=== PATIENT | male | born 1965 | race Caucasian/White ===

== ENCOUNTER 2016-12-12 09:55 | Inpatient (IN) | payer OTHER ==
--- NOTE | 2016-12-12 10:09 | PDOC ---
History of Present Illness - History of Present Illness Initial Comments: 12/12/16 10:56 Patient is a 51 year old male accompanied by brother, with significant medial hx of HTN, HLD and seizures (s/p garett holes) who is presenting to the ED s/p seizure from this morning. Seizure was witnessed by his brother who states that the patient stared off into space. Brother reports this is the usual pattern of the patients seizures. He notes that the patients last seizure was six months ago. Denies any shaking, tongue biting, vomiting, or convulsions. <Meera Ramirez - Last Filed: 12/12/16 13:12> - General History Source: Patient Exam Limitations: No Limitations <Stacey Chisholm - Last Filed: 12/16/16 11:34> - General Stated Complaint: Seizure Time Seen by Provider: 12/12/16 10:04 Past History <Meera Ramirez - Last Filed: 12/12/16 13:12> - Past Medical History Anemia: No Asthma: No Cancer: No Cardiac Disorders: No CVA: No COPD: No CHF: No Dementia: No Diabetes: No GI Disorders: No Disorders: No HTN: Yes Hypercholesterolemia: Yes Liver Disease: No Suicide Attempt (Hx): No Seizures: No (seizure) Thyroid Disease: No - Surgical History Abdominal Surgery: No Appendectomy: No Cardiac Surgery: No Cholecystectomy: No Lung Surgery: No Neurologic Surgery: No Orthopedic Surgery: No - Immunization History Immunization Up to Date: Yes - Psycho/Social/Smoking Cessation Hx Anxiety: No Suicidal Ideation: No Smoking Status: No Smoking History: Never smoked Have you smoked in the past 12 months: No Number of Cigarettes Smoked Daily: 0 Cigars Per Day: 0 Hx Alcohol Use: No Drug/Substance Use Hx: No Substance Use Type: None Hx Substance Use Treatment: No <Stacey Chisholm - Last Filed: 12/16/16 11:34> - Past Medical History Allergies/Adverse Reactions: Allergies Allergy/AdvReac Type Severity Reaction Status Date / Time No Known Drug Allergies Allergy Verified 12/12/16 10:54 Home Medications: Ambulatory Orders Paroxetine HCl [Paxil -] 10 mg PO DAILY 09/03/15 Simvastatin [Zocor -] 20 mg PO HS 09/03/15 Levetiracetam [Keppra -] 1,250 mg PO BID #100 tablet 06/11/16 Aspirin Coated [Ecotrin -] 81 mg PO DAILY #90 tab 12/16/16 Divalproex *ER* [Depakote *ER* -] 1,000 mg PO BID #60 tab 12/16/16 Metoprolol Tartrate [Lopressor -] 25 mg PO BID #60 tablet 12/16/16 Tamsulosin HCl [Flomax -] 0.4 mg PO DAILY@0830 #30 tab 12/16/16 Review of Systems - Review of Systems Comments:: 12/12/16 10:56 GENERAL/CONSTITUTIONAL: No: fever, chills, weakness, loss of appetite. HEAD, EYES, EARS, NOSE AND THROAT: No: change in vision, ear pain, discharge, sore throat, throat swelling. CARDIOVASCULAR: No: chest pain, lightheadedness, palpitations, syncope RESPIRATORY: No: cough, shortness of breath, wheezing, hemoptysis, stridor. GASTROINTESTINAL: No: nausea, vomiting, abdominal cramping, diarrhea, rectal bleeding, constipation. GENITOURINARY: No: dysuria, hematuria, frequency, urgency, flank pain. MUSCULOSKELET AL: No: back pain, neck pain, joint pain, muscle swelling or pain SKIN AND BREASTS: No: lesions, pallor, rash or easy bruising. NEUROLOGIC: Yes: seizure. No: headache, vertigo, paresthesias, weakness ENDOCRINE: No: unexplained weight gain or loss HEMATOLOGIC/LYMPHATIC: No: anemia, easy bleeding, swelling nodes <Ashley,Meera - Last Filed: 12/12/16 13:12> *Physical Exam - Vital Signs Last Vital Signs Temp Pulse Resp BP Pulse Ox 100.8 F H 117 H 20 139/93 100 12/12/16 10:00 12/12/16 10:00 12/12/16 10:00 12/12/16 10:00 12/12/16 10:00 - Physical Exam Comments: 12/12/16 10:57 GENERAL: Attempting to answer questions but having difficulty. Postictal. The patient is in no acute distress. HEAD: Normal with no signs of trauma. EYES: Eyes open, looking to the left. PERRLA, EOMI, sclera anicteric, conjunctiva clear. ENT: Ears normal, nares patent, oropharynx clear without exudates. Moist mucous membranes. NECK: Normal range of motion, supple without lymphadenopathy, JVD, or masses. LUNGS: Breath sounds equal, clear to auscultation bilaterally. No wheezes, and no crackles. HEART: Tachycardic, regular rhythm, normal S1 and S2 without murmur, rub or gallop. ABDOMEN: Soft, nontender, normoactive bowel sounds. No guarding, no rebound. EXTREMITIES: Normal range of motion, no edema. No clubbing or cyanosis. No erythema, or tenderness. NEUROLOGICAL: Moving all extremities. Cranial nerves II through XII grossly intact. Normal speech. No focal neurological deficits. MUSCULOSKELETAL: Back non-tender to palpation, no CVA tenderness SKIN: Warm, Dry, normal turgor, no rashes or lesions noted. <Meera Ramirez - Last Filed: 12/12/16 13:12> Heart Score/ECG Review #1 ECG reviewed & interpreted by me at: 12:45 <Stacey Chisholm - Last Filed: 12/16/16 11:34> ED Treatment Course - LABORATORY CBC & Chemistry Diagram: 12/12/16 11:47 12/12/16 11:47 - RADIOLOGY Radiograph Interpretation: 12/12/16 11:34 Chest X-Ray Impression: Improvement since prior study as described. Reported By: Javier Villegas MD 12/12/16 13:[address] Impression: No evidence of acute intracranial hemorrhage, edema, midline shift, mass effect , or skull fracture. No CT evidence of acute territorial infarction. No interval change from June 11, 2016. Reported By: Flakito Humphrey MD <Meera Ramirez - Last Filed: 12/12/16 13:12> - LABORATORY CBC & Chemistry Diagram: 12/15/16 10:11 12/15/16 10:11 <Stacey Chisholm - Last Filed: 12/16/16 11:34> Medical Decision Making - Critical Care Time Total Critical Care Time (minutes): 35 Critical Care Statement: The care of this patient involved high complexity decision making to prevent further life threatening deterioration of the patient 's condition and/or to evalute & treat vital organ system(s) failure or risk of failure. - Medical Decision Making 12/12/16 10:09 A portion of this note was documented by scribe services under my direction. I have reviewed the details of the note, within reason, and agree with the documentation with the following case summary and management plan written by me. Nursing documentation reviewed and incorporated into medical decision making 12/12/16 11:41 51 yo M presents to the ER via EMS s/p seizure this morning Pt is post ictal Pt brother is available for history He states he went to this patient's room this morning and noted that he was rigid and staring This is how this patient typically presents with a seizure He has sustained no head trauma Was in his usual state of health yesterday on examination: (+) bladder incontinence Pt is somolent Pt arouses with painful stimuli but has not spoken He withdraws from painful stimuli Eyes deviate to the left side DD: seizure, post ictal state, status epilepticus, underlying infection, ? encephalitis Will do labs Will do CT head Will place IV Will give Ativan IV Call placed to Neuro Case reviewed with Elizabeth Will closely monitor on telemetry 12/12/16 12:02 Pt still post ictal Will send to CT 12/12/16 12:41 Laboratory Tests 12/12/16 12/12/16 12/12/16 11:24 11:24 11:24 WBC Hgb Hct Plt Count Neutrophils % Lymphocytes % INR 1.15 H BUN Creatinine Random Glucose Lactic Acid 3.290 H* Creatine Kinase 1260 H D Creatine Kinase Index 0.5 CK-MB (CK-2) 5.834 H Troponin I 0.19 H D 12/12/16 12/12/16 11:47 11:47 WBC 15.5 H D Hgb 12.6 Hct 40.0 Plt Count 166 D Neutrophils % 78.2 D Lymphocytes % 11.6 D INR BUN 13 D Creatinine 1.0 D Random Glucose 113 H Lactic Acid Creatine Kinase Creatine Kinase Index CK-MB (CK-2) Troponin I 12/12/16 12:43 Elevated Lactate Elevated WBC Low grade fever CXR: nml Will give empiric abx Consult placed for Dr Arce 12/12/16 12:[address] arce, likely seizure and underlying toxic-metabolic insult Call placed to Dr. Meadows Will place on Tele Will continuously monitor Will hold on Abx at this time given no source UA pending 12/12/16 14:20 Pt remains post ictal Per chart review, pt has a prolonged post ictal phase on his last admission Will continue to monitor <Phan,Stacey - Last Filed: 12/16/16 11:34> *DC/Admit/Observation/Transfer - Attestations Scribe Attestion: 12/12/16 10:58 Documentation prepared by Meera Ramirez, acting as director medical writing for Stacey Chisholm MD. <Meera Ramirez - Last Filed: 12/12/16 13:12> - Discharge Dispostion Admit: Yes <Stacey Chisholm - Last Filed: 12/16/16 11:34> Diagnosis at time of Disposition: Seizure Qualifiers: Convulsion type: unspecified Qualified Code(s): R56.9 - Unspecified convulsions - Discharge Dispostion Condition at time of disposition: Improved - Prescriptions - Referrals
[2016-12-12] MEDS ORDERED: ACETAMINOPHEN 1000 MG/100 ML VIAL (NON FORMULARY) IVPB ONE (10:22)
[2016-12-12] MEDS ORDERED: SODIUM CHLORIDE 1,000 ML IV STA (10:22)
[2016-12-12] MEDS ORDERED: LORAZEPAM CARPU-JECT 2 MG/ML DISP.SYRIN IVPUSH ONE (10:35)
[2016-12-12 10:54] VITALS: BMI 25.1
[2016-12-12] MEDS ORDERED: ACETAMINOPHEN INJECTION 100 ML IVPB ONE (10:56)
[2016-12-12] MEDS ORDERED: LORAZEPAM CARPU-JECT 2 MG/ML DISP.SYRIN ONE (10:56)
[2016-12-12 11:34] LABS: VENOUS BLOOD GAS HCO3 26.3 meq/L (19-25); VENOUS PH 7.3 (7.32-7.42)
[2016-12-12 11:48] LABS: INR 1.15 (0.82-1.09); PROTHROMBIN TIME (PATIENT) 12.7 SEC (9.98-11.88)
[2016-12-12 11:50] LABS: ACTIVATED PTT 30.9 SECONDS (26.9-34.4)
[2016-12-12 12:05] LABS: BASOPHIL 0.6 % (0-2.0); MCHC 31.5 g/dl (32.0-35.9); MEAN CELL VOLUME 85.7 fl (80-96); MEAN PLT VOLUME 9.1 fl (7.5-11.1); NEUTROPHILS 78.2 % (42.8-82.8); PLATELET COUNT 166 K/MM3 (134-434); RDW 16.9 % (11.9-15.9); WHITE BLOOD COUNT 15.5 K/mm3 (4.0-10.0)
[2016-12-12 12:12] LABS: TROPONIN I 0.19 ng/ml (0.00-0.05)
[2016-12-12 12:31] LABS: ALBUMIN 3.2 g/dl (3.4-5.0); ALK PHOS 75 U/L (45-117); ANION GAP 10 (8-16); BILIRUBIN,TOTAL 0.3 mg/dL (0.2-1.0); CALCIUM 8.5 mg/dL (8.5-10.1); CO2 27 mmol/L (21-32); COCKROFT - GAULT 94.24; GLUCOSE,RANDOM 113 mg/dL (74-106); SGOT/AST 31 U/L (15-37); SGPT/ALT 19 U/L (12-78); TOT PROT 7.6 g/dl (6.4-8.2)
--- NOTE | 2016-12-12 16:21 | HP ---
Admitting History and Physical - Primary Care Physician PCP: Ailyn Meadows - Admission Chief Complaint: seizure History of Present Illness: Patient is a 51 year old male accompanied by brother, with significant medial hx of HTN, HLD and seizures (s/p garett holes) who is presenting to the ED s/p seizure from this morning. Seizure was witnessed by his brother who states that the patient stared off into space. Brother reports this is the usual pattern of the patients seizures. He notes that the patients last seizure was six months ago. Denies any shaking, tongue biting, vomiting, or convulsions. 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 Cardiovascular: Yes: HTN, Hyperlipdemia Psych: Yes: Depression - Smoking History Smoking history: Never smoked Have you smoked in the past 12 months: No Aproximately how many cigarettes per day: 0 - Alcohol/Substance Use Hx Alcohol Use: No - Social History ADL: Family Assistance History of Recent Travel: No Home Medications - Allergies Allergies/Adverse Reactions: Allergies Allergy/AdvReac Type Severity Reaction Status Date / Time No Known Drug Allergies Allergy Verified 12/12/16 10:54 - Home Medications Home Medications: Ambulatory Orders Cyclobenzaprine HCl [Flexeril -] 10 mg PO DAILY PRN 09/03/15 Paroxetine HCl [Paxil -] 10 mg PO DAILY 09/03/15 Simvastatin [Zocor -] 20 mg PO HS 09/03/15 Divalproex *ER* [Depakote *ER* -] 250 mg PO BID #60 tablet.sa 06/11/16 Divalproex [Depakote -] 500 mg PO BID #60 tablet.ec 06/11/16 Levetiracetam [Keppra -] 1,250 mg PO BID #100 tablet 06/11/16 Review of Systems Unable to obtain ROS, reason: clinical condition - Review of Systems Constitutional: reports: Fever Physical Examination Vital Signs: Vital Signs Temperature 99.7 F H 12/12/16 16:01 Pulse Rate 103 H 12/12/16 16:01 Respiratory Rate 18 12/12/16 16:01 Blood Pressure 114/70 12/12/16 16:01 O2 Sat by Pulse Oximetry (%) 100 12/12/16 15:36 Constitutional: Yes: Other (sedated now) Eyes: Yes: Conjunctiva Clear Neck: Yes: Supple Cardiovascular: Yes: Regular Rate and Rhythm Respiratory: Yes: CTA Bilaterally Gastrointestinal: Yes: Normal Bowel Sounds, Soft Edema: No Neurological: Yes: Other (sleepy -- no gaze) Imaging - Results Chest X-ray: Report Reviewed Cat Scan: Report Reviewed EKG: Report Reviewed Problem List - Problems (1) Seizure Code(s): R56.9 - UNSPECIFIED CONVULSIONS Qualifiers: Convulsion type: unspecified Qualified Code(s): R56.9 - Unspecified convulsions (2) Fever Code(s): R50.9 - FEVER, UNSPECIFIED (3) HTN (hypertension) Code(s): I10 - ESSENTIAL (PRIMARY) HYPERTENSION Qualifiers: Hypertension type: essential hypertension Qualified Code(s): I10 - Essential (primary) hypertension (4) Hyperlipidemia Code(s): E78.5 - HYPERLIPIDEMIA, UNSPECIFIED (5) Lactic acid blood increased Code(s): R79.89 - OTHER SPECIFIED ABNORMAL FINDINGS OF BLOOD CHEMISTRY (6) Troponin level elevated Code(s): R74.8 - ABNORMAL LEVELS OF OTHER SERUM ENZYMES Assessment/Plan Monitor on tele seizure precaution continue present meds neuro to follow fall precautions pt has fever/ elevated white count may be due to seizure but no urinalysis yet. will treat empirically for now f/u cultures monitor lactic acid level check depekote level-- recently checked in office last week - both depekote and keppra levels are elevated/ bordeline dvt prophylaxis cardiology eval +ve troponins likely due to stress related ekg - ok - sinus tachy continue fluids will follow
[2016-12-12] MEDS: D5-1/2NS+20 MEQ KCL - 1,000 ML IV SCH (16:52)
[2016-12-12] MEDS ORDERED: LORAZEPAM CARPU-JECT 2 MG/ML DISP.SYRIN IM PRN (17:14)
[2016-12-12] MEDS: ACETAMINOPHEN 1000 MG/100 ML VIAL (NON FORMULARY) IVPB PRN (18:05)
[2016-12-12] MEDS: LEVOFLOXACIN 500 MG IVPB 100 ML IVPB SCH (18:05)
--- NOTE | 2016-12-12 19:39 | CONSULT ---
Consult - text type - Consultation Consultation Note: NEUROLOGY CONSULTAION is greatly appreciated: This 51 yo man lives with his brother. S/P B/L neurosurgical procedures complicated by right hemiparesis an chronic seizure disorder characterized by staring. Now admitted after a seizure with WBC= 12 K. Now on levaquin. Last seizure was 6 mos ago. On Depakote 750 q 12 hrs and levetiracetam 1250 mg q12 hrs. Depakote level = 60 ug% YOLY: S/P B/L frontal garett holes. Sl megancephally (?congenital hydrocephalus?) In diaper. NEURO: Follows simple commands. No useful speech. Full hannah and EOM's. No facial. Gag present. Right hemiparesis with increased reflexes and right Babinski. Withdraws all 4's. IMP: Moderate, B/L cerebral Dysfunction Left cerebral accentuation with Right hemiparesis. Seizure disorder (type uncertain. With staring could be primarily generalized) Exacerbated by toxic-metabolic factors (infection). SUGGEST: Continue antibiotics and hydration. Increase Depakote ER to 1000 mg q12 hrs. Continue Levetiracetam at 1250 q 12 hrs for now. Thank you very much, Sanya Johnson MD
[2016-12-12] MEDS ORDERED: PATIENT'S OWN MEDICATION (NON-FORMULARY) (Simvastatin 20 MG) PO SCH (22:00)
[2016-12-12] MEDS ORDERED: DIVALPROEX NA *ER* EXTEND REL 250 MG TABLET.SA PO SCH ×2 (22:00)
[2016-12-12] MEDS ORDERED: DIVALPROEX SODIUM 500 MG TABLET E.C. PO SCH (22:00)
[2016-12-12] MEDS: HEPARIN NA (PORCINE) 5,000 UNITS/ML 1ML VIAL SQ SCH (22:34)
[2016-12-12] MEDS: DIVALPROEX NA *ER* EXTEND REL 250 MG TABLET.SA PO SCH (22:35)
[2016-12-12] MEDS: levETIRAcetam 500 MG TABLET (FP) PO SCH (22:35)
[2016-12-12] MEDS: ATORVASTATIN CA 10 MG TABLET (FP) PO SCH (22:35)
[2016-12-13] MEDS: ACETAMINOPHEN 1000 MG/100 ML VIAL (NON FORMULARY) IVPB PRN (00:33)
[2016-12-13 07:59] LABS: BASOPHIL 0.6 % (0-2.0); MCHC 32.6 g/dl (32.0-35.9); MEAN CELL VOLUME 85.7 fl (80-96); MEAN PLT VOLUME 8.6 fl (7.5-11.1); NEUTROPHILS 62.9 % (42.8-82.8); PLATELET COUNT 152 K/MM3 (134-434); RDW 16.9 % (11.9-15.9); WHITE BLOOD COUNT 11.3 K/mm3 (4.0-10.0)
[2016-12-13 08:48] LABS: ANION GAP 12 (8-16); BILIRUBIN,TOTAL 0.6 mg/dL (0.2-1.0); CALCIUM 8.7 mg/dL (8.5-10.1); CO2 27 mmol/L (21-32); COCKROFT - GAULT 104.71; CREATININE 0.9 mg/dL (0.7-1.3); GLUCOSE,RANDOM 86 mg/dL (74-106); SGOT/AST 48 U/L (15-37); SGPT/ALT 19 U/L (12-78); TOT PROT 7.2 g/dl (6.4-8.2)
[2016-12-13 09:02] LABS: ALK PHOS 66 U/L (45-117); TROPONIN I 0.05 ng/ml (0.00-0.05)
[2016-12-13 09:11] LABS: URINE APPEARANCE CLEAR; URINE BILIRUBIN NEGATIVE (NEGATIVE); URINE BLOOD NEGATIVE (NEGATIVE); URINE COLOR LTYELLOW; URINE GLUCOSE (UA) NEGATIVE (NEGATIVE); URINE KETONE TRACE (NEGATIVE); URINE LEUK ESTERASE NEGATIVE (NEGATIVE); URINE NITRITE NEGATIVE (NEGATIVE); URINE PROTEIN NEGATIVE (NEGATIVE); URINE UROBILINOGEN NEGATIVE E.U./dl (0.2-1.0)
[2016-12-13] MEDS ORDERED: PT OWN MED DRAWER 7, Y5N ONE (09:31)
[2016-12-13] MEDS: LEVOFLOXACIN 500 MG IVPB 100 ML IVPB SCH (09:41)
[2016-12-13] MEDS: DIVALPROEX NA *ER* EXTEND REL 250 MG TABLET.SA PO SCH ×2 (09:44→21:38)
[2016-12-13] MEDS: levETIRAcetam 500 MG TABLET (FP) PO SCH ×2 (09:45→21:39)
[2016-12-13] MEDS: PARoxetine HCL 10 MG TABLET (FP) PO SCH (09:45)
[2016-12-13] MEDS: HEPARIN NA (PORCINE) 5,000 UNITS/ML 1ML VIAL SQ SCH ×2 (09:46→21:45)
--- NOTE | 2016-12-13 09:55 | PN ---
Progress Note (short form) - Note Progress Note: Pt awake/ comfortable Neuro consult noted denies pain still somewhat confused having fever Vital Signs Temp 99.9 F H 12/13/16 08:59 Pulse 59 L 12/13/16 08:59 Resp 20 12/13/16 08:59 BP 112/60 12/13/16 08:59 Pulse Ox 98 12/12/16 20:35 Intake & Output 12/12/16 12/12/16 12/13/16 11:59 23:59 11:59 Intake Total 220 1250 Balance 220 1250 Weight 170 lb 170 lb Intake: IV 1250 D5-1/2Ns+20 Meq KCl - 1, 1250 000 ml @ 125 mls/hr IV ASDIR [facility] Rx#:[id number] Oral 220 Other: Voiding Method Diaper Indwelling Catheter # Unmeasured Voids Void 2 Height 5 ft 9 in 5 ft 9 in Body Mass Index (BMI) 25.1 25.1 Weight Measurement Method Stated by Caregiver Weight Measurement Method Est/Stated by Patient Active Medications Acetaminophen (Ofirmev Injection -) 1,000 mg IVPB Q6H PRN PRN Reason: FEVER OR PAIN Stop: 12/13/16 11:15 Last Admin: 12/13/16 00:33 Dose: 1,000 mg Atorvastatin Calcium (Lipitor -) 10 mg PO HS [facility] Last Admin: 12/12/16 22:35 Dose: 10 mg Divalproex Sodium (Depakote *Er* -) 750 mg PO BID [facility] Last Admin: 12/13/16 09:44 Dose: 750 mg Heparin Sodium (Porcine) (Heparin -) 5,000 unit SQ BID [facility] Last Admin: 12/13/16 09:46 Dose: 5,000 unit Potassium Chloride/Dextrose/Sod Cl (D5-1/2ns+20 Meq Kcl -) 1,000 mls @ 125 mls/ hr IV ASDIR [facility] Last Admin: 12/12/16 16:52 Dose: 125 mls/hr Levofloxacin (Levaquin 500 Mg Premixed Ivpb -) 100 mls @ 100 mls/hr IVPB DAILY [facility] Last Admin: 12/13/16 09:41 Dose: 100 mls/hr Levetiracetam (Keppra -) 1,250 mg PO BID [facility] Last Admin: 12/13/16 09:45 Dose: 1,250 mg Lorazepam (Ativan Injection -) 2 mg IM Q8H PRN PRN Reason: ANXIETY Paroxetine HCl (Paxil -) 10 mg PO DAILY [facility] Last Admin: 12/13/16 09:45 Dose: 10 mg CBC BMP 12/13/16 06:00 12/13/16 06:00 Physical Examination Constitutional: Yes: Other --awake Eyes: Yes: Conjunctiva Clear Neck: Yes: Supple Cardiovascular: Yes: Regular Rate and Rhythm Respiratory: Yes: CTA Bilaterally Gastrointestinal: Yes: Normal Bowel Sounds, Soft Edema: No Neurological: Yes: right side weakness Imaging - Results Chest X-ray: Report Reviewed Cat Scan: Report Reviewed EKG: Report Reviewed Problem List - Problems (1) Seizure Code(s): R56.9 - UNSPECIFIED CONVULSIONS Qualifiers: Convulsion type: unspecified Qualified Code(s): R56.9 - Unspecified convulsions (2) Fever Code(s): R50.9 - FEVER, UNSPECIFIED (3) HTN (hypertension) Code(s): I10 - ESSENTIAL (PRIMARY) HYPERTENSION Qualifiers: Hypertension type: essential hypertension Qualified Code(s): I10 - Essential (primary) hypertension (4) Hyperlipidemia Code(s): E78.5 - HYPERLIPIDEMIA, UNSPECIFIED (5) Lactic acid blood increased Code(s): R79.89 - OTHER SPECIFIED ABNORMAL FINDINGS OF BLOOD CHEMISTRY (6) Troponin level elevated Code(s): R74.8 - ABNORMAL LEVELS OF OTHER SERUM ENZYMES Assessment/Plan overall better continue fluids monitor lactic acid fever likely due to seizure if cultures -ve - will stop abx in 1-2 days. discussed with nursing staff will follow Problem List - Problems (1) Seizure Code(s): R56.9 - UNSPECIFIED CONVULSIONS Qualifiers: Convulsion type: unspecified Qualified Code(s): R56.9 - Unspecified convulsions (2) Fever Code(s): R50.9 - FEVER, UNSPECIFIED (3) HTN (hypertension) Code(s): I10 - ESSENTIAL (PRIMARY) HYPERTENSION Qualifiers: Hypertension type: essential hypertension Qualified Code(s): I10 - Essential (primary) hypertension (4) Hyperlipidemia Code(s): E78.5 - HYPERLIPIDEMIA, UNSPECIFIED (5) Lactic acid blood increased Code(s): R79.89 - OTHER SPECIFIED ABNORMAL FINDINGS OF BLOOD CHEMISTRY (6) Troponin level elevated Code(s): R74.8 - ABNORMAL LEVELS OF OTHER SERUM ENZYMES
--- NOTE | 2016-12-13 10:05 | EKG ---
Test Reason : Blood Pressure : / mmHG Vent. Rate : 116 BPM Atrial Rate : 116 BPM P-R Int : 132 ms QRS Dur : 074 ms QT Int : 306 ms P-R-T Axes : 056 019 056 degrees QTc Int : 425 ms SINUS TACHYCARDIA Confirmed by CLEMENTINE GARRIDO MD ([id number]) on 12/13/2016 10:04:51 AM Referred By: Confirmed By:CLEMENTINE GARRIDO MD
[2016-12-13] MEDS: D5-1/2NS+20 MEQ KCL - 1,000 ML IV SCH ×2 (15:11→16:38)
--- NOTE | 2016-12-13 17:52 | CON.CARD ---
Consult Consult Specialty:: Cardiology Referred by:: Ailyn Meadows MD Reason for Consultation:: Elevated troponins - History of Present Illness Chief Complaint: Seizure d/o History of Present Illness: Patient is a 51 year old male with significant medial hx of HTN, HLD, s/p B/L neurosurgical procedures complicated by right hemiparesis and chronic seizure disorder characterized by staring who presented to the ED with recurrent seizure exacerbated by toxic-metabolic factors (infection and low grade fever), last seizure 6 months ago. Poor historian, per med records, denies any shaking, tongue biting, vomiting, or convulsions, given Ativan in ED, found to have elevated trops 0.19 since peaked. 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 Cardio/Vascular: Yes: HTN, Hyperlipdemia Psych: Yes: Depression - Alcohol/Substance Use Hx Alcohol Use: No - Smoking History Smoking history: Never smoked Have you smoked in the past 12 months: No Aproximately how many cigarettes per day: 0 - Social History ADL: Family Assistance History of Recent Travel: No Home Medications - Allergies Allergies/Adverse Reactions: Allergies Allergy/AdvReac Type Severity Reaction Status Date / Time No Known Drug Allergies Allergy Verified 12/12/16 10:54 - Home Medications Home Medications: Ambulatory Orders Cyclobenzaprine HCl [Flexeril -] 10 mg PO DAILY PRN 09/03/15 Paroxetine HCl [Paxil -] 10 mg PO DAILY 09/03/15 Simvastatin [Zocor -] 20 mg PO HS 09/03/15 Divalproex *ER* [Depakote *ER* -] 250 mg PO BID #60 tablet.sa 06/11/16 Divalproex [Depakote -] 500 mg PO BID #60 tablet.ec 06/11/16 Levetiracetam [Keppra -] 1,250 mg PO BID #100 tablet 06/11/16 Review of Systems Unable to obtain ROS, reason: Poor historian - Risk Factors Known Risk Factors: Yes: Hypercholesterolemia, Hypertension Vital Signs: Vital Signs Temperature 99.9 F H 12/13/16 08:59 Pulse Rate 59 L 12/13/16 08:59 Respiratory Rate 20 12/13/16 08:59 Blood Pressure 112/60 12/13/16 08:59 O2 Sat by Pulse Oximetry (%) 96 04/22/17 09:00 Constitutional: Yes: No Distress, Calm Neck: Yes: Supple Respiratory: Yes: Regular, Diminished, On Nasal O2 Gastrointestinal: Yes: Normal Bowel Sounds, Soft, Abdomen, Obese Cardiovascular: Yes: Regular Rate and Rhythm JVD: No Carotid Bruit: No Heart Sounds: Yes: S1, S2 Edema: No - Other Data Labs, Other Data: CBC, BMP 12/13/16 06:00 12/13/16 06:00 INR, PTT INR 1.15 (0.82-1.09) H 12/12/16 11:24 Troponin, BNP 12/13/16 06:00 Troponin I 0.05 D Troponin, BNP 12/13/16 06:00 Troponin I 0.[address] @ 116 Tele: ST Imaging - Results Chest X-ray: Report Reviewed (Resolved congestion) Cat Scan: Report Reviewed (HCT: No new stroke or bleed) Problem List - Problems (1) Seizure Code(s): R56.9 - UNSPECIFIED CONVULSIONS Qualifiers: Convulsion type: unspecified Qualified Code(s): R56.9 - Unspecified convulsions (2) Troponin level elevated Code(s): R74.8 - ABNORMAL LEVELS OF OTHER SERUM ENZYMES (3) Fever Code(s): R50.9 - FEVER, UNSPECIFIED (4) HTN (hypertension) Code(s): I10 - ESSENTIAL (PRIMARY) HYPERTENSION Qualifiers: Hypertension type: essential hypertension Qualified Code(s): I10 - Essential (primary) hypertension (5) Hyperlipidemia Code(s): E78.5 - HYPERLIPIDEMIA, UNSPECIFIED Qualifiers: Hyperlipidemia type: pure hypercholesterolemia Qualified Code(s): E78.00 - Pure hypercholesterolemia, unspecified; E78.0 - Pure hypercholesterolemia (6) Myositis Code(s): M60.9 - MYOSITIS, UNSPECIFIED Qualifiers: Myositis type: unspecified type (7) Lactic acid blood increased Code(s): R79.89 - OTHER SPECIFIED ABNORMAL FINDINGS OF BLOOD CHEMISTRY (8) Demand ischemia Code(s): I24.8 - OTHER FORMS OF ACUTE ISCHEMIC HEART DISEASE Assessment/Plan 1. Elevated troponins referable to demand ischemia since peaked 2. Seizure d/o 3. Fever 4. Hypertension 5. Hyperlipidemia 6. Lactic acidosis 7. Myositis P:1. Empiric abx pending c&s, IVF, trend lactate and CPK, may have to d/c statin if CPK continues to rise 2. Echo to assess LV and valve fxn 3. Continue Lipitor 10 qd, DVT prophylaxis, antiepileptic dosing per neuro 4. Thank you for consultative opportunity
[2016-12-13] MEDS: ATORVASTATIN CA 10 MG TABLET (FP) PO SCH (21:38)
[2016-12-14] MEDS: D5-1/2NS+20 MEQ KCL - 1,000 ML IV SCH ×4 (00:17→21:30)
[2016-12-14 08:42] LABS: TROPONIN I < 0.02 ng/ml (0.00-0.05)
--- NOTE | 2016-12-14 09:53 | PN ---
Progress Note (short form) - Note Progress Note: Pt more awake/ comfortable no distress no further seizure low grade temp cultures -ve so far Vital Signs Temp 99 F 12/14/16 08:14 Pulse 79 12/14/16 08:14 Resp 20 12/14/16 08:14 BP 131/86 12/14/16 08:14 Pulse Ox 96 12/14/16 08:15 Intake & Output 12/13/16 12/13/16 12/14/16 11:59 23:59 11:59 Intake Total 1250 1620 1560 Output Total 2800 2000 Balance 1250 -1180 -440 Intake: IV 1250 1500 1500 D5-1/2Ns+20 Meq KCl - 1, 1250 1500 1500 000 ml @ 125 mls/hr IV ASDIR [facility] Rx#:[id number] Oral 120 60 Output: Urine 2800 2000 Ny 2800 2000 Other: Voiding Method Indwelling Catheter Indwelling Catheter Indwelling Catheter CBC,CMP WBC 11.3 K/mm3 (4.0-10.0) H 12/13/16 06:00 RBC 4.43 M/mm3 (4.00-5.60) 12/13/16 06:00 Hgb 12.4 GM/dL (11.7-16.9) 12/13/16 06:00 Hct 38.0 % (35.4-49) 12/13/16 06:00 MCV 85.7 fl (80-96) 12/13/16 06:00 MCHC 32.6 g/dl (32.0-35.9) 12/13/16 06:00 RDW 16.9 % (11.9-15.9) H 12/13/16 06:00 Plt Count 152 K/MM3 (134-434) 12/13/16 06:00 MPV 8.6 fl (7.5-11.1) 12/13/16 06:00 Neutrophils % 62.9 % (42.8-82.8) 12/13/16 06:00 Lymphocytes % 27.0 % (8-40) D 12/13/16 06:00 Monocytes % 9.5 % (3.8-10.2) 12/13/16 06:00 Eosinophils % 0.0 % (0-4.5) 12/13/16 06:00 Basophils % 0.6 % (0-2.0) 12/13/16 06:00 Sodium 139 mmol/L (136-145) 12/13/16 06:00 Potassium 3.8 mmol/L (3.5-5.1) 12/13/16 06:00 Chloride 100 mmol/L (98-107) 12/13/16 06:00 Carbon Dioxide 27 mmol/L (21-32) 12/13/16 06:00 Anion Gap 12 (8-16) 12/13/16 06:00 BUN 10 mg/dL (7-18) D 12/13/16 06:00 Creatinine 0.9 mg/dL (0.7-1.3) 12/13/16 06:00 Creat Clearance w eGFR > 60 (>60) 12/13/16 06:00 Random Glucose 86 mg/dL (74-106) D 12/13/16 06:00 Lactic Acid 1.461 mmol/L (0.4-2.0) 12/14/16 06:00 Calcium 8.7 mg/dL (8.5-10.1) 12/13/16 06:00 Magnesium 2.0 mg/dL (1.8-2.4) 12/13/16 06:00 Total Bilirubin 0.6 mg/dL (0.2-1.0) D 12/13/16 06:00 AST 48 U/L (15-37) H D 12/13/16 06:00 ALT 19 U/L (12-78) 12/13/16 06:00 Alkaline Phosphatase 66 U/L (45-117) 12/13/16 06:00 Creatine Kinase 978 IU/L (39-308) H D 12/14/16 06:00 Creatine Kinase Index < 0.1 % (0.0-5.0) 12/14/16 06:00 CK-MB (CK-2) < 1.000 ng/ml (0.5-3.6) 12/14/16 06:00 CK-MB (CK-2) Rel Index Cancelled 12/12/16 11:24 Troponin I < 0.02 ng/ml (0.00-0.05) D 12/14/16 06:00 Total Protein 7.2 g/dl (6.4-8.2) 12/13/16 06:00 Albumin 3.0 g/dl (3.4-5.0) L 12/13/16 06:00 Physical Examination Constitutional: Yes: Other --awake/ comfortable Eyes: Yes: Conjunctiva Clear Neck: Yes: Supple Cardiovascular: Yes: Regular Rate and Rhythm Respiratory: Yes: CTA Bilaterally Gastrointestinal: Yes: Normal Bowel Sounds, Soft Edema: No Neurological: Yes: right side weakness Imaging - Results Chest X-ray: Report Reviewed Cat Scan: Report Reviewed EKG: Report Reviewed Assessment/Plan overall better continue fluids monitor lactic acid-- normal fever likely due to seizure if cultures -ve - will stop abx in am cpk level down cardiology consult noted/ appreciated start on flomax d/c ny in am increase depekote will follow Problem List - Problems (1) Seizure Code(s): R56.9 - UNSPECIFIED CONVULSIONS Qualifiers: Convulsion type: unspecified Qualified Code(s): R56.9 - Unspecified convulsions (2) Fever Code(s): R50.9 - FEVER, UNSPECIFIED (3) HTN (hypertension) Code(s): I10 - ESSENTIAL (PRIMARY) HYPERTENSION Qualifiers: Hypertension type: essential hypertension Qualified Code(s): I10 - Essential (primary) hypertension (4) Hyperlipidemia Code(s): E78.5 - HYPERLIPIDEMIA, UNSPECIFIED Qualifiers: Hyperlipidemia type: pure hypercholesterolemia Qualified Code(s): E78.00 - Pure hypercholesterolemia, unspecified; E78.0 - Pure hypercholesterolemia (5) Lactic acid blood increased Code(s): R79.89 - OTHER SPECIFIED ABNORMAL FINDINGS OF BLOOD CHEMISTRY (6) Troponin level elevated Code(s): R74.8 - ABNORMAL LEVELS OF OTHER SERUM ENZYMES
[2016-12-14] MEDS ORDERED: DIVALPROEX NA *ER* EXTEND REL 500 MG TABLET.SA (FP) PO SCH (10:30)
[2016-12-14] MEDS ORDERED: PT OWN MED DRAWER 7, Y5N ONE (10:31)
[2016-12-14] MEDS: LEVOFLOXACIN 500 MG IVPB 100 ML IVPB SCH (11:21)
[2016-12-14] MEDS: TAMSULOSIN HCL 0.4 MG CAP.ER.24H (FP) PO SCH (11:23)
[2016-12-14] MEDS: levETIRAcetam 500 MG TABLET (FP) PO SCH ×2 (11:26→21:41)
[2016-12-14] MEDS: PARoxetine HCL 10 MG TABLET (FP) PO SCH (11:27)
[2016-12-14] MEDS: HEPARIN NA (PORCINE) 5,000 UNITS/ML 1ML VIAL SQ SCH ×2 (11:28→21:42)
[2016-12-14] MEDS: DIVALPROEX NA *ER* EXTEND REL 250 MG TABLET.SA PO SCH ×2 (11:28→21:40)
--- NOTE | 2016-12-14 14:20 | PN ---
Progress Note, Physician History of Present Illness: Defervescing, no further seizures, tele shows SR. - Current Medication List Current Medications: Active Medications Atorvastatin Calcium (Lipitor -) 10 mg PO HS [facility] Last Admin: 12/13/16 21:38 Dose: 10 mg Divalproex Sodium (Depakote *Er* -) 1,000 mg PO BID [facility] Last Admin: 12/14/16 11:28 Dose: 1,000 mg Heparin Sodium (Porcine) (Heparin -) 5,000 unit SQ BID [facility] Last Admin: 12/14/16 11:28 Dose: 5,000 unit Potassium Chloride/Dextrose/Sod Cl (D5-1/2ns+20 Meq Kcl -) 1,000 mls @ 125 mls/ hr IV ASDIR [facility] Last Admin: 12/14/16 11:22 Dose: 125 mls/hr Levofloxacin (Levaquin 500 Mg Premixed Ivpb -) 100 mls @ 100 mls/hr IVPB DAILY [facility] Last Admin: 12/14/16 11:21 Dose: 100 mls/hr Levetiracetam (Keppra -) 1,250 mg PO BID [facility] Last Admin: 12/14/16 11:26 Dose: 1,250 mg Lorazepam (Ativan Injection -) 2 mg IM Q8H PRN PRN Reason: ANXIETY Paroxetine HCl (Paxil -) 10 mg PO DAILY [facility] Last Admin: 12/14/16 11:27 Dose: 10 mg Tamsulosin HCl (Flomax -) 0.4 mg PO DAILY@0830 [facility] Last Admin: 12/14/16 11:23 Dose: 0.4 mg - Objective Vital Signs: Vital Signs Temperature 99 F 12/14/16 08:14 Pulse Rate 79 12/14/16 08:14 Respiratory Rate 20 12/14/16 08:14 Blood Pressure 131/86 12/14/16 08:14 O2 Sat by Pulse Oximetry (%) 96 12/14/16 08:15 Constitutional: Yes: No Distress, Calm Neck: Yes: Supple Cardiovascular: Yes: Regular Rate and Rhythm Respiratory: Yes: Regular, Diminished Gastrointestinal: Yes: Normal Bowel Sounds, Soft Edema: No Labs: CBC, BMP 12/13/16 06:00 12/13/16 06:00 INR, PTT INR 1.15 (0.82-1.09) H 12/12/16 11:24 Problem List - Problems (1) Seizure Code(s): R56.9 - UNSPECIFIED CONVULSIONS Qualifiers: Convulsion type: unspecified Qualified Code(s): R56.9 - Unspecified convulsions (2) Troponin level elevated Code(s): R74.8 - ABNORMAL LEVELS OF OTHER SERUM ENZYMES (3) Fever Code(s): R50.9 - FEVER, UNSPECIFIED (4) HTN (hypertension) Code(s): I10 - ESSENTIAL (PRIMARY) HYPERTENSION Qualifiers: Hypertension type: essential hypertension Qualified Code(s): I10 - Essential (primary) hypertension (5) Hyperlipidemia Code(s): E78.5 - HYPERLIPIDEMIA, UNSPECIFIED Qualifiers: Hyperlipidemia type: pure hypercholesterolemia Qualified Code(s): E78.00 - Pure hypercholesterolemia, unspecified; E78.0 - Pure hypercholesterolemia (6) Myositis Code(s): M60.9 - MYOSITIS, UNSPECIFIED Qualifiers: Myositis type: unspecified type (7) Lactic acid blood increased Code(s): R79.89 - OTHER SPECIFIED ABNORMAL FINDINGS OF BLOOD CHEMISTRY (8) Demand ischemia Code(s): I24.8 - OTHER FORMS OF ACUTE ISCHEMIC HEART DISEASE Assessment/Plan 1. Elevated troponins referable to demand ischemia since peaked 2. Seizure d/o 3. Fever 4. Hypertension 5. Hyperlipidemia 6. Lactic acidosis improving 7. Myositis improving P:1. Empiric abx pending c&s, IVF, lactate and CPK have peaked 2. Echo to assess LV and valve fxn 3. Continue Lipitor 10 qd, DVT prophylaxis, antiepileptic dosing per neuro
[2016-12-14] MEDS: ATORVASTATIN CA 10 MG TABLET (FP) PO SCH (21:41)
[2016-12-15] MEDS: D5-1/2NS+20 MEQ KCL - 1,000 ML IV SCH ×2 (06:06→17:42)
--- NOTE | 2016-12-15 08:38 | PN ---
Progress Note, Physician Chief Complaint: Note periods of rapid HR - sinus tachycardia History of Present Illness: Patient was seen and examined. Awake and alert. Chart was reviewed Denies chest pain or SOB - Current Medication List Current Medications: Active Medications Atorvastatin Calcium (Lipitor -) 10 mg PO HS [facility] Last Admin: 12/14/16 21:41 Dose: 10 mg Divalproex Sodium (Depakote *Er* -) 1,000 mg PO BID [facility] Last Admin: 12/14/16 21:40 Dose: 1,000 mg Heparin Sodium (Porcine) (Heparin -) 5,000 unit SQ BID [facility] Last Admin: 12/14/16 21:42 Dose: 5,000 unit Potassium Chloride/Dextrose/Sod Cl (D5-1/2ns+20 Meq Kcl -) 1,000 mls @ 125 mls/ hr IV ASDIR [facility] Last Admin: 12/15/16 06:06 Dose: 125 mls/hr Levofloxacin (Levaquin 500 Mg Premixed Ivpb -) 100 mls @ 100 mls/hr IVPB DAILY [facility] Last Admin: 12/14/16 11:21 Dose: 100 mls/hr Levetiracetam (Keppra -) 1,250 mg PO BID [facility] Last Admin: 12/14/16 21:41 Dose: 1,250 mg Lorazepam (Ativan Injection -) 2 mg IM Q8H PRN PRN Reason: ANXIETY Paroxetine HCl (Paxil -) 10 mg PO DAILY [facility] Last Admin: 12/14/16 11:27 Dose: 10 mg Tamsulosin HCl (Flomax -) 0.4 mg PO DAILY@0830 [facility] Last Admin: 12/14/16 11:23 Dose: 0.4 mg - Objective Vital Signs: Vital Signs Temperature 98.4 F 12/15/16 05:32 Pulse Rate 76 12/15/16 05:32 Respiratory Rate 20 12/15/16 05:32 Blood Pressure 141/92 12/15/16 05:32 O2 Sat by Pulse Oximetry (%) 96 12/14/16 21:00 Neck: Yes: Supple Cardiovascular: Yes: Regular Rate and Rhythm, S1, S2 Respiratory: Yes: Diminished Gastrointestinal: Yes: Normal Bowel Sounds, Soft. No: Tenderness Edema: No Problem List - Problems (1) Demand ischemia Code(s): I24.8 - OTHER FORMS OF ACUTE ISCHEMIC HEART DISEASE (2) Lactic acid blood increased Code(s): R79.89 - OTHER SPECIFIED ABNORMAL FINDINGS OF BLOOD CHEMISTRY (3) Myositis Code(s): M60.9 - MYOSITIS, UNSPECIFIED Qualifiers: Myositis type: unspecified type (4) Seizure Code(s): R56.9 - UNSPECIFIED CONVULSIONS Qualifiers: Convulsion type: unspecified Qualified Code(s): R56.9 - Unspecified convulsions (5) Fever Code(s): R50.9 - FEVER, UNSPECIFIED (6) HTN (hypertension) Code(s): I10 - ESSENTIAL (PRIMARY) HYPERTENSION Qualifiers: Hypertension type: essential hypertension Qualified Code(s): I10 - Essential (primary) hypertension (7) Hyperlipidemia Code(s): E78.5 - HYPERLIPIDEMIA, UNSPECIFIED Qualifiers: Hyperlipidemia type: pure hypercholesterolemia Qualified Code(s): E78.00 - Pure hypercholesterolemia, unspecified; E78.0 - Pure hypercholesterolemia Assessment/Plan 1. Elevated troponins referable to demand ischemia and periods of rapid HR - sinus tachycardia 2. Seizure disorder 3. Fever, ? etiology 4. Hypertension 5. Hyperlipidemia 6. Lactic acidosis improving 7. Myositis improving PLAN: 1. Empiric antibiotics. Continue IVF 2. Echocardiography to assess LV and valvular function 3. Continue Lipitor 10 mg qd. Add Lopressor 25 mg BID. 4. DVT prophylaxis and antiepileptic dosing per neuro Further plans are to follow Rodrigo Becker MD
--- NOTE | 2016-12-15 09:21 | PN ---
Progress Note (short form) - Note Progress Note: Subjective Patient seen and examined. Comfortable. Looks and feels much better. Eating OK Objective Last Vital Signs Temp Pulse Resp BP Pulse Ox 98.4 F 76 20 141/92 96 12/15/16 05:32 12/15/16 05:32 12/15/16 05:32 12/15/16 05:32 12/14/16 21:00 CBC, BMP 12/13/16 06:00 12/13/16 06:00 Physical Exam Constitutional: Yes: Other --awake/ comfortable Eyes: Yes: Conjunctiva Clear Neck: Yes: Supple Cardiovascular: Yes: Regular Rate and Rhythm Respiratory: Yes: CTA Bilaterally Gastrointestinal: Yes: Normal Bowel Sounds, Soft Edema: No Neurological: Yes: right side weakness-- resolved. Assessment and Plan Clinically much better. No further seizure activity. Afebrile. Will d/c abx. Follow up labs ordered. Echo today. Continue mild hydration. If stable anticipate d/c by tomorrow. Physical therapy. Will follow. D/c Telemetry monitoring. Documentation prepared by Petra Barraza, acting as a quality engineer medical device for Ailyn Meadows MD. <Petra Barraza - Last Filed: 12/15/16 09:39> Problem List - Problems (1) Seizure Code(s): R56.9 - UNSPECIFIED CONVULSIONS Qualifiers: Convulsion type: unspecified Qualified Code(s): R56.9 - Unspecified convulsions (2) Fever Code(s): R50.9 - FEVER, UNSPECIFIED (3) HTN (hypertension) Code(s): I10 - ESSENTIAL (PRIMARY) HYPERTENSION Qualifiers: Hypertension type: essential hypertension Qualified Code(s): I10 - Essential (primary) hypertension (4) Hyperlipidemia Code(s): E78.5 - HYPERLIPIDEMIA, UNSPECIFIED Qualifiers: Hyperlipidemia type: pure hypercholesterolemia Qualified Code(s): E78.00 - Pure hypercholesterolemia, unspecified; E78.0 - Pure hypercholesterolemia (5) Lactic acid blood increased Code(s): R79.89 - OTHER SPECIFIED ABNORMAL FINDINGS OF BLOOD CHEMISTRY (6) Troponin level elevated Code(s): R74.8 - ABNORMAL LEVELS OF OTHER SERUM ENZYMES <Ailyn Meadows - Last Filed: 12/15/16 09:21>
[2016-12-15 10:18] LABS: BASOPHIL 0.7 % (0-2.0); EOSINOPHIL 0.3 % (0-4.5); MCH 27.7 pg (25.7-33.7); MCHC 32.6 g/dl (32.0-35.9); MEAN PLT VOLUME 8.7 fl (7.5-11.1); NEUTROPHILS 59.6 % (42.8-82.8); PLATELET COUNT 185 K/MM3 (134-434); RDW 16.6 % (11.9-15.9); WHITE BLOOD COUNT 9.8 K/mm3 (4.0-10.0)
[2016-12-15] MEDS: DIVALPROEX NA *ER* EXTEND REL 250 MG TABLET.SA PO SCH ×2 (10:27→21:45)
[2016-12-15] MEDS: levETIRAcetam 500 MG TABLET (FP) PO SCH ×2 (10:28→21:45)
[2016-12-15] MEDS: TAMSULOSIN HCL 0.4 MG CAP.ER.24H (FP) PO SCH (10:29)
[2016-12-15] MEDS: HEPARIN NA (PORCINE) 5,000 UNITS/ML 1ML VIAL SQ SCH ×2 (10:29→21:45)
[2016-12-15] MEDS: PARoxetine HCL 10 MG TABLET (FP) PO SCH (10:30)
[2016-12-15 10:41] LABS: ALK PHOS 72 U/L (45-117); ANION GAP 11 (8-16); BILIRUBIN,TOTAL 0.5 mg/dL (0.2-1.0); CALCIUM 9.2 mg/dL (8.5-10.1); CO2 25 mmol/L (21-32); COCKROFT - GAULT 104.71; CREATININE 0.9 mg/dL (0.7-1.3); GLUCOSE,RANDOM 97 mg/dL (74-106); SGOT/AST 34 U/L (15-37); SGPT/ALT 33 U/L (12-78); TOT PROT 7.4 g/dl (6.4-8.2)
[2016-12-15] MEDS ORDERED: METOPROLOL TARTRATE 25 MG TABLET (FP) ONE (10:59)
[2016-12-15] MEDS: METOPROLOL TARTRATE 25 MG TABLET (FP) PO SCH ×2 (17:39→21:45)
[2016-12-15] MEDS ORDERED: PT OWN MED DRAWER 7, Y5N ONE (21:39)
[2016-12-15] MEDS: ATORVASTATIN CA 10 MG TABLET (FP) PO SCH (21:45)
[2016-12-16 06:17] VITALS: TEMP 98
--- NOTE | 2016-12-16 07:58 | PN ---
Progress Note (short form) - Note Progress Note: Chief Complaint: Events noted, notes reviewed, denies any chest pain or dyspnea History of Present Illness: Seen and examined on telemetry. Events noted, notes reviewed, denies any chest pain or dyspnea Echocardiography revealed normal LV systolic function with no significant valvular pathology - Current Medication List Current Medications Atorvastatin Calcium (Lipitor -) 10 mg PO HS [facility] Last Admin: 12/15/16 21:45 Dose: 10 mg Divalproex Sodium (Depakote *Er* -) 1,000 mg PO BID [facility] Last Admin: 12/15/16 21:45 Dose: 1,000 mg Heparin Sodium (Porcine) (Heparin -) 5,000 unit SQ BID [facility] Last Admin: 12/15/16 21:45 Dose: 5,000 unit Potassium Chloride/Dextrose/Sod Cl (D5-1/2ns+20 Meq Kcl -) 1,000 mls @ 125 mls/ hr IV ASDIR [facility] Last Admin: 12/15/16 17:42 Dose: 125 mls/hr Levetiracetam (Keppra -) 1,250 mg PO BID [facility] Last Admin: 12/15/16 21:45 Dose: 1,250 mg Lorazepam (Ativan Injection -) 2 mg IM Q8H PRN PRN Reason: ANXIETY Metoprolol Tartrate (Lopressor -) 25 mg PO BID [facility] Last Admin: 12/15/16 21:45 Dose: 25 mg Paroxetine HCl (Paxil -) 10 mg PO DAILY [facility] Last Admin: 12/15/16 10:30 Dose: 10 mg Tamsulosin HCl (Flomax -) 0.4 mg PO DAILY@0830 [facility] Last Admin: 12/15/16 10:29 Dose: 0.4 mg Review of Systems - Review of Systems Constitutional: denies: Chills, Fever Cardiovascular: As noted above Respiratory: denies: Cough or Sputum Production Gastrointestinal: denies: Nausea, Vomiting, Diarrhea, Constipation or Abdominal Pain Musculoskeletal: No symptoms reported Neurological: denies: Dizziness or Headaches - Objective Vital Signs: Last Vital Signs Temp Pulse Resp BP Pulse Ox 98 F 82 22 130/86 98 12/16/16 05:00 12/16/16 05:00 12/16/16 05:00 12/16/16 05:00 12/15/16 10:00 Intake & Output 04/2212/14/16 12/15/16 12/16/16 23:59 23:59 23:59 23:59 Intake Total 2870 6160 1900 1500 Output Total 2800 4640 1550 Balance 70 3382 995 4509 Neck: Supple Negative JVD Cardiovascular: S1 S2 Regular Rate and Rhythm Respiratory: Diminished Breath Sounds at the Bases Gastrointestinal: Soft Benign Normal Bowel Sounds Ext: No Edema Labs: CBC, BMP 12/15/16 10:11 12/15/16 10:11 Hepatic Panel Total Bilirubin 0.5 mg/dL (0.2-1.0) 12/15/16 10:11 AST 34 U/L (15-37) D 12/15/16 10:11 ALT 33 U/L (12-78) D 12/15/16 10:11 Alkaline Phosphatase 72 U/L (45-117) 12/15/16 10:11 Albumin 3.0 g/dl (3.4-5.0) L 12/15/16 10:11 Assessment/Plan ASSESSMENT: 1. 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 Sinus tachycardia, resolved 3. Hypertension 4. Hyperlipidemia 5. Seizure disorder 6. Myositis resolving PLAN: 1. Continue Lopressor 2. Add ASA 3. Continue Lipitor 4. Further cardiovascular evaluation can be performed as outpatient Jaciel Dunlap MD
[2016-12-16] MEDS: TAMSULOSIN HCL 0.4 MG CAP.ER.24H (FP) PO SCH (09:12)
[2016-12-16] MEDS: HEPARIN NA (PORCINE) 5,000 UNITS/ML 1ML VIAL SQ SCH (09:13)
[2016-12-16] MEDS: DIVALPROEX NA *ER* EXTEND REL 250 MG TABLET.SA PO SCH (09:13)
[2016-12-16] MEDS: METOPROLOL TARTRATE 25 MG TABLET (FP) PO SCH (09:14)
[2016-12-16] MEDS: PARoxetine HCL 10 MG TABLET (FP) PO SCH (09:14)
[2016-12-16] MEDS: levETIRAcetam 500 MG TABLET (FP) PO SCH (09:14)
--- NOTE | 2016-12-16 09:46 | DS ---
Physical Examination Vital Signs: Vital Signs Temperature 98 F 12/16/16 05:00 Pulse Rate 82 12/16/16 05:00 Respiratory Rate 22 12/16/16 05:00 Blood Pressure 130/86 12/16/16 05:00 O2 Sat by Pulse Oximetry (%) 98 12/15/16 10:00 Constitutional: Yes: No Distress, Calm Cardiovascular: Yes: Regular Rate and Rhythm Respiratory: Yes: CTA Bilaterally Gastrointestinal: Yes: Normal Bowel Sounds, Soft, Abdomen, Obese. No: Distention, Tenderness Edema: No Labs: CBC, BMP 12/15/16 10:11 12/15/16 10:11 Discharge Summary Reason For Visit: CONVULSIONS Current Active Problems Demand ischemia (Acute) Lactic acid blood increased (Acute) Myositis (Acute) Seizure (Acute) Troponin level elevated (Acute) Hospital Course: Admitted for breakthrough seizures and myositis, with elevated lactic acid Seen by Neurology and Cardiology-- Lopressor added Depakote increased by NEurology NO seizures so far Pt's cultures were all negative and iv antibiotics were dc pt is afebrile evaluated by PT yesterday lactic acid and CPK decreased Pt 's tele unremarkable stable for dc home follow up with PMD, Neurology and Cardiology as an outpt Condition: Improved - Instructions Referrals: Sanya Johnson MD [Staff Physician] - 2 Weeks Henry Metz MD [Staff Physician] - 3 Weeks Ailyn Meadows MD [Primary Care Provider] - 2 Weeks Disposition: HOME - Home Medications Comprehensive Discharge Medication List: Ambulatory Orders Cyclobenzaprine HCl [Flexeril -] 10 mg PO DAILY PRN 09/03/15 Paroxetine HCl [Paxil -] 10 mg PO DAILY 09/03/15 Simvastatin [Zocor -] 20 mg PO HS 09/03/15 Divalproex *ER* [Depakote *ER* -] 250 mg PO BID #60 tablet.sa 06/11/16 Divalproex [Depakote -] 500 mg PO BID #60 tablet.ec 06/11/16 Levetiracetam [Keppra -] 1,250 mg PO BID #100 tablet 06/11/16
[2016-12-16] MEDS ORDERED: ASPIRIN COATED 81 MG TABLET.EC PO SCH (10:00)
[2016-12-16 10:30] VITALS: BP 140/90; PULSE 64
== END 2016-12-16 14:11 | disposition home or self-care (01) | DRG 101 ==
LOC: JER 09:55 → JERBED 13:16 → J4W 15:19
PROVIDERS: ADMIT Internal Medicine; ATTEND Internal Medicine
DX: G40.909 Epilepsy, unspecified, not intractable, without status epilepticus (principal); E87.2 Acidosis; G81.91 Hemiplegia, unspecified affecting right dominant side; M60.9 Myositis, unspecified; I25.119 Atherosclerotic heart disease of native coronary artery with unspecified angina pectoris; R00.0 Tachycardia, unspecified; I10 Essential (primary) hypertension; E78.5 Hyperlipidemia, unspecified
CPT/HCPCS: 36415; 70450-TC; 71010-TC; 80053; 80164; 81003; 82550; 82553; 82803; 83605; 83735; 84484; 85025; 85610; 85730; 86850; 86900; 86901; 87040; 87086; 93005; 93010; 93306-TC; 97116-GP; 97161-GP; 99283-25; J1644

== ENCOUNTER 2017-02-01 09:42 | Inpatient (IN) | payer OTHER ==
[2017-02-01] MEDS: SODIUM CHLORIDE 1,000 ML IV SCH ×2 (10:15→22:18)
[2017-02-01 10:31] LABS: BASOPHIL 0.3 % (0-2.0); MCH 28.4 pg (25.7-33.7); MCHC 32.9 g/dl (32.0-35.9); MEAN CELL VOLUME 86.3 fl (80-96); MEAN PLT VOLUME 9.5 fl (7.5-11.1); NEUTROPHILS 81.6 % (42.8-82.8); PLATELET COUNT 198 K/MM3 (134-434); RDW 16.6 % (11.9-15.9); WHITE BLOOD COUNT 12.8 K/mm3 (4.0-10.0)
--- NOTE | 2017-02-01 10:45 | PDOC ---
History of Present Illness - General History Source: EMS, Old Records Exam Limitations: Clinical Condition, Unresponsive - History of Present Illness Initial Comments: 02/01/17 09:47 The patient is a 51-year-old man with a significant past medical history of hypertension, hypercholesterolemia, seizure disorder (on Keppra and Depakote; status post garett holes) who presents to the emergency department via EMS status post witnessed seizures this morning. According to EMS, patient was found to experience to what seemed to be a Grand Mal seizure that resolved on its own, as per EMS.The patient's typical seizures consists of the patient staring into space and has a long post ictal phase, according to old reports. No medicine given en route. Upon ED arrival, the patient was noted to have right sided facial droop and seizing. Code elizondo was activated at 09:44 AM. Patient rushed to Head CT at 09:46. HPI is limited. <Danay Lewis - Last Filed: 02/01/17 14:14> - General History Source: EMS Exam Limitations: Clinical Condition <Quirino Groves - Last Filed: 02/01/17 14:58> - General Stated Complaint: SEIZURE Time Seen by Provider: 02/01/17 09:47 Past History <Danay Lewis - Last Filed: 02/01/17 14:14> - Past Medical History Anemia: No Asthma: No Cancer: No Cardiac Disorders: No CVA: No COPD: No CHF: No Dementia: No Diabetes: No GI Disorders: No Disorders: No HTN: Yes Hypercholesterolemia: Yes Liver Disease: No Suicide Attempt (Hx): No Seizures: No (seizure) Thyroid Disease: No - Surgical History Abdominal Surgery: No Appendectomy: No Cardiac Surgery: No Cholecystectomy: No Lung Surgery: No Neurologic Surgery: No Orthopedic Surgery: No - Immunization History Immunization Up to Date: Yes - Psycho/Social/Smoking Cessation Hx Anxiety: No Suicidal Ideation: No Smoking Status: No Smoking History: Never smoked Have you smoked in the past 12 months: No Number of Cigarettes Smoked Daily: 0 Cigars Per Day: 0 Hx Alcohol Use: No Drug/Substance Use Hx: No Substance Use Type: None Hx Substance Use Treatment: No <Quirino Groves - Last Filed: 02/01/17 14:58> - Past Medical History Allergies/Adverse Reactions: Allergies Allergy/AdvReac Type Severity Reaction Status Date / Time No Known Drug Allergies Allergy Verified 02/01/17 10:18 Home Medications: Ambulatory Orders Paroxetine HCl [Paxil -] 10 mg PO DAILY 09/03/15 Simvastatin [Zocor -] 20 mg PO HS 09/03/15 Levetiracetam [Keppra -] 1,250 mg PO BID #100 tablet 06/11/16 Aspirin Coated [Ecotrin -] 81 mg PO DAILY #90 tab 12/16/16 Divalproex *ER* [Depakote *ER* -] 1,000 mg PO BID #60 tab 12/16/16 Metoprolol Tartrate [Lopressor -] 25 mg PO BID #60 tablet 12/16/16 Tamsulosin HCl [Flomax -] 0.4 mg PO DAILY@0830 #30 tab 12/16/16 Review of Systems - Review of Systems Able to Perform ROS?: No <Danay Lewis - Last Filed: 02/01/17 14:14> *Physical Exam - Vital Signs Last Vital Signs Temp Pulse Resp BP Pulse Ox 99.6 F 99 H 24 142/98 97 02/01/17 10:15 02/01/17 10:15 02/01/17 10:15 02/01/17 10:15 02/01/17 10:27 - Physical Exam Comments: 02/01/17 09:47 GENERAL: Alert and oriented x0. Nonverbal. In no distress. Post Ictal. HEAD: No signs of trauma. Right facial droop EYES: PERRLA, EOMI, sclera anicteric, conjunctiva clear ENT: Auricles normal inspection, hearing grossly normal, nares patent, oropharynx clear without exudates. Moist mucosa NECK: Normal ROM, supple, no lymphadenopathy, JVD, or masses LUNGS: Breath sounds equal, clear to auscultation bilaterally. No wheezes, and no crackles HEART: Regular rate and rhythm, normal S1 and S2, no murmurs, rubs or gallops ABDOMEN: Soft, nontender, normoactive bowel sounds. No guarding, no rebound. No masses EXTREMITIES: Right upper and lower extremity weakness. NEUROLOGICAL: Limited. Alert and oriented x0. Nonverbal. In no distress. Post Ictal. <Danay Lewis - Last Filed: 02/01/17 14:14> Heart Score/ECG Review #1 02/01/17 12:32 NSR no std/garrison, QTC 447 msec. T wave flat III <Quirino Groves - Last Filed: 02/01/17 14:58> Critical Care Time/[facility] Note - Medical Decision Making Note: 02/01/17 09:44 AM. Code elizondo was activated. 02/01/17 09:46. Patient rushed to Head CT. 02/01/17 10:[address] read as negative for acute pathology, as per Radiology. 02/01/17 10:44 Case discussed with Neurologist, Dr. Johnson. 02/01/17 11:[address] Ailyn Meadows. <Danay Lewis - Last Filed: 02/01/17 14:14> - Medical Decision Making Note: 02/01/17 09:53 A portion of this note was documented by scribe services under my direction. I have reviewed the details of the note, within reason, and agree with the documentation with the following case summary and management plan written by me. Patient treated in the ED. Nursing notes are reviewed and incorporated into the medical decision-making. Vital signs reviewed. Peripheral IV access obtained by the nurse, laboratory studies are drawn and sent, reviewed and interpreted by myself. Vital Signs Temp Pulse Resp BP Pulse Ox 99.6 F 96 H 18 137/100 93 L 02/01/17 10:15 02/01/17 10:45 02/01/17 10:45 02/01/17 10:45 02/01/17 10:45 51 year old male with past medical history of seizure disorder, prior neurosurgical intervention including garett holes with right-sided persistent deficits presents with seizures. The patient is brought in by EMS for an episode of several minute episode of her mouth seizures. Noted have persistent right-sided weakness is brought in the ED and postictal state. According to EMS , patient was not given any medications. Patient here appears postictal and AAO 0. CAT scan head was obtained and demonstrated no acute findings. Case was consulted with Dr. Johnson. We'll obtain labs and urinalysis to rule out metabolic or infectious etiology. We'll send Keppra and Depakote labs. Touch base with patient's PMD. 02/01/17 14:[address] Johnson. States likely secondary to his epilepsy, which I agree. CT head reviewed. No acute changes. CBC, BMP 02/01/17 10:15 02/01/17 10:15 CMP Sodium 140 mmol/L (136-145) 02/01/17 10:15 Potassium 4.5 mmol/L (3.5-5.1) 02/01/17 10:15 Chloride 103 mmol/L (98-107) 02/01/17 10:15 Carbon Dioxide 26 mmol/L (21-32) 02/01/17 10:15 Anion Gap 11 (8-16) 02/01/17 10:15 BUN 27 mg/dL (7-18) H D 02/01/17 10:15 Creatinine 1.2 mg/dL (0.7-1.3) D 02/01/17 10:15 Creat Clearance w eGFR > 60 (>60) 02/01/17 10:15 Random Glucose 123 mg/dL (74-106) H D 02/01/17 10:15 Calcium 9.0 mg/dL (8.5-10.1) 02/01/17 10:15 Total Bilirubin 0.5 mg/dL (0.2-1.0) 02/01/17 10:15 AST 26 U/L (15-37) D 02/01/17 10:15 ALT 19 U/L (12-78) D 02/01/17 10:15 Alkaline Phosphatase 86 U/L (45-117) 02/01/17 10:15 Creatine Kinase 1226 IU/L (39-308) H D 02/01/17 10:15 Creatine Kinase Index 0.6 % (0.0-5.0) 02/01/17 10:15 CK-MB (CK-2) 7.715 ng/ml (0.5-3.6) H 02/01/17 10:15 CK-MB (CK-2) Rel Index Cancelled 02/01/17 10:15 Troponin I < 0.02 ng/ml (0.00-0.05) 02/01/17 10:15 Total Protein 8.5 g/dl (6.4-8.2) H 02/01/17 10:15 Albumin 3.6 g/dl (3.4-5.0) 02/01/17 10:15 Triglycerides 88 mg/dL (35-160) D 02/01/17 10:15 Cholesterol 185 mg/dL (50-200) 02/01/17 10:15 Total LDL Cholesterol 129 mg/dL (5-100) H D 02/01/17 10:15 HDL Cholesterol 36 mg/dL (40-60) L D 02/01/17 10:15 Urine Test Results Urine Color Yellow 02/01/17 10:43 Urine Appearance Clear 02/01/17 10:43 Urine pH 5.0 (5.0-8.0) 02/01/17 10:43 Ur Specific [place] >= 1.030 (1.005-1.025) H 02/01/17 10:43 Urine Protein Negative (NEGATIVE) 02/01/17 10:43 Urine Glucose (UA) Negative (NEGATIVE) 02/01/17 10:43 Urine Ketones 1+ (NEGATIVE) H 02/01/17 10:43 Urine Blood Negative (NEGATIVE) 02/01/17 10:43 Urine Nitrite Negative (NEGATIVE) 02/01/17 10:43 Urine Bilirubin Negative (NEGATIVE) 02/01/17 10:43 Ur Leukocyte Esterase Negative (NEGATIVE) 02/01/17 10:43 Pt has been observed for 5 hours and yet post-ictal (though improved). Pt's brother at bedside. States typically takes a day or two before his postictal is improve. Pt is normally ambulatory and speaking, here he is still sleepy and post ictal. Given this situation, case discussed with Dr. Meadows, pt will be placed in med/ surg obs. Case discussed in detail with admitting physician including history, physical exam and ancillary studies. Admitting physician has assumed care for the patient, will follow all pending diagnostics and will complete the evaluation and treatment. <Quirino Groves - Last Filed: 02/01/17 14:58> Discharge Disposition <Danay Lewis - Last Filed: 02/01/17 14:14> - Discharge Dispostion Last Admission D/C Date: 12/16/16 Admit: Yes <Quirino Groves - Last Filed: 02/01/17 14:58> - Diagnosis Seizure Qualifiers: Convulsion type: unspecified Qualified Code(s): R56.9 - Unspecified convulsions Course - Course Orders, Labs, Meds: EXAM: RAD/CHEST X-RAY PORTABLE Interpreted by Dr. Javier Villegas IMPRESSION: Since 12/12/2016, there is no significant change. Again noted is the inspiratory effort with resultant prominent mediastinum and some central crowding. An acute chest process is not seen. The angles are sharp. Soft tissues are intact. There are degenerative changes. EXAM: CT/HEAD CT (STROKE) Interpreted by Dr. Endy Mason IMPRESSION: No definite interval change is seen in comparison to a prior CT exam of 12/12/2016. Bilateral inferior frontal and bilateral temporal polar encephalomalacia is noted, Bilateral frontal and temporal craniectomies are seen. Right parietal garett hole. There is no extra-axial fluid collection. No discrete infarct is noted within the limitations of CT. There is no obvious mass lesion on noncontrast imaging. No obstructive hydrocephalus is seen. Documentation prepared by Danay Lewis, acting as senior medical director for Quirino Groves MD. <Danay Lewis - Last Filed: 02/01/17 14:14>
[2017-02-01 10:51] LABS: INR 1.13 (0.82-1.09); PROTHROMBIN TIME (PATIENT) 12.5 SEC (9.98-11.88)
[2017-02-01 10:57] LABS: ALBUMIN 3.6 g/dl (3.4-5.0); ANION GAP 11 (8-16); BILIRUBIN,TOTAL 0.5 mg/dL (0.2-1.0); CHOLESTEROL 185 mg/dL (50-200); CO2 26 mmol/L (21-32); COCKROFT - GAULT 73.91; CREATININE 1.2 mg/dL (0.7-1.3); GLUCOSE,RANDOM 123 mg/dL (74-106); LDL CHOLESTEROL (ONLY SJRH) 129 mg/dL (5-100); SGOT/AST 26 U/L (15-37); SGPT/ALT 19 U/L (12-78); TOT PROT 8.5 g/dl (6.4-8.2)
[2017-02-01 11:02] LABS: URINE APPEARANCE CLEAR; URINE BILIRUBIN NEGATIVE (NEGATIVE); URINE BLOOD NEGATIVE (NEGATIVE); URINE COLOR YELLOW; URINE GLUCOSE (UA) NEGATIVE (NEGATIVE); URINE KETONE 1+ (NEGATIVE); URINE LEUK ESTERASE NEGATIVE (NEGATIVE); URINE NITRITE NEGATIVE (NEGATIVE); URINE PROTEIN NEGATIVE (NEGATIVE); URINE UROBILINOGEN NEGATIVE E.U./dl (0.2-1.0)
[2017-02-01 11:08] LABS: ALK PHOS 86 U/L (45-117); TROPONIN I < 0.02 ng/ml (0.00-0.05)
--- NOTE | 2017-02-01 15:26 | EKG ---
Test Reason : Blood Pressure : / mmHG Vent. Rate : 097 BPM Atrial Rate : 097 BPM P-R Int : 144 ms QRS Dur : 074 ms QT Int : 352 ms P-R-T Axes : 043 -13 045 degrees QTc Int : 447 ms NORMAL SINUS RHYTHM NONSPECIFIC T WAVE ABNORMALITY ABNORMAL ECG WHEN COMPARED WITH ECG OF 12-DEC-2016 10:15, NO SIGNIFICANT CHANGE WAS FOUND Confirmed by ELBA CLEMONS MD ([id number]) on 02/01/2017 3:26:39 PM Referred By: Confirmed By:ELBA CLEMONS MD
[2017-02-01] MEDS ORDERED: morphine CARPU-JECT 4 MG/1 ML DISP.SYRIN IVPUSH ONE (16:43)
[2017-02-01] MEDS ORDERED: ACETAMINOPHEN 325 MG TABLET (FP) PO PRN (19:40)
--- NOTE | 2017-02-01 20:42 | CONSULT ---
Consult - text type - Consultation Consultation Note: NEUROLOGY CONSULTATION is greatly appreciated: This 51 yo man with h/o HTN, depression and urinary frequency is maintained on metoprolol, paroxetin, tamsulosin and ASA. S/p Bilateral g[place] (? hydrocephalus) with residual Right hemiparesis, moderate R hemiatrophy and seizure disorder. Has been on Levetiracetam and Valproic acid for some time. Seen my me during November admission here with breakthrough seizures associated with infection. We increased VPA at that time. D/C'ed on Depakote ER 1000mg q12 hrs and Levetiracetam 1250 mg q12 hrs. Generally seizures are staring spells with post-ictal confusion. Today, however, Pt was brought to the ER with a generalized Tonic-clonic seizure with recurred in the ED associated with facial droop. WBC=12.8 K without obvious source of infection. Elevated CK. Depakote level = 51 ug% CT of head (reviewed): S/P Bifrontal garett wholes. Bilateral frontal encephalomalacia L>>R. No new lesions since 12/08. YOLY: Large head. Bifrontal garett holes Awake but confused. Gives name, hospital Full roving EOM's. Full hannah to threat. Mild R facial. Right hemiatrophy. Right spastic hemiparesis. Moves left side well Withdraws all fours to pinch. IMP: Moderate B/L cerebral dysfunction (static encephalopathy/ arrested hydrocephalus?) Left cerebral accentuation with Right spastic hemiparesis due to post- operative frontal encephalomalacia. Seizure disorder. SUGGEST: Increase Depakote ER to 1250 mg q12 hrs. Increase Levetiracetam to 1500 mg q 12 hrs. R/O occult infection and Rx if present. Thank you very much, Sanya Johnson MD
[2017-02-01] MEDS ORDERED: levETIRAcetam 250 MG TABLET (FP) PO SCH (22:00)
[2017-02-01] MEDS ORDERED: DIVALPROEX SODIUM 500 MG TABLET E.C. PO SCH (22:00)
[2017-02-01] MEDS ORDERED: LEVETIRACETAM PO SCH (22:00)
[2017-02-01 22:49] VITALS: BMI 29.7
[2017-02-01] MEDS ORDERED: levETIRAcetam 250 MG TABLET (FP) PO ONE (22:56)
[2017-02-01] MEDS ORDERED: levETIRAcetam 500 MG TABLET (FP) PO ONE (22:56)
[2017-02-01] MEDS: ATORVASTATIN CA 10 MG TABLET (FP) PO SCH (23:00)
[2017-02-01] MEDS: METOPROLOL TARTRATE 25 MG TABLET (FP) PO SCH (23:09)
[2017-02-02 07:28] LABS: ANION GAP 8 (8-16); CALCIUM 8.7 mg/dL (8.5-10.1); CO2 30 mmol/L (21-32); GLUCOSE,RANDOM 87 mg/dL (74-106); MAGNESIUM 2.1 mg/dL (1.8-2.4)
[2017-02-02 07:32] LABS: BASOPHIL 0.3 % (0-2.0); EOSINOPHIL 0.2 % (0-4.5); MCH 28.6 pg (25.7-33.7); MCHC 32.8 g/dl (32.0-35.9); MEAN CELL VOLUME 87.2 fl (80-96); MEAN PLT VOLUME 9.9 fl (7.5-11.1); NEUTROPHILS 47.1 % (42.8-82.8); PLATELET COUNT 159 K/MM3 (134-434); RDW 16.9 % (11.9-15.9); WHITE BLOOD COUNT 12.6 K/mm3 (4.0-10.0)
[2017-02-02 07:33] LABS: ALK PHOS 69 U/L (45-117); BILIRUBIN,TOTAL 0.9 mg/dL (0.2-1.0); COCKROFT - GAULT 103.21; CREATININE 0.9 mg/dL (0.7-1.3); SGOT/AST 34 U/L (15-37); SGPT/ALT 16 U/L (12-78); TOT PROT 7.2 g/dl (6.4-8.2)
--- NOTE | 2017-02-02 08:31 | HP ---
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 Cardiovascular: Yes: HTN, Hyperlipdemia Psych: Yes: Depression - Smoking History Smoking history: Never smoked Have you smoked in the past 12 months: No Aproximately how many cigarettes per day: 0 - Alcohol/Substance Use Hx Alcohol Use: No - Social History ADL: Family Assistance History of Recent Travel: No <Ailyn Meadows - Last Filed: 02/02/17 08:30> Home Medications <Ailyn Meadows - Last Filed: 02/02/17 08:30> <Danay Lewis - Last Filed: 02/02/17 13:11> - Allergies Allergies/Adverse Reactions: Allergies Allergy/AdvReac Type Severity Reaction Status Date / Time No Known Drug Allergies Allergy Verified 02/01/17 10:18 - Home Medications Home Medications: Ambulatory Orders Paroxetine HCl [Paxil -] 10 mg PO DAILY 09/03/15 Simvastatin [Zocor -] 20 mg PO HS 09/03/15 Levetiracetam [Keppra -] 1,250 mg PO BID #100 tablet 06/11/16 Aspirin Coated [Ecotrin -] 81 mg PO DAILY #90 tab 12/16/16 Divalproex *ER* [Depakote *ER* -] 1,000 mg PO BID #60 tab 12/16/16 Metoprolol Tartrate [Lopressor -] 25 mg PO BID #60 tablet 12/16/16 Tamsulosin HCl [Flomax -] 0.4 mg PO DAILY@0830 #30 tab 12/16/16 Physical Examination Vital Signs: Vital Signs Temperature 97.8 F 02/02/17 05:00 Pulse Rate 59 L 02/02/17 05:00 Respiratory Rate 16 02/02/17 05:00 Blood Pressure 126/82 02/02/17 05:00 O2 Sat by Pulse Oximetry (%) 96 02/02/17 02:14 Labs: CBC, BMP 02/02/17 06:10 02/02/17 06:10 <Ailyn Meadows - Last Filed: 02/02/17 08:30> Vital Signs: Vital Signs Temperature 98.2 F 02/02/17 08:45 Pulse Rate 59 L 02/02/17 08:45 Respiratory Rate 18 02/02/17 08:45 Blood Pressure 138/75 02/02/17 08:45 O2 Sat by Pulse Oximetry (%) 96 02/02/17 02:14 Labs: CBC, BMP 02/02/17 06:10 02/02/17 06:10 <Danay Lewis - Last Filed: 02/02/17 13:11>
[2017-02-02] MEDS: DIVALPROEX SODIUM 250 MG TABLET E.C. (FP) PO SCH ×3 (10:38→12:50)
[2017-02-02] MEDS: DIVALPROEX SODIUM 500 MG TABLET E.C. PO SCH ×3 (10:38→12:50)
[2017-02-02] MEDS: METOPROLOL TARTRATE 25 MG TABLET (FP) PO SCH ×2 (10:40→21:17)
[2017-02-02] MEDS: levETIRAcetam 500 MG TABLET (FP) PO SCH ×2 (10:41)
[2017-02-02] MEDS: ASPIRIN COATED 81 MG TABLET.EC PO SCH (10:42)
[2017-02-02] MEDS: TAMSULOSIN HCL 0.4 MG CAP.ER.24H (FP) PO SCH (10:42)
[2017-02-02] MEDS: ENOXAPARIN NA (PORCINE) 40 MG/0.4 ML DISP.SYRIN SQ SCH (10:46)
--- NOTE | 2017-02-02 11:21 | HP ---
Admitting History and Physical - Primary Care Physician PCP: Ailyn Meadows - Admission Chief Complaint: seizure activity History of Present Illness: The patient is a 51-year-old man with a significant past medical history of hypertension, hypercholesterolemia, seizure disorder (on Keppra and Depakote; status post garett holes-- resultant right side hemiparesis ) who presents to the emergency department via EMS status post witnessed seizures pt admitted as he has long post ictal phase ct head -ve case was discussed with er physician last night pt seen by neurology also - consultation noted / appreciated. Pt today awake. still confused no distress afebrile Vital Signs Temp 98.2 F 02/02/17 08:45 Pulse 59 L 02/02/17 08:45 Resp 18 02/02/17 08:45 BP 138/75 02/02/17 08:45 Pulse Ox 96 02/02/17 02:14 Intake & Output 02/01/17 02/01/17 02/02/17 11:59 23:59 11:59 Intake Total 420 Balance 420 Weight 160 lb 167 lb 9 oz Intake: IV 420 Normal Saline - 1,000 ml 420 @ 42 mls/hr IV ASDIR [facility] Rx#:[id number] Other: Voiding Method Incontinent Incontinent Height 5 ft 3 in 5 ft 3 in Body Mass Index (BMI) 28.3 29.7 Weight Measurement Method Built in [facility] Weight Measurement Method Estimated by Staff Active Medications Acetaminophen (Tylenol -) 650 mg PO Q4H PRN PRN Reason: FEVER OR PAIN Aspirin (Ecotrin -) 81 mg PO DAILY [facility] Last Admin: 02/02/17 10:42 Dose: 81 mg Atorvastatin Calcium (Lipitor -) 10 mg PO HS [facility] Last Admin: 02/01/17 23:00 Dose: 10 mg Divalproex Sodium (Depakote -) 1,000 mg PO BID [facility] Last Admin: 02/02/17 10:45 Dose: Not Given Divalproex Sodium (Depakote -) 250 mg PO BID [facility] Last Admin: 02/02/17 10:45 Dose: Not Given Enoxaparin Sodium (Lovenox -) 40 mg SQ DAILY [facility] Last Admin: 02/02/17 10:46 Dose: 40 mg Sodium Chloride (Normal Saline -) 1,000 mls @ 42 mls/hr IV ASDIR [facility] Last Admin: 02/01/17 22:18 Dose: 42 mls/hr Levetiracetam (Keppra -) 1,500 mg PO BID [facility] Last Admin: 02/02/17 10:41 Dose: 1,500 mg Metoprolol Tartrate (Lopressor -) 25 mg PO BID [facility] Last Admin: 02/02/17 10:40 Dose: 25 mg Paroxetine HCl (Paxil -) 10 mg PO DAILY [facility] Tamsulosin HCl (Flomax -) 0.4 mg PO DAILY@0830 [facility] Last Admin: 02/02/17 10:42 Dose: 0.4 mg CBC, BMP 02/02/17 06:10 02/02/17 06:10 ct head -- noted History Source: Medical Record Limitations to Obtaining History: Clinical Condition - 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 Cardiovascular: Yes: HTN, Hyperlipdemia Psych: Yes: Depression - Smoking History Smoking history: Never smoked Have you smoked in the past 12 months: No Aproximately how many cigarettes per day: 0 - Alcohol/Substance Use Hx Alcohol Use: No - Social History ADL: Family Assistance History of Recent Travel: No Home Medications - Allergies Allergies/Adverse Reactions: Allergies Allergy/AdvReac Type Severity Reaction Status Date / Time No Known Drug Allergies Allergy Verified 02/01/17 10:18 - Home Medications Home Medications: Ambulatory Orders Paroxetine HCl [Paxil -] 10 mg PO DAILY 09/03/15 Simvastatin [Zocor -] 20 mg PO HS 09/03/15 Levetiracetam [Keppra -] 1,250 mg PO BID #100 tablet 06/11/16 Aspirin Coated [Ecotrin -] 81 mg PO DAILY #90 tab 12/16/16 Divalproex *ER* [Depakote *ER* -] 1,000 mg PO BID #60 tab 12/16/16 Metoprolol Tartrate [Lopressor -] 25 mg PO BID #60 tablet 12/16/16 Tamsulosin HCl [Flomax -] 0.4 mg PO DAILY@0830 #30 tab 12/16/16 Review of Systems Findings/Remarks: see [place] Physical Examination Vital Signs: Vital Signs Temperature 98.2 F 02/02/17 08:45 Pulse Rate 59 L 02/02/17 08:45 Respiratory Rate 18 02/02/17 08:45 Blood Pressure 138/75 02/02/17 08:45 O2 Sat by Pulse Oximetry (%) 96 02/02/17 02:14 Constitutional: Yes: No Distress Eyes: Yes: Conjunctiva Clear Neck: Yes: Supple Cardiovascular: Yes: Regular Rate and Rhythm Respiratory: Yes: CTA Bilaterally Gastrointestinal: Yes: Normal Bowel Sounds, Soft Edema: No Neurological: Yes: Other (awake/ confused-- right side weakness --old) Labs: CBC, BMP 02/02/17 06:10 02/02/17 06:10 Imaging - Results Chest X-ray: Report Reviewed Cat Scan: Report Reviewed EKG: Report Reviewed Problem List - Problems (1) Post-ictal confusion Code(s): F05 - DELIRIUM DUE TO KNOWN PHYSIOLOGICAL CONDITION (2) Seizure Code(s): R56.9 - UNSPECIFIED CONVULSIONS Qualifiers: Convulsion type: unspecified Qualified Code(s): R56.9 - Unspecified convulsions (3) HTN (hypertension) Code(s): I10 - ESSENTIAL (PRIMARY) HYPERTENSION Qualifiers: Hypertension type: essential hypertension Qualified Code(s): I10 - Essential (primary) hypertension (4) Hyperlipidemia Code(s): E78.5 - HYPERLIPIDEMIA, UNSPECIFIED Qualifiers: Hyperlipidemia type: pure hypercholesterolemia Qualified Code(s): E78.00 - Pure hypercholesterolemia, unspecified; E78.0 - Pure hypercholesterolemia Assessment/Plan monitor closely meds reviewed Increase keppra and [place] neuro watch fall precautions continue mild hydration. slightly elevated wbc-- likley due to seizure activity no evidence of infection will follow. time spend 40 min in exam/ documenting and coordating care
[2017-02-02] MEDS: PARoxetine HCL 10 MG TABLET (FP) PO SCH (12:34)
[2017-02-02] MEDS: D5-1/2NS+10 MEQ KCL - 1,000 ML IV SCH (12:39)
[2017-02-02] MEDS ORDERED: PT OWN MED DRAWER 7, Y5N ONE ×2 (14:53→20:52)
[2017-02-02] MEDS: levETIRAcetam 500 MG/5 ML ORAL SOLUTION (UNIT-DOSE CUPS) PO SCH (21:17)
[2017-02-02] MEDS: ATORVASTATIN CA 10 MG TABLET (FP) PO SCH (21:17)
[2017-02-02] MEDS: VALPROATE SODIUM 250 MG/5 ML LIQUID BULK BOTTLE PO SCH (21:23)
[2017-02-03] MEDS: D5-1/2NS+10 MEQ KCL - 1,000 ML IV SCH ×2 (01:26→16:24)
[2017-02-03 07:57] LABS: BASOPHIL 0.3 % (0-2.0); EOSINOPHIL 0.5 % (0-4.5); MCH 28.9 pg (25.7-33.7); MCHC 33.3 g/dl (32.0-35.9); MEAN CELL VOLUME 86.9 fl (80-96); MEAN PLT VOLUME 9.9 fl (7.5-11.1); PLATELET COUNT 160 K/MM3 (134-434); RDW 16.2 % (11.9-15.9)
[2017-02-03 08:15] LABS: ALBUMIN 3.3 g/dl (3.4-5.0); ANION GAP 13 (8-16); CALCIUM 9.2 mg/dL (8.5-10.1); CO2 28 mmol/L (21-32); SGOT/AST 39 U/L (15-37)
[2017-02-03 08:17] LABS: ALK PHOS 71 U/L (45-117); BILIRUBIN,TOTAL 0.7 mg/dL (0.2-1.0); COCKROFT - GAULT 103.21; CREATININE 0.9 mg/dL (0.7-1.3); GLUCOSE,RANDOM 87 mg/dL (74-106); SGPT/ALT 19 U/L (12-78); TOT PROT 7.7 g/dl (6.4-8.2)
[2017-02-03] MEDS: TAMSULOSIN HCL 0.4 MG CAP.ER.24H (FP) PO SCH (09:16)
[2017-02-03] MEDS ORDERED: PT OWN MED DRAWER 7, Y5N ONE ×2 (09:43→18:53)
[2017-02-03] MEDS: VALPROATE SODIUM 250 MG/5 ML LIQUID BULK BOTTLE PO SCH ×2 (09:51→21:46)
[2017-02-03] MEDS: ASPIRIN COATED 81 MG TABLET.EC PO SCH (09:52)
[2017-02-03] MEDS: METOPROLOL TARTRATE 25 MG TABLET (FP) PO SCH ×2 (09:53→21:44)
[2017-02-03] MEDS: ENOXAPARIN NA (PORCINE) 40 MG/0.4 ML DISP.SYRIN SQ SCH (09:53)
[2017-02-03] MEDS: PARoxetine HCL 10 MG TABLET (FP) PO SCH (09:55)
[2017-02-03] MEDS: levETIRAcetam 500 MG/5 ML ORAL SOLUTION (UNIT-DOSE CUPS) PO SCH ×2 (09:56→21:46)
--- NOTE | 2017-02-03 12:18 | PN ---
Progress Note, Physician Chief Complaint: no distress Awake no complaints - Current Medication List Current Medications: Active Medications Acetaminophen (Tylenol -) 650 mg PO Q4H PRN PRN Reason: FEVER OR PAIN Last Admin: 02/03/17 03:17 Dose: 650 mg Aspirin (Ecotrin -) 81 mg PO DAILY [facility] Last Admin: 02/03/17 09:52 Dose: 81 mg Atorvastatin Calcium (Lipitor -) 10 mg PO HS [facility] Last Admin: 02/02/17 21:17 Dose: 10 mg Enoxaparin Sodium (Lovenox -) 40 mg SQ DAILY [facility] Last Admin: 02/03/17 09:53 Dose: 40 mg Potassium Chloride/Dextrose/Sod Cl (D5-1/2ns+10 Meq Kcl -) 1,000 mls @ 83 mls/ hr IV ASDIR [facility] Last Admin: 02/03/17 01:26 Dose: 83 mls/hr Levetiracetam (Keppra Oral Solution -) 1,500 mg PO BID [facility] Last Admin: 02/03/17 09:56 Dose: 1,500 mg Metoprolol Tartrate (Lopressor -) 25 mg PO BID [facility] Last Admin: 02/03/17 09:53 Dose: 25 mg Paroxetine HCl (Paxil -) 10 mg PO DAILY [facility] Last Admin: 02/03/17 09:55 Dose: 10 mg Tamsulosin HCl (Flomax -) 0.4 mg PO DAILY@0830 [facility] Last Admin: 02/03/17 09:16 Dose: 0.4 mg Valproate Sodium (Depakene Oral Solution -) 1,250 mg PO BID [facility] Last Admin: 02/03/17 09:51 Dose: 1,250 mg - Objective Vital Signs: Vital Signs Temperature 98.2 F 02/03/17 06:05 Pulse Rate 74 02/03/17 06:05 Respiratory Rate 20 02/03/17 10:00 Blood Pressure 140/88 02/03/17 06:05 O2 Sat by Pulse Oximetry (%) 96 02/03/17 10:00 Constitutional: Yes: No Distress Cardiovascular: Yes: Regular Rate and Rhythm Respiratory: Yes: CTA Bilaterally Gastrointestinal: Yes: Normal Bowel Sounds, Soft, Abdomen, Obese. No: Distention, Tenderness Edema: No Labs: CBC, BMP 02/03/17 06:35 02/03/17 06:35 INR, PTT INR 1.13 (0.82-1.09) 02/01/17 10:15 Problem List - Problems (1) Post-ictal confusion Code(s): F05 - DELIRIUM DUE TO KNOWN PHYSIOLOGICAL CONDITION (2) Seizure Code(s): R56.9 - UNSPECIFIED CONVULSIONS Qualifiers: Convulsion type: unspecified Qualified Code(s): R56.9 - Unspecified convulsions (3) HTN (hypertension) Code(s): I10 - ESSENTIAL (PRIMARY) HYPERTENSION Qualifiers: Hypertension type: essential hypertension Qualified Code(s): I10 - Essential (primary) hypertension (4) Hyperlipidemia Code(s): E78.5 - HYPERLIPIDEMIA, UNSPECIFIED Qualifiers: Hyperlipidemia type: pure hypercholesterolemia Qualified Code(s): E78.00 - Pure hypercholesterolemia, unspecified; E78.0 - Pure hypercholesterolemia Assessment/Plan PLAN Neurology eval noted meds adjusted Pt admits to non compliance in taking his seizure meds He says he sometimes forgets to take them does not appear to have any infectious cause DVT prophylaxis--- Lovenox
[2017-02-03] MEDS: ATORVASTATIN CA 10 MG TABLET (FP) PO SCH (21:44)
[2017-02-04 08:34] LABS: MCH 28.7 pg (25.7-33.7); MCHC 33.3 g/dl (32.0-35.9); MEAN CELL VOLUME 86.1 fl (80-96); MEAN PLT VOLUME 9.9 fl (7.5-11.1); PLATELET COUNT 158 K/MM3 (134-434); RDW 16.2 % (11.9-15.9); WHITE BLOOD COUNT 10.3 K/mm3 (4.0-10.0)
[2017-02-04 09:12] LABS: CALCIUM 8.9 mg/dL (8.5-10.1); COCKROFT - GAULT 132.7; CREATININE 0.7 mg/dL (0.7-1.3)
[2017-02-04] MEDS: PARoxetine HCL 10 MG TABLET (FP) PO SCH (10:36)
[2017-02-04] MEDS: ASPIRIN COATED 81 MG TABLET.EC PO SCH (10:36)
[2017-02-04] MEDS: TAMSULOSIN HCL 0.4 MG CAP.ER.24H (FP) PO SCH (10:36)
[2017-02-04] MEDS: METOPROLOL TARTRATE 25 MG TABLET (FP) PO SCH ×2 (10:36→21:30)
[2017-02-04] MEDS: VALPROATE SODIUM 250 MG/5 ML LIQUID BULK BOTTLE PO SCH ×2 (10:39→21:39)
[2017-02-04] MEDS: levETIRAcetam 500 MG/5 ML ORAL SOLUTION (UNIT-DOSE CUPS) PO SCH ×2 (10:40→21:30)
--- NOTE | 2017-02-04 10:40 | PN ---
Progress Note, Physician Chief Complaint: no distress Awake no complaints has unsteady gait-- needs help of two people - Current Medication List Current Medications: Active Medications Acetaminophen (Tylenol -) 650 mg PO Q4H PRN PRN Reason: FEVER OR PAIN Last Admin: 02/03/17 03:17 Dose: 650 mg Aspirin (Ecotrin -) 81 mg PO DAILY [facility] Last Admin: 02/03/17 09:52 Dose: 81 mg Atorvastatin Calcium (Lipitor -) 10 mg PO HS [facility] Last Admin: 02/03/17 21:44 Dose: 10 mg Enoxaparin Sodium (Lovenox -) 40 mg SQ DAILY [facility] Last Admin: 02/03/17 09:53 Dose: 40 mg Levetiracetam (Keppra Oral Solution -) 1,500 mg PO BID [facility] Last Admin: 02/03/17 21:46 Dose: 1,500 mg Metoprolol Tartrate (Lopressor -) 25 mg PO BID [facility] Last Admin: 02/03/17 21:44 Dose: 25 mg Paroxetine HCl (Paxil -) 10 mg PO DAILY [facility] Last Admin: 02/03/17 09:55 Dose: 10 mg Tamsulosin HCl (Flomax -) 0.4 mg PO DAILY@0830 [facility] Last Admin: 02/03/17 09:16 Dose: 0.4 mg Valproate Sodium (Depakene Oral Solution -) 1,250 mg PO BID [facility] Last Admin: 02/03/17 21:46 Dose: 1,250 mg - Objective Vital Signs: Vital Signs Temperature 97.0 F L 02/04/17 06:41 Pulse Rate 75 02/04/17 06:41 Respiratory Rate 18 02/04/17 06:41 Blood Pressure 133/75 02/04/17 06:41 O2 Sat by Pulse Oximetry (%) 96 02/04/17 02:00 Constitutional: Yes: No Distress, Calm Cardiovascular: Yes: Regular Rate and Rhythm Respiratory: Yes: CTA Bilaterally Gastrointestinal: Yes: Normal Bowel Sounds, Soft, Abdomen, Obese. No: Distention, Palpable Mass, Tenderness Edema: No Labs: CBC, BMP 02/04/17 06:52 02/04/17 06:52 INR, PTT INR 1.13 (0.82-1.09) 02/01/17 10:15 Problem List - Problems (1) Post-ictal confusion Code(s): F05 - DELIRIUM DUE TO KNOWN PHYSIOLOGICAL CONDITION (2) Seizure Code(s): R56.9 - UNSPECIFIED CONVULSIONS Qualifiers: Convulsion type: unspecified Qualified Code(s): R56.9 - Unspecified convulsions (3) HTN (hypertension) Code(s): I10 - ESSENTIAL (PRIMARY) HYPERTENSION Qualifiers: Hypertension type: essential hypertension Qualified Code(s): I10 - Essential (primary) hypertension (4) Hyperlipidemia Code(s): E78.5 - HYPERLIPIDEMIA, UNSPECIFIED Qualifiers: Hyperlipidemia type: pure hypercholesterolemia Qualified Code(s): E78.00 - Pure hypercholesterolemia, unspecified; E78.0 - Pure hypercholesterolemia Assessment/Plan PLAN no seizures noted meds adjusted Pt admits to non compliance in taking his seizure meds He says he sometimes forgets to take them does not appear to have any infectious cause DVT prophylaxis--- Lovenox may need STR-- spoke with pt and major case detective
[2017-02-04] MEDS: ENOXAPARIN NA (PORCINE) 40 MG/0.4 ML DISP.SYRIN SQ SCH (12:24)
[2017-02-04] MEDS: ATORVASTATIN CA 10 MG TABLET (FP) PO SCH (21:30)
[2017-02-05 06:01] VITALS: TEMP 98.7
[2017-02-05] MEDS: levETIRAcetam 500 MG/5 ML ORAL SOLUTION (UNIT-DOSE CUPS) PO SCH (09:16)
[2017-02-05] MEDS: TAMSULOSIN HCL 0.4 MG CAP.ER.24H (FP) PO SCH (09:16)
[2017-02-05] MEDS: ENOXAPARIN NA (PORCINE) 40 MG/0.4 ML DISP.SYRIN SQ SCH (09:20)
[2017-02-05] MEDS: METOPROLOL TARTRATE 25 MG TABLET (FP) PO SCH (09:20)
[2017-02-05] MEDS: PARoxetine HCL 10 MG TABLET (FP) PO SCH (09:20)
[2017-02-05] MEDS: ASPIRIN COATED 81 MG TABLET.EC PO SCH (09:20)
[2017-02-05 09:41] VITALS: BP 122/84; PULSE 87
[2017-02-05] MEDS ORDERED: VALPROATE SODIUM 250 MG/5 ML UNIT DOSE CUP PO SCH (10:00)
--- NOTE | 2017-02-05 10:16 | DS ---
Physical Examination Vital Signs: Vital Signs Temperature 98.7 F 02/05/17 06:00 Pulse Rate 87 02/05/17 09:37 Respiratory Rate 18 02/05/17 09:37 Blood Pressure 122/84 02/05/17 09:37 O2 Sat by Pulse Oximetry (%) 96 02/05/17 09:00 Constitutional: Yes: No Distress Cardiovascular: Yes: Regular Rate and Rhythm Respiratory: Yes: CTA Bilaterally Gastrointestinal: Yes: Normal Bowel Sounds, Soft. No: Distention, Tenderness Edema: No Labs: CBC, BMP 02/04/17 06:52 02/04/17 06:52 Discharge Summary Reason For Visit: SEIZURE Current Active Problems Post-ictal confusion (Acute) Seizure (Acute) Hospital Course: Admitted for seizures. Pt non compliant with meds. He forgets to take his meds. He was seen by Neurologist- meds adjusted. Pt transferred to [facility] for STR as pt is weak and has unsteady gait. Condition: Good - Instructions Disposition: ALF FACILITY - Home Medications Comprehensive Discharge Medication List: Ambulatory Orders Paroxetine HCl [Paxil -] 10 mg PO DAILY 09/03/15 Simvastatin [Zocor -] 20 mg PO HS 09/03/15 Aspirin Coated [Ecotrin -] 81 mg PO DAILY #90 tab 12/16/16 Metoprolol Tartrate [Lopressor -] 25 mg PO BID #60 tablet 12/16/16 Tamsulosin HCl [Flomax -] 0.4 mg PO DAILY@0830 #30 tab 12/16/16 Enoxaparin [Lovenox -] 40 mg SQ DAILY #30 syringe 02/05/17 Levetiracetam [Keppra Oral Solution -] 1,500 mg PO BID #60 syr 02/05/17 Valproate Sodium Liquid [Depakene Oral Solution -] 1,250 mg PO BID #90 ml
== END 2017-02-05 11:27 | DRG 101 ==
LOC: JER 09:42 → INTOOBSV 15:07 → JERBED 15:07 → UNDOADMOB 15:07 → JERBED 19:40 → J6S 22:10 → OBSVTOIN 02-02 11:20
PROVIDERS: ADMIT Internal Medicine; ATTEND Internal Medicine
DX: G40.909 Epilepsy, unspecified, not intractable, without status epilepticus (principal); F05 Delirium due to known physiological condition; G81.91 Hemiplegia, unspecified affecting right dominant side; Z91.14 Patient's other noncompliance with medication regimen; I10 Essential (primary) hypertension; E78.5 Hyperlipidemia, unspecified; R26.81 Unsteadiness on feet
CPT/HCPCS: 36415; 70450-TC; 71010-TC; 80048; 80053; 80164; 81003; 82465; 82550; 82553; 83718; 83721; 83735; 84478; 84484; 85025; 85027; 85610; 86850; 86900; 86901; 93005; 93010; 97116-GP; 97161-GP; 99285-25; G0378

== ENCOUNTER 2017-08-12 10:08 | Inpatient (IN) | payer OTHER ==
--- NOTE | 2017-08-12 10:19 | PDOC ---
History of Present Illness - General History Source: Patient Exam Limitations: No Limitations - History of Present Illness Initial Comments: 08/12/17 10:39 The patient is a 52-year-old male in rehab for weakness, with a significant past medical history of hypertension, hypercholesterolemia, seizure disorder ( on Keppra and Depakote; status post garett holes), who presents to the emergency department via EMS for rectal bleeding today. As per EMS, the patient passed a bowel movement this morning and bright red blood was noted. On exam, pt is complaining of diffuse abdominal pain and lightheadedness. Denies any headache or chest pain. <Emily James - Last Filed: 08/12/17 10:39> <Virgen Gutierrez - Last Filed: 08/12/17 13:08> <Albertina Mahoney - Last Filed: 08/12/17 18:03> - General Chief Complaint: Rectal Bleed Stated Complaint: RECTAL BLEED Time Seen by Provider: 08/12/17 10:13 Past History <Emily James - Last Filed: 08/12/17 10:39> - Past Medical History Anemia: No Asthma: No Cancer: No Cardiac Disorders: No CVA: No COPD: No CHF: No DVT: No Dementia: No Diabetes: No Dialysis: No GI Disorders: No Disorders: No HTN: Yes Hypercholesterolemia: Yes Kidney Stones: No Liver Disease: No Psychiatric Problems: Yes Seizures: Yes Thyroid Disease: No - Surgical History Abdominal Surgery: No Appendectomy: No Cardiac Surgery: No Cholecystectomy: No Lung Surgery: No Neurologic Surgery: No Orthopedic Surgery: No - Immunization History Immunization Up to Date: Yes - Suicide/Smoking/Psychosocial Hx Smoking Status: No Smoking History: Never smoked Have you smoked in the past 12 months: No Number of Cigarettes Smoked Daily: 0 Cigars Per Day: 0 Information on smoking cessation initiated: No Hx Alcohol Use: No Drug/Substance Use Hx: No Substance Use Type: None Hx Substance Use Treatment: No <Virgen Gutierrez - Last Filed: 08/12/17 13:08> <Albertina Mahoney - Last Filed: 08/12/17 18:03> - Past Medical History Allergies/Adverse Reactions: Allergies Allergy/AdvReac Type Severity Reaction Status Date / Time No Known Drug Allergies Allergy Verified 08/12/17 10:09 Home Medications: Ambulatory Orders Aspirin Coated [Ecotrin -] 81 mg PO DAILY #90 tab 12/16/16 Metoprolol Tartrate [Lopressor -] 25 mg PO BID #60 tablet 12/16/16 Albuterol 0.083% Nebulizer Letitia [Ventolin 0.083% Nebulizer Soln -] 1 amp NEB Q4H PRN amp 08/07/17 Levetiracetam [Keppra -] 1,000 mg PO TID tablet 08/07/17 Pantoprazole Sodium [Protonix -] 40 mg PO DAILY tablet.ec 08/07/17 Polyethylene Glycol 3350 [Miralax 119 gm Btl -] 17 gm PO DAILY bottle 08/07/17 Valproate Sodium [Depakene -] 1,000 mg PO TID cup 08/07/17 Heparin - 5,000 unit SQ BID 08/12/17 Tamsulosin HCl [Flomax -] 0.4 mg PO 1900 08/12/17 Review of Systems - Review of Systems Able to Perform ROS?: Yes Comments:: 08/12/17 10:39 GENERAL/CONSTITUTIONAL: No fever or chills. No weakness. HEAD, EYES, EARS, NOSE AND THROAT: No change in vision. No ear pain or discharge. No sore throat. CARDIOVASCULAR: +Lightheadedness. No chest pain or shortness of breath. RESPIRATORY: No cough, wheezing, or hemoptysis. GASTROINTESTINAL: +diffuse abdominal pain. No nausea, vomiting, diarrhea or constipation. GENITOURINARY: +rectal bleeding. No dysuria, frequency, or change in urination. MUSCULOSKELETAL: No joint or muscle swelling or pain. No neck or back pain. SKIN: No rash NEUROLOGIC: No headache, vertigo, loss of consciousness, or change in strength/ sensation. ENDOCRINE: No increased thirst. No abnormal weight change. HEMATOLOGIC/LYMPHATIC: No anemia, easy bleeding, or history of blood clots. ALLERGIC/IMMUNOLOGIC: No hives or skin allergy. <Emily James - Last Filed: 08/12/17 10:39> *Physical Exam - Vital Signs Last Vital Signs Temp Pulse Resp BP Pulse Ox 99.4 F 95 H 20 104/70 99 08/12/17 10:09 08/12/17 10:09 08/12/17 10:09 08/12/17 10:09 08/12/17 10:09 - Physical Exam Comments: 08/12/17 10:41 GENERAL: Awake, alert, and fully oriented, in no acute distress HEAD: No signs of trauma EYES: PERRLA, EOMI, sclera anicteric, conjunctiva clear ENT: Auricles normal inspection, hearing grossly normal, nares patent, oropharynx clear without exudates. Moist mucosa NECK: Normal ROM, supple, no lymphadenopathy, JVD, or masses LUNGS: Breath sounds equal, clear to auscultation bilaterally. No wheezes, and no crackles HEART: Regular rate and rhythm, normal S1 and S2, no murmurs, rubs or gallops ABDOMEN: (+)Diffuse abdominal tenderness. Soft, normoactive bowel sounds. No guarding, no rebound. No masses EXTREMITIES: Normal range of motion, no edema. No clubbing or cyanosis. No cords, erythema, or tenderness NEUROLOGICAL: Cranial nerves II through XII grossly intact. Normal speech, normal gait SKIN: Warm, Dry, normal turgor, no rashes or lesions noted RECTAL EXAM: No masses or hemorrhoids noted. Bright red blood per rectum. <Emily James - Last Filed: 08/12/17 10:39> - Vital Signs Last Vital Signs Temp Pulse Resp BP Pulse Ox 99.4 F 95 H 20 104/70 99 08/12/17 10:09 08/12/17 10:09 08/12/17 10:09 08/12/17 10:09 08/12/17 10:09 <Virgen Gutierrez - Last Filed: 08/12/17 13:08> - Vital Signs Last Vital Signs Temp Pulse Resp BP Pulse Ox 102.2 F H 100 H 20 107/66 100 08/12/17 17:59 08/12/17 17:42 08/12/17 17:42 08/12/17 17:42 08/12/17 17:42 <Albertina Mahoney - Last Filed: 08/12/17 18:03> Heart Score/ECG Review - ECG Intrepretation Comment:: 08/12/17 11:49 sinus at 95, nl axis, nl interval, t wave flattening diffusely, baseline artifact, no acute changes <Virgen Gutierrez - Last Filed: 08/12/17 13:08> ED Treatment Course - LABORATORY CBC & Chemistry Diagram: 08/12/17 10:37 08/12/17 10:37 <Virgen Gutierrez - Last Filed: 08/12/17 13:08> - LABORATORY CBC & Chemistry Diagram: 08/12/17 10:37 08/12/17 10:37 - ADDITIONAL ORDERS Additional order review: Laboratory Results 08/12/17 08/12/17 08/12/17 10:57 10:44 10:37 PT with INR INR PTT (Actin FS) VBG pH 7.28 L POC VBG pCO2 54.3 H POC VBG pO2 27.9 L Mixed VBG HCO3 24.9 Sodium Potassium Chloride Carbon Dioxide Anion Gap BUN Creatinine Creat Clearance w eGFR Random Glucose Lactic Acid Calcium Magnesium Total Bilirubin AST ALT Alkaline Phosphatase Creatine Kinase Troponin I Total Protein Albumin Lipase Urine Color Yellow Urine Appearance Slcloudy Urine pH 7.0 D Ur Specific [place] 1.026 Urine Protein Negative Urine Glucose (UA) Negative Urine Ketones Trace H Urine Blood 1+ H Urine Nitrite Negative Urine Bilirubin Negative Urine Urobilinogen Negative Urine WBC (Auto) 37 Urine RBC (Auto) 8 Urine Mucus Rare Stool Occult Blood Negative Blood Type Antibody Screen 08/12/17 08/12/17 08/12/17 10:37 10:37 10:37 PT with INR INR PTT (Actin FS) VBG pH POC VBG pCO2 POC VBG pO2 Mixed VBG HCO3 Sodium 138 Potassium 4.4 Chloride 101 Carbon Dioxide 28 Anion Gap 9 BUN 18 D Creatinine 0.9 D Creat Clearance w eGFR > 60 Random Glucose 114 H D Lactic Acid 2.5 H* Calcium 9.0 Magnesium 2.1 Total Bilirubin 0.4 AST 7 L D ALT 11 L D Alkaline Phosphatase 80 Creatine Kinase 24 L Troponin I < 0.02 Total Protein 7.8 Albumin 3.1 L D Lipase 268 Urine Color Urine Appearance Urine pH Ur Specific [place] Urine Protein Urine Glucose (UA) Urine Ketones Urine Blood Urine Nitrite Urine Bilirubin Urine Urobilinogen Urine WBC (Auto) Urine RBC (Auto) Urine Mucus Stool Occult Blood Blood Type O POSITIVE Antibody Screen Negative 08/12/17 10:37 PT with INR 12.10 H INR 1.07 PTT (Actin FS) 26.7 L VBG pH POC VBG pCO2 POC VBG pO2 Mixed VBG HCO3 Sodium Potassium Chloride Carbon Dioxide Anion Gap BUN Creatinine Creat Clearance w eGFR Random Glucose Lactic Acid Calcium Magnesium Total Bilirubin AST ALT Alkaline Phosphatase Creatine Kinase Troponin I Total Protein Albumin Lipase Urine Color Urine Appearance Urine pH Ur Specific [place] Urine Protein Urine Glucose (UA) Urine Ketones Urine Blood Urine Nitrite Urine Bilirubin Urine Urobilinogen Urine WBC (Auto) Urine RBC (Auto) Urine Mucus Stool Occult Blood Blood Type Antibody Screen 08/12/17 10:37 RBC 3.54 L MCV 95.9 MCHC 32.2 RDW 18.0 H MPV 8.9 D Neutrophils % 70.7 D Lymphocytes % 11.0 D Monocytes % 17.9 H D Eosinophils % 0.0 D Basophils % 0.4 - Medications Given in the ED: ED Medications Discontinued Medications Generic Name Dose Route Start Last Admin Trade Name Freq PRN Reason Stop Dose Admin Acetaminophen 1,000 mg 08/12/17 13:52 08/12/17 13:58 Ofirmev Injection - IVPB 08/12/17 13:53 1,000 mg ONCE ONE Administration Pantoprazole Sodium 40 mg 08/12/17 10:38 08/12/17 10:54 Protonix Iv IVPUSH 08/12/17 10:39 40 mg ONCE ONE Administration Piperacillin Sod/Tazobactam Sod 4.5 gm 08/12/17 13:52 08/12/17 14:10 Zosyn 4.5gm Ivpb (Pre-Docked) IVPB 08/12/17 13:53 4.5 gm ONCE ONE Administration Sodium Chloride 1,000 ml 08/12/17 10:37 08/12/17 10:54 Normal Saline - IV 08/12/17 10:38 1,000 ml ONCE ONE Administration Sodium Chloride 1,000 ml 08/12/17 11:45 08/12/17 13:03 Normal Saline - IV 08/12/17 11:46 1,000 ml ONCE ONE Administration <Albertina Mahoney - Last Filed: 08/12/17 18:03> Medical Decision Making - Critical Care Time Total Critical Care Time (minutes): 30 Critical Care Statement: The care of this patient involved high complexity decision making to prevent further life threatening deterioration of the patient 's condition and/or to evaluate & treat vital organ system(s) failure or risk of failure. - Medical Decision Making 08/12/17 11:44 a/p: 52yo male sent from [place] for eval of rectal bleeding -hypotensive upon arrival -large bore iv -ivf hydration -labs, type and screen, coags -on asa and sq heparin -diffuse abd pain, will check lactate and ct abd -will monitor and reassess 08/12/17 12:[address] Meadows - accepts pt to tele requests Gi consult to Dr. Flores 08/12/17 12:55 pt with stable h/h elevated wbc, mild wbc in ua pending ct to dose abx for most likely colitis given BRBPR and abd pain lactate 2 - less suspicious for mesenteric ischemia could be ischemic colitis withe hypotension and elevated wbc pt will need to be admitted 08/12/17 13:[address] flores who will see the patient in consult <Virgen Gutierrez - Last Filed: 08/12/17 13:08> - Medical Decision Making 08/12/17 5:42pm Call was placed to Dr. Zuniga, case was discussed. 5:59pm Call was placed to Dr. Ailyn Meadows, case was discussed. Documentation prepared by Albertina Mahoney, acting as medical equipment sales for Virgen Gutierrez DO. <Albertina Mahoney - Last Filed: 08/12/17 18:03> *DC/Admit/Observation/Transfer - Attestations Scribe Attestion: 08/12/17 10:43 Documentation prepared by Emily James, acting as medical equipment sales for Virgen Gutierrez DO, MD. <Emily James - Last Filed: 08/12/17 10:39> - Discharge Dispostion Admit: Yes - Attestations Physician Attestion: 08/12/17 13:09 I, Dr. Virgen Gutierrez DO, attest that this document has been prepared under my direction and personally reviewed by me in its entirety. I further attest, that it accurately reflects all work, treatment, procedures and medical decision -making performed by me. <Virgen Gutierrez - Last Filed: 08/12/17 13:08> <Albertina Mahoney - Last Filed: 08/12/17 18:03> Diagnosis at time of Disposition: LGI bleed, Hypotension, Lactic acid blood increased - Discharge Dispostion Condition at time of disposition: Guarded
[2017-08-12 10:25] VITALS: BMI 26.2
[2017-08-12] MEDS ORDERED: SODIUM CHLORIDE 0.9% 1000 ML INFUS.BAG IV ONE ×2 (10:37→11:45)
[2017-08-12] MEDS ORDERED: PANTOPRAZOLE SODIUM 40 MG VIAL IVPUSH ONE (10:38)
[2017-08-12 10:49] LABS: BASO % 0.4 % (0-2.0); MCH 30.8 pg (25.7-33.7); MCHC 32.2 g/dl (32.0-35.9); MEAN CELL VOLUME 95.9 fl (80-96); MEAN PLT VOLUME 8.9 fl (7.5-11.1); NEUT % 70.7 % (42.8-82.8); PLATELET COUNT 281 K/MM3 (134-434); WHITE BLOOD COUNT 16.5 K/mm3 (4.0-10.0)
[2017-08-12 10:50] LABS: VENOUS BLOOD GAS HCO3 24.9 meq/L (19-25); VENOUS PH 7.28 (7.32-7.42)
[2017-08-12] MEDS ORDERED: PANTOPRAZOLE SODIUM 40 MG VIAL ONE (10:53)
[2017-08-12 11:07] LABS: INR 1.07 (0.82-1.09); PROTHROMBIN TIME (PATIENT) 12.1 SEC (9.98-11.88)
[2017-08-12 11:10] LABS: ACTIVATED PTT 26.7 SECONDS (26.9-34.4)
[2017-08-12 11:21] LABS: URINE APPEARANCE SLCLOUDY; URINE BILIRUBIN NEGATIVE (NEGATIVE); URINE BLOOD 1+ (NEGATIVE); URINE COLOR YELLOW; URINE GLUCOSE (UA) NEGATIVE (NEGATIVE); URINE KETONE TRACE (NEGATIVE); URINE NITRITE NEGATIVE (NEGATIVE); URINE PROTEIN NEGATIVE (NEGATIVE); URINE UROBILINOGEN NEGATIVE mg/dL (0.2-1.0)
[2017-08-12 11:22] LABS: URINE LEUK ESTERASE 1+ (NEGATIVE)
[2017-08-12 11:28] LABS: ALBUMIN 3.1 g/dl (3.4-5.0); ANION GAP 9 (8-16); BILIRUBIN,TOTAL 0.4 mg/dL (0.2-1.0); CO2 28 mmol/L (21-32); CREATININE 0.9 mg/dL (0.7-1.3); GLUCOSE,RANDOM 114 mg/dL (74-106); MAGNESIUM 2.1 mg/dL (1.8-2.4); SGOT/AST 7 U/L (15-37); SGPT/ALT 11 U/L (12-78); TOT PROT 7.8 g/dl (6.4-8.2)
[2017-08-12 11:31] LABS: URINE MUCUS RARE; URINE RBC 8 /hpf (0-3); URINE WBC 37 /hpf (3-5)
[2017-08-12 11:31] LABS: ALK PHOS 80 U/L (45-117); CPK 24 IU/L (39-308); TROPONIN I < 0.02 ng/ml (0.00-0.05)
--- NOTE | 2017-08-12 11:42 | EKG ---
Test Reason : Blood Pressure : / mmHG Vent. Rate : 095 BPM Atrial Rate : 095 BPM P-R Int : 146 ms QRS Dur : 072 ms QT Int : 304 ms P-R-T Axes : 036 -08 033 degrees QTc Int : 382 ms NORMAL SINUS RHYTHM T WAVE ABNORMALITY, CONSIDER LATERAL ISCHEMIA ABNORMAL ECG WHEN COMPARED WITH ECG OF 20-JUL-2017 21:04, T WAVE INVERSION NOW EVIDENT IN LATERAL LEADS QT HAS SHORTENED Confirmed by HARINI DAMON, BA ([id number]) on 08/12/2017 11:41:44 AM Referred By: Confirmed By:BA SCHULER MD
[2017-08-12] MEDS ORDERED: PIPERACILLIN/TAZOB 4.5 GM/100 ML PRE-DOCKED IVPB ONE (13:52)
[2017-08-12] MEDS ORDERED: ACETAMINOPHEN 1000 MG/100 ML VIAL (NON FORMULARY) IVPB ONE (13:52)
[2017-08-12] MEDS ORDERED: ACETAMINOPHEN INJECTION 100 ML IVPB ONE (13:54)
[2017-08-12] MEDS ORDERED: PIPERACILLIN/TAZOB 4.5 GM 4.5 GM/100 ML BAG IVPB ONE (13:54)
[2017-08-12] MEDS ORDERED: ALBUTEROL SO4 0.083% IH SOL 2.5 MG/3 ML VIAL.NEB. NEB PRN (17:21)
[2017-08-12 18:08] LABS: URINE LEUK ESTERASE TRACE (NEGATIVE)
[2017-08-12] MEDS ORDERED: VANCOMYCIN 1 GRAM (PRE-DOCKED) 1,000 MG/250 ML BAG IVPB ONE (18:14)
--- NOTE | 2017-08-12 18:20 | HP ---
Admitting History and Physical - Primary Care Physician PCP: Ailyn Meadows - Admission History of Present Illness: The patient is a 52-year-old male in rehab for weakness, with a significant past medical history of hypertension, hypercholesterolemia, seizure disorder ( on Keppra and Depakote; status post garett holes), who presents to the emergency department via EMS for rectal bleeding today pt also complained of abd pain. In er - pt found to have increased wbc/ hypotensive and fever 102 ct scan of abd ok pt also has bright red blood in er -- apparently lab reported sob-ve !! pt to be admitted to icu given fluids/ broadspectrum abx. pt seen by me in er-- sister at bedside awake. weak denies pain. pt well known to me . 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 Cardiovascular: Yes: HTN, Hyperlipdemia Pulmonary: Yes: Pneumonia Psych: Yes: Depression - Smoking History Smoking history: Never smoked Have you smoked in the past 12 months: No Aproximately how many cigarettes per day: 0 - Alcohol/Substance Use Hx Alcohol Use: No - Social History ADL: Family Assistance History of Recent Travel: No Home Medications - Allergies Allergies/Adverse Reactions: Allergies Allergy/AdvReac Type Severity Reaction Status Date / Time No Known Drug Allergies Allergy Verified 08/12/17 10:09 - Home Medications Home Medications: Ambulatory Orders Aspirin Coated [Ecotrin -] 81 mg PO DAILY #90 tab 12/16/16 Metoprolol Tartrate [Lopressor -] 25 mg PO BID #60 tablet 12/16/16 Albuterol 0.083% Nebulizer Lettiia [Ventolin 0.083% Nebulizer Soln -] 1 amp NEB Q4H PRN amp 08/07/17 Levetiracetam [Keppra -] 1,000 mg PO TID tablet 08/07/17 Pantoprazole Sodium [Protonix -] 40 mg PO DAILY tablet.ec 08/07/17 Polyethylene Glycol 3350 [Miralax 119 gm Btl -] 17 gm PO DAILY bottle 08/07/17 Valproate Sodium [Depakene -] 1,000 mg PO TID cup 08/07/17 Heparin - 5,000 unit SQ BID 08/12/17 Tamsulosin HCl [Flomax -] 0.4 mg PO 1900 08/12/17 Review of Systems - Review of Systems Constitutional: reports: Fever, Lethargy Eyes: reports: No Symptoms Neck: reports: No Symptoms Cardiovascular: reports: No Symptoms Respiratory: reports: No Symptoms Gastrointestinal: reports: Abdominal Pain Genitourinary: reports: No Symptoms Physical Examination Vital Signs: Vital Signs Temperature 102.2 F H 08/12/17 17:59 Pulse Rate 100 H 08/12/17 17:42 Respiratory Rate 20 08/12/17 17:42 Blood Pressure 107/66 08/12/17 17:42 O2 Sat by Pulse Oximetry (%) 100 08/12/17 17:42 Constitutional: Yes: Calm Eyes: Yes: Conjunctiva Clear HENT: Yes: Other (garett holes scars +) Neck: Yes: Supple Respiratory: Yes: CTA Bilaterally Gastrointestinal: Yes: Normal Bowel Sounds, Soft, Other (non tender) Edema: No Neurological: Yes: Other (awake) Labs: CBC, BMP 08/12/17 10:37 08/12/17 10:37 Imaging - Results Chest X-ray: Report Reviewed Cat Scan: Report Reviewed Problem List - Problems (1) Hypotension Code(s): I95.9 - HYPOTENSION, UNSPECIFIED (2) LGI bleed Code(s): K92.2 - GASTROINTESTINAL HEMORRHAGE, UNSPECIFIED (3) Lactic acid blood increased Code(s): R79.89 - OTHER SPECIFIED ABNORMAL FINDINGS OF BLOOD CHEMISTRY (4) Fever Code(s): R50.9 - FEVER, UNSPECIFIED (5) Seizure Code(s): R56.9 - UNSPECIFIED CONVULSIONS Assessment/Plan admit icu. fluids abx ischemic colitis ? abd is soft c diff ? recently treated with abx for pneumonia gi/ id/ consults. keep npo for now condition gaurded discussed with pts sister who at bedside will follow. cc time 35 min .
[2017-08-12] MEDS ORDERED: VANCOMYCIN 1,000 MG in DEXTROSE 5%-WATER - 250 ML IVPB ONE (18:30)
[2017-08-12] MEDS: METOPROLOL TARTRATE 25 MG TABLET (FP) PO SCH ×2 (18:57→21:41)
--- NOTE | 2017-08-12 19:15 | CON.GI ---
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 Cardio/Vascular: Yes: HTN, Hyperlipdemia Psych: Yes: Depression - Alcohol/Substance Use Hx Alcohol Use: No - Smoking History Smoking history: Never smoked Have you smoked in the past 12 months: No Aproximately how many cigarettes per day: 0 - Social History ADL: Family Assistance History of Recent Travel: No Home Medications - Allergies Allergies/Adverse Reactions: Allergies Allergy/AdvReac Type Severity Reaction Status Date / Time No Known Drug Allergies Allergy Verified 08/12/17 10:09 - Home Medications Home Medications: Ambulatory Orders Aspirin Coated [Ecotrin -] 81 mg PO DAILY #90 tab 12/16/16 Metoprolol Tartrate [Lopressor -] 25 mg PO BID #60 tablet 12/16/16 Albuterol 0.083% Nebulizer Letitia [Ventolin 0.083% Nebulizer Soln -] 1 amp NEB Q4H PRN amp 08/07/17 Levetiracetam [Keppra -] 1,000 mg PO TID tablet 08/07/17 Pantoprazole Sodium [Protonix -] 40 mg PO DAILY tablet.ec 08/07/17 Polyethylene Glycol 3350 [Miralax 119 gm Btl -] 17 gm PO DAILY bottle 08/07/17 Valproate Sodium [Depakene -] 1,000 mg PO TID cup 08/07/17 Heparin - 5,000 unit SQ BID 08/12/17 Tamsulosin HCl [Flomax -] 0.4 mg PO 1900 08/12/17 Physical Exam-GI Vital Signs: Vital Signs Temperature 103.0 F H 08/12/17 18:00 Pulse Rate 112 H 08/12/17 18:00 Respiratory Rate 20 08/12/17 18:00 Blood Pressure 111/69 08/12/17 18:00 O2 Sat by Pulse Oximetry (%) 100 08/12/17 17:42 Constitutional: Yes: Well Nourished Eyes: Yes: Conjunctiva Clear HENT: Yes: Normocephalic Neck: Yes: Supple, Tenderness Respiratory: Yes: CTA Bilaterally ...Palpate: Yes: Soft. No: Firm/Rigid, Guarding, Hepatomegaly, Mass, Pulsatile Mass, Splenomegaly, Tenderness Labs: CBC, BMP 08/12/17 10:37 08/12/17 10:37 INR, PTT INR 1.07 (0.82-1.09) 08/12/17 10:37 Hepatic Panel Total Bilirubin 0.4 mg/dL (0.2-1.0) 08/12/17 10:37 AST 7 U/L (15-37) L D 08/12/17 10:37 ALT 11 U/L (12-78) L D 08/12/17 10:37 Alkaline Phosphatase 80 U/L (45-117) 08/12/17 10:37 Albumin 3.1 g/dl (3.4-5.0) L D 08/12/17 10:37 Problem List - Problems (1) Ischemic colitis Assessment/Plan: vs C.diff colitis R> keep well hydrated stooll C.diff Add IV Flagyl Code(s): K55.9 - VASCULAR DISORDER OF INTESTINE, UNSPECIFIED
[2017-08-12] MEDS: DEXTROSE 5%-NORMAL SALINE 1,000 ML IV SCH (19:32)
[2017-08-12] MEDS: ACETAMINOPHEN 1000 MG/100 ML VIAL (NON FORMULARY) IVPB PRN (19:51)
[2017-08-12] MEDS: METRONIDAZOLE 500 MG PREMIXED 500 MG/100 ML MG IVPB SCH (20:11)
[2017-08-12 20:40] LABS: BASO % 0.2 % (0-2.0); MCH 30.8 pg (25.7-33.7); MCHC 32.3 g/dl (32.0-35.9); MEAN CELL VOLUME 95.2 fl (80-96); MEAN PLT VOLUME 8.9 fl (7.5-11.1); NEUT % 65.5 % (42.8-82.8); PLATELET COUNT 204 K/MM3 (134-434); RDW 17.7 % (11.9-15.9); WHITE BLOOD COUNT 15.5 K/mm3 (4.0-10.0)
[2017-08-12] MEDS ORDERED: CHLORHEXIDINE GLUCONATE 4% CLEANSER FOR DECOLONIZATION TP SCH (22:00)
[2017-08-12] MEDS ORDERED: MUPIROCIN 2% TOPICAL OINTMENT FOR DECOLONIZATION NS SCH (22:00)
[2017-08-12] MEDS: VALPROATE SODIUM 500 MG/5 ML VIAL IVPB SCH (22:07)
[2017-08-12] MEDS: levETIRAcetam 500 MG/5 ML INJECTION VIAL IVPB SCH (22:07)
[2017-08-13] MEDS: METRONIDAZOLE 500 MG PREMIXED 500 MG/100 ML MG IVPB SCH ×4 (02:10→21:45)
[2017-08-13] MEDS: ACETAMINOPHEN 1000 MG/100 ML VIAL (NON FORMULARY) IVPB PRN (02:11)
[2017-08-13] MEDS: levETIRAcetam 500 MG/5 ML INJECTION VIAL IVPB SCH ×3 (05:44→21:12)
[2017-08-13] MEDS: VALPROATE SODIUM 500 MG/5 ML VIAL IVPB SCH ×3 (06:13→22:53)
[2017-08-13] MEDS ORDERED: PT OWN MED DRAWER 7, Y5N ONE ×4 (06:33→20:57)
[2017-08-13 07:50] LABS: BASO % 0.2 % (0-2.0); MCH 30.2 pg (25.7-33.7); MEAN CELL VOLUME 97.2 fl (80-96); NEUT % 64.6 % (42.8-82.8); PLATELET COUNT 183 K/MM3 (134-434); RDW 17.9 % (11.9-15.9); WHITE BLOOD COUNT 16.9 K/mm3 (4.0-10.0)
[2017-08-13 08:27] LABS: ALBUMIN 2.1 g/dl (3.4-5.0); ANION GAP 7 (8-16); CALCIUM 7.9 mg/dL (8.5-10.1); CO2 27 mmol/L (21-32); CREATININE 0.7 mg/dL (0.7-1.3); GLUCOSE,RANDOM 112 mg/dL (74-106); SGOT/AST 6 U/L (15-37); SGPT/ALT 9 U/L (12-78)
[2017-08-13 08:29] LABS: ALK PHOS 51 U/L (45-117); BILIRUBIN,TOTAL 0.6 mg/dL (0.2-1.0); TOT PROT 5.8 g/dl (6.4-8.2)
[2017-08-13] MEDS: TAMSULOSIN HCL 0.4 MG CAP.ER.24H (FP) PO SCH (09:54)
[2017-08-13] MEDS: METOPROLOL TARTRATE 25 MG TABLET (FP) PO SCH ×2 (09:55→21:22)
[2017-08-13] MEDS: PANTOPRAZOLE SODIUM 40 MG VIAL IVPUSH SCH (09:55)
--- NOTE | 2017-08-13 17:10 | CONSULT ---
Consult - text type - Consultation Consultation Note: NEUDROLOGY CONSULTATION is greatly appreciated: This 52 yo man with h/o multiple brain surgeries in childhood for hydrocephalus and chronic encephalopathy is well-know to me for treatment of seizures. 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 No seizures on levetiracetam 1000 mg q 8 hrs and Depakote ER 1000mg q 8 hrs. Now admitted with BRBPR after BM. Fevers > 101 noted. WBC = 16.5 K and urinary WBC = 37. EXAM: Febrile. Neck supple Multiple scars and craniectomy sites. Relative macrocephaly Awake. Following EOM's, blinks all hannah to threat. Gag depressed Follows simple commands. No speech today Spastic Right hemiparesis >> left with early contractures Right elbow. Brisk reflexes except AJ's B/L Babinskis. Withdraws all fours to pinch. IMP:1. 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 Seizure disorder. Well-controlled on current Rx 3. Toxic-metabolic encephalopathy- probably due to UTI/urosepsis ( hospital acquired, during recent prolonged stay with [facility]. SUGGEST: Continue Depakote ER 1000 mg q 8hrs Continue Levetiracetam 1000 mg q 8hrs. Continue ID eval and Rx of infection. Feed cautiously. Thank you very much, Sanya Johnson MD
--- NOTE | 2017-08-13 17:44 | PN ---
Progress Note (short form) - Note Progress Note: looks better. But still weak Denies pain Afebrile Vital Signs Temp 98.3 F 08/13/17 14:29 Pulse 86 08/13/17 14:29 Resp 18 08/13/17 14:29 BP 93/51 08/13/17 14:29 Pulse Ox 100 08/13/17 10:00 Intake & Output 08/12/17 08/13/17 08/13/17 23:59 11:59 23:59 Intake Total 900 1275 Balance 900 1275 Weight 158 lb 0.014 oz Intake: IV 250 875 D5-Ns - 1,000 ml @ 125 250 875 mls/hr IV ASDIR [facility]THEW Rx#: [id number] IVPB 650 400 Other: Voiding Method Diaper Diaper Diaper # Unmeasured Voids Void 1 2 Bowel Movement No Height 5 ft 5 in Body Mass Index (BMI) 26.2 Weight Measurement Method Estimated by Staff Active Medications Acetaminophen (Ofirmev Injection -) 1,000 mg IVPB Q6H PRN PRN Reason: FEVER OR PAIN Last Admin: 08/13/17 02:11 Dose: 1,000 mg Albuterol Sulfate (Ventolin 0.083% Nebulizer Soln -) 1 amp NEB Q4H PRN PRN Reason: SHORT OF BREATH/WHEEZING Dextrose/Sodium Chloride (D5-Ns -) 1,000 mls @ 125 mls/hr IV ASDIR [facility] Last Admin: 08/12/17 19:32 Dose: 125 mls/hr Metronidazole (Flagyl 500mg Premixed Ivpb -) 500 mg in 100 mls @ 100 mls/hr IVPB Q6H-IV [facility] Last Admin: 08/13/17 14:40 Dose: 100 mls/hr Levetiracetam (Keppra Injection -) 1,000 mg IVPB TID [facility] Last Admin: 08/13/17 14:39 Dose: 1,000 mg Metoprolol Tartrate (Lopressor -) 25 mg PO BID [facility] Last Admin: 08/13/17 09:55 Dose: Not Given Pantoprazole Sodium (Protonix Iv) 40 mg IVPUSH DAILY [facility] Last Admin: 08/13/17 09:55 Dose: 40 mg Tamsulosin HCl (Flomax -) 0.4 mg PO DAILY@0830 [facility] Last Admin: 08/13/17 09:54 Dose: Not Given Valproate Sodium (Depacon Injection -) 1,000 mg IVPB TID [facility] Last Admin: 08/13/17 14:40 Dose: 1,000 mg Vancomycin HCl (Vancomycin (Pre-Docked)) 1,000 mg IVPB DAILY ONE PRN Reason: Protocol Stop: 08/12/17 18:15 CBC, BMP 08/13/17 07:30 08/13/17 07:30 Microbiology 08/12/17 11:18 Urine Culture - Final Urine - Urine - Catheterized 08/12/17 10:57 Blood Culture - Preliminary Blood - Peripheral Venous NO GROWTH OBTAINED AFTER 24 HOURS, INCUBATION TO CONTINUE FOR 4 DAYS. 08/12/17 10:36 Blood Culture - Preliminary Blood - Peripheral Venous NO GROWTH OBTAINED AFTER 24 HOURS, INCUBATION TO CONTINUE FOR 4 DAYS. Physical Examination Constitutional: Yes: Calm Eyes: Yes: Conjunctiva Clear HENT: Yes: Other (garett holes scars +) Neck: Yes: Supple Respiratory: Yes: CTA Bilaterally Gastrointestinal: Yes: Normal Bowel Sounds, Soft, Other (non tender). Edema: No Neurological: Yes: Other (awake) Imaging - Results Chest X-ray: Report Reviewed Cat Scan: Report Reviewed Assessment/Plan Continue antibiotics --discussed with Dr. Mays. Continue fluids Stool for C. difficile pending--nurse reports patient has no diarrhea Discussed with nursing staff also No further seizure activity Will follow. Problem List - Problems (1) Hypotension Code(s): I95.9 - HYPOTENSION, UNSPECIFIED (2) LGI bleed Code(s): K92.2 - GASTROINTESTINAL HEMORRHAGE, UNSPECIFIED (3) Lactic acid blood increased Code(s): R79.89 - OTHER SPECIFIED ABNORMAL FINDINGS OF BLOOD CHEMISTRY (4) Fever Code(s): R50.9 - FEVER, UNSPECIFIED (5) Seizure Code(s): R56.9 - UNSPECIFIED CONVULSIONS
[2017-08-13] MEDS: PIPERACILLIN/TAZOB 3.375 GM 3.375 GM in DEXTROSE 5%-WATER - 100 ML IVPB SCH ×2 (18:29→21:45)
[2017-08-13] MEDS: VANCOMYCIN 1,000 MG in DEXTROSE 5%-WATER - 250 ML IVPB SCH (19:42)
[2017-08-13] MEDS: DEXTROSE 5%-NORMAL SALINE 1,000 ML IV SCH (19:48)
[2017-08-14] MEDS: PIPERACILLIN/TAZOB 3.375 GM 3.375 GM in DEXTROSE 5%-WATER - 100 ML IVPB SCH ×4 (02:09→21:40)
[2017-08-14] MEDS: METRONIDAZOLE 500 MG PREMIXED 500 MG/100 ML MG IVPB SCH ×4 (02:59→21:19)
[2017-08-14] MEDS: VALPROATE SODIUM 500 MG/5 ML VIAL IVPB SCH ×3 (05:18→21:21)
[2017-08-14] MEDS ORDERED: levETIRAcetam 500 MG/5 ML INJECTION VIAL IVPB ONE (05:21)
[2017-08-14] MEDS: DEXTROSE 5%-NORMAL SALINE 1,000 ML IV SCH ×2 (06:04→22:56)
[2017-08-14] MEDS: levETIRAcetam 500 MG/5 ML INJECTION VIAL IVPB SCH ×3 (06:05→21:20)
[2017-08-14] MEDS: VANCOMYCIN 1,000 MG in DEXTROSE 5%-WATER - 250 ML IVPB SCH (06:54)
[2017-08-14 07:43] LABS: BASO # 0.1 # (0.1-1); BASO % 0.5 % (0-2.0); EOS % 0.2 % (0-4.5); LYMPH # 2.2 (8-40); MCH 31.1 pg (25.7-33.7); MCHC 32.4 g/dl (32.0-35.9); MEAN PLT VOLUME 9.2 fl (7.5-11.1); MONO # 1.4 # (3.8-10.2); NEUT # 7.8 # (42.8-82.8); PLATELET COUNT 175 K/MM3 (134-434); RDW 17.2 % (11.9-15.9); WHITE BLOOD COUNT 11.4 K/mm3 (4.0-10.0)
[2017-08-14 08:31] LABS: ALBUMIN 1.8 g/dl (3.4-5.0); ANION GAP 8 (8-16); CALCIUM 7.3 mg/dL (8.5-10.1); CO2 29 mmol/L (21-32); CREATININE 0.6 mg/dL (0.7-1.3); GLUCOSE,RANDOM 142 mg/dL (74-106); SGOT/AST 5 U/L (15-37); SGPT/ALT 7 U/L (12-78)
[2017-08-14 08:32] LABS: ALK PHOS 46 U/L (45-117); BILIRUBIN,TOTAL 0.5 mg/dL (0.2-1.0); TOT PROT 5.1 g/dl (6.4-8.2)
--- NOTE | 2017-08-14 09:14 | PN ---
Progress Note (short form) - Note Progress Note: ID consult dictated 52 year old man recently hosptitalized at [facility] for seizures/resp failure, MSSA pneumonia- 07/21 to 08/07, discharged on augmentin admitted with bright red rectal bleeding, leukocytosis, and fever he was started on vanco/zosyn/flagyl cta done- I reviewed with Dr Qureshi- no bowel pathology identified he is awake, notes LLQ discomfort nursing staff reports no diarrhea, no rectal bleeding seen by GI rectal bleeding ?ischemic colitis continue zosyn/flagyl d/c vancomycin stool cdiff if possible blood cultures are negative history of seizure disorder s/p pneumonia Problem List - Problems (1) LGI bleed Code(s): K92.2 - GASTROINTESTINAL HEMORRHAGE, UNSPECIFIED (2) Ischemic colitis Code(s): K55.9 - VASCULAR DISORDER OF INTESTINE, UNSPECIFIED (3) Seizure Code(s): R56.9 - UNSPECIFIED CONVULSIONS
[2017-08-14] MEDS ORDERED: KCL 10 MEQ IVPB 10 MEQ/100 ML INFUS.BAG IVPB SCH (09:15)
--- NOTE | 2017-08-14 09:26 | PN ---
Progress Note (short form) - Note Progress Note: patient seen and examined in his room complaints of mild abdominal tenderness no bloody BM as per RN CDIFF pending Vital Signs Temp 100.2 F H 08/14/17 08:53 Pulse 73 08/14/17 08:53 Resp 20 08/14/17 08:53 BP 98/57 08/14/17 08:53 Pulse Ox 100 08/13/17 21:00 Intake & Output 08/13/17 08/13/17 08/14/17 11:59 23:59 11:59 Intake Total 1275 1550 Output Total 300 250 Balance 1275 -300 1300 Intake: IV 875 500 D5-Ns - 1,000 ml @ 125 875 500 mls/hr IV ASDIR MATTHEW Rx#: [id number] IVPB 400 1050 Output: Urine 300 250 Void 300 250 Other: Voiding Method Diaper Urinal # Unmeasured Voids Void 2 2 Bowel Movement No Active Medications Acetaminophen (Ofirmev Injection -) 1,000 mg IVPB Q6H PRN PRN Reason: FEVER OR PAIN Last Admin: 08/13/17 02:11 Dose: 1,000 mg Albuterol Sulfate (Ventolin 0.083% Nebulizer Soln -) 1 amp NEB Q4H PRN PRN Reason: SHORT OF BREATH/WHEEZING Dextrose/Sodium Chloride (D5-Ns -) 1,000 mls @ 125 mls/hr IV ASDIR [facility] Last Admin: 08/14/17 06:04 Dose: 125 mls/hr Metronidazole (Flagyl 500mg Premixed Ivpb -) 500 mg in 100 mls @ 100 mls/hr IVPB Q6H-IV [facility] Last Admin: 08/14/17 08:54 Dose: 100 mls/hr Piperacillin Sod/Tazobactam (Sod 3.375 gm/ Dextrose) 100 mls @ 200 mls/hr IVPB Q6H-IV [facility] Last Admin: 08/14/17 02:09 Dose: 200 mls/hr Potassium Chloride (Potassium Chloride 10 Meq Premix Ivpb -) 10 meq in 100 mls @ 100 mls/hr IVPB Q60M [facility] Stop: 08/14/17 12:14 Levetiracetam (Keppra Injection -) 1,000 mg IVPB TID [facility] Last Admin: 08/14/17 06:05 Dose: 1,000 mg Metoprolol Tartrate (Lopressor -) 25 mg PO BID [facility] Last Admin: 08/13/17 21:22 Dose: Not Given Pantoprazole Sodium (Protonix Iv) 40 mg IVPUSH DAILY [facility] Last Admin: 08/13/17 09:55 Dose: 40 mg Tamsulosin HCl (Flomax -) 0.4 mg PO DAILY@0830 [facility] Last Admin: 08/13/17 09:54 Dose: Not Given Valproate Sodium (Depacon Injection -) 1,000 mg IVPB TID [facility] Last Admin: 08/14/17 05:18 Dose: 1,000 mg Abnormal Lab Results 08/12/17 08/14/17 08/14/17 10:37 06:00 06:00 WBC 11.4 H D RBC 2.48 L Hgb 7.7 L D Hct 23.8 L D RDW 17.2 H Absolute Neuts (auto) 7.8 L Absolute Lymphs (auto) 2.2 L Absolute Monos (auto) 1.4 L Monocytes % 12.1 H Potassium 3.2 L Creatinine 0.6 L Random Glucose 142 H D Calcium 7.3 L AST 5 L ALT 7 L D Total Protein 5.1 L Albumin 1.8 L Crossmatch See Detail N- alert, awake, preexisting deficit CVS-S1S2 lungs-clear ABD- SOFT, mild tenderness -generalized LE- no edema A/P GIB- ?ischemic colitis ?cdiff-recent treatment with antibiotics sepsis- BC- so far negative UC- negative anemia hypotention hypokalemia seizure disorder cerebral dysfunction - s/p multiple cranial surgeries -Will transfuse one unit of PRBC -MAY NEED one more unit- POST TRANSFUSION CBC -cdiff pending -replace K KEEP npo -continue antibiotics per ID -continue AED Problem List - Problems (1) Seizure disorder Code(s): G40.909 - EPILEPSY, UNSP, NOT INTRACTABLE, WITHOUT STATUS EPILEPTICUS (2) Anemia Code(s): D64.9 - ANEMIA, UNSPECIFIED (3) Ischemic colitis Code(s): K55.9 - VASCULAR DISORDER OF INTESTINE, UNSPECIFIED (4) LGI bleed Code(s): K92.2 - GASTROINTESTINAL HEMORRHAGE, UNSPECIFIED (5) Acute blood loss anemia Code(s): D62 - ACUTE POSTHEMORRHAGIC ANEMIA
[2017-08-14] MEDS ORDERED: POTASSIUM CHLORIDE 30 MEQ in SODIUM CHLORIDE 300 ML IVPB ONE (10:00)
[2017-08-14] MEDS: PANTOPRAZOLE SODIUM 40 MG VIAL IVPUSH SCH (12:55)
--- NOTE | 2017-08-14 12:55 | CONS ---
DATE OF CONSULTATION: 08/14/2017 REQUESTING PHYSICIAN: Ailyn Meadows MD HISTORY OF PRESENT ILLNESS: This is a 52-year-old male who was recently in the hospital from July 21, 2017 to August 07, 2017 with status epilepticus requiring intubation. He had aspiration pneumonitis which was notable for staphylococcus. He was treated with cefazolin in the hospital and discharged. At the time of discharge he was discharged on Augmentin. [facility] the [facility] he developed acute bright red blood per rectum and was sent to the hospital. He was noted to have a fever here as high as 102. He had a chest x-ray done that was unremarkable. He had a CAT scan of his abdomen and pelvis and a CTA study which I reviewed with Dr. Qureshi which was also unremarkable. He is admitted for further evaluation. He is awake and alert. He reports some left lower quadrant discomfort. Nurses report he has had no diarrhea overnight or rectal bleeding. He otherwise has no complaints. PAST MEDICAL HISTORY: Notable for a seizure disorder, hypertension, hyperlipidemia, pneumonia, and depression. He recently had required intubation while in the hospital and was treated for Methicillin-sensitive Staphylococcus aureus pneumonia. PAST SURGICAL HISTORY: Notable for bilateral garett holes with resultant right-sided hemiparesis. SOCIAL HISTORY: [facility] is [facility] at the [facility]. ALLERGIES: He has no known drug allergies. CURRENT MEDICATIONS AT THE RETIREMENT: 1. Valproic acid. 2. Sodium. 3. Flomax. 4. MiraLAX. 5. Protonix. 6. Metoprolol. 7. Keppra. 8. Ecotrin. 9. Albuterol nebulizer. REVIEW OF SYSTEMS: As stated before is notable for the patient denies any chest pain. He does note left-sided abdominal pain. He has no other complaints. He is not shortness of breath. He has no chest pain. PHYSICAL EXAMINATION: Vital Signs: His rectal temperature is 100.2, pulse of 73, blood pressure 98/57, and respiratory rate is 20. General: He is alert and responsive. HEENT: Normocephalic. His eyes are anicteric. Neck: Supple. Lungs: Clear to auscultation. Heart: Regular rate and rhythm. Abdomen: With bowel sounds. He has some left lower quadrant discomfort on examination. Extremities: Without edema. LABORATORY DATA: Labs notable on admission. His white count was 16.5, today is 11.4, hemoglobin is 7.7 on admission was 10.9 with a platelet count of 175. BUN and creatinine are 7 and 0.6, bicarbonate is 29, and lactic acid on admission was 2.5, now 1.2 with normal LFTs. IMAGING DATA: CAT findings as previously stated. He had a chest x-ray done in the emergency room that is normal as well. ASSESSMENT: 1. In summary this is a 52-year-old man who appears to be having rectal bleeding with associated anemia. He has been seen by Gastroenterology who recommended followup. A Question of ischemic colitis has been raised. Would continue Zosyn and Flagyl as his fever and white count appear to be responding. He can stop his vancomycin. We will check a stool Clostridium difficile if possible. He needs Gastroenterology followup. 2. History of seizure disorder. He is continuing his medications. 3. Status post pneumonia with a clear chest x-ray. Further recommendations to follow based on his clinical course. Alida [id number]
[2017-08-14] MEDS ORDERED: PT OWN MED DRAWER 7, Y5N ONE (13:42)
[2017-08-14] MEDS: ACETAMINOPHEN 1000 MG/100 ML VIAL (NON FORMULARY) IVPB PRN (13:49)
--- NOTE | 2017-08-14 16:14 | PN ---
Progress Note (short form) - Note Progress Note: Patient seen and examined this morning with WAREHOUSE [employer]ODUCTION WORKER Giovanna. I reviewed her documentation. Also discussed the case Patient comfortable but weak Vital Signs Temp 101.5 F H 08/14/17 13:47 Pulse 92 H 08/14/17 13:47 Resp 20 08/14/17 13:47 BP 106/67 08/14/17 13:47 Pulse Ox 100 08/14/17 09:00 Intake & Output 08/13/17 08/14/17 08/14/17 23:59 11:59 23:59 Intake Total 1550 Output Total 300 250 Balance -300 1300 Intake: IV 500 D5-Ns - 1,000 ml @ 125 500 mls/hr IV ASDIR MATTHEW Rx#: [id number] IVPB 1050 Output: Urine 300 250 Void 300 250 Other: Voiding Method Urinal Urinal # Unmeasured Voids Void 2 2 Active Medications Acetaminophen (Ofirmev Injection -) 1,000 mg IVPB Q6H PRN PRN Reason: FEVER OR PAIN Last Admin: 08/14/17 13:49 Dose: 1,000 mg Albuterol Sulfate (Ventolin 0.083% Nebulizer Soln -) 1 amp NEB Q4H PRN PRN Reason: SHORT OF BREATH/WHEEZING Dextrose/Sodium Chloride (D5-Ns -) 1,000 mls @ 125 mls/hr IV ASDIR MATTHEW Last Admin: 08/14/17 06:04 Dose: 125 mls/hr Metronidazole (Flagyl 500mg Premixed Ivpb -) 500 mg in 100 mls @ 100 mls/hr IVPB Q6H-IV [facility] Last Admin: 08/14/17 08:54 Dose: 100 mls/hr Piperacillin Sod/Tazobactam (Sod 3.375 gm/ Dextrose) 100 mls @ 200 mls/hr IVPB Q6H-IV [facility] Last Admin: 08/14/17 12:20 Dose: 200 mls/hr Levetiracetam (Keppra Injection -) 1,000 mg IVPB TID [facility] Last Admin: 08/14/17 15:03 Dose: 1,000 mg Metoprolol Tartrate (Lopressor -) 25 mg PO BID [facility] Last Admin: 08/13/17 21:22 Dose: Not Given Pantoprazole Sodium (Protonix Iv) 40 mg IVPUSH DAILY [facility] Last Admin: 08/14/17 12:55 Dose: 40 mg Tamsulosin HCl (Flomax -) 0.4 mg PO DAILY@0830 [facility] Last Admin: 08/13/17 09:54 Dose: Not Given Valproate Sodium (Depacon Injection -) 1,000 mg IVPB TID [facility] Last Admin: 08/14/17 15:03 Dose: 1,000 mg CBC, BMP 08/14/17 06:00 08/14/17 06:00 physical-- alert awake, weak CVS-S1S2 lungs-clear ABD- SOFT, non tender LE- no edema A/P continue Present care Antibiotics Hydration Monitor lites GI follow-up Will transfuse today Problem List - Problems (1) Hypotension Code(s): I95.9 - HYPOTENSION, UNSPECIFIED (2) LGI bleed Code(s): K92.2 - GASTROINTESTINAL HEMORRHAGE, UNSPECIFIED (3) Lactic acid blood increased Code(s): R79.89 - OTHER SPECIFIED ABNORMAL FINDINGS OF BLOOD CHEMISTRY (4) Fever Code(s): R50.9 - FEVER, UNSPECIFIED (5) Seizure Code(s): R56.9 - UNSPECIFIED CONVULSIONS
[2017-08-14] MEDS: TAMSULOSIN HCL 0.4 MG CAP.ER.24H (FP) PO SCH (17:26)
[2017-08-14] MEDS: METOPROLOL TARTRATE 25 MG TABLET (FP) PO SCH ×2 (17:26→21:40)
[2017-08-15] MEDS: PIPERACILLIN/TAZOB 3.375 GM 3.375 GM in DEXTROSE 5%-WATER - 100 ML IVPB SCH ×4 (02:17→21:42)
[2017-08-15] MEDS: METRONIDAZOLE 500 MG PREMIXED 500 MG/100 ML MG IVPB SCH ×4 (02:17→21:42)
[2017-08-15 02:47] LABS: MCH 30.9 pg (25.7-33.7); MCHC 33.1 g/dl (32.0-35.9); MEAN CELL VOLUME 93.4 fl (80-96); MEAN PLT VOLUME 8.9 fl (7.5-11.1); PLATELET COUNT 165 K/MM3 (134-434); RDW 16.2 % (11.9-15.9); WHITE BLOOD COUNT 6.5 K/mm3 (4.0-10.0)
[2017-08-15] MEDS: VALPROATE SODIUM 500 MG/5 ML VIAL IVPB SCH ×3 (05:35→21:43)
[2017-08-15] MEDS: levETIRAcetam 500 MG/5 ML INJECTION VIAL IVPB SCH ×3 (05:44→21:42)
[2017-08-15] MEDS ORDERED: PT OWN MED DRAWER 7, Y5N ONE ×3 (09:11→20:59)
[2017-08-15] MEDS: TAMSULOSIN HCL 0.4 MG CAP.ER.24H (FP) PO SCH (09:48)
[2017-08-15] MEDS: METOPROLOL TARTRATE 25 MG TABLET (FP) PO SCH ×2 (09:48→21:43)
[2017-08-15] MEDS: PANTOPRAZOLE SODIUM 40 MG VIAL IVPUSH SCH (09:48)
--- NOTE | 2017-08-15 11:24 | PN ---
Progress Note, Physician History of Present Illness: Awake, responsive No c/o abdominal pain Reports rectal bleeding Temps, WBC improved - Current Medication List Current Medications: Active Medications Acetaminophen (Ofirmev Injection -) 1,000 mg IVPB Q6H PRN PRN Reason: FEVER OR PAIN Last Admin: 08/14/17 13:49 Dose: 1,000 mg Albuterol Sulfate (Ventolin 0.083% Nebulizer Soln -) 1 amp NEB Q4H PRN PRN Reason: SHORT OF BREATH/WHEEZING Dextrose/Sodium Chloride (D5-Ns -) 1,000 mls @ 125 mls/hr IV ASDIR [facility] Last Admin: 08/14/17 22:56 Dose: Not Given Metronidazole (Flagyl 500mg Premixed Ivpb -) 500 mg in 100 mls @ 100 mls/hr IVPB Q6H-IV [facility] Last Admin: 08/15/17 09:48 Dose: 100 mls/hr Piperacillin Sod/Tazobactam (Sod 3.375 gm/ Dextrose) 100 mls @ 200 mls/hr IVPB Q6H-IV [facility] Last Admin: 08/15/17 09:15 Dose: 200 mls/hr Levetiracetam (Keppra Injection -) 1,000 mg IVPB TID [facility] Last Admin: 08/15/17 05:44 Dose: 1,000 mg Metoprolol Tartrate (Lopressor -) 25 mg PO BID [facility] Last Admin: 08/15/17 09:48 Dose: Not Given Pantoprazole Sodium (Protonix Iv) 40 mg IVPUSH DAILY [facility] Last Admin: 08/15/17 09:48 Dose: 40 mg Tamsulosin HCl (Flomax -) 0.4 mg PO DAILY@0830 [facility] Last Admin: 08/15/17 09:48 Dose: Not Given Valproate Sodium (Depacon Injection -) 1,000 mg IVPB TID [facility] Last Admin: 08/15/17 05:35 Dose: 1,000 mg - Objective Vital Signs: Vital Signs Temperature 99.2 F 08/15/17 05:48 Pulse Rate 65 08/15/17 05:48 Respiratory Rate 16 08/15/17 05:48 Blood Pressure 106/54 08/15/17 05:48 O2 Sat by Pulse Oximetry (%) 98 08/14/17 21:00 Constitutional: Yes: No Distress Eyes: Yes: Conjunctiva Clear Cardiovascular: Yes: Regular Rate and Rhythm, S1, S2 Respiratory: Yes: Diminished Gastrointestinal: Yes: Normal Bowel Sounds, Soft. No: Tenderness Edema: Yes Labs: CBC, BMP 08/15/17 02:30 08/14/17 06:00 INR, PTT INR 1.07 (0.82-1.09) 08/12/17 10:37 Assessment/Plan Rectal bleeding Possible ischemic colitis Fever/ leukocytosis- improved Hx seizure disorder Continue empiric zosyn/ flagyl
--- NOTE | 2017-08-15 14:07 | PN ---
Progress Note, Physician History of Present Illness: comfortble afebrile denies pain got one unit of prbc yesterday - Current Medication List Current Medications: Active Medications Acetaminophen (Ofirmev Injection -) 1,000 mg IVPB Q6H PRN PRN Reason: FEVER OR PAIN Last Admin: 08/14/17 13:49 Dose: 1,000 mg Albuterol Sulfate (Ventolin 0.083% Nebulizer Soln -) 1 amp NEB Q4H PRN PRN Reason: SHORT OF BREATH/WHEEZING Dextrose/Sodium Chloride (D5-Ns -) 1,000 mls @ 125 mls/hr IV ASDIR [facility] Last Admin: 08/14/17 22:56 Dose: Not Given Metronidazole (Flagyl 500mg Premixed Ivpb -) 500 mg in 100 mls @ 100 mls/hr IVPB Q6H-IV [facility] Last Admin: 08/15/17 09:48 Dose: 100 mls/hr Piperacillin Sod/Tazobactam (Sod 3.375 gm/ Dextrose) 100 mls @ 200 mls/hr IVPB Q6H-IV [facility] Last Admin: 08/15/17 09:15 Dose: 200 mls/hr Levetiracetam (Keppra Injection -) 1,000 mg IVPB TID [facility] Last Admin: 08/15/17 05:44 Dose: 1,000 mg Metoprolol Tartrate (Lopressor -) 25 mg PO BID [facility] Last Admin: 08/15/17 09:48 Dose: Not Given Pantoprazole Sodium (Protonix Iv) 40 mg IVPUSH DAILY [facility] Last Admin: 08/15/17 09:48 Dose: 40 mg Tamsulosin HCl (Flomax -) 0.4 mg PO DAILY@0830 [facility] Last Admin: 08/15/17 09:48 Dose: Not Given Valproate Sodium (Depacon Injection -) 1,000 mg IVPB TID [facility] Last Admin: 08/15/17 05:35 Dose: 1,000 mg - Objective Vital Signs: Vital Signs Temperature 99 F 08/15/17 13:25 Pulse Rate 70 08/15/17 13:25 Respiratory Rate 18 08/15/17 13:25 Blood Pressure 105/60 08/15/17 13:25 O2 Sat by Pulse Oximetry (%) 99 08/15/17 10:00 Constitutional: Yes: No Distress, Calm Neck: Yes: Supple Cardiovascular: Yes: Regular Rate and Rhythm Respiratory: Yes: CTA Bilaterally Gastrointestinal: Yes: Normal Bowel Sounds, Soft Edema: No Labs: CBC, BMP 08/15/17 02:30 08/14/17 06:00 INR, PTT INR 1.07 (0.82-1.09) 08/12/17 10:37 Problem List - Problems (1) Hypotension Code(s): I95.9 - HYPOTENSION, UNSPECIFIED (2) LGI bleed Code(s): K92.2 - GASTROINTESTINAL HEMORRHAGE, UNSPECIFIED (3) Lactic acid blood increased Code(s): R79.89 - OTHER SPECIFIED ABNORMAL FINDINGS OF BLOOD CHEMISTRY (4) Fever Code(s): R50.9 - FEVER, UNSPECIFIED (5) Seizure Code(s): R56.9 - UNSPECIFIED CONVULSIONS Assessment/Plan slowly better continue present care Abx hydration. f/u labs gi to follow start on liquid diet. will follow oob - chair. physical therapy.
[2017-08-15] MEDS: DEXTROSE 5%-NORMAL SALINE 1,000 ML IV SCH (22:38)
[2017-08-16] MEDS: METRONIDAZOLE 500 MG PREMIXED 500 MG/100 ML MG IVPB SCH ×4 (02:41→21:08)
[2017-08-16] MEDS: PIPERACILLIN/TAZOB 3.375 GM 3.375 GM in DEXTROSE 5%-WATER - 100 ML IVPB SCH ×3 (02:42→18:08)
[2017-08-16] MEDS ORDERED: PT OWN MED DRAWER 7, Y5N ONE ×2 (05:40→09:13)
[2017-08-16] MEDS: levETIRAcetam 500 MG/5 ML INJECTION VIAL IVPB SCH ×3 (06:01→21:08)
[2017-08-16] MEDS: VALPROATE SODIUM 500 MG/5 ML VIAL IVPB SCH ×3 (06:01→21:08)
[2017-08-16] MEDS: METOPROLOL TARTRATE 25 MG TABLET (FP) PO SCH ×2 (09:06→21:09)
[2017-08-16] MEDS: TAMSULOSIN HCL 0.4 MG CAP.ER.24H (FP) PO SCH (09:06)
[2017-08-16] MEDS: PANTOPRAZOLE SODIUM 40 MG VIAL IVPUSH SCH (09:07)
[2017-08-16 11:18] LABS: BASO # 0.1 # (0.1-1); BASO % 1.4 % (0-2.0); EOS % 0.2 % (0-4.5); LYMPH # 1.8 (8-40); MCH 30.2 pg (25.7-33.7); MCHC 32.2 g/dl (32.0-35.9); MEAN CELL VOLUME 93.8 fl (80-96); MEAN PLT VOLUME 8.5 fl (7.5-11.1); MONO # 0.8 # (3.8-10.2); NEUT # 2.4 # (42.8-82.8); NEUT % 46.7 % (42.8-82.8); PLATELET COUNT 207 K/MM3 (134-434); RDW 16.7 % (11.9-15.9); WHITE BLOOD COUNT 5.2 K/mm3 (4.0-10.0)
[2017-08-16 11:42] LABS: ALBUMIN 1.9 g/dl (3.4-5.0); ALK PHOS 49 U/L (45-117); ANION GAP 9 (8-16); BILIRUBIN,TOTAL 0.3 mg/dL (0.2-1.0); CALCIUM 7.8 mg/dL (8.5-10.1); CO2 29 mmol/L (21-32); CREATININE 0.7 mg/dL (0.7-1.3); GLUCOSE,RANDOM 116 mg/dL (74-106); SGOT/AST 6 U/L (15-37); SGPT/ALT 8 U/L (12-78); TOT PROT 5.8 g/dl (6.4-8.2)
[2017-08-16] MEDS ORDERED: KCL 10 MEQ IVPB 10 MEQ/100 ML INFUS.BAG IVPB SCH (13:45)
--- NOTE | 2017-08-16 14:06 | PN ---
Progress Note (short form) - Note Progress Note: Patient seen and examined comfortable afebrile tolerating liquids Vital Signs Temp 98.6 F 08/16/17 10:00 Pulse 60 08/16/17 10:00 Resp 18 08/16/17 10:00 BP 106/63 08/16/17 10:00 Pulse Ox 98 08/16/17 09:00 Intake & Output 08/15/17 08/16/17 08/16/17 23:59 11:59 23:59 Intake Total 400 800 Output Total 400 Balance 400 400 Intake: IVPB 800 Oral 400 Output: Urine 400 Void 400 Other: Voiding Method Diaper Diaper Diaper # Unmeasured Voids Void 3 Bowel Movement Yes Yes # Bowel Movements 3 Active Medications Acetaminophen (Ofirmev Injection -) 1,000 mg IVPB Q6H PRN PRN Reason: FEVER OR PAIN Last Admin: 08/14/17 13:49 Dose: 1,000 mg Albuterol Sulfate (Ventolin 0.083% Nebulizer Soln -) 1 amp NEB Q4H PRN PRN Reason: SHORT OF BREATH/WHEEZING Last Admin: 08/15/17 18:41 Dose: 1 amp Metronidazole (Flagyl 500mg Premixed Ivpb -) 500 mg in 100 mls @ 100 mls/hr IVPB Q6H-IV [facility] Last Admin: 08/16/17 09:08 Dose: 100 mls/hr Piperacillin Sod/Tazobactam (Sod 3.375 gm/ Dextrose) 100 mls @ 200 mls/hr IVPB Q6H-IV [facility] Last Admin: 08/16/17 09:15 Dose: 200 mls/hr Potassium Chloride/Sodium Chloride (1/2ns+20meq Kcl) 20 meq in 1,000 mls @ 100 mls/hr IV ASDIR [facility] Potassium Chloride 30 meq/ (Dextrose) 315 mls @ 105 mls/hr IVPB ONCE ONE Stop: 08/16/17 17:59 Levetiracetam (Keppra Injection -) 1,000 mg IVPB TID [facility] Last Admin: 08/16/17 06:01 Dose: 1,000 mg Metoprolol Tartrate (Lopressor -) 25 mg PO BID [facility] Last Admin: 08/16/17 09:06 Dose: 25 mg Pantoprazole Sodium (Protonix Iv) 40 mg IVPUSH DAILY [facility] Last Admin: 08/16/17 09:07 Dose: 40 mg Tamsulosin HCl (Flomax -) 0.4 mg PO DAILY@0830 [facility] Last Admin: 08/16/17 09:06 Dose: 0.4 mg Valproate Sodium (Depacon Injection -) 1,000 mg IVPB TID [facility] Last Admin: 08/16/17 06:01 Dose: 1,000 mg CBC, BMP 08/16/17 11:13 08/16/17 11:13 Microbiology 08/12/17 10:57 Blood Culture - Preliminary Blood - Peripheral Venous NO GROWTH OBTAINED AFTER 96 HOURS, INCUBATION TO CONTINUE FOR 1 DAYS. 08/12/17 10:36 Blood Culture - Preliminary Blood - Peripheral Venous NO GROWTH OBTAINED AFTER 96 HOURS, INCUBATION TO CONTINUE FOR 1 DAYS. physical-- alert awake, comfortable CVS-S1S2 lungs-clear ABD- soft , non tender LE- no edema A/P better continue Present care Antibiotics Hydration- change with k advance diet GI follow-up daily oob - chair will follow f/u labs in am - ordered. Problem List - Problems (1) Hypotension Code(s): I95.9 - HYPOTENSION, UNSPECIFIED (2) LGI bleed Code(s): K92.2 - GASTROINTESTINAL HEMORRHAGE, UNSPECIFIED (3) Lactic acid blood increased Code(s): R79.89 - OTHER SPECIFIED ABNORMAL FINDINGS OF BLOOD CHEMISTRY (4) Fever Code(s): R50.9 - FEVER, UNSPECIFIED (5) Seizure Code(s): R56.9 - UNSPECIFIED CONVULSIONS
[2017-08-16] MEDS: SODIUM CHLORIDE 0.45%/POT 20 MEQ/1,000 ML INFUS.BAG IV SCH (14:44)
[2017-08-16] MEDS ORDERED: WATER IVPB ONE (15:00)
[2017-08-16] MEDS ORDERED: POTASSIUM CHLORIDE IVPB ONE (15:00)
[2017-08-16] MEDS ORDERED: DEXTROSE 5% IVPB ONE (15:00)
[2017-08-17] MEDS: METRONIDAZOLE 500 MG PREMIXED 500 MG/100 ML MG IVPB SCH ×3 (03:55→14:34)
[2017-08-17] MEDS ORDERED: PT OWN MED DRAWER 7, Y5N ONE ×3 (05:23→21:19)
[2017-08-17] MEDS ORDERED: levETIRAcetam 500 MG/5 ML INJECTION VIAL IVPB ONE (05:24)
[2017-08-17] MEDS: levETIRAcetam 500 MG/5 ML INJECTION VIAL IVPB SCH ×3 (05:42→21:40)
[2017-08-17] MEDS: VALPROATE SODIUM 500 MG/5 ML VIAL IVPB SCH ×3 (05:42→21:40)
[2017-08-17 08:15] LABS: BASO % 0.4 % (0-2.0); EOS % 0.6 % (0-4.5); LYMPH # 2.6 (8-40); MEAN CELL VOLUME 93.8 fl (80-96); MEAN PLT VOLUME 8.3 fl (7.5-11.1); MONO # 0.8 # (3.8-10.2); NEUT % 46.7 % (42.8-82.8); PLATELET COUNT 187 K/MM3 (134-434); RDW 16.8 % (11.9-15.9); WHITE BLOOD COUNT 6.5 K/mm3 (4.0-10.0)
[2017-08-17 08:33] LABS: ALK PHOS 49 U/L (45-117); ANION GAP 9 (8-16); BILIRUBIN,TOTAL 0.3 mg/dL (0.2-1.0); CALCIUM 8.2 mg/dL (8.5-10.1); CO2 30 mmol/L (21-32); CREATININE 0.5 mg/dL (0.7-1.3); GLUCOSE,RANDOM 76 mg/dL (74-106); SGOT/AST 6 U/L (15-37); SGPT/ALT 9 U/L (12-78); TOT PROT 5.9 g/dl (6.4-8.2)
[2017-08-17] MEDS: PANTOPRAZOLE SODIUM 40 MG VIAL IVPUSH SCH (09:33)
[2017-08-17] MEDS: TAMSULOSIN HCL 0.4 MG CAP.ER.24H (FP) PO SCH (09:33)
[2017-08-17] MEDS: METOPROLOL TARTRATE 25 MG TABLET (FP) PO SCH ×2 (09:34→21:40)
[2017-08-17] MEDS: SODIUM CHLORIDE 0.45%/POT 20 MEQ/1,000 ML INFUS.BAG IV SCH ×2 (11:09→13:19)
--- NOTE | 2017-08-17 12:06 | PN ---
Progress Note (short form) - Note Progress Note: Patient seen and examined . comfortable afebrile tolerating food. Vital Signs Temp 97.6 F 08/17/17 10:00 Pulse 65 08/17/17 10:00 Resp 20 08/17/17 10:00 BP 98/63 08/17/17 10:00 Pulse Ox 95 08/17/17 09:00 Intake & Output 08/16/17 08/17/17 08/17/17 23:59 11:59 23:59 Intake Total 1400 Balance 1400 Intake: IV 1000 1/2NS+20MEQ KCL 20 meq In 1000 1,000 ml @ 100 mls/hr IV ASDIR [facility] Rx#: [id number] IVPB 400 Other: Voiding Method Diaper Diaper # Unmeasured Voids Void 3 3 Bowel Movement Yes Active Medications Acetaminophen (Ofirmev Injection -) 1,000 mg IVPB Q6H PRN PRN Reason: FEVER OR PAIN Last Admin: 08/14/17 13:49 Dose: 1,000 mg Albuterol Sulfate (Ventolin 0.083% Nebulizer Soln -) 1 amp NEB Q4H PRN PRN Reason: SHORT OF BREATH/WHEEZING Last Admin: 08/15/17 18:41 Dose: 1 amp Metronidazole (Flagyl 500mg Premixed Ivpb -) 500 mg in 100 mls @ 100 mls/hr IVPB Q6H-IV [facility] Last Admin: 08/17/17 09:33 Dose: 100 mls/hr Potassium Chloride/Sodium Chloride (1/2ns+20meq Kcl) 20 meq in 1,000 mls @ 100 mls/hr IV ASDIR [facility] Last Admin: 08/17/17 11:09 Dose: 100 mls/hr Levetiracetam (Keppra Injection -) 1,000 mg IVPB TID [facility] Last Admin: 08/17/17 05:42 Dose: 1,000 mg Metoprolol Tartrate (Lopressor -) 25 mg PO BID [facility] Last Admin: 08/17/17 09:34 Dose: Not Given Pantoprazole Sodium (Protonix Iv) 40 mg IVPUSH DAILY [facility] Last Admin: 08/17/17 09:33 Dose: 40 mg Tamsulosin HCl (Flomax -) 0.4 mg PO DAILY@0830 [facility] Last Admin: 08/17/17 09:33 Dose: 0.4 mg Valproate Sodium (Depacon Injection -) 1,000 mg IVPB TID [facility] Last Admin: 08/17/17 05:42 Dose: 1,000 mg CBC, BMP 08/17/17 05:35 08/17/17 05:35 Microbiology 08/12/17 10:57 Blood Culture - Final Blood - Peripheral Venous NO GROWTH AFTER 5 DAYS INCUBATION 08/12/17 10:36 Blood Culture - Final Blood - Peripheral Venous NO GROWTH AFTER 5 DAYS INCUBATION Physical alert awake, comfortable. CVS-S1S2 lungs-clear ABD- soft , non tender LE- no edema A/P better continue Present care Antibiotics Hydration- change with k GI follow-up daily oob - chair will follow Problem List - Problems (1) Hypotension Code(s): I95.9 - HYPOTENSION, UNSPECIFIED (2) LGI bleed Code(s): K92.2 - GASTROINTESTINAL HEMORRHAGE, UNSPECIFIED (3) Lactic acid blood increased Code(s): R79.89 - OTHER SPECIFIED ABNORMAL FINDINGS OF BLOOD CHEMISTRY (4) Fever Code(s): R50.9 - FEVER, UNSPECIFIED (5) Seizure Code(s): R56.9 - UNSPECIFIED CONVULSIONS
--- NOTE | 2017-08-17 19:20 | PN ---
GI Progress Note Subjective: diarrhea markedly improved, cdiff was positive - Objective Vital Signs: Vital Signs Temperature 98.1 F 08/17/17 14:13 Pulse Rate 70 08/17/17 14:13 Respiratory Rate 18 08/17/17 14:13 Blood Pressure 93/51 08/17/17 14:13 O2 Sat by Pulse Oximetry (%) 95 08/17/17 09:00 Constitutional: Well Nourished Eyes: Yes: Conjunctiva Clear HENT: Yes: Atraumatic Neck: Yes: Supple Cardiovascular: Yes: Regular Rate and Rhythm Respiratory: Yes: CTA Bilaterally ...Palpate: Yes: Soft. No: Firm/Rigid, Guarding, Hepatomegaly, Mass, Pulsatile Mass, Splenomegaly, Tenderness Labs: CBC, BMP 08/17/17 05:35 08/17/17 05:35 INR, PTT INR 1.07 (0.82-1.09) 08/12/17 10:37 Problem List - Problems (1) C. difficile colitis Assessment/Plan: resolving R> advance diet--low residue lactose free switch to Flagyl 500mg tid for 2 weeks Code(s): A04.72 - ENTEROCOLITIS D/T CLOSTRIDIUM DIFFICILE, NOT SPCF RECUR
[2017-08-17] MEDS: metroNIDAZOLE 250 MG TABLET PO SCH (21:40)
[2017-08-18] MEDS ORDERED: PT OWN MED DRAWER 7, Y5N ONE ×3 (01:52→22:18)
[2017-08-18] MEDS: levETIRAcetam 500 MG/5 ML INJECTION VIAL IVPB SCH (05:10)
[2017-08-18] MEDS: metroNIDAZOLE 250 MG TABLET PO SCH ×3 (05:10→22:29)
[2017-08-18] MEDS: VALPROATE SODIUM 500 MG/5 ML VIAL IVPB SCH (05:10)
[2017-08-18] MEDS: SODIUM CHLORIDE 0.45%/POT 20 MEQ/1,000 ML INFUS.BAG IV SCH (05:25)
[2017-08-18] MEDS: PANTOPRAZOLE SODIUM 40 MG VIAL IVPUSH SCH (09:27)
[2017-08-18] MEDS: METOPROLOL TARTRATE 25 MG TABLET (FP) PO SCH ×2 (09:28→22:29)
[2017-08-18] MEDS: TAMSULOSIN HCL 0.4 MG CAP.ER.24H (FP) PO SCH (09:28)
--- NOTE | 2017-08-18 10:41 | PN ---
Progress Note (short form) - Note Progress Note: doing well no diarrhea no rectal bleeding Vital Signs Period Temp Pulse Resp BP Sys/Bond Pulse Ox Last 24 Hr 98.1 F-98.6 F 58-75 18-20 93-114/51-76 95-95 cor-rrr lungs clear abd soft,nt ext no edema CBC, BMP 08/17/17 05:35 08/17/17 05:35 Microbiology 08/16/17 20:00 Stool Clostridium difficile Antigen (MIKAYLA) - Final 08/16/17 20:00 Stool Clostridium difficile Toxin Assay - Final 08/12/17 10:57 Blood - Peripheral Venous Blood Culture - Final NO GROWTH AFTER 5 DAYS INCUBATION 08/12/17 10:36 Blood - Peripheral Venous Blood Culture - Final NO GROWTH AFTER 5 DAYS INCUBATION 08/12/17 11:18 Urine - Urine - Catheterized Urine Culture - Final a/p rectal bleeding-resolved ?ischemic colitis-cdiff antigen is positive, agree with d/c zosyn and po flagyl f/u with GI for rectal bleeding history of seizure disorder s/p pneumonia please call back if needed Problem List - Problems (1) LGI bleed Code(s): K92.2 - GASTROINTESTINAL HEMORRHAGE, UNSPECIFIED (2) Ischemic colitis Code(s): K55.9 - VASCULAR DISORDER OF INTESTINE, UNSPECIFIED (3) Seizure Code(s): R56.9 - UNSPECIFIED CONVULSIONS
[2017-08-18] MEDS ORDERED: ACETAMINOPHEN 325 MG TABLET (FP) PO PRN (10:45)
--- NOTE | 2017-08-18 10:50 | PN ---
Progress Note (short form) - Note Progress Note: patient seen and examined sleeps most of the time--due to anti seizure medications Arousable eating better Denies pain On by mouth Flagyl now--due to C. difficile positive antigen I agree with discontinue Zosyn Vital Signs Temp 98.6 F 08/18/17 10:26 Pulse 75 08/18/17 10:26 Resp 20 08/18/17 10:26 BP 110/71 08/18/17 10:26 Pulse Ox 95 08/18/17 09:00 Intake & Output 08/17/17 08/17/17 08/18/17 11:59 23:59 11:59 Intake Total 1400 1380 900 Balance 1400 1380 900 Intake: IV 1000 520 700 1/2NS+20MEQ KCL 20 meq In 1000 500 700 1,000 ml @ 100 mls/hr IV ASDIR [facility] Rx#: [id number] l.hand #20 08/16/17 10 rfa #20 08/16/17 10 IVPB 400 200 200 Oral 660 Other: Voiding Method Diaper Diaper Diaper # Unmeasured Voids Void 3 2 3 Bowel Movement Yes: diarrhea # Bowel Movements 1 Active Medications Acetaminophen (Tylenol -) 650 mg PO Q6H PRN PRN Reason: FEVER OR PAIN Potassium Chloride/Sodium Chloride (1/2ns+20meq Kcl) 20 meq in 1,000 mls @ 100 mls/hr IV ASDIR [facility] Last Admin: 08/18/17 05:25 Dose: 100 mls/hr Levetiracetam (Keppra -) 1,000 mg PO TID [facility] Metoprolol Tartrate (Lopressor -) 25 mg PO BID [facility] Last Admin: 08/18/17 09:28 Dose: 25 mg Metronidazole (Flagyl -) 500 mg PO TID [facility] Last Admin: 08/18/17 05:10 Dose: 500 mg Pantoprazole Sodium (Protonix -) 40 mg PO DAILY [facility] Tamsulosin HCl (Flomax -) 0.4 mg PO DAILY@0830 [facility] Last Admin: 08/18/17 09:28 Dose: 0.4 mg Valproic Acid (Depakene -) 1,000 mg PO TID [facility] CBC, BMP 08/17/17 05:35 08/17/17 05:35 Physical sleepy but arousable, comfortable. CVS-S1S2 lungs-clear ABD- soft , non tender LE- no edema A/P better continue Present care Antibiotics--Flagyl Hydration- Overall looks weak No further bleeding Change medications to by mouth Discharge planning If stable anticipate tomorrow Discussed with nursing staff will follow. Problem List - Problems (1) Hypotension Code(s): I95.9 - HYPOTENSION, UNSPECIFIED (2) LGI bleed Code(s): K92.2 - GASTROINTESTINAL HEMORRHAGE, UNSPECIFIED (3) Lactic acid blood increased Code(s): R79.89 - OTHER SPECIFIED ABNORMAL FINDINGS OF BLOOD CHEMISTRY (4) Fever Code(s): R50.9 - FEVER, UNSPECIFIED (5) Seizure Code(s): R56.9 - UNSPECIFIED CONVULSIONS
[2017-08-18] MEDS: levETIRAcetam 500 MG TABLET (FP) PO SCH ×2 (13:00→22:29)
[2017-08-18] MEDS: VALPROIC ACID 250 MG CAPSULE PO SCH ×2 (13:00→22:30)
--- NOTE | 2017-08-18 17:51 | PN ---
GI Progress Note Subjective: diarrhea improved tolerating diet, no reports of nausea and vomiting,had 2 soft bowel movements overnight - Objective Vital Signs: Vital Signs Temperature 97.6 F 08/18/17 14:50 Pulse Rate 65 08/18/17 14:50 Respiratory Rate 18 08/18/17 14:50 Blood Pressure 117/64 08/18/17 14:50 O2 Sat by Pulse Oximetry (%) 95 08/18/17 09:00 Constitutional: Well Nourished Eyes: Yes: Conjunctiva Clear HENT: Yes: Atraumatic Neck: Yes: Supple Respiratory: Yes: CTA Bilaterally ...Palpate: Yes: Soft. No: Firm/Rigid, Guarding, Hepatomegaly, Mass, Pulsatile Mass Labs: CBC, BMP 08/17/17 05:35 08/17/17 05:35 INR, PTT INR 1.07 (0.82-1.09) 08/12/17 10:37 Problem List - Problems (1) C. difficile colitis Assessment/Plan: resolving R>continue Flagyl 500mg po tid for 2 weeks Code(s): A04.72 - ENTEROCOLITIS D/T CLOSTRIDIUM DIFFICILE, NOT SPCF RECUR
[2017-08-19] MEDS: SODIUM CHLORIDE 0.45%/POT 20 MEQ/1,000 ML INFUS.BAG IV SCH (01:59)
[2017-08-19] MEDS ORDERED: PT OWN MED DRAWER 7, Y5N ONE ×2 (06:22→13:51)
[2017-08-19] MEDS: VALPROIC ACID 250 MG CAPSULE PO SCH ×2 (06:23→13:59)
[2017-08-19] MEDS: levETIRAcetam 500 MG TABLET (FP) PO SCH ×2 (06:23→14:00)
[2017-08-19] MEDS: metroNIDAZOLE 250 MG TABLET PO SCH ×2 (06:23→14:00)
[2017-08-19] MEDS: METOPROLOL TARTRATE 25 MG TABLET (FP) PO SCH (09:21)
[2017-08-19] MEDS: TAMSULOSIN HCL 0.4 MG CAP.ER.24H (FP) PO SCH (09:21)
[2017-08-19] MEDS ORDERED: PANTOPRAZOLE 40 MG TABLET (FP) PO SCH (10:00)
--- NOTE | 2017-08-19 11:41 | DS ---
Physical Examination Vital Signs: Vital Signs Temperature 97.9 F 08/19/17 09:21 Pulse Rate 71 08/19/17 09:21 Respiratory Rate 16 08/19/17 10:00 Blood Pressure 102/69 08/19/17 09:21 O2 Sat by Pulse Oximetry (%) 94 L 08/19/17 10:00 Findings/Remarks: comfortable More awake now complains Afebrile Denies pain Constitutional: Yes: No Distress, Calm Eyes: Yes: Conjunctiva Clear Neck: Yes: Supple, Trachea Midline Cardiovascular: Yes: Regular Rate and Rhythm Respiratory: Yes: CTA Bilaterally Gastrointestinal: Yes: Normal Bowel Sounds, Soft Edema: No Neurological: Yes: Alert Labs: CBC, BMP 08/17/17 05:35 08/17/17 05:35 Discharge Summary Reason For Visit: LOWER GASTROINTESTINAL HEMORRHAGE Current Active Problems Acute blood loss anemia (Acute) Anemia (Acute) C. difficile colitis (Acute) Hypotension (Acute) LGI bleed (Acute) Lactic acid blood increased (Acute) Seizure disorder (Acute) Hospital Course: The patient is a 52-year-old male in rehab for weakness, with a significant past medical history of hypertension, hypercholesterolemia, seizure disorder ( on Keppra and Depakote; status post garett holes), who presents to the emergency department via EMS for rectal bleeding today pt also complained of abd pain. In er - pt found to have increased wbc/ hypotensive and fever 102 ct scan of abd ok pt also has bright red blood in er -- apparently lab reported sob-ve !! pt to be admitted to icu given fluids/ broadspectrum abx. patient followed by GI Found to have C. difficile Treated appropriately Now much better and stable for discharge Medications reconciled Will discharge to long term today--- 2 weeks of antibiotics--Flagyl Seizure precautions Condition: Guarded - Instructions Referrals: Ailyn Meadows MD [Primary Care Provider] - Disposition: [facility] - Home Medications Comprehensive Discharge Medication List: Ambulatory Orders Aspirin Coated [Ecotrin -] 81 mg PO DAILY #90 tab 12/16/16 Metoprolol Tartrate [Lopressor -] 25 mg PO BID #60 tablet 12/16/16 Albuterol 0.083% Nebulizer Letitia [Ventolin 0.083% Nebulizer Soln -] 1 amp NEB Q4H PRN amp 08/07/17 Levetiracetam [Keppra -] 1,000 mg PO TID tablet 08/07/17 Pantoprazole Sodium [Protonix -] 40 mg PO DAILY tablet.ec 08/07/17 Valproate Sodium [Depakene -] 1,000 mg PO TID cup 08/07/17 Heparin - 5,000 unit SQ BID 08/12/17 Tamsulosin HCl [Flomax -] 0.4 mg PO 1900 08/12/17 Acetaminophen [Tylenol .Regular Strength -] 650 mg PO Q6H PRN tablet 08/18/17 Levetiracetam [Keppra -] 1,000 mg PO TID tablet 08/18/17 Metronidazole [Flagyl -] 500 mg PO TID 14 Days #42 tablet 08/18/17 Valproic Acid [Depakene -] 1,000 mg PO TID capsule 08/18/17
[2017-08-19 16:35] VITALS: BP 107/71; PULSE 62; TEMP 97.3
== END 2017-08-19 17:21 | DRG 372 ==
LOC: JER 10:08 → JERBED 13:09 → UNDOADMIN 13:09 → J4S 17:30 → JERBED 18:20 → J4S 08-17 22:17
PROVIDERS: ADMIT Internal Medicine; ATTEND Internal Medicine
DX: A04.72 Enterocolitis due to Clostridium difficile, not specified as recurrent (principal); K55.9 Vascular disorder of intestine, unspecified; K92.2 Gastrointestinal hemorrhage, unspecified; G40.802 Other epilepsy, not intractable, without status epilepticus; D62 Acute posthemorrhagic anemia; G81.11 Spastic hemiplegia affecting right dominant side; I95.9 Hypotension, unspecified; R79.89 Other specified abnormal findings of blood chemistry; R50.9 Fever, unspecified; I10 Essential (primary) hypertension; E78.5 Hyperlipidemia, unspecified; F32.89 Other specified depressive episodes; E87.6 Hypokalemia
CPT/HCPCS: 36415; 36511; 71010-TC; 74174-TC; 80053; 80164; 81003; 81015; 82272; 82550; 82803; 83605; 83690; 83735; 84484; 85025; 85027; 85610; 85730; 86850; 86900; 86901; 86922; 87040; 87086; 87324; 87449; 93005; 93010; 94640; 99285-25; P9038; P9058

== ENCOUNTER 2017-08-31 22:02 | Inpatient (IN) | payer OTHER ==
[2017-08-31] MEDS ORDERED: RAPID SEQUENCE INTUBATION KIT NR ONE (22:07)
[2017-08-31] MEDS ORDERED: ONDANSETRON 4 MG/2 ML VIAL ONE (22:09)
[2017-08-31] MEDS ORDERED: PROPOFOL 20 ML ONE (22:11)
[2017-08-31] MEDS ORDERED: SODIUM CHLORIDE 1,000 ML IV STA (22:14)
[2017-08-31] MEDS ORDERED: PROPOFOL 1,000,000 MCG/100 ML VIAL ONE (22:14)
[2017-08-31] MEDS ORDERED: ONDANSETRON 4 MG/2 ML VIAL IVPUSH ONE (22:14)
[2017-08-31] MEDS ORDERED: VANCOMYCIN 1,250 MG in DEXTROSE 5%-WATER - 250 ML IVPB ONE (22:14)
[2017-08-31] MEDS ORDERED: PIPERACILLIN/TAZOB 3.375 GM 50 ML IVPB ONE (22:14)
[2017-08-31] MEDS ORDERED: ETOMIDATE 40 MG/20 ML VIAL IVPUSH ONE (22:17)
[2017-08-31] MEDS ORDERED: SUCCINYLCHOLINE CHLORIDE 200 MG/10 ML VIAL IVPUSH ONE (22:17)
--- NOTE | 2017-08-31 22:17 | PDOC ---
Attending Attestation - [facility] HPI: 08/31/17 22:00 The patient is a 52-year-old male in [facility] for weakness, with a significant past medical history of hypertension, hypercholesterolemia, seizure disorder ( on Keppra and Depakote; status post garett holes), who presents to the emergency department via EMS for seizure at [place] this evening. As per ems, the patient was witnessed having a Grand Mal seizure and administered 10 of Versed in the field. The patient was bagged in the field. The patient vomited after getting the Versed. The patient's BP is 136/92 at this time. 08/31/17 22:48 Documentation prepared by Lucina Gomes, acting as medical recruiter for Virgen Gutierrez DO - Physicial Exam PE: 08/31/17 22:58 Constitutional: (+) Post ictal however with grand mal seizure prior to arrival. Head: Normocephalic. Atraumatic Eyes: PERRL. EOMI. Conjunctivae are not pale. ENT: (+) bagged and intubated on arrival. Mucous membranes are moist and intact. Posterior pharynx without exudates or erythema. Uvula midline. Neck: Supple. No lymphadenopathy. Cardiovascular: Regular rate. Regular rhythm. S1, S2 regular. Distal pulses are 2+ and symmetric. Pulmonary/Chest: (+) Course breath sounds bilaterally. Bagged on arrival and intubated on arrival to protect airway (20 at the lip). No wheezing, rales or rhonchi. Abdominal: Soft and non-distended. There is no tenderness. No rebound, guarding or rigidity. No organomegaly. No palpable masses. Good bowel sounds. Musculoskeletal: No edema. No cyanosis. No clubbing. Radial/pedal pulses are intact and 2+ bilaterally Skin: Skin is warm and dry. No petechiae. No purpura. Neurological: (+) Post ictal however with grand mal seizure prior to arrival. Documentation prepared by Lucina Gomes, acting as medical recruiter for Virgen Gutierrez DO <Lucina Gomes - Last Filed: 08/31/17 22:58> - Resident Resident Name: Henry Orellana - ED Attending Attestation I have performed the following: I have examined & evaluated the patient, The case was reviewed & discussed with the resident, I agree w/resident's findings & plan, Exceptions are as noted - Critical Care Time Total Critical Care Time: 30 Critical Care Statement: The care of this patient involved high complexity decision making to prevent further life threatening deterioration of the patient 's condition and/or to evaluate & treat vital organ system(s) failure or risk of failure. - Medical Decision Making 08/31/17 22:16 I, Dr. Virgen Gutierrez DO, attest that this document has been prepared under my direction and personally reviewed by me in its entirety. I further attest, that it accurately reflects all work, treatment, procedures and medical decision -making performed by me. 08/31/17 22:19 a/p: 52yo male presents with medics from [facility] with an active seizure -given versed banquet captain -no seizure activity at this time -not protecting airway - intubated for airway protection -vomiting -most likely aspirated -will check labs, head ct, cxr, ekg, keppra level/depakote level -will need admission to ICU 08/31/17 22:56 pt with hypercapnic resp failure- vent changed 08/31/17 23:41 case discussed with ICU team microblog sent to [facility] <Virgen Gutierrez - Last Filed: 08/31/17 23:53> Discharge Disposition - Discharge Dispostion Last Admission D/C Date: 08/19/17 Admit: Yes <Virgen Gutierrez - Last Filed: 08/31/17 23:53> - Diagnosis Post-ictal confusion, Status epilepticus, Acute hypercapnic respiratory failure , Ventilator dependence - Discharge Dispostion Condition at time of disposition: Critical Heart Score/ECG Review - ECG Intrepretation Comment:: 08/31/17 23:42 sinus at 92, nl axis, nl interval, no acute st/t wave findings <Virgen Gutierrez - Last Filed: 08/31/17 23:53>
[2017-08-31] MEDS ORDERED: PROPOFOL 1,000,000 MCG/100 ML VIAL IVPB SCH (22:30)
[2017-08-31 22:34] LABS: VENOUS PC02 77.7 mmHg (38-52); VENOUS PH 7.16 (7.32-7.42)
[2017-08-31 22:35] LABS: VENOUS PO2 95.2 mmHg (28-48)
[2017-08-31 22:43] LABS: BASO % 0.6 % (0-2.0); EOS % 0.6 % (0-4.5); HEMATOCRIT 40.7 % (35.4-49); HEMOGLOBIN 13.2 GM/dL (11.7-16.9); LYMPH % 39.6 % (8-40); MCH 30.7 pg (25.7-33.7); MCHC 32.4 g/dl (32.0-35.9); MEAN PLT VOLUME 9.5 fl (7.5-11.1); MONO % 7.1 % (3.8-10.2); NEUT % 52.1 % (42.8-82.8); RBC 4.29 M/mm3 (4.00-5.60); RDW 17.6 % (11.9-15.9)
[2017-08-31 22:45] LABS: URINE APPEARANCE SLCLOUDY; URINE BILIRUBIN NEGATIVE (NEGATIVE); URINE BLOOD 1+ (NEGATIVE); URINE COLOR DKYELLOW; URINE GLUCOSE (UA) NEGATIVE (NEGATIVE); URINE KETONE TRACE (NEGATIVE); URINE NITRITE NEGATIVE (NEGATIVE); URINE UROBILINOGEN NEGATIVE mg/dL (0.2-1.0)
[2017-08-31 22:53] LABS: URINE LEUK ESTERASE 2+ (NEGATIVE); URINE PROTEIN 1+ (NEGATIVE)
[2017-08-31] MEDS ORDERED: levETIRAcetam 500 MG/5 ML INJECTION VIAL IVPB ONE ×2 (22:54→23:48)
[2017-08-31 22:59] LABS: EPI CELLS RARE /HPF (FEW); URINE BACTERIA RARE /hpf (NONE SEEN); URINE HYALINE CAST 2 /lpf; URINE MUCUS RARE
--- NOTE | 2017-08-31 23:04 | PDOC ---
History of Present Illness - General Chief Complaint: Respiratory Stated Complaint: SOB Time Seen by Provider: 08/31/17 22:16 History Source: Patient Exam Limitations: No Limitations - History of Present Illness Initial Comments: 08/31/17 23:03 The patient is a 52M with a PMH of seizures (on keppra and valproic acid) who had a seizure at his alf ([facility] EMS was called. They administered versed, the patient vomited, and they were not able to intubate him. He presented to our ED being bagged and satting in the mid-90's. Unable to provide any hx 2/2 clinical presentation. Past History - Past Medical History Allergies/Adverse Reactions: Allergies Allergy/AdvReac Type Severity Reaction Status Date / Time No Known Drug Allergies Allergy Verified 08/31/17 22:24 Home Medications: Ambulatory Orders Aspirin Coated [Ecotrin -] 81 mg PO DAILY #90 tab 12/16/16 Metoprolol Tartrate [Lopressor -] 25 mg PO BID #60 tablet 12/16/16 Albuterol 0.083% Nebulizer Letitia [Ventolin 0.083% Nebulizer Soln -] 1 amp NEB Q4H PRN amp 08/07/17 Levetiracetam [Keppra -] 1,000 mg PO TID tablet 08/07/17 Pantoprazole Sodium [Protonix -] 40 mg PO DAILY tablet.ec 08/07/17 Valproate Sodium [Depakene -] 1,000 mg PO TID cup 08/07/17 Heparin - 5,000 unit SQ BID 08/12/17 Tamsulosin HCl [Flomax -] 0.4 mg PO 1900 08/12/17 Acetaminophen [Tylenol .Regular Strength -] 650 mg PO Q6H PRN tablet 08/18/17 Levetiracetam [Keppra -] 1,000 mg PO TID tablet 08/18/17 Metronidazole [Flagyl -] 500 mg PO TID 14 Days #42 tablet 08/18/17 Valproic Acid [Depakene -] 1,000 mg PO TID capsule 08/18/17 Anemia: No Asthma: No Cancer: No Cardiac Disorders: No CVA: No COPD: No CHF: No DVT: No Dementia: No Diabetes: No Dialysis: No GI Disorders: No Disorders: No HTN: Yes Hypercholesterolemia: Yes Kidney Stones: No Liver Disease: No Psychiatric Problems: Yes Seizures: Yes Thyroid Disease: No - Surgical History Abdominal Surgery: No Appendectomy: No Cardiac Surgery: No Cholecystectomy: No Lung Surgery: No Neurologic Surgery: No Orthopedic Surgery: No - Immunization History Immunization Up to Date: Yes - Suicide/Smoking/Psychosocial Hx Smoking Status: No Smoking History: Unknown if ever smoked Have you smoked in the past 12 months: No Number of Cigarettes Smoked Daily: 0 Cigars Per Day: 0 Information on smoking cessation initiated: No Hx Alcohol Use: No Drug/Substance Use Hx: No Substance Use Type: None Hx Substance Use Treatment: No Review of Systems - Review of Systems Able to Perform ROS?: No (Clinical presentation) Is the patient limited Bulgarian proficient: No *Physical Exam - Vital Signs Last Vital Signs Temp Pulse Resp BP Pulse Ox 92 H 19 132/84 97 08/31/17 22:33 08/31/17 22:33 08/31/17 22:24 08/31/17 22:33 - Physical Exam Comments: 08/31/17 23:16 GENERAL: Unresponsive, being bagged. Vomitus at mouth. HEENT: Normocephalic, atraumatic. PERRLA. No conjunctival pallor. Sclera are non -icteric. Oropharynx is clear. NECK: Supple. Full ROM. No JVD. CARDIOVASCULAR: Regular rate and rhythm. No murmurs, rubs, or gallops. PULMONARY: B/l rhonchorous lung sounds. ABDOMINAL: Soft. Non-tender. Non-distended. No rebound or guarding. No organomegaly. Normoactive bowel sounds. GENITOURINARY: No CVA tenderness bilaterally. MUSCULOSKELETAL: Normal range of motion at all joints. No bony deformities or tenderness. EXTREMITIES: No cyanosis. No clubbing. No edema. No calf tenderness. SKIN: Warm and dry. Normal capillary refill. No rashes. No jaundice. NEUROLOGICAL: Nonresponsive, GCS 3. ED Treatment Course - LABORATORY CBC & Chemistry Diagram: 08/31/17 22:00 08/31/17 22:00 - ADDITIONAL ORDERS Additional order review: Laboratory Results 08/31/17 08/31/17 08/31/17 22:30 22:20 22:00 VBG pH 7.16 L* POC VBG pCO2 77.7 H* D POC VBG pO2 95.2 H D Mixed VBG HCO3 26.7 H Sodium Potassium Chloride Carbon Dioxide Anion Gap BUN Creatinine Creat Clearance w eGFR Random Glucose Lactic Acid 2.1 H* Calcium Total Bilirubin AST ALT Alkaline Phosphatase Creatine Kinase Troponin I Total Protein Albumin Urine Color Dkyellow Urine Appearance Slcloudy Urine pH 5.0 D Ur Specific [place] 1.021 Urine Protein 1+ H Urine Glucose (UA) Negative Urine Ketones Trace H Urine Blood 1+ H Urine Nitrite Negative Urine Bilirubin Negative Urine Urobilinogen Negative Ur Leukocyte Esterase 2+ H Urine WBC (Auto) 70 Urine RBC (Auto) 7 Ur Epithelial Cells Rare Urine Bacteria Rare Hyaline Casts 2 Urine Mucus Rare 08/31/17 22:00 VBG pH POC VBG pCO2 POC VBG pO2 Mixed VBG HCO3 Sodium Cancelled Potassium Cancelled Chloride Cancelled Carbon Dioxide Cancelled Anion Gap Cancelled BUN Cancelled Creatinine Cancelled Creat Clearance w eGFR Cancelled Random Glucose Cancelled Lactic Acid Calcium Cancelled Total Bilirubin Cancelled AST Cancelled ALT Cancelled Alkaline Phosphatase Cancelled Creatine Kinase Cancelled Troponin I Cancelled Total Protein Cancelled Albumin Cancelled Urine Color Urine Appearance Urine pH Ur Specific [place] Urine Protein Urine Glucose (UA) Urine Ketones Urine Blood Urine Nitrite Urine Bilirubin Urine Urobilinogen Ur Leukocyte Esterase Urine WBC (Auto) Urine RBC (Auto) Ur Epithelial Cells Urine Bacteria Hyaline Casts Urine Mucus 08/31/17 22:00 RBC 4.29 MCV 95.0 MCHC 32.4 RDW 17.6 H MPV 9.5 D Neutrophils % 52.1 Lymphocytes % 39.6 Monocytes % 7.1 Eosinophils % 0.6 Basophils % 0.6 Medical Decision Making - Medical Decision Making 08/31/17 23:19 The patient is a 52M with a PMH of seizures on keppra and valproic acid who presents to the ED via EMS after having a seizure at [place]. His PE and evaluation are complicated by versed given by EMS and 10 of succ in an attempt to RSI the patient. My exam was after these medications have been given. He was intubated and sedated. Sepsis protocol is being followed. Covered with broad spectrum antibiotics and keppra load given. ICU PERSONNEL ADMINISTRATOR aware of pt. Pending labs and ICU admit. 09/01/17 00:24 Attending admitted patient to ICU. *DC/Admit/Observation/Transfer Diagnosis at time of Disposition: Post-ictal confusion, Status epilepticus, Acute hypercapnic respiratory failure , Ventilator dependence - Discharge Dispostion Condition at time of disposition: Critical - Referrals - Patient Instructions - Post Discharge Activity
[2017-08-31 23:13] LABS: INR 0.96 (0.82-1.09); PROTHROMBIN TIME (PATIENT) 10.8 SEC (9.98-11.88)
[2017-08-31 23:14] LABS: ACTIVATED PTT 22.4 SECONDS (26.9-34.4)
--- NOTE | 2017-08-31 23:24 | CONSULT ---
Consult - text type - Consultation Consultation Note: Pulm/CCM Pt seen and examined CC: seizure, aspiration pneumonitis HPI:52-year-old male resident of [facility] with past medical history significant for hypertension, hypercholesterolemia, seizure disorder (on Keppra and Depakote; status post garett holes), who presented to the ED today via EMS for seizure at [place] this evening. Pt was actively seizing when EMS arrived, gave versed. Sz resolved but pt was then non-responsive and vomiting. Likely aspirated. Was intubated in ED. Labs notable for acute hypercapnea (7.17/70) Vent was adjusted. WBC 24, UA dirty with 70wbc, 7 RBC, + LE. . Otherwise labs unrevealing. Pt was loaded with keppra, dosed with vanc and PipTaz , CT head performed,and transferred to ICU. 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 Social History Smoking history Unknown if ever smoked Have you smoked in the past 12 No months Hx Alcohol Use No ADL Family Assistance Family hx non-contrib ROS: unable due to pt condition Vital Signs Temp Pulse 92 H 08/31/17 22:33 Resp 19 08/31/17 22:33 BP 132/84 08/31/17 22:24 Pulse Ox 97 08/31/17 22:33 Intake & Output 08/30/17 08/31/17 08/31/17 23:59 11:59 23:59 Weight 83.915 kg Other: Height 5 ft 5 in Body Mass Index (BMI) 30.7 CBCD WBC 24.0 K/mm3 (4.0-10.0) H D 08/31/17 22:00 RBC 4.29 M/mm3 (4.00-5.60) 08/31/17 22:00 Hgb 13.2 GM/dL (11.7-16.9) D 08/31/17 22:00 Hct 40.7 % (35.4-49) D 08/31/17 22:00 MCV 95.0 fl (80-96) 08/31/17 22:00 MCHC 32.4 g/dl (32.0-35.9) 08/31/17 22:00 RDW 17.6 % (11.9-15.9) H 08/31/17 22:00 MPV 9.5 fl (7.5-11.1) D 08/31/17 22:00 CMP Sodium Cancelled 08/31/17 22:00 Potassium Cancelled 08/31/17 22:00 Chloride Cancelled 08/31/17 22:00 Carbon Dioxide Cancelled 08/31/17 22:00 Anion Gap Cancelled 08/31/17 22:00 BUN Cancelled 08/31/17 22:00 Creatinine Cancelled 08/31/17 22:00 Creat Clearance w eGFR Cancelled 08/31/17 22:00 Random Glucose Cancelled 08/31/17 22:00 Calcium Cancelled 08/31/17 22:00 Total Bilirubin Cancelled 08/31/17 22:00 AST Cancelled 08/31/17 22:00 ALT Cancelled 08/31/17 22:00 Alkaline Phosphatase Cancelled 08/31/17 22:00 Total Protein Cancelled 08/31/17 22:00 Albumin Cancelled 08/31/17 22:00 CARDIAC ENZYMES Creatine Kinase Cancelled 08/31/17 22:00 Troponin I Cancelled 08/31/17 22:00 Urine Test Results Urine Color Dkyellow 08/31/17 22:30 Urine Appearance Slcloudy 08/31/17 22:30 Urine pH 5.0 (5.0-8.0) D 08/31/17 22:30 Ur Specific [place] 1.021 (1.001-1.035) 08/31/17 22:30 Urine Protein 1+ (NEGATIVE) H 08/31/17 22:30 Urine Glucose (UA) Negative (NEGATIVE) 08/31/17 22:30 Urine Ketones Trace (NEGATIVE) H 08/31/17 22:30 Urine Blood 1+ (NEGATIVE) H 08/31/17 22:30 Urine Nitrite Negative (NEGATIVE) 08/31/17 22:30 Urine Bilirubin Negative (NEGATIVE) 08/31/17 22:30 Ur Leukocyte Esterase 2+ (NEGATIVE) H 08/31/17 22:30 Ur Epithelial Cells Rare /HPF (FEW) 08/31/17 22:30 Urine Bacteria Rare /hpf (NONE SEEN) 08/31/17 22:30 Urine Mucus Rare 08/31/17 22:30 PE: Gen: intubated sedated HEENT: PERRL 3mm, oraly intubated, depressed garett sites L frontal PULM: coarse crackles R, good entry L. no wheezes CV; tachy, regular, no m/r/g appreciated ABD: soft, NT ND, +BS EXt: no edema, 2+ Pulses NEURO: grimaces to noxious stimuli CXR: R side inftitrates c/w aspiration, ETT 3cm above pierre CT head read pending, sent to radiology, appears old infarcts, no acute blood seen EKG: sinus tach, normal intervals, qTC 450, no ectopy A/ 52 y/o man, [facility] resident with long standing sz disorder now with GM sz c/b aspiration pneumonitis P/ -Full vent support, LTVV, -sedate for vent sync, down to fio2 50% -repeat ABG and full set of labs in am -Pip/Dean and Vanco for HCAP/aspiration and UTI -f/u cxl, narrow on results, could change to unasyn as likely pneumonitis -relaoded with Keppra, Cont valproate -consider EEG, F/u CT head read -PPI -SQ heparin -ICU monitoring Eduardo Rizo ACNP [id number]
[2017-08-31] MEDS ORDERED: MIDAZOLAM HCL 2 MG/2 ML SINGLE DOSE VIAL IVPUSH ONE (23:35)
[2017-08-31] MEDS ORDERED: MIDAZOLAM HCL 2 MG/2 ML SINGLE DOSE VIAL ONE (23:41)
[2017-08-31] MEDS ORDERED: SODIUM CHLORIDE 0.9% 1000 ML INFUS.BAG IV ONE (23:43)
[2017-08-31] MEDS ORDERED: PIPERACILLIN/TAZOB 3.375 GM 3.375 GM/50 ML BAG IVPB ONE (23:48)
[2017-08-31] MEDS ORDERED: VANCOMYCIN 1 GRAM (PRE-DOCKED) 1,000 MG/250 ML BAG IVPB ONE (23:48)
[2017-08-31 23:53] LABS: CARBOXYHEMOGLOBIN 0.8 gm% (0.5-2.0)
--- NOTE | 2017-08-31 23:54 | HP ---
CHIEF COMPLAINT: PCP: HISTORY OF PRESENT ILLNESS: ER course was notable for: (1) (2) (3) Recent Travel: PAST MEDICAL HISTORY: PAST SURGICAL HISTORY: Social History: Smoking: Alcohol: Drugs: Family History: Allergies No Known Drug Allergies Allergy (Verified 08/31/17 22:24) HOME MEDICATIONS: Home Medications Medication Instructions Recorded Aspirin Coated [Ecotrin -] 81 mg PO DAILY #90 tab 12/16/16 Metoprolol Tartrate [Lopressor -] 25 mg PO BID #60 tablet 12/16/16 Albuterol 0.083% Nebulizer Letitia 1 amp NEB Q4H PRN amp 08/07/17 [Ventolin 0.083% Nebulizer Soln -] Levetiracetam [Keppra -] 1,000 mg PO TID tablet 08/07/17 Pantoprazole Sodium [Protonix -] 40 mg PO DAILY tablet.ec 08/07/17 Valproate Sodium [Depakene -] 1,000 mg PO TID cup 08/07/17 Heparin - 5,000 unit SQ BID 08/12/17 Tamsulosin HCl [Flomax -] 0.4 mg PO 1900 08/12/17 Acetaminophen [Tylenol .Regular 650 mg PO Q6H PRN tablet 08/18/17 Strength -] Levetiracetam [Keppra -] 1,000 mg PO TID tablet 08/18/17 Metronidazole [Flagyl -] 500 mg PO TID 14 Days #42 tablet 08/18/17 Valproic Acid [Depakene -] 1,000 mg PO TID capsule 08/18/17 REVIEW OF SYSTEMS CONSTITUTIONAL: Absent: fever, chills, diaphoresis, generalized weakness, malaise, loss of appetite, weight change HEENT: Absent: rhinorrhea, nasal congestion, throat pain, throat swelling, difficulty swallowing, mouth swelling, ear pain, eye pain, visual changes CARDIOVASCULAR: Absent: chest pain, syncope, palpitations, irregular heart rate, lightheadedness , peripheral edema RESPIRATORY: Absent: cough, shortness of breath, dyspnea with exertion, orthopnea, wheezing, stridor, hemoptysis GASTROINTESTINAL: Absent: abdominal pain, abdominal distension, nausea, vomiting, diarrhea, constipation, melena, hematochezia GENITOURINARY: Absent: dysuria, frequency, urgency, hesitancy, hematuria, flank pain, genital pain MUSCULOSKELETAL: Absent: myalgia, arthralgia, joint swelling, back pain, neck pain SKIN: Absent: rash, itching, pallor HEMATOLOGIC/IMMUNOLOGIC: Absent: easy bleeding, easy bruising, lymphadenopathy, frequent infections ENDOCRINE: Absent: unexplained weight gain, unexplained weight loss, heat intolerance, cold intolerance NEUROLOGIC: Absent: headache, focal weakness or paresthesias, dizziness, unsteady gait, seizure, mental status changes, bladder or bowel incontinence PSYCHIATRIC: Absent: anxiety, depression, suicidal or homicidal ideation, hallucinations. PHYSICAL EXAMINATION Vital Signs - 24 hr 08/31/17 08/31/17 22:24 22:33 Pulse Rate 97 H 92 H Respiratory 14 19 Rate Blood Pressure 132/84 O2 Sat by Pulse 99 97 Oximetry (%) GENERAL: Awake, alert, and fully oriented, in no acute distress. HEAD: Normal with no signs of trauma. EYES: Pupils equal, round and reactive to light, extraocular movements intact, sclera anicteric, conjunctiva clear. No lid lag. EARS, NOSE, THROAT: Ears normal, nares patent, oropharynx clear without exudates. Moist mucous membranes. NECK: Normal range of motion, supple without lymphadenopathy, JVD, or masses. LUNGS: Breath sounds equal, clear to auscultation bilaterally. No wheezes, and no crackles. No accessory muscle use. HEART: Regular rate and rhythm, normal S1 and S2 without murmur, rub or gallop. ABDOMEN: Soft, nontender, not distended, normoactive bowel sounds, no guarding, no rebound, no masses. No hepatomegaly or splenomegaly. MUSCULOSKELETAL: Normal range of motion at all joints. No bony deformities or tenderness. No CVA tenderness. UPPER EXTREMITIES: 2+ pulses, warm, well-perfused. No cyanosis. No clubbing. No peripheral edema. LOWER EXTREMITIES: 2+ pulses, warm, well-perfused. No calf tenderness. No peripheral edema. NEUROLOGICAL: Cranial nerves II-XII intact. Normal speech. Normal gait. PSYCHIATRIC: Cooperative. Good eye contact. Appropriate mood and affect. SKIN: Warm, dry, normal turgor, no rashes or lesions noted, normal capillary refill. Laboratory Results - last 24 hr 08/31/17 08/31/17 08/31/17 22:00 22:00 22:00 WBC 24.0 H D RBC 4.29 Hgb 13.2 D Hct 40.7 D MCV 95.0 MCH 30.7 MCHC 32.4 RDW 17.6 H MPV 9.5 D Neutrophils % 52.1 Lymphocytes % 39.6 Monocytes % 7.1 Eosinophils % 0.6 Basophils % 0.6 PT with INR 10.80 INR 0.96 PTT (Actin FS) 22.4 L VBG pH POC VBG pCO2 POC VBG pO2 Mixed VBG HCO3 Sodium Cancelled Potassium Cancelled Chloride Cancelled Carbon Dioxide Cancelled Anion Gap Cancelled BUN Cancelled Creatinine Cancelled Creat Clearance w eGFR Cancelled Random Glucose Cancelled Lactic Acid Calcium Cancelled Total Bilirubin Cancelled AST Cancelled ALT Cancelled Alkaline Phosphatase Cancelled Creatine Kinase Cancelled Troponin I Cancelled Total Protein Cancelled Albumin Cancelled Urine Color Urine Appearance Urine pH Ur Specific [place] Urine Protein Urine Glucose (UA) Urine Ketones Urine Blood Urine Nitrite Urine Bilirubin Urine Urobilinogen Ur Leukocyte Esterase Urine WBC (Auto) Urine RBC (Auto) Ur Epithelial Cells Urine Bacteria Hyaline Casts Urine Mucus 08/31/17 08/31/17 08/31/17 22:00 22:20 22:30 WBC RBC Hgb Hct MCV MCH MCHC RDW MPV Neutrophils % Lymphocytes % Monocytes % Eosinophils % Basophils % PT with INR INR PTT (Actin FS) VBG pH 7.16 L* POC VBG pCO2 77.7 H* D POC VBG pO2 95.2 H D Mixed VBG HCO3 26.7 H Sodium Potassium Chloride Carbon Dioxide Anion Gap BUN Creatinine Creat Clearance w eGFR Random Glucose Lactic Acid 2.1 H* Calcium Total Bilirubin AST ALT Alkaline Phosphatase Creatine Kinase Troponin I Total Protein Albumin Urine Color Dkyellow Urine Appearance Slcloudy Urine pH 5.0 D Ur Specific [place] 1.021 Urine Protein 1+ H Urine Glucose (UA) Negative Urine Ketones Trace H Urine Blood 1+ H Urine Nitrite Negative Urine Bilirubin Negative Urine Urobilinogen Negative Ur Leukocyte Esterase 2+ H Urine WBC (Auto) 70 Urine RBC (Auto) 7 Ur Epithelial Cells Rare Urine Bacteria Rare Hyaline Casts 2 Urine Mucus Rare CBC, BMP 08/31/17 22:00 ASSESSMENT/PLAN:
[2017-08-31 23:57] LABS: ALBUMIN 2.9 g/dl (3.4-5.0); ANION GAP 6 (8-16); BILIRUBIN,TOTAL 0.2 mg/dL (0.2-1.0); BLOOD UREA NITROGEN 16 mg/dL (7-18); CALCIUM 8.3 mg/dL (8.5-10.1); CHLORIDE 104 mmol/L (98-107); CO2 31 mmol/L (21-32); CREATININE 0.9 mg/dL (0.7-1.3); GLUCOSE,RANDOM 116 mg/dL (74-106); LIPASE 185 U/L (73-393); POTASSIUM 4.8 mmol/L (3.5-5.1); SGOT/AST 14 U/L (15-37); SGPT/ALT 15 U/L (12-78); SODIUM 141 mmol/L (136-145); TOT PROT 7.4 g/dl (6.4-8.2)
[2017-08-31 23:59] LABS: ALK PHOS 70 U/L (45-117)
[2017-09-01 00:01] LABS: ARTERIAL BLD GAS O2 SATURATION 99.4 % (90-98.9); ARTERIAL BLOOD GAS pH 7.31 (7.35-7.45)
--- NOTE | 2017-09-01 00:07 | HP ---
CHIEF COMPLAINT: seizure PCP: Dr. Meadows HISTORY OF PRESENT ILLNESS: 52 y/o M from Located within [facility] with PMHx HTN, HLD, seizure disorder possibly 2/2 childhood hydrocephalus s/p garett holes, on Depakote/Keppra; presented to ED with seizure activity. He was bagged and intubated in the field; hx is obtained from ED documentation. Pt aspirated when getting medications. Found to have sepsis and admitted to ICU. Unable to get further hx due to patient mental status. ER course was notable for: (1) Versad (2) CT head (3) CXR (4) Depakote/Keppra levels ordered (5) EKG (6) Vanc x1 dose, Zosyn (7) Intubated/sedation Recent Travel: unknown PAST MEDICAL HISTORY: HTN, HLD, seizure disorder PAST SURGICAL HISTORY: garett holes in past for seizure disorder Social History: Smoking: unknown Alcohol: unknown Drugs: unknown Family History: unknown Allergies No Known Drug Allergies Allergy (Verified 08/31/17 22:24) HOME MEDICATIONS: Home Medications Medication Instructions Recorded Aspirin Coated [Ecotrin -] 81 mg PO DAILY #90 tab 12/16/16 Metoprolol Tartrate [Lopressor -] 25 mg PO BID #60 tablet 12/16/16 Albuterol 0.083% Nebulizer Letitia 1 amp NEB Q4H PRN amp 08/07/17 [Ventolin 0.083% Nebulizer Soln -] Levetiracetam [Keppra -] 1,000 mg PO TID tablet 08/07/17 Pantoprazole Sodium [Protonix -] 40 mg PO DAILY tablet.ec 08/07/17 Valproate Sodium [Depakene -] 1,000 mg PO TID cup 08/07/17 Heparin - 5,000 unit SQ BID 08/12/17 Tamsulosin HCl [Flomax -] 0.4 mg PO 1900 08/12/17 Acetaminophen [Tylenol .Regular 650 mg PO Q6H PRN tablet 08/18/17 Strength -] Levetiracetam [Keppra -] 1,000 mg PO TID tablet 08/18/17 Metronidazole [Flagyl -] 500 mg PO TID 14 Days #42 tablet 08/18/17 Valproic Acid [Depakene -] 1,000 mg PO TID capsule 08/18/17 REVIEW OF SYSTEMS unable to obtain PHYSICAL EXAMINATION Vital Signs - 24 hr 08/31/17 08/31/17 22:24 22:33 Pulse Rate 97 H 92 H Respiratory 14 19 Rate Blood Pressure 132/84 O2 Sat by Pulse 99 97 Oximetry (%) GENERAL: intubated sedated , residual tremling , HEAD: Normal with no signs of trauma. EYES: sclera anicteric, conjunctiva clear. EARS, NOSE, THROAT: Moist mucous membranes. NECK: Normal range of motion, supple without lymphadenopathy LUNGS: Breath sounds equal, clear to auscultation bilaterally. No wheezes, and no crackles. No accessory muscle use. HEART: Regular rate and rhythm, normal S1 and S2 without murmur, rub or gallop. ABDOMEN: Soft, nontender, not distended, normoactive bowel sounds, no guarding, no rebound, LOWER EXTREMITIES: 2+ pulses, warm, well-perfused. No calf tenderness. No peripheral edema. NEUROLOGICAL: intubated sedated, babinski negative on the left, no response in the right Laboratory Results - last 24 hr 08/31/17 08/31/17 08/31/17 22:00 22:00 22:00 WBC 24.0 H D RBC 4.29 Hgb 13.2 D Hct 40.7 D MCV 95.0 MCH 30.7 MCHC 32.4 RDW 17.6 H MPV 9.5 D Neutrophils % 52.1 Lymphocytes % 39.6 Monocytes % 7.1 Eosinophils % 0.6 Basophils % 0.6 PT with INR 10.80 INR 0.96 PTT (Actin FS) 22.4 L VBG pH POC VBG pCO2 POC VBG pO2 Mixed VBG HCO3 Carboxyhemoglobin Methemoglobin Sodium Cancelled Potassium Cancelled Chloride Cancelled Carbon Dioxide Cancelled Anion Gap Cancelled BUN Cancelled Creatinine Cancelled Creat Clearance w eGFR Cancelled Random Glucose Cancelled Lactic Acid Calcium Cancelled Total Bilirubin Cancelled AST Cancelled ALT Cancelled Alkaline Phosphatase Cancelled Creatine Kinase Cancelled Troponin I Cancelled Total Protein Cancelled Albumin Cancelled Urine Color Urine Appearance Urine pH Ur Specific [place] Urine Protein Urine Glucose (UA) Urine Ketones Urine Blood Urine Nitrite Urine Bilirubin Urine Urobilinogen Ur Leukocyte Esterase Urine WBC (Auto) Urine RBC (Auto) Ur Epithelial Cells Urine Bacteria Hyaline Casts Urine Mucus Blood Type Antibody Screen 08/31/17 08/31/17 08/31/17 22:00 22:20 22:20 WBC RBC Hgb Hct MCV MCH MCHC RDW MPV Neutrophils % Lymphocytes % Monocytes % Eosinophils % Basophils % PT with INR INR PTT (Actin FS) VBG pH 7.16 L* POC VBG pCO2 77.7 H* D POC VBG pO2 95.2 H D Mixed VBG HCO3 26.7 H Carboxyhemoglobin Methemoglobin Sodium Potassium Chloride Carbon Dioxide Anion Gap BUN Creatinine Creat Clearance w eGFR Random Glucose Lactic Acid 2.1 H* Calcium Total Bilirubin AST ALT Alkaline Phosphatase Creatine Kinase Troponin I Total Protein Albumin Urine Color Urine Appearance Urine pH Ur Specific [place] Urine Protein Urine Glucose (UA) Urine Ketones Urine Blood Urine Nitrite Urine Bilirubin Urine Urobilinogen Ur Leukocyte Esterase Urine WBC (Auto) Urine RBC (Auto) Ur Epithelial Cells Urine Bacteria Hyaline Casts Urine Mucus Blood Type O POSITIVE Antibody Screen Negative 08/31/17 08/31/17 22:30 23:30 WBC RBC Hgb Hct MCV MCH MCHC RDW MPV Neutrophils % Lymphocytes % Monocytes % Eosinophils % Basophils % PT with INR INR PTT (Actin FS) VBG pH POC VBG pCO2 POC VBG pO2 Mixed VBG HCO3 Carboxyhemoglobin 0.8 Methemoglobin 1.0 Sodium Potassium Chloride Carbon Dioxide Anion Gap BUN Creatinine Creat Clearance w eGFR Random Glucose Lactic Acid Calcium Total Bilirubin AST ALT Alkaline Phosphatase Creatine Kinase Troponin I Total Protein Albumin Urine Color Dkyellow Urine Appearance Slcloudy Urine pH 5.0 D Ur Specific [place] 1.021 Urine Protein 1+ H Urine Glucose (UA) Negative Urine Ketones Trace H Urine Blood 1+ H Urine Nitrite Negative Urine Bilirubin Negative Urine Urobilinogen Negative Ur Leukocyte Esterase 2+ H Urine WBC (Auto) 70 Urine RBC (Auto) 7 Ur Epithelial Cells Rare Urine Bacteria Rare Hyaline Casts 2 Urine Mucus Rare Blood Type Antibody Screen CBC, BMP 08/31/17 22:[address] head ASSESSMENT/PLAN: 52 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 He was bagged and intubated in the field, vomited after Versed, and aspirated. He was admitted and was found to be in acute hypercapnic hypoxic respiratory failure and sepsis. Pt admitted to ICU for further w/u and tx. # Status epilepticus. * Head CT - pending * keppra /depakote levels * Versed PRN * continue home meds * Neuro consult - Dr. Johnson, will evaluate and see if need for EEG. * pt intubated, aspiration precautions. #Acute hypercapnic hypoxic Respiratory Failure * Aspiration precautions * Intubated sedated * CXR * IV ABX - zosyn, vanco; continue w/ zosyn q8hr * ID consult - Dr. Yury Latham * olivares cx * ABG stat, ABG in AM at 6 AM * CMP stat, CMP in AM at 6 AM * repeat Lactic Acid in 2 hr #sepsis, 2/2 aspiration pneumonitis vs UTI * CXR in AM * ID consult * repeat LA * CBC, CMP, olivares cx. * zosyn, continue flagyl IV 500mg q8 * Urine cx , sputum cx #HTN * continue home meds #HLD * continue home meds # FEN * F: IV NS 1000mls @100mls/hr * E: monitor * N: NPO Proph * DVT: Scds , heparin sq 5000 Q8hr * GI: Protonix 40 mg IV daily # Dispo * Admit to ICU Visit type - Emergency Visit Emergency Visit: Yes ED Registration Date: 08/31/17 Care time: The patient presented to the Emergency Department on the above date and was hospitalized for further evaluation of their emergent condition. - New Patient This patient is new to me today: Yes Date on this admission: 08/31/17 - Critical Care Critical Care patient: Yes Total Critical Care Time (in minutes): 40 Critical Care Statement: The care of this patient involved high complexity decision making to prevent further life threatening deterioration of the patient 's condition and/or to evaluate & treat vital organ system(s) failure or risk of failure.
[2017-09-01 00:08] LABS: ARTERIAL BLOOD GAS PCO2 52.9 mmHg (35-45)
--- NOTE | 2017-09-01 00:12 | PN ---
Teaching Attending Note Name of Resident: Nabeel Del Angel ATTENDING PHYSICIAN STATEMENT I saw and evaluated the patient. I reviewed the resident's note and discussed the case with the resident. I agree with the resident's findings and plan as documented. SUBJECTIVE: 52 M resident of [place], with pmhx. of HTN, HLD, seizure do (on Keppra, Depakote s/p garett holes), who presented to ED for witnessed Grand Mal Seizure, with active seizure on ED arrival. Pt. was unresponsive post event, with emesis. He was intubated for airway protection. ED CXR shows possible aspiration. Also loaded with Keppra in ED. OBJECTIVE: Physical: VS: Vital Signs Period Temp Pulse Resp BP Sys/Bond Pulse Ox Last 24 Hr 85-97 14-19 132/84 97-100 GEN: Intubated and Sedated at bedside HEENT: NCAT, PERRL, throat without erythema or exudates CARD: RRR S1, S2 RESP: Decreased Breath sounds at bases ABD:BSx4, NTD to palpation EXT: - C/C/E CBCD WBC 24.0 K/mm3 (4.0-10.0) H D 08/31/17 22:00 RBC 4.29 M/mm3 (4.00-5.60) 08/31/17 22:00 Hgb 13.2 GM/dL (11.7-16.9) D 08/31/17 22:00 Hct 40.7 % (35.4-49) D 08/31/17 22:00 MCV 95.0 fl (80-96) 08/31/17 22:00 MCHC 32.4 g/dl (32.0-35.9) 08/31/17 22:00 RDW 17.6 % (11.9-15.9) H 08/31/17 22:00 MPV 9.5 fl (7.5-11.1) D 08/31/17 22:00 CMP Sodium Cancelled 08/31/17 22:00 Potassium Cancelled 08/31/17 22:00 Chloride Cancelled 08/31/17 22:00 Carbon Dioxide Cancelled 08/31/17 22:00 Anion Gap Cancelled 08/31/17 22:00 BUN Cancelled 08/31/17 22:00 Creatinine Cancelled 08/31/17 22:00 Creat Clearance w eGFR Cancelled 08/31/17 22:00 Random Glucose Cancelled 08/31/17 22:00 Calcium Cancelled 08/31/17 22:00 Total Bilirubin Cancelled 08/31/17 22:00 AST Cancelled 08/31/17 22:00 ALT Cancelled 08/31/17 22:00 Alkaline Phosphatase Cancelled 08/31/17 22:00 Total Protein Cancelled 08/31/17 22:00 Albumin Cancelled 08/31/17 22:00 CARDIAC ENZYMES Creatine Kinase Cancelled 08/31/17 22:00 Troponin I Cancelled 08/31/17 22:00 ASSESSMENT AND PLAN: 52 M resident of [facility], with pmhx. of HTN, HLD, seizure do (on Keppra, Depakote s/p garett holes), who presented to ED for witnessed Grand Mal Seizure, with possible aspiration, being admitted to ICU 1.) Seizure - Keppra loaded - Neuro consult - Check Levels of both Keppra and Depeakote - EEG - CT HEAD, when pt. stable. 2.) Acute Hypercapnic Respiratory Failure - Intubated and Sedated - Recheck ABG - CXR in AM 3.) Sepsis Aspiration Pneumonia/UTI - C/W Zosyn, Vanco - ID consult - Leukocytosis may be reactive - Recheck LA - [place] Cx 4.) HTN - Hold home meds - PRN Lopressor 5.) HLD - Hold PO meds 6.) DVt PPx - Heparin 5000 q8 7.) GI PPX - Protonix Place in ICU CC Time: 45 Minutes
[2017-09-01 00:16] LABS: PLATELET COUNT 371 K/MM3 (134-434)
[2017-09-01] MEDS ORDERED: MIDAZOLAM HCL 2 MG/2 ML SINGLE DOSE VIAL IVPUSH ONE (00:37)
[2017-09-01] MEDS ORDERED: MIDAZOLAM HCL 2 MG/2 ML SINGLE DOSE VIAL ONE (00:52)
[2017-09-01] MEDS: SODIUM CHLORIDE 1,000 ML IV SCH (01:33)
[2017-09-01] MEDS ORDERED: fentaNYL CITRATE 250 MCG/5 ML VIAL ONE ×2 (01:42→11:17)
[2017-09-01 01:51] VITALS: BMI 24.7
[2017-09-01] MEDS ORDERED: METOPROLOL TARTRATE 5 MG/5 ML VIAL IVPUSH PRN ×2 (01:56→01:57)
[2017-09-01] MEDS: METRONIDAZOLE 500 MG PREMIXED 500 MG/100 ML MG IVPB SCH ×3 (01:57→17:41)
[2017-09-01] MEDS: MIDAZOLAM 100 MG in SODIUM CHLORIDE 100 ML IVPB SCH ×2 (01:57→21:13)
[2017-09-01] MEDS: FENTANYL INJECTION 500 MCG in DEXTROSE 5%-WATER - 90 ML IVPB SCH ×3 (01:59→11:20)
[2017-09-01] MEDS ORDERED: PIPERACILLIN/TAZOB 3.375 GM 3.375 GM in DEXTROSE 5%-WATER - 100 ML IVPB ONE (02:00)
[2017-09-01] MEDS: VALPROATE SODIUM 500 MG/5 ML VIAL IVPB SCH ×3 (05:55→21:15)
[2017-09-01] MEDS: HEPARIN NA (PORCINE) 5,000 UNITS/ML 1ML VIAL SQ SCH ×3 (05:56→21:15)
[2017-09-01] MEDS: levETIRAcetam 500 MG/5 ML INJECTION VIAL IVPB SCH ×3 (05:56→21:15)
[2017-09-01 06:42] LABS: BASO % 0.3 % (0-2.0); EOS % 0.1 % (0-4.5); HEMATOCRIT 33.5 % (35.4-49); HEMOGLOBIN 10.9 GM/dL (11.7-16.9); LYMPH % 12.7 % (8-40); MCH 30.4 pg (25.7-33.7); MCHC 32.5 g/dl (32.0-35.9); MEAN CELL VOLUME 93.4 fl (80-96); MEAN PLT VOLUME 8.5 fl (7.5-11.1); NEUT % 78.9 % (42.8-82.8); PLATELET COUNT 213 K/MM3 (134-434); RBC 3.59 M/mm3 (4.00-5.60); WHITE BLOOD COUNT 13.1 K/mm3 (4.0-10.0)
[2017-09-01 07:20] LABS: ALBUMIN 2.5 g/dl (3.4-5.0); ANION GAP 10 (8-16); BLOOD UREA NITROGEN 13 mg/dL (7-18); CHLORIDE 103 mmol/L (98-107); CO2 26 mmol/L (21-32); GLUCOSE,RANDOM 94 mg/dL (74-106); POTASSIUM 3.5 mmol/L (3.5-5.1); SODIUM 139 mmol/L (136-145)
[2017-09-01 07:24] LABS: ALK PHOS 57 U/L (45-117); BILIRUBIN,TOTAL 0.4 mg/dL (0.2-1.0); CREATININE 0.7 mg/dL (0.7-1.3); SGOT/AST 13 U/L (15-37); SGPT/ALT 12 U/L (12-78); TOT PROT 6.1 g/dl (6.4-8.2)
[2017-09-01 07:39] LABS: MAGNESIUM 1.8 mg/dL (1.8-2.4); PHOSPHOROUS 3.6 mg/dL (2.5-4.9)
[2017-09-01 07:41] LABS: ARTERIAL BLD GAS O2 SATURATION 99.4 % (90-98.9); ARTERIAL BLOOD GAS PCO2 36.5 mmHg (35-45); ARTERIAL BLOOD GAS pH 7.43 (7.35-7.45)
[2017-09-01 07:42] LABS: ARTERIAL BLOOD GAS BASE EXCESS 0.1 meq/l (-2-2)
[2017-09-01 08:03] LABS: ALLENS TEST POSITIVE
--- NOTE | 2017-09-01 09:14 | PN ---
Progress Note (short form) - Note Progress Note: ID consult dictated imp/reccd 52 year old man with known seizure disorder recently hospitalized 07/21 to 08/07 with status epilepticus and aspiration pneumonia (was intubated) readmitted 08/12-08/19 with rectal bleeding and leukocytosis and fever- c diff antigen positive- discharged back to [place] on flagyl admitted via ER yesterday after witnessed grandmal seizure in the [place], was given versed and started vomiting bagged by EMS and intubated in ED to protect airway Aspiration Pneumonia-cover for hospital pathogens given two recent admissions to the hospital respiratory failure recurrent seizures (seizure disorder) recent rectal bleeding with +cdiff antigen cultures sent continue vancomycin and zosyn continue flagyl for cdiff d/w Dr Meadows f/u cultures Problem List - Problems (1) Pneumonia Code(s): J18.9 - PNEUMONIA, UNSPECIFIED ORGANISM (2) Respiratory failure Code(s): J96.90 - RESPIRATORY FAILURE, UNSP, UNSP W HYPOXIA OR HYPERCAPNIA (3) Seizure Code(s): R56.9 - UNSPECIFIED CONVULSIONS (4) C. difficile colitis Code(s): A04.72 - ENTEROCOLITIS D/T CLOSTRIDIUM DIFFICILE, NOT SPCF RECUR
--- NOTE | 2017-09-01 09:34 | PN ---
Progress Note (short form) - Note Progress Note: patient seen and examined in ICU Events noted/chart reviewed. Patient well-known to me I will resume care. Discussed with Dr. Priest also. Vital Signs Temp 99.6 F 09/01/17 06:00 Pulse 88 09/01/17 08:00 Resp 18 09/01/17 08:00 BP 116/77 09/01/17 08:00 Pulse Ox 99 09/01/17 08:00 Intake & Output 08/31/17 08/31/17 09/01/17 11:59 23:59 11:59 Intake Total 890 Output Total 860 Balance 30 Weight 185 lb 167 lb 12.348 oz Intake: IV 490 Normal Saline - 1,000 ml 415 @ 83 mls/hr IV ASDIR MATTHEW Rx#:[id number] Versed - 100 mg In Normal 25 Saline - 100 ml @ 1 MG/ HR 1 mls/hr IVPB TITR COUNTS INCLUDE 234 BEDS AT THE [facility] Rx#:[id number] fentanyl 50 IVPB 400 Output: Urine 860 [place] 860 Other: Voiding Method Indwelling Catheter Height 5 ft 5 in 5 ft 9 in Body Mass Index (BMI) 30.7 24.7 Weight Measurement Method Built in [facility] Active Medications Albuterol Sulfate (Ventolin 0.083% Nebulizer Soln -) 1 amp NEB Q4H PRN PRN Reason: SHORT OF BREATH/WHEEZING Chlorhexidine Gluconate (Hibiclens For Decolonization -) 1 applic TP HS MATTHEW Heparin Sodium (Porcine) (Heparin -) 5,000 unit SQ TID MATTHEW Last Admin: 09/01/17 05:56 Dose: 5,000 unit Sodium Chloride (Normal Saline -) 1,000 mls @ 83 mls/hr IV ASDIR MATTHEW Last Admin: 09/01/17 01:33 Dose: 83 mls/hr Metronidazole (Flagyl 500mg Premixed Ivpb -) 500 mg in 100 mls @ 100 mls/hr IVPB Q8H-IV MATTHEW Last Admin: 09/01/17 01:57 Dose: 100 mls/hr Piperacillin/Tazobactam/Dextrose (Zosyn 3.375gm Ivpb (Premix)) 50 mls @ 100 mls /hr IVPB Q8H-IV MATTHEW PRN Reason: Protocol Midazolam HCl 100 mg/ Sodium (Chloride) 100 mls @ 1 mls/hr IVPB TITR MATTHEW; 1 MG/ HR PRN Reason: Protocol Last Admin: 09/01/17 01:57 Dose: 5 mg/hr, 5 mls/hr Fentanyl 500 mcg/ Dextrose 100 mls @ 5 mls/hr IVPB TITR MATTHEW; 25 MCG/HR PRN Reason: Protocol Last Admin: 09/01/17 01:59 Dose: 5 mls/hr Levetiracetam (Keppra Injection -) 1,000 mg IVPB TID COUNTS INCLUDE 234 BEDS AT THE [facility] Last Admin: 09/01/17 05:56 Dose: 1,000 mg Magnesium Sulfate (Magnesium Sulfate) 2 gm IVPB ONCE ONE Stop: 09/01/17 09:32 Metoprolol Tartrate (Lopressor Injection -) 5 mg IVPUSH Q4H PRN PRN Reason: HYPERTENSION Mupirocin (Bactroban Ointment (For Decolonization) -) 1 applic NS BID COUNTS INCLUDE 234 BEDS AT THE [facility] Stop: 09/06/17 09:59 Pantoprazole Sodium (Protonix Iv) 40 mg IVPUSH BID COUNTS INCLUDE 234 BEDS AT THE [facility] Valproate Sodium (Depacon Injection -) 1,000 mg IVPB TID COUNTS INCLUDE 234 BEDS AT THE [facility] Last Admin: 09/01/17 05:55 Dose: 1,000 mg CBC, BMP 09/01/17 05:10 09/01/17 05:10
--- NOTE | 2017-09-01 09:40 | PN ---
Physical Exam: SUBJECTIVE: Patient seen and examined. Seen this am intubated and sedated but arousable. Spontaneous left limb movements. OBJECTIVE: Vital Signs Period Temp Pulse Resp BP Sys/Bond Pulse Ox Last 24 Hr 98.4 F-99.6 F 85-111 14-26 95-141/64-101 72-100 GENERAL: The patient is intubated and sedated - fio2-60%, TV-450, 9/5, RR-18. HEAD: Normal with no signs of trauma. EYES: Bilaterally reactive round pupils. ENT: ET tube in place, OGT, NECK: supple. LUNGS: Mechanical Breath sounds bilaterally HEART: S1, S2 , tachycardic. ABDOMEN: Soft, nondistended, bowel sounds+, EXTREMITIES: 2+ pulses, warm, well-perfused, no edema, R intraosseous line on vazquez. NEUROLOGICAL: Intubated and sedated with spontaneous L side movements PSYCH: Cannot assess SKIN: Warm, dry Lines: ET tube in place, OGT, 2LUE peripheral lines, ny Laboratory Results - last 24 hr 08/31/17 08/31/17 08/31/17 22:00 22:00 22:00 WBC 24.0 H D RBC 4.29 Hgb 13.2 D Hct 40.7 D MCV 95.0 MCH 30.7 MCHC 32.4 RDW 17.6 H Plt Count 371 D MPV 9.5 D Neutrophils % 52.1 Lymphocytes % 39.6 Monocytes % 7.1 Eosinophils % 0.6 Basophils % 0.6 PT with INR 10.80 INR 0.96 PTT (Actin FS) 22.4 L Anticoagulation Therapy Puncture Site ABG pH ABG pCO2 at Pt Temp ABG pO2 at Pt Temp ABG HCO3 ABG O2 Sat (Measured) ABG O2 Content ABG Base Excess Keegan Test VBG pH POC VBG pCO2 POC VBG pO2 Mixed VBG HCO3 Carboxyhemoglobin Methemoglobin O2 Delivery Device Oxygen Flow Rate Vent Mode Vent Rate Mechanical Rate PEEP Pressure Support Vent Sodium Cancelled Potassium Cancelled Chloride Cancelled Carbon Dioxide Cancelled Anion Gap Cancelled BUN Cancelled Creatinine Cancelled Creat Clearance w eGFR Cancelled Random Glucose Cancelled Lactic Acid Calcium Cancelled Phosphorus Magnesium Total Bilirubin Cancelled AST Cancelled ALT Cancelled Alkaline Phosphatase Cancelled Creatine Kinase Cancelled Troponin I Cancelled B-Natriuretic Peptide Total Protein Cancelled Albumin Cancelled Lipase Urine Color Urine Appearance Urine pH Ur Specific [place] Urine Protein Urine Glucose (UA) Urine Ketones Urine Blood Urine Nitrite Urine Bilirubin Urine Urobilinogen Ur Leukocyte Esterase Urine WBC (Auto) Urine RBC (Auto) Ur Epithelial Cells Urine Bacteria Hyaline Casts Urine Mucus Valproic Acid Blood Type Antibody Screen 08/31/17 08/31/17 08/31/17 22:00 22:20 22:20 WBC RBC Hgb Hct MCV MCH MCHC RDW Plt Count MPV Neutrophils % Lymphocytes % Monocytes % Eosinophils % Basophils % PT with INR INR PTT (Actin FS) Anticoagulation Therapy Puncture Site ABG pH ABG pCO2 at Pt Temp ABG pO2 at Pt Temp ABG HCO3 ABG O2 Sat (Measured) ABG O2 Content ABG Base Excess Keegan Test VBG pH 7.16 L* POC VBG pCO2 77.7 H* D POC VBG pO2 95.2 H D Mixed VBG HCO3 26.7 H Carboxyhemoglobin Methemoglobin O2 Delivery Device Oxygen Flow Rate Vent Mode Vent Rate Mechanical Rate PEEP Pressure Support Vent Sodium Potassium Chloride Carbon Dioxide Anion Gap BUN Creatinine Creat Clearance w eGFR Random Glucose Lactic Acid 2.1 H* Calcium Phosphorus Magnesium Total Bilirubin AST ALT Alkaline Phosphatase Creatine Kinase Troponin I B-Natriuretic Peptide Total Protein Albumin Lipase Urine Color Urine Appearance Urine pH Ur Specific [place] Urine Protein Urine Glucose (UA) Urine Ketones Urine Blood Urine Nitrite Urine Bilirubin Urine Urobilinogen Ur Leukocyte Esterase Urine WBC (Auto) Urine RBC (Auto) Ur Epithelial Cells Urine Bacteria Hyaline Casts Urine Mucus Valproic Acid Blood Type O POSITIVE Antibody Screen Negative 08/31/17 08/31/17 08/31/17 22:30 23:05 23:05 WBC RBC Hgb Hct MCV MCH MCHC RDW Plt Count MPV Neutrophils % Lymphocytes % Monocytes % Eosinophils % Basophils % PT with INR INR PTT (Actin FS) Anticoagulation Therapy Puncture Site ABG pH ABG pCO2 at Pt Temp ABG pO2 at Pt Temp ABG HCO3 ABG O2 Sat (Measured) ABG O2 Content ABG Base Excess Keegan Test VBG pH POC VBG pCO2 POC VBG pO2 Mixed VBG HCO3 Carboxyhemoglobin Methemoglobin O2 Delivery Device Oxygen Flow Rate Vent Mode Vent Rate Mechanical Rate PEEP Pressure Support Vent Sodium 141 Potassium 4.8 D Chloride 104 Carbon Dioxide 31 Anion Gap 6 L BUN 16 D Creatinine 0.9 D Creat Clearance w eGFR > 60 Random Glucose 116 H D Lactic Acid Calcium 8.3 L Phosphorus Magnesium 2.0 Total Bilirubin 0.2 D AST 14 L D ALT 15 D Alkaline Phosphatase 70 D Creatine Kinase 31 L Troponin I < 0.02 B-Natriuretic Peptide 114.66 Total Protein 7.4 D Albumin 2.9 L D Lipase 185 Urine Color Dkyellow Urine Appearance Slcloudy Urine pH 5.0 D Ur Specific [place] 1.021 Urine Protein 1+ H Urine Glucose (UA) Negative Urine Ketones Trace H Urine Blood 1+ H Urine Nitrite Negative Urine Bilirubin Negative Urine Urobilinogen Negative Ur Leukocyte Esterase 2+ H Urine WBC (Auto) 70 Urine RBC (Auto) 7 Ur Epithelial Cells Rare Urine Bacteria Rare Hyaline Casts 2 Urine Mucus Rare Valproic Acid Blood Type Antibody Screen 08/31/17 08/31/17 09/01/17 23:30 23:30 00:10 WBC RBC Hgb Hct MCV MCH MCHC RDW Plt Count MPV Neutrophils % Lymphocytes % Monocytes % Eosinophils % Basophils % PT with INR INR PTT (Actin FS) Anticoagulation Therapy No Result Required. Puncture Site Right radial ABG pH 7.31 L ABG pCO2 at Pt Temp 52.9 H D ABG pO2 at Pt Temp 206.0 H* ABG HCO3 25.5 ABG O2 Sat (Measured) 99.4 H ABG O2 Content 17.3 ABG Base Excess -1.0 Keegan Test No Result Required. VBG pH POC VBG pCO2 POC VBG pO2 Mixed VBG HCO3 Carboxyhemoglobin 0.8 Methemoglobin 1.0 O2 Delivery Device Vent Oxygen Flow Rate 100% Vent Mode No Result Required. Vent Rate No Result Required. Mechanical Rate No Result Required. PEEP 5.0 Pressure Support Vent No Result Required. Sodium Potassium Chloride Carbon Dioxide Anion Gap BUN Creatinine Creat Clearance w eGFR Random Glucose Lactic Acid Calcium Phosphorus Magnesium Total Bilirubin AST ALT Alkaline Phosphatase Creatine Kinase Troponin I B-Natriuretic Peptide Total Protein Albumin Lipase Urine Color Urine Appearance Urine pH Ur Specific [place] Urine Protein Urine Glucose (UA) Urine Ketones Urine Blood Urine Nitrite Urine Bilirubin Urine Urobilinogen Ur Leukocyte Esterase Urine WBC (Auto) Urine RBC (Auto) Ur Epithelial Cells Urine Bacteria Hyaline Casts Urine Mucus Valproic Acid 40.125 L Blood Type Antibody Screen 09/01/17 09/01/17 09/01/17 00:10 05:10 05:10 WBC 13.1 H D RBC 3.59 L Hgb 10.9 L D Hct 33.5 L D MCV 93.4 MCH 30.4 MCHC 32.5 RDW 17.0 H Plt Count 213 D MPV 8.5 D Neutrophils % 78.9 D Lymphocytes % 12.7 D Monocytes % 8.0 Eosinophils % 0.1 D Basophils % 0.3 PT with INR INR PTT (Actin FS) Anticoagulation Therapy Puncture Site ABG pH ABG pCO2 at Pt Temp ABG pO2 at Pt Temp ABG HCO3 ABG O2 Sat (Measured) ABG O2 Content ABG Base Excess Keegan Test VBG pH POC VBG pCO2 POC VBG pO2 Mixed VBG HCO3 Carboxyhemoglobin Methemoglobin O2 Delivery Device Oxygen Flow Rate Vent Mode Vent Rate Mechanical Rate PEEP Pressure Support Vent Sodium 139 Potassium 3.5 D Chloride 103 Carbon Dioxide 26 Anion Gap 10 BUN 13 Creatinine 0.7 D Creat Clearance w eGFR > 60 Random Glucose 94 Lactic Acid 1.7 Calcium 8.0 L Phosphorus 3.6 Magnesium 1.8 Total Bilirubin 0.4 D AST 13 L ALT 12 Alkaline Phosphatase 57 Creatine Kinase Troponin I B-Natriuretic Peptide Total Protein 6.1 L Albumin 2.5 L Lipase Urine Color Urine Appearance Urine pH Ur Specific [place] Urine Protein Urine Glucose (UA) Urine Ketones Urine Blood Urine Nitrite Urine Bilirubin Urine Urobilinogen Ur Leukocyte Esterase Urine WBC (Auto) Urine RBC (Auto) Ur Epithelial Cells Urine Bacteria Hyaline Casts Urine Mucus Valproic Acid Blood Type Antibody Screen 09/01/17 09/01/17 05:10 07:15 WBC RBC Hgb Hct MCV MCH MCHC RDW Plt Count MPV Neutrophils % Lymphocytes % Monocytes % Eosinophils % Basophils % PT with INR INR PTT (Actin FS) Anticoagulation Therapy Puncture Site Right radial ABG pH 7.43 ABG pCO2 at Pt Temp 36.5 D ABG pO2 at Pt Temp 152.0 H* ABG HCO3 23.7 ABG O2 Sat (Measured) 99.4 H ABG O2 Content 14.7 L ABG Base Excess 0.1 Keegan Test Positive VBG pH POC VBG pCO2 POC VBG pO2 Mixed VBG HCO3 Carboxyhemoglobin Methemoglobin O2 Delivery Device Vent Oxygen Flow Rate 60 Vent Mode Vent Rate 18 Mechanical Rate Yes PEEP 5.0 Pressure Support Vent 450 Sodium Potassium Chloride Carbon Dioxide Anion Gap BUN Creatinine Creat Clearance w eGFR Random Glucose Lactic Acid Calcium Phosphorus Cancelled Magnesium Cancelled Total Bilirubin AST ALT Alkaline Phosphatase Creatine Kinase Troponin I B-Natriuretic Peptide Total Protein Albumin Lipase Urine Color Urine Appearance Urine pH Ur Specific [place] Urine Protein Urine Glucose (UA) Urine Ketones Urine Blood Urine Nitrite Urine Bilirubin Urine Urobilinogen Ur Leukocyte Esterase Urine WBC (Auto) Urine RBC (Auto) Ur Epithelial Cells Urine Bacteria Hyaline Casts Urine Mucus Valproic Acid Blood Type Antibody Screen Microbiology 08/31/17 23:05 Sputum - Endotrachea Suction/Ventilator Gram Stain - Final Active Medications Generic Name Dose Route Start Last Admin Trade Name Freq PRN Reason Stop Dose Admin Albuterol Sulfate 1 amp 09/01/17 01:50 Ventolin 0.083% Nebulizer Soln - NEB Q4H PRN SHORT OF BREATH/WHEEZING Chlorhexidine Gluconate 1 applic 09/01/17 22:00 Hibiclens For Decolonization - TP HS MATTHEW Heparin Sodium (Porcine) 5,000 unit 09/01/17 06:00 09/01/17 05:56 Heparin - SQ 5,000 unit TID MATTHEW Administration Sodium Chloride 1,000 mls @ 83 mls/hr 09/01/17 01:15 09/01/17 01:33 Normal Saline - IV 83 mls/hr ASDIR MATTHEW Administration Metronidazole 500 mg in 100 mls @ 100 mls/hr 09/01/17 02:00 09/01/17 01:57 Flagyl 500mg Premixed Ivpb - IVPB 100 mls/hr Q8H-IV MATTHEW Administration Piperacillin/Tazobactam/Dextrose 50 mls @ 100 mls/hr 09/01/17 02:00 Zosyn 3.375gm Ivpb (Premix) IVPB Q8H-IV MATTHEW Protocol Midazolam HCl 100 mg/ Sodium 100 mls @ 1 mls/hr 09/01/17 01:45 09/01/17 01:57 Chloride IVPB 5 mg/hr TITR MATTHEW 5 mls/hr Protocol Administration 1 MG/HR Fentanyl 500 mcg/ Dextrose 100 mls @ 5 mls/hr 09/01/17 01:45 09/01/17 01:59 IVPB 5 mls/hr TITR MATTHEW Administration Protocol 25 MCG/HR Levetiracetam 1,000 mg 09/01/17 06:00 09/01/17 05:56 Keppra Injection - IVPB 1,000 mg TID MATTHEW Administration Magnesium Sulfate 2 gm 09/01/17 09:31 Magnesium Sulfate IVPB 09/01/17 09:32 ONCE ONE Metoprolol Tartrate 5 mg 09/01/17 01:57 Lopressor Injection - IVPUSH Q4H PRN HYPERTENSION Mupirocin 1 applic 09/01/17 10:00 Bactroban Ointment (For Decolonization) - NS 09/06/17 09:59 BID MATTHEW Pantoprazole Sodium 40 mg 09/01/17 10:00 Protonix Iv IVPUSH BID MATTHEW Valproate Sodium 1,000 mg 09/01/17 06:00 09/01/17 05:55 Depacon Injection - IVPB 1,000 mg TID MATTHEW Administration ASSESSMENT/PLAN: 52 y/o M from [facility] with PMHx HTN, HLD, seizure disorder s/p garett holes, on Depakote/Keppra admitted to ICU and intubated post- seizure to protect airway with sepsis and likely aspiration PNA Pulm/ ID: Acute hypoxic respiratory failure in post ictal state R/O aspiration PNA Sepsis likely 2/2 to aspiration PNA Lactic acidosis- resolved Intubated and sedated- VCV-AC-60%, 450, 9/5, RR-18 fentanyl 50mcg/hr Versed-5mcg/hr iv Zosyn- 3.375 iv Vanco 1.2 iv Metronidazole 500mg Q8H Albuterol nebs Q4H Follow cultures-urine, blood Iv Normal saline @83mls/hr Neuro: Seizure disorder iv Depakote-1g tid iv keppra 1g tid fentanyl 50mcg/hr Versed-5mcg/hr Lighten sedation as tolerated Assess mental status Dr Johnson on case Cardiology: HTN, HLD Currently hypotensive iv metoprolol 5mg iv push Q4H PRN Troponinemia- peaked likely in setting of demand ischemia from hypoxia Monitor Discuss anticoagulation interosseous line removed GI/ nutrition/Renal/lines: Renal function intact- follow uriine cx protonix Tube feeds ET tube in place, OGT, 2LUE peripheral lines, ny CMP Monitor lytes Mg SO4 -2g given Protonix iv 40mg bid Iv Normal saline @83mls/hr Prophylaxis Protonix iv 40mg bid SQ heparin 500iu tid Dispo: Monitor off sedation for weaning trials Visit type - Emergency Visit Emergency Visit: Yes ED Registration Date: 08/31/17 Care time: The patient presented to the Emergency Department on the above date and was hospitalized for further evaluation of their emergent condition. - New Patient This patient is new to me today: Yes Date on this admission: 09/01/17 - Critical Care Critical Care patient: Yes Total Critical Care Time (in minutes): 40 Critical Care Statement: The care of this patient involved high complexity decision making to prevent further life threatening deterioration of the patient 's condition and/or to evaluate & treat vital organ system(s) failure or risk of failure.
--- NOTE | 2017-09-01 09:51 | CONS ---
INFECTIOUS DISEASE CONSULTATION DATE OF CONSULTATION: DATE OF DICTATION: 09/01/2017 REQUESTING PHYSICIAN: Ailyn Meadows MD HISTORY OF PRESENT ILLNESS: This is a 52-year-old man with known seizure disorder. He was recently hospitalized July 21 to August 07 with status epilepticus and aspiration pneumonia, was intubated during that admission. He was readmitted August 12 to August 19 with rectal bleeding and leukocytosis and fever. He was found on that admission to have a positive C. difficile antigen. He was treated with Flagyl with good improvement, discharged back to the intermediate. He was seen by GI as well. He is now admitted via emergency room yesterday with witnessed grand mal seizure in the intermediate. He was given Versed and started vomiting. He was bagged by EMS and intubated in the emergency room to protect his airway. I am asked to see him for treatment for aspiration pneumonia. Currently, he is intubated on the ventilator in the ICU. PAST MEDICAL HISTORY: Notable for seizure disorder, hypertension, hyperlipidemia, pneumonia, and depression. He has had respiratory failure when he was admitted with status epilepticus. SURGICAL HISTORY: Notable for bilateral bur holes. Details of the rest of his history related to his head are not known. Apparently, he had these surgeries while he was in the [place]. He apparently has had multiple brain surgeries for hydrocephalus and chronic encephalopathy. ALLERGIES: He has no known drug allergies. MEDICATIONS AT THE [facility]: Include Protonix, subcutaneous heparin, valproic acid, Keppra, enteric aspirin, Flomax, metoprolol, Flagyl, acetaminophen p.r.n., Latanoprost eye drops, albuterol nebulizer. SOCIAL HISTORY: He is currently residing at the intermediate. REVIEW OF SYSTEMS: There are no details available. I reviewed the intermediate records. PHYSICAL EXAMINATION: Vital Signs: Current temperature is 99.6 axillary, pulse of 88, blood pressure 116/77, respiratory rate is 18. FiO2 on the ventilator is 60%. HEENT: He is normocephalic. His eyes are anicteric. You can feel defects from his bur holes on the frontal aspect of his skull. He is orally intubated. He has an orogastric tube as well. Neck: Supple. Lungs: Have diminished breath sounds at the bases. Heart: Regular rate and rhythm. Abdomen: Soft, nontender. Extremities: Notable for an intraosseous device in his right leg. DIAGNOSTIC DATA: His chest x-ray is notable for a right-sided infiltrate. Left lung is clear. Labs are notable for a white count last night of 24,000, this morning 13; hemoglobin 10.9; platelets are 213. His BUN is 13 and creatinine 0.7 with normal liver function tests and albumin of 2.5. Urinalysis has 70 white cells, and cultures are pending including sputum culture. In summary, this is a 52-year-old man with seizure disorder, admitted with witnessed seizure and vomiting with aspiration pneumonia, respiratory failure, recurrent seizures, recent rectal bleeding with Clostridium difficile antigen positive. Cultures have been sent. Would continue vancomycin and Zosyn. Given the two recent admissions, he needs coverage for hospital pathogens. Would continue Flagyl for C. difficile, follow up his cultures. Case was discussed with Dr. Meadows. Would remove the intraosseous device from his leg as well. HELDER NATARAJAN M.D. [id number]
[2017-09-01] MEDS ORDERED: PANTOPRAZOLE SODIUM 40 MG VIAL IVPUSH SCH (10:00)
[2017-09-01] MEDS ORDERED: PIPERACILLIN/TAZOB 4.5 GM/100 ML PRE-DOCKED IVPB SCH (10:30)
[2017-09-01] MEDS ORDERED: VANCOMYCIN 1 GRAM (PRE-DOCKED) 1,000 MG/250 ML BAG IVPB SCH (10:30)
[2017-09-01] MEDS ORDERED: PT OWN MED DRAWER 7, Y5N ONE ×2 (11:00→17:45)
[2017-09-01] MEDS: MAGNESIUM 1GM/D5W 100ML - 100 ML IVPB IVPB SCH ×2 (11:02→13:11)
[2017-09-01] MEDS: MUPIROCIN 2% TOPICAL OINTMENT FOR DECOLONIZATION NS SCH ×2 (11:23→21:16)
[2017-09-01] MEDS: PANTOPRAZOLE SODIUM 40 MG VIAL IVPUSH SCH ×2 (11:24→21:17)
--- NOTE | 2017-09-01 13:48 | PN ---
Teaching Attending Note Name of Resident: Saira Powers ATTENDING PHYSICIAN STATEMENT I saw and evaluated the patient. I reviewed the resident's note and discussed the case with the resident. I agree with the resident's findings and plan as documented. SUBJECTIVE: Pt seen and examined in the ICU. Remains intubated, sedated. Vented on volume assist control with 60% FiO2. OBJECTIVE: Last Vital Signs Temp Pulse Resp BP Pulse Ox 99.6 F 88 18 116/77 99 09/01/17 06:00 09/01/17 08:00 09/01/17 12:05 09/01/17 08:00 09/01/17 08:00 Intake & Output 08/29/17 08/30/17 08/31/17 09/01/17 23:59 23:59 23:59 23:59 Intake Total 890 Output Total 860 Balance 30 Weight 83.915 kg 76.1 kg Gen: intubated, sedated Heart: RRR Lung: scattered rhonchi on right Abd: soft, nontender Ext: no edema CBC, BMP 09/01/17 05:10 09/01/17 05:10 Active Medications Albuterol Sulfate (Ventolin 0.083% Nebulizer Soln -) 1 amp NEB Q4H PRN PRN Reason: SHORT OF BREATH/WHEEZING Chlorhexidine Gluconate (Hibiclens For Decolonization -) 1 applic TP HS MATTHEW Heparin Sodium (Porcine) (Heparin -) 5,000 unit SQ TID [facility] Last Admin: 09/01/17 05:56 Dose: 5,000 unit Sodium Chloride (Normal Saline -) 1,000 mls @ 83 mls/hr IV ASDIR [facility] Last Admin: 09/01/17 01:33 Dose: 83 mls/hr Metronidazole (Flagyl 500mg Premixed Ivpb -) 500 mg in 100 mls @ 100 mls/hr IVPB Q8H-IV MATTHEW Last Admin: 09/01/17 11:02 Dose: 100 mls/hr Midazolam HCl 100 mg/ Sodium (Chloride) 100 mls @ 1 mls/hr IVPB TITR MATTHEW; 1 MG/ HR PRN Reason: Protocol Last Admin: 09/01/17 01:57 Dose: 5 mg/hr, 5 mls/hr Fentanyl 500 mcg/ Dextrose 100 mls @ 10 mls/hr IVPB TITR MATTHEW; 50 MCG/HR PRN Reason: Protocol Last Admin: 09/01/17 10:00 Dose: 50 mcg/hr, 10 mls/hr Piperacillin Sod/Tazobactam (Sod 4.5 gm/ Dextrose) 100 mls @ 200 mls/hr IVPB Q8H-IV MATTHEW Vancomycin HCl 1,000 mg/ (Dextrose) 250 mls @ 166.667 mls/hr IVPB Q12H [facility] Levetiracetam (Keppra Injection -) 1,000 mg IVPB TID [facility] Last Admin: 09/01/17 05:56 Dose: 1,000 mg Metoprolol Tartrate (Lopressor Injection -) 5 mg IVPUSH Q4H PRN PRN Reason: HYPERTENSION Mupirocin (Bactroban Ointment (For Decolonization) -) 1 applic NS BID [facility] Stop: 09/06/17 09:59 Last Admin: 09/01/17 11:23 Dose: 1 applic Pantoprazole Sodium (Protonix Iv) 40 mg IVPUSH BID [facility] Last Admin: 09/01/17 11:24 Dose: 40 mg Valproate Sodium (Depacon Injection -) 1,000 mg IVPB TID [facility] Last Admin: 09/01/17 05:55 Dose: 1,000 mg ASSESSMENT AND PLAN: Seizure Episode with known Seizure Disorder Acute Hypoxic and Hypercapneic Respiratory Failure Pneumonia - r/o Aspiration r/o UTI Sepsis Lactic Acidosis resolved - continue antiepileptics per neuro - continue antibiotics - f/u cultures - taper fiO2 to keep SpO2 >90% - hold sedation to assess mental status - spontaneous breathing trials as tolerated when mental status improved - enteral feeds if unable to extubate - DVT/GI prophylaxis - continue ICU monitoring critical care time spent in reviewing chart, evaluating patient and formulating plan 35 min
[2017-09-01] MEDS: PIPERACILLIN/TAZOB 4.5 GM 4.5 GM in DEXTROSE 5%-WATER - 100 ML IVPB SCH ×2 (14:10→17:46)
[2017-09-01] MEDS: VANCOMYCIN 1,000 MG in DEXTROSE 5%-WATER - 250 ML IVPB SCH (14:11)
--- NOTE | 2017-09-01 14:45 | EKG ---
Test Reason : Blood Pressure : / mmHG Vent. Rate : 088 BPM Atrial Rate : 088 BPM P-R Int : 140 ms QRS Dur : 078 ms QT Int : 376 ms P-R-T Axes : 043 021 058 degrees QTc Int : 454 ms NORMAL SINUS RHYTHM NONSPECIFIC T WAVE ABNORMALITY ABNORMAL ECG WHEN COMPARED WITH ECG OF 31-AUG-2017 23:32, NO SIGNIFICANT CHANGE WAS FOUND Confirmed by Duc Carmona MD ([id number]) on 09/01/2017 2:45:04 PM Referred By: Confirmed By:Duc Carmona MD
--- NOTE | 2017-09-01 15:11 | EKG ---
Test Reason : Blood Pressure : / mmHG Vent. Rate : 092 BPM Atrial Rate : 092 BPM P-R Int : 144 ms QRS Dur : 078 ms QT Int : 370 ms P-R-T Axes : 017 046 013 degrees QTc Int : 457 ms NORMAL SINUS RHYTHM NORMAL ECG WHEN COMPARED WITH ECG OF 12-AUG-2017 10:17, T WAVE INVERSION NO LONGER EVIDENT IN LATERAL LEADS QT HAS LENGTHENED Confirmed by Duc Carmona MD ([id number]) on 09/01/2017 3:10:41 PM Referred By: Confirmed By:Duc Carmona MD
[2017-09-01] MEDS: PIPERACILLIN/TAZOB 3.375 GM 50 ML IVPB SCH (17:47)
--- NOTE | 2017-09-01 18:07 | CONSULT ---
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 Well-controlled on Depakote 1 gm q 8 hrs and keppra 1gm q 8 hrs. Historically, has recurrent UTI's and associated breakthrough seizures. Most recently at [facility] after prolonged hospitalization. Admitted after breakthrough seizure with WBC=24 K, lactic acidosis and urine WBC =80. Given versed 10 mg IV by EMS precipitating respiratory compromise and necessitating intubation. Now seizure free on versed drip. CT of head (reviewed): Right frontal garett hole. R frontal encephalomalacia, and enlargement of the R lateral ventricle. EXAM: Right frontal scar. Lethargic, intubated, Opens eyes on command. squeezes both hands on command. Mild left hemiatrophy. Withdraws all 4's to pinch. IMP: 1. B/L cerebral dysfunction (R>L) 2. Seizure disorder. 3. Toxic-metabolic encephalopathy due to UTI/Urosepsis. SUGGEST: Rx for infection. Continue levetiracetam and Valproic acid at current doses of 1 gm q 8 hrs, for each med- give IV until taking PO. Gradually taper midazolam. Thank you very much, Sanya Johnson MD
[2017-09-01] MEDS: CHLORHEXIDINE GLUCONATE 4% CLEANSER FOR DECOLONIZATION TP SCH (21:17)
[2017-09-02] MEDS ORDERED: PT OWN MED DRAWER 7, Y5N ONE ×5 (02:38→21:33)
[2017-09-02] MEDS: PIPERACILLIN/TAZOB 4.5 GM 4.5 GM in DEXTROSE 5%-WATER - 100 ML IVPB SCH ×3 (03:01→18:53)
[2017-09-02] MEDS: MIDAZOLAM 100 MG in SODIUM CHLORIDE 100 ML IVPB SCH (03:02)
[2017-09-02] MEDS: METRONIDAZOLE 500 MG PREMIXED 500 MG/100 ML MG IVPB SCH ×3 (03:02→18:53)
[2017-09-02] MEDS: SODIUM CHLORIDE 1,000 ML IV SCH (03:03)
[2017-09-02] MEDS: VALPROATE SODIUM 500 MG/5 ML VIAL IVPB SCH ×3 (06:11→21:43)
[2017-09-02] MEDS: HEPARIN NA (PORCINE) 5,000 UNITS/ML 1ML VIAL SQ SCH ×3 (06:15→21:43)
[2017-09-02] MEDS: levETIRAcetam 500 MG/5 ML INJECTION VIAL IVPB SCH ×3 (06:19→21:40)
[2017-09-02 06:46] LABS: BASO % 0.4 % (0-2.0); EOS % 1.5 % (0-4.5); HEMATOCRIT 30.3 % (35.4-49); LYMPH % 30.5 % (8-40); MCH 30.6 pg (25.7-33.7); MCHC 32.9 g/dl (32.0-35.9); MEAN CELL VOLUME 92.9 fl (80-96); MONO % 7.3 % (3.8-10.2); NEUT % 60.3 % (42.8-82.8); PLATELET COUNT 165 K/MM3 (134-434); RBC 3.27 M/mm3 (4.00-5.60); WHITE BLOOD COUNT 9.4 K/mm3 (4.0-10.0)
[2017-09-02 07:26] LABS: ALBUMIN 2.2 g/dl (3.4-5.0); ANION GAP 8 (8-16); BILIRUBIN,TOTAL 0.5 mg/dL (0.2-1.0); BLOOD UREA NITROGEN 5 mg/dL (7-18); CALCIUM 7.8 mg/dL (8.5-10.1); CHLORIDE 108 mmol/L (98-107); CO2 27 mmol/L (21-32); CREATININE 0.5 mg/dL (0.7-1.3); GLUCOSE,RANDOM 71 mg/dL (74-106); PHOSPHOROUS 2.7 mg/dL (2.5-4.9); POTASSIUM 3.2 mmol/L (3.5-5.1); SGOT/AST 7 U/L (15-37); SGPT/ALT 8 U/L (12-78); SODIUM 143 mmol/L (136-145); TOT PROT 5.6 g/dl (6.4-8.2)
[2017-09-02 07:27] LABS: ALK PHOS 45 U/L (45-117)
--- NOTE | 2017-09-02 07:35 | PN ---
Physical Exam: SUBJECTIVE: Patient seen and examined. Was sedated overnight for agitation. Sedation turned off to assess mental status and extubate later today. OBJECTIVE: Vital Signs Period Temp Pulse Resp BP Sys/Bond Pulse Ox Last 24 Hr 99.3 F-100.2 F 74-96 12-20 83-144/64-100 99-100 GENERAL: The patient is intubated recently off sedation in the am - fio2-40%, TV-450, 8/5, RR-18. HEAD: Normal with no signs of trauma. EYES: Bilaterally reactive round pupils. ENT: ET tube in place, OGT, NECK: supple. LUNGS: Breath sounds bilaterally HEART: S1, S2 , tachycardic. ABDOMEN: Soft, nondistended, bowel sounds+, EXTREMITIES: 2+ pulses, warm, well-perfused, no edema, NEUROLOGICAL: Intubated, and drowsy PSYCH: Cannot assess SKIN: Warm, dry Lines: ET tube in place, OGT, 2LUE peripheral lines, ny Laboratory Results - last 24 hr 09/01/17 09/01/17 09/02/17 05:10 07:15 06:25 WBC 9.4 RBC 3.27 L Hgb 10.0 L Hct 30.3 L MCV 92.9 MCH 30.6 MCHC 32.9 RDW 17.0 H Plt Count 165 D MPV 8.0 Neutrophils % 60.3 D Lymphocytes % 30.5 D Monocytes % 7.3 Eosinophils % 1.5 D Basophils % 0.4 Puncture Site Right radial ABG pH 7.43 ABG pCO2 at Pt Temp 36.5 D ABG pO2 at Pt Temp 152.0 H* ABG HCO3 23.7 ABG O2 Sat (Measured) 99.4 H ABG O2 Content 14.7 L ABG Base Excess 0.1 Keegan Test Positive O2 Delivery Device Vent Oxygen Flow Rate 60 Vent Rate 18 Mechanical Rate Yes PEEP 5.0 Pressure Support Vent 450 Phosphorus 3.6 Magnesium 1.8 Microbiology 08/31/17 23:05 Sputum - Endotrachea Suction/Ventilator Gram Stain - Final 08/31/17 23:05 Sputum - Endotrachea Suction/Ventilator Sputum Culture - Preliminary NORMAL RESPIRATORY SP 08/31/17 22:30 Urine - Urine Ny Urine Culture - Preliminary Lactose Fermenting Neg Bacilli 08/31/17 22:24 Blood - Peripheral Venous Blood Culture - Preliminary NO GROWTH OBTAINED AFTER 24 HOURS, INCUBATION TO CONTINUE FOR 4 DAYS. 08/31/17 22:20 Blood - Peripheral Venous Blood Culture - Preliminary NO GROWTH OBTAINED AFTER 24 HOURS, INCUBATION TO CONTINUE FOR 4 DAYS. Active Medications Generic Name Dose Route Start Last Admin Trade Name Freq PRN Reason Stop Dose Admin Albuterol Sulfate 1 amp 09/01/17 01:50 Ventolin 0.083% Nebulizer Soln - NEB Q4H PRN SHORT OF BREATH/WHEEZING Chlorhexidine Gluconate 1 applic 09/01/17 22:00 09/01/17 21:17 Hibiclens For Decolonization - TP 1 applic HS MATTHEW Administration Heparin Sodium (Porcine) 5,000 unit 09/01/17 06:00 09/02/17 06:15 Heparin - SQ 5,000 unit TID MATTHEW Administration Sodium Chloride 1,000 mls @ 83 mls/hr 09/01/17 01:15 09/02/17 03:03 Normal Saline - IV 83 mls/hr ASDIR MATTHEW Administration Metronidazole 500 mg in 100 mls @ 100 mls/hr 09/01/17 02:00 09/02/17 03:02 Flagyl 500mg Premixed Ivpb - IVPB 100 mls/hr Q8H-IV MATTHEW Administration Midazolam HCl 100 mg/ Sodium 100 mls @ 1 mls/hr 09/01/17 01:45 09/02/17 03:02 Chloride IVPB 10 mg/hr TITR MATTHEW 10 mls/hr Protocol Administration 1 MG/HR Fentanyl 500 mcg/ Dextrose 100 mls @ 10 mls/hr 09/01/17 11:29 09/01/17 19:19 IVPB 25 mcg/hr TITR MATTHEW 5 mls/hr Protocol Titration 50 MCG/HR Piperacillin Sod/Tazobactam 100 mls @ 200 mls/hr 09/01/17 11:45 09/02/17 03: 01 Sod 4.5 gm/ Dextrose IVPB 200 mls/hr Q8H-IV MATTHEW Administration Vancomycin HCl 1,000 mg/ 250 mls @ 166.667 mls/hr 09/01/17 12:00 09/02/17 00: 00 Dextrose IVPB 166.667 mls/hr Q12H MATTHEW Administration Levetiracetam 1,000 mg 09/01/17 06:00 09/02/17 06:19 Keppra Injection - IVPB 1,000 mg TID MATTHEW Administration Metoprolol Tartrate 5 mg 09/01/17 01:57 Lopressor Injection - IVPUSH Q4H PRN HYPERTENSION Mupirocin 1 applic 09/01/17 10:00 09/01/17 21:16 Bactroban Ointment (For Decolonization) - NS 09/06/17 09:59 1 applic BID MATTHEW Administration Pantoprazole Sodium 40 mg 09/01/17 10:00 09/01/17 21:17 Protonix Iv IVPUSH 40 mg BID MATTHEW Administration Valproate Sodium 1,000 mg 09/01/17 06:00 09/02/17 06:11 Depacon Injection - IVPB 1,000 mg TID MATTHEW Administration ASSESSMENT/PLAN: 52 y/o M from [facility] with PMHx HTN, HLD, seizure disorder s/p garett holes, on Depakote/Keppra admitted to ICU and intubated post- seizure to protect airway with sepsis and likely aspiration PNA Pulm/ ID: Acute hypoxic respiratory failure in post ictal state R/O aspiration PNA Sepsis likely 2/2 to aspiration PNA Lactic acidosis- resolved Recent GI bleed and C diff Ag+ Intubated and sedated- PVP-LQ-nnc3-40%, TV-450, 8/5, RR-18. fentanyl 25mcg/hr-stopped Versed-5mcg/hr-stopped iv Zosyn- 3.375 iv Vanco 1.2 iv Metronidazole 500mg Q8H Albuterol nebs Q4H Follow cultures- Iv Normal saline @83mls/h Tolerated CPAP-10/5 For extubation Neuro: Seizure disorder iv Depakote-1g tid iv keppra 1g tid fentanyl 50mcg/hr off Versed-5mcg/hr mental status improved off sedation Cardiology: HTN, HLD Currently hypotensive iv metoprolol 5mg iv push Q4H PRN Troponinemia- peaked likely in setting of demand ischemia from hypoxia Monitor Discuss anticoagulation GI/ nutrition/Renal/lines: Renal function intact- follow urine cx For swallow eval following extubation ET tube in place, OGT, 2LUE peripheral lines, ny CMP Monitor lytes KCL 40meq NGT given Protonix iv 40mg bid Iv Normal saline @83mls/hr Prophylaxis Protonix iv 40mg bid SQ heparin 500iu tid Dispo: For extubation Visit type - Emergency Visit Emergency Visit: Yes ED Registration Date: 08/31/17 Care time: The patient presented to the Emergency Department on the above date and was hospitalized for further evaluation of their emergent condition. - New Patient This patient is new to me today: No - Critical Care Critical Care patient: Yes Total Critical Care Time (in minutes): 40 Critical Care Statement: The care of this patient involved high complexity decision making to prevent further life threatening deterioration of the patient 's condition and/or to evaluate & treat vital organ system(s) failure or risk of failure. - Discharge Referral Referred to [facility] Med P.C.: No
--- NOTE | 2017-09-02 08:24 | PN ---
Progress Note (short form) - Note Progress Note: patient seen and examined in ICU sedated on vent All follow-ups noted and appreciated Vital Signs Temp 99.5 F 09/01/17 18:00 Pulse 74 09/02/17 06:00 Resp 18 09/02/17 07:05 BP 83/68 09/02/17 06:00 Pulse Ox 100 09/01/17 20:27 Intake & Output 09/01/17 09/01/17 09/02/17 11:59 23:59 11:59 Intake Total 890 1457.5 1424.7 Output Total 860 1900 425 Balance 30 -442.5 999.7 Weight 167 lb 12.348 oz 170 lb 5 oz Intake: IV 490 307.5 1374.7 Normal Saline - 1,000 ml 780 923 0017 @ 83 mls/hr IV ASDIR [facility] Rx#:[id number] Sublimaze Injection - 500 54.9 Mcg In D5w - 90 ml @ 50 MCG/HR 10 mls/hr IVPB TITR [facility] Rx#:[id number] Versed - 100 mg In Normal 25 22.5 87.8 Saline - 100 ml @ 1 MG/ HR 1 mls/hr IVPB TITR [facility] Rx#:[id number] fentanyl 50 45 IVPB 400 1150 50 Output: Urine 860 1900 425 Cabrera 860 1900 425 Other: Voiding Method Indwelling Catheter Indwelling Catheter Bowel Movement No Height 5 ft 9 in Body Mass Index (BMI) 24.7 Weight Measurement Method Built in [facility] Built in [facility] Active Medications Albuterol Sulfate (Ventolin 0.083% Nebulizer Soln -) 1 amp NEB Q4H PRN PRN Reason: SHORT OF BREATH/WHEEZING Chlorhexidine Gluconate (Hibiclens For Decolonization -) 1 applic TP HS MATTHEW Last Admin: 09/01/17 21:17 Dose: 1 applic Heparin Sodium (Porcine) (Heparin -) 5,000 unit SQ TID MATTHEW Last Admin: 09/02/17 06:15 Dose: 5,000 unit Sodium Chloride (Normal Saline -) 1,000 mls @ 83 mls/hr IV ASDIR MATTHEW Last Admin: 09/02/17 03:03 Dose: 83 mls/hr Metronidazole (Flagyl 500mg Premixed Ivpb -) 500 mg in 100 mls @ 100 mls/hr IVPB Q8H-IV MATTHEW Last Admin: 09/02/17 03:02 Dose: 100 mls/hr Midazolam HCl 100 mg/ Sodium (Chloride) 100 mls @ 1 mls/hr IVPB TITR MATTHEW; 1 MG/ HR PRN Reason: Protocol Last Titration: 09/02/17 07:00 Dose: 5 mg/hr, 5 mls/hr Fentanyl 500 mcg/ Dextrose 100 mls @ 10 mls/hr IVPB TITR MATTHEW; 50 MCG/HR PRN Reason: Protocol Last Titration: 09/01/17 19:19 Dose: 25 mcg/hr, 5 mls/hr Piperacillin Sod/Tazobactam (Sod 4.5 gm/ Dextrose) 100 mls @ 200 mls/hr IVPB Q8H-IV MATTHEW Last Admin: 09/02/17 03:01 Dose: 200 mls/hr Vancomycin HCl 1,000 mg/ (Dextrose) 250 mls @ 166.667 mls/hr IVPB Q12H [facility] Last Admin: 09/02/17 00:00 Dose: 166.667 mls/hr Levetiracetam (Keppra Injection -) 1,[address] [facility] Last Admin: 09/02/17 06:19 Dose: 1,000 mg Metoprolol Tartrate (Lopressor Injection -) 5 mg IVPUSH Q4H PRN PRN Reason: HYPERTENSION Mupirocin (Bactroban Ointment (For Decolonization) -) [address] [facility] Stop: 09/06/17 09:59 Last Admin: 09/01/17 21:16 Dose: 1 applic Pantoprazole Sodium (Protonix Iv) [address] [facility] Last Admin: 09/01/17 21:17 Dose: 40 mg Potassium Chloride (Potassium Chloride Oral Liquid) [address] [facility] Valproate Sodium (Depacon Injection -) 1,[address] [facility] Last Admin: 09/02/17 06:11 Dose: 1,000 mg CBC, BMP 09/02/17 06:25 09/02/17 06:25 Microbiology 08/31/17 22:24 Blood Culture - Preliminary Blood - Peripheral Venous NO GROWTH OBTAINED AFTER 24 HOURS, INCUBATION TO CONTINUE FOR 4 DAYS. 08/31/17 22:20 Blood Culture - Preliminary Blood - Peripheral Venous NO GROWTH OBTAINED AFTER 24 HOURS, INCUBATION TO CONTINUE FOR 4 DAYS. 08/31/17 23:05 Gram Stain - Final Sputum - Endotrachea Suction/Ventilator Physical exam Sedated on vent CVS--regular rate and rhythm lungs decreased at bases abd soft, nt ext no edema. assessment and plan Status epilepticus Seizure disorder pneumonia Taper off sedation Weaning trials continue present medications Fix electrolytes Antibiotics Will follow Problem List - Problems (1) Acute hypercapnic respiratory failure Code(s): J96.02 - ACUTE RESPIRATORY FAILURE WITH HYPERCAPNIA (2) Post-ictal confusion Code(s): F05 - DELIRIUM DUE TO KNOWN PHYSIOLOGICAL CONDITION (3) Status epilepticus Code(s): G40.901 - EPILEPSY, UNSP, NOT INTRACTABLE, WITH STATUS EPILEPTICUS (4) Ventilator dependence Code(s): Z99.11 - DEPENDENCE ON RESPIRATOR [VENTILATOR] STATUS (5) Hypotension Code(s): I95.9 - HYPOTENSION, UNSPECIFIED
[2017-09-02] MEDS: MUPIROCIN 2% TOPICAL OINTMENT FOR DECOLONIZATION NS SCH ×2 (10:54→21:40)
[2017-09-02] MEDS: PANTOPRAZOLE SODIUM 40 MG VIAL IVPUSH SCH ×2 (10:55→21:41)
[2017-09-02] MEDS: POTASSIUM CHLORIDE ORAL LIQUID 20 MEQ/15 ML PO SCH ×2 (11:04→21:41)
[2017-09-02] MEDS: VANCOMYCIN 1,000 MG in DEXTROSE 5%-WATER - 250 ML IVPB SCH ×2 (11:07)
--- NOTE | 2017-09-02 11:07 | PN ---
Progress Note (short form) - Note Progress Note: sedation just stopped opening his eyes no diarrhea fio2 40% Vital Signs Period Temp Pulse Resp BP Sys/Bond Pulse Ox Last 24 Hr 99.5 F-100.2 F 66-96 12-20 83-144/64-100 98-100 cor-rrr lungs decreased bs at bases abd soft, nt ext no edema CBC, BMP 09/02/17 06:25 09/02/17 06:25 Microbiology 08/31/17 22:24 Blood - Peripheral Venous Blood Culture - Preliminary NO GROWTH OBTAINED AFTER 24 HOURS, INCUBATION TO CONTINUE FOR 4 DAYS. 08/31/17 22:20 Blood - Peripheral Venous Blood Culture - Preliminary NO GROWTH OBTAINED AFTER 24 HOURS, INCUBATION TO CONTINUE FOR 4 DAYS. 08/31/17 23:05 Sputum - Endotrachea Suction/Ventilator Gram Stain - Final imp/reccd 52 year old man with known seizure disorder r Aspiration Pneumonia-cover for hospital pathogens given two recent admissions to the hospital respiratory failure recurrent seizures (seizure disorder) recent rectal bleeding with +cdiff antigen cultures sent continue vancomycin and zosyn continue flagyl for cdiff f/u cultures clinically improved Problem List - Problems (1) Pneumonia Code(s): J18.9 - PNEUMONIA, UNSPECIFIED ORGANISM (2) Respiratory failure Code(s): J96.90 - RESPIRATORY FAILURE, UNSP, UNSP W HYPOXIA OR HYPERCAPNIA (3) Seizure Code(s): R56.9 - UNSPECIFIED CONVULSIONS (4) C. difficile colitis Code(s): A04.72 - ENTEROCOLITIS D/T CLOSTRIDIUM DIFFICILE, NOT SPCF RECUR
[2017-09-02] MEDS: FENTANYL INJECTION 500 MCG in DEXTROSE 5%-WATER - 90 ML IVPB SCH (12:45)
[2017-09-02] MEDS: KCL 10 MEQ IVPB 10 MEQ/100 ML INFUS.BAG IVPB SCH ×2 (14:00→16:00)
--- NOTE | 2017-09-02 14:02 | PN ---
Teaching Attending Note Name of Resident: Saira Powers ATTENDING PHYSICIAN STATEMENT I saw and evaluated the patient. I reviewed the resident's note and discussed the case with the resident. I agree with the resident's findings and plan as documented. SUBJECTIVE: Pt seen and examined in the ICU. Remains intubated, sedated. More awake, alert off sedation. Tolerating CPAP/PS trials. OBJECTIVE: Last Vital Signs Temp Pulse Resp BP Pulse Ox 99.5 F 66 22 83/68 98 09/01/17 18:00 09/02/17 09:56 09/02/17 12:17 09/02/17 06:00 09/02/17 09:56 Intake & Output 08/30/17 08/31/17 09/01/17 09/02/17 23:59 23:59 23:59 23:59 Intake Total 2347.5 1424.7 Output Total 2760 425 Balance -412.5 999.7 Weight 83.915 kg 76.1 kg 77.252 kg Gen: intubated, arousable Heart: RRR Lung: scattered rhonchi Abd: soft, nontender Ext: trace upper extremity edema CBC, BMP 09/02/17 06:25 09/02/17 06:25 Active Medications Albuterol Sulfate (Ventolin 0.083% Nebulizer Soln -) 1 amp NEB Q4H PRN PRN Reason: SHORT OF BREATH/WHEEZING Chlorhexidine Gluconate (Hibiclens For Decolonization -) 1 applic TP HS MATTHEW Last Admin: 09/01/17 21:17 Dose: 1 applic Heparin Sodium (Porcine) (Heparin -) 5,000 unit SQ TID MATTHEW Last Admin: 09/02/17 13:06 Dose: 5,000 unit Sodium Chloride (Normal Saline -) 1,000 mls @ 83 mls/hr IV ASDIR MATTHEW Last Admin: 09/02/17 03:03 Dose: 83 mls/hr Metronidazole (Flagyl 500mg Premixed Ivpb -) 500 mg in 100 mls @ 100 mls/hr IVPB Q8H-IV MATTHEW Last Admin: 09/02/17 10:55 Dose: 100 mls/hr Midazolam HCl 100 mg/ Sodium (Chloride) 100 mls @ 1 mls/hr IVPB TITR MATTHEW; 1 MG/ HR PRN Reason: Protocol Last Titration: 09/02/17 10:00 Dose: 0 mg/hr, 0 mls/hr Fentanyl 500 mcg/ Dextrose 100 mls @ 10 mls/hr IVPB TITR MATTHEW; 50 MCG/HR PRN Reason: Protocol Last Admin: 09/02/17 12:45 Dose: Not Given Piperacillin Sod/Tazobactam (Sod 4.5 gm/ Dextrose) 100 mls @ 200 mls/hr IVPB Q8H-IV [facility] Last Admin: 09/02/17 10:50 Dose: 200 mls/hr Vancomycin HCl 1,000 mg/ (Dextrose) 250 mls @ 166.667 mls/hr IVPB Q12H [facility] Last Admin: 09/02/17 11:07 Dose: 166.667 mls/hr Potassium Chloride (Potassium Chloride 10 Meq Premix Ivpb -) 10 meq in 100 mls @ 100 mls/hr IVPB Q60M [facility] Stop: 09/02/17 15:59 Levetiracetam (Keppra Injection -) 1,000 mg IVPB TID [facility] Last Admin: 09/02/17 13:06 Dose: 1,000 mg Metoprolol Tartrate (Lopressor Injection -) 5 mg IVPUSH Q4H PRN PRN Reason: HYPERTENSION Mupirocin (Bactroban Ointment (For Decolonization) -) 1 applic NS BID [facility] Stop: 09/06/17 09:59 Last Admin: 09/02/17 10:54 Dose: 1 applic Pantoprazole Sodium (Protonix Iv) 40 mg IVPUSH BID [facility] Last Admin: 09/02/17 10:55 Dose: 40 mg Potassium Chloride (Potassium Chloride Oral Liquid) 40 meq PO BID [facility] Last Admin: 09/02/17 11:04 Dose: 40 meq Valproate Sodium (Depacon Injection -) 1,000 mg IVPB TID [facility] Last Admin: 09/02/17 13:06 Dose: 1,000 mg ASSESSMENT AND PLAN: Seizure Episode with known underlying Seizure Disorder Acute Hypoxic and Hypercapneic Respiratory Failure Pneumonia - r/o Aspiration UTI Sepsis Lactic Acidosis resolved - continue antiepileptics per neuro - continue antibiotics - f/u cultures - replete lytes - taper fiO2 to keep SpO2 >90% - spontaneous breathing trials as tolerated - wean to extubate - enteral feeds if unable to extubate - DVT/GI prophylaxis - continue ICU monitoring critical care time spent in reviewing chart, evaluating patient and formulating plan 35 min
[2017-09-02] MEDS: CHLORHEXIDINE GLUCONATE 4% CLEANSER FOR DECOLONIZATION TP SCH (21:43)
[2017-09-02] MEDS: ALBUTEROL SO4 0.083% IH SOL 2.5 MG/3 ML VIAL.NEB. NEB PRN (23:15)
[2017-09-03] MEDS: VANCOMYCIN 1,000 MG in DEXTROSE 5%-WATER - 250 ML IVPB SCH ×2 (00:12→12:56)
[2017-09-03] MEDS: PIPERACILLIN/TAZOB 4.5 GM 4.5 GM in DEXTROSE 5%-WATER - 100 ML IVPB SCH ×3 (02:39→17:14)
[2017-09-03] MEDS: METRONIDAZOLE 500 MG PREMIXED 500 MG/100 ML MG IVPB SCH ×2 (02:41→09:24)
[2017-09-03] MEDS: MIDAZOLAM 100 MG in SODIUM CHLORIDE 100 ML IVPB SCH (06:04)
[2017-09-03] MEDS: SODIUM CHLORIDE 1,000 ML IV SCH (06:06)
[2017-09-03] MEDS: levETIRAcetam 500 MG/5 ML INJECTION VIAL IVPB SCH (06:12)
[2017-09-03] MEDS: HEPARIN NA (PORCINE) 5,000 UNITS/ML 1ML VIAL SQ SCH ×3 (06:13→22:22)
[2017-09-03] MEDS: VALPROATE SODIUM 500 MG/5 ML VIAL IVPB SCH (06:13)
[2017-09-03 06:26] LABS: BASO % 0.6 % (0-2.0); EOS % 3.1 % (0-4.5); HEMATOCRIT 32.2 % (35.4-49); HEMOGLOBIN 10.8 GM/dL (11.7-16.9); LYMPH % 26.1 % (8-40); MCH 31.4 pg (25.7-33.7); MCHC 33.6 g/dl (32.0-35.9); MEAN CELL VOLUME 93.4 fl (80-96); MEAN PLT VOLUME 8.6 fl (7.5-11.1); MONO % 8.4 % (3.8-10.2); NEUT % 61.8 % (42.8-82.8); PLATELET COUNT 189 K/MM3 (134-434); RBC 3.45 M/mm3 (4.00-5.60); RDW 16.5 % (11.9-15.9); WHITE BLOOD COUNT 7.7 K/mm3 (4.0-10.0)
[2017-09-03] MEDS: ALBUTEROL SO4 0.083% IH SOL 2.5 MG/3 ML VIAL.NEB. NEB PRN (06:28)
[2017-09-03 06:48] LABS: CHLORIDE 107 mmol/L (98-107); POTASSIUM 3.3 mmol/L (3.5-5.1); SODIUM 143 mmol/L (136-145)
[2017-09-03 07:00] LABS: ALBUMIN 2.3 g/dl (3.4-5.0); ALK PHOS 46 U/L (45-117); ANION GAP 8 (8-16); BILIRUBIN,TOTAL 0.7 mg/dL (0.2-1.0); BLOOD UREA NITROGEN 3 mg/dL (7-18); CALCIUM 7.8 mg/dL (8.5-10.1); CO2 28 mmol/L (21-32); CREATININE 0.6 mg/dL (0.7-1.3); GLUCOSE,RANDOM 93 mg/dL (74-106); PHOSPHOROUS 4.1 mg/dL (2.5-4.9); SGOT/AST 8 U/L (15-37); SGPT/ALT 9 U/L (12-78); TOT PROT 6.2 g/dl (6.4-8.2)
--- NOTE | 2017-09-03 08:08 | PN ---
Progress Note (short form) - Note Progress Note: patient seen and examined extubated yesterday Drowsy but arousable Afebrile White count normalized Vital Signs Temp 98.1 F 09/03/17 08:00 Pulse 81 09/03/17 08:00 Resp 17 09/03/17 08:00 BP 113/74 09/03/17 08:00 Pulse Ox 97 09/02/17 21:00 Intake & Output 09/02/17 09/02/17 09/03/17 11:59 23:59 11:59 Intake Total 1424.7 1656 1179 Output Total 425 2600 Balance 999.7 -944 1179 Weight 170 lb 5 oz 170 lb 3.15 oz Intake: IV 1374.7 1006 279 Normal Saline - 1,000 ml 1232 996 279 @ 83 mls/hr IV ASDIR [facility] Rx#:[id number] Sublimaze Injection - 500 54.9 Mcg In D5w - 90 ml @ 50 MCG/HR 10 mls/hr IVPB TITR [facility] Rx#:[id number] Versed - 100 mg In Normal 87.8 Saline - 100 ml @ 1 MG/ HR 1 mls/hr IVPB TITR [facility] Rx#:[id number] fentanyl 10 IVPB 50 650 900 Output: Urine 425 2600 Cabrera 425 2600 Other: Voiding Method Indwelling Catheter Indwelling Catheter Bowel Movement No No No Weight Measurement Method [facility] Active Medications Albuterol Sulfate (Ventolin 0.083% Nebulizer Soln -) 1 amp NEB Q4H PRN PRN Reason: SHORT OF BREATH/WHEEZING Last Admin: 09/03/17 06:28 Dose: 1 amp Chlorhexidine Gluconate (Hibiclens For Decolonization -) 1 applic TP HS MATTHEW Last Admin: 09/02/17 21:43 Dose: 1 applic Heparin Sodium (Porcine) (Heparin -) 5,000 unit SQ TID MATTHEW Last Admin: 09/03/17 06:13 Dose: 5,000 unit Sodium Chloride (Normal Saline -) 1,000 mls @ 83 mls/hr IV ASDIR [facility]THEW Last Admin: 09/03/17 06:06 Dose: 83 mls/hr Metronidazole (Flagyl 500mg Premixed Ivpb -) 500 mg in 100 mls @ 100 mls/hr IVPB Q8H-IV [facility] Last Admin: 09/03/17 02:41 Dose: 100 mls/hr Midazolam HCl 100 mg/ Sodium (Chloride) 100 mls @ 1 mls/hr IVPB TITR MATTHEW; 1 MG/ HR PRN Reason: Protocol Last Admin: 09/03/17 06:04 Dose: Not Given Fentanyl 500 mcg/ Dextrose 100 mls @ 10 mls/hr IVPB TITR MATTHEW; 50 MCG/HR PRN Reason: Protocol Last Admin: 09/02/17 12:45 Dose: Not Given Piperacillin Sod/Tazobactam (Sod 4.5 gm/ Dextrose) 100 mls @ 200 mls/hr IVPB Q8H-IV [facility] Last Admin: 09/03/17 02:39 Dose: 200 mls/hr Vancomycin HCl 1,000 mg/ (Dextrose) 250 mls @ 166.667 mls/hr IVPB Q12H [facility] Last Admin: 09/03/17 00:12 Dose: 166.667 mls/hr Levetiracetam (Keppra Injection -) 1,000 mg IVPB TID [facility] Last Admin: 09/03/17 06:12 Dose: 1,000 mg Metoprolol Tartrate (Lopressor Injection -) 5 mg IVPUSH Q4H PRN PRN Reason: HYPERTENSION Mupirocin (Bactroban Ointment (For Decolonization) -) 1 applic NS BID [facility] Stop: 09/06/17 09:59 Last Admin: 09/02/17 21:40 Dose: 1 applic Pantoprazole Sodium (Protonix Iv) 40 mg IVPUSH BID [facility] Last Admin: 09/02/17 21:41 Dose: 40 mg Potassium Chloride (Potassium Chloride Oral Liquid) 40 meq PO BID [facility] Last Admin: 09/02/17 21:41 Dose: 40 meq Valproate Sodium (Depacon Injection -) 1,000 mg IVPB TID [facility] Last Admin: 09/03/17 06:13 Dose: 1,000 mg CBC, BMP 09/03/17 05:15 09/03/17 05:15 cxr--no infiltrate Microbiology 08/31/17 22:24 Blood Culture - Preliminary Blood - Peripheral Venous NO GROWTH OBTAINED AFTER 48 HOURS, INCUBATION TO CONTINUE FOR 3 DAYS. 08/31/17 22:20 Blood Culture - Preliminary Blood - Peripheral Venous NO GROWTH OBTAINED AFTER 48 HOURS, INCUBATION TO CONTINUE FOR 3 DAYS. 08/31/17 23:05 Gram Stain - Final Sputum - Endotrachea Suction/Ventilator Sputum Culture - Preliminary NORMAL RESPIRATORY SP 08/31/17 22:30 Urine Culture - Preliminary Urine - Urine Cabrera Lactose Fermenting Neg Bacilli Physical exam drowsy but arousable CVS--regular rate and rhythm lungs decreased at bases abd soft, nt ext no edema. assessment and plan Status epilepticus Seizure disorder pneumonia status post respiratory failure leukocytosis clinically improved Fix electrolytes Daily out of bed to chair continue antibiotics swallowing evaluation Change fluid D5 discussed with nursing staff Will follow Problem List - Problems (1) Acute hypercapnic respiratory failure Code(s): J96.02 - ACUTE RESPIRATORY FAILURE WITH HYPERCAPNIA (2) Post-ictal confusion Code(s): F05 - DELIRIUM DUE TO KNOWN PHYSIOLOGICAL CONDITION (3) Status epilepticus Code(s): G40.901 - EPILEPSY, UNSP, NOT INTRACTABLE, WITH STATUS EPILEPTICUS (4) Ventilator dependence Code(s): Z99.11 - DEPENDENCE ON RESPIRATOR [VENTILATOR] STATUS (5) Hypotension Code(s): I95.9 - HYPOTENSION, UNSPECIFIED
[2017-09-03] MEDS ORDERED: PT OWN MED DRAWER 7, Y5N ONE ×6 (08:59→22:12)
[2017-09-03] MEDS ORDERED: KCL 10 MEQ IVPB 10 MEQ/100 ML INFUS.BAG IVPB SCH (09:00)
[2017-09-03] MEDS ORDERED: D5-1/2NS+20 MEQ KCL - 20 MEQ/1,000 ML INFUS.BAG IV SCH (09:15)
[2017-09-03] MEDS: MUPIROCIN 2% TOPICAL OINTMENT FOR DECOLONIZATION NS SCH (09:24)
[2017-09-03] MEDS: POTASSIUM CHLORIDE ORAL LIQUID 20 MEQ/15 ML PO SCH ×2 (09:25→22:19)
[2017-09-03] MEDS: PANTOPRAZOLE SODIUM 40 MG VIAL IVPUSH SCH (09:26)
[2017-09-03] MEDS: POTASSIUM CHLORIDE 10 MEQ in SODIUM CHLORIDE 100 ML IVPB SCH ×2 (09:30→10:30)
--- NOTE | 2017-09-03 09:44 | CONSULT ---
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 As per EMR/ems, the patient was witnessed having a Grand Mal seizure and administered 10 of Versed in the field. The patient was bagged in the field. The patient vomited after getting the Versed. He was intubated and sedated at [facility]. Aspiration PNA. Extubated yesterday. Pt was admitted from [facility]. Transfer summary reports pt was verbal, able to express wants and needs and was on a chopped diet and thin liquid. This is my first consult with Mr. Wong. 08/06/[address] s/p acute respiratory failure with aspiration pneumonitis , s/p status epilepticus. Diet: Regular/SOFT History Source: Medical Record Limitations to Obtaining History: Clinical Condition - Past Medical History [employer] WORK[employer]: Yes: Seizure Cardiovascular: Yes: HTN, Hyperlipdemia Pulmonary: Yes: Pneumonia Psych: Yes: Depression - Smoking History Smoking history: Unknown if ever smoked Have you smoked in the past 12 months: No Aproximately how many cigarettes per day: 0 - Alcohol/Substance Use Hx Alcohol Use: No - Social History ADL: Family Assistance History of Recent Travel: No History - Admission Reason For Visit: RESPIRATORY FAILURE, STATUS EPILEPTICUS - Diagnostics X-ray: Report Reviewed CT Scan: Report Reviewed - General Mental Status: Alert and Oriented, Awake and Alert, Able to Follow Commands, Vague Attention: Distractible, Mild Impairment Ability to Follow Directions: Fair Head/Neck Control: Needs Assist - Hearing Hearing: Functional Speech Evaluation - Communication Primary Language: CITIZEN [place] Communication: Yes: Simple Responses, Dysarthria Oral Expression Ability: Yes: Mild Impairment - Speech Production Able to Make Needs Known: Yes: Mildly Impaired Intelligibility: Yes: Mildly Impaired - Speech Characteristics Voice Loudness: Normal Voice Pitch: Yes: Normal Voice Phonatory-based Quality: Yes: Normal Speech Clarity: < 75% Nasal Resonance: Normal Articulation: Yes: Imprecise - Language/Auditory Comprehension Follows: Yes: 1 Stage Simple Commands Observation: Comprehends Conversational Speech: Yes (simple. Errors in comprehension of Wh questions), Benefits from Slow Speech: Yes, Benefits from Repetiton: Yes, Benefits from Increased Volume of Speech: Yes - Language/Verbal Expression Able to Communicate Wants and Needs: Yes: Mildly Impaired Functional Communication Status: Yes: Mildly Impaired - Swallow Evaluation/Bedside Assessment Current Nutritional Intake: NPO Dentition: Yes: Missing Teeth Facial Symmetry at Rest: Facial Droop Right Lingual Movement: Normal, Symmetric Lingual Speed of Movement: Normal Lingual Movement Strgth Against Opposition: Normal Lingual Movement Characteristics: Normal Velopharyngeal Movement: Normal Laryngeal Movement: Labored,delay initiation Bolus Size: Small Labial Seal: WFL Oral Prep Time: WFL A-P Transit: WFL Pocketing: None Timing of Swallow: Delayed Coughing/Throat Clear: Yes (Delayed cough after thin liquid from straw with expectoration of phlegm) Change in Voice: Yes Recommendations - Speech Evaluation, Impression/Plan Impression: Verbally responsive. Delayed response. Simple answers. Grossly oriented.Swallow is delayed but fairly brisk. Delayed cough after thin liquid from straw with expectoration of phlegm. - Disposition Discharge to: To be Determined - Dysphagia Impressions/Plan Swallowing Skills: Impaired Dysphagia Impressions: Mild Impairment *Silent aspiration: cannot be R/O at bedside Dysphagia Treatment Plan: Chin Tuck/Down, Facilitative Feeding, Safe Rate, 1/2 tsp. at a time, Elevate HOB during feed Recommendations: Modified Barium Swallow (if cough, congestion observed- r/o silent aspiration possibly on thin liquid?) - Recommendations Diet Consistency: Dysphagia Minced Medication Administration: Crushed with applesauce Liquids: Thin Liquids (No straws. Single sips from a cup.if cough, downgrade to nectar and further assess with MBS.)
--- NOTE | 2017-09-03 10:31 | PN ---
Progress Note, Physician History of Present Illness: Awake, alert Offers no complaints Breathing non-labored on nasal cannula Afebrile WBC improved- WNL BC (-) - Current Medication List Current Medications: Active Medications Albuterol Sulfate (Ventolin 0.083% Nebulizer Soln -) 1 amp NEB Q4H PRN PRN Reason: SHORT OF BREATH/WHEEZING Last Admin: 09/03/17 06:28 Dose: 1 amp Chlorhexidine Gluconate (Hibiclens For Decolonization -) 1 applic TP HS MATTHEW Last Admin: 09/02/17 21:43 Dose: 1 applic Heparin Sodium (Porcine) (Heparin -) 5,000 unit SQ TID MATTHEW Last Admin: 09/03/17 06:13 Dose: 5,000 unit Metronidazole (Flagyl 500mg Premixed Ivpb -) 500 mg in 100 mls @ 100 mls/hr IVPB Q8H-IV MATTHEW Last Admin: 09/03/17 09:24 Dose: 100 mls/hr Midazolam HCl 100 mg/ Sodium (Chloride) 100 mls @ 1 mls/hr IVPB TITR MATTHEW; 1 MG/ HR PRN Reason: Protocol Last Admin: 09/03/17 06:04 Dose: Not Given Fentanyl 500 mcg/ Dextrose 100 mls @ 10 mls/hr IVPB TITR MATTHEW; 50 MCG/HR PRN Reason: Protocol Last Admin: 09/02/17 12:45 Dose: Not Given Piperacillin Sod/Tazobactam (Sod 4.5 gm/ Dextrose) 100 mls @ 200 mls/hr IVPB Q8H-IV COUNT INCLUDES [facility] Last Admin: 09/03/17 09:24 Dose: 200 mls/hr Vancomycin HCl 1,000 mg/ (Dextrose) 250 mls @ 166.667 mls/hr IVPB Q12H COUNT INCLUDES [facility] Last Admin: 09/03/17 00:12 Dose: 166.667 mls/hr Potassium Chloride/Dextrose/Sod Cl (D5-1/2ns+20 Meq Kcl -) 20 meq in 1,000 mls @ 100 mls/hr IV ASDIR COUNT INCLUDES [facility] Last Admin: 09/03/17 09:15 Dose: 100 mls/hr Potassium Chloride 10 meq/ (Sodium Chloride) 105 mls @ 100 mls/hr IVPB Q60M COUNT INCLUDES [facility] Stop: 09/03/17 11:29 Levetiracetam (Keppra Injection -) 1,000 mg IVPB TID COUNT INCLUDES [facility] Last Admin: 09/03/17 06:12 Dose: 1,000 mg Metoprolol Tartrate (Lopressor Injection -) 5 mg IVPUSH Q4H PRN PRN Reason: HYPERTENSION Mupirocin (Bactroban Ointment (For Decolonization) -) 1 applic NS BID COUNT INCLUDES [facility] Stop: 09/06/17 09:59 Last Admin: 09/03/17 09:24 Dose: 1 applic Pantoprazole Sodium (Protonix Iv) 40 mg IVPUSH BID COUNT INCLUDES [facility] Last Admin: 09/03/17 09:26 Dose: 40 mg Potassium Chloride (Potassium Chloride Oral Liquid) 40 meq PO BID COUNT INCLUDES [facility] Last Admin: 09/03/17 09:25 Dose: Not Given Valproate Sodium (Depacon Injection -) 1,000 mg IVPB TID COUNT INCLUDES [facility] Last Admin: 09/03/17 06:13 Dose: 1,000 mg - Objective Vital Signs: Vital Signs Temperature 98.0 F 09/03/17 10:00 Pulse Rate 82 09/03/17 10:00 Respiratory Rate 16 09/03/17 10:00 Blood Pressure 125/78 09/03/17 10:00 O2 Sat by Pulse Oximetry (%) 99 09/03/17 08:00 Constitutional: Yes: No Distress Cardiovascular: Yes: Regular Rate and Rhythm, S1, S2 Respiratory: Yes: Diminished Gastrointestinal: Yes: Normal Bowel Sounds, Soft, Abdomen, Obese. No: Tenderness Edema: No Labs: CBC, BMP 09/03/17 05:15 09/03/17 05:15 INR, PTT INR 0.96 (0.82-1.09) 08/31/17 22:00 Assessment/Plan Probable asp pneumonia S/P Respiratory failure Seizure disorder Fever/ leukocytosis- improved C difficile Continue zosyn/ vancomycin/ Flagyl
--- NOTE | 2017-09-03 11:42 | PN ---
Teaching Attending Note Name of Resident: Saira Powers ATTENDING PHYSICIAN STATEMENT I saw and evaluated the patient. I reviewed the resident's note and discussed the case with the resident. I agree with the resident's findings and plan as documented. SUBJECTIVE: Patient seen and examined in the ICU. Currently extubated, awake and responsive. No documented seizure activity. Some dry cough. Noted to desaturate off O2 supplementation. Intake & Output 08/31/17 09/01/17 09/02/17 09/03/17 23:59 23:59 23:59 23:59 Intake Total 2347.5 3080.7 1179 Output Total 2760 3025 Balance -412.5 55.7 1179 Weight 185 lb 167 lb 12.348 oz 170 lb 5 oz 170 lb 3.15 oz Last Vital Signs Temp Pulse Resp BP Pulse Ox 98.0 F 73 16 125/78 89 L 09/03/17 10:00 09/03/17 10:37 09/03/17 10:00 09/03/17 10:00 09/03/17 10:37 Active Medications Albuterol Sulfate (Ventolin 0.083% Nebulizer Soln -) 1 amp NEB Q4H PRN PRN Reason: SHORT OF BREATH/WHEEZING Last Admin: 09/03/17 06:28 Dose: 1 amp Chlorhexidine Gluconate (Hibiclens For Decolonization -) 1 applic TP HS MATTHEW Last Admin: 09/02/17 21:43 Dose: 1 applic Heparin Sodium (Porcine) (Heparin -) 5,000 unit SQ TID MATTHEW Last Admin: 09/03/17 06:13 Dose: 5,000 unit Midazolam HCl 100 mg/ Sodium (Chloride) 100 mls @ 1 mls/hr IVPB TITR MATTHEW; 1 MG/ HR PRN Reason: Protocol Last Admin: 09/03/17 06:04 Dose: Not Given Fentanyl 500 mcg/ Dextrose 100 mls @ 10 mls/hr IVPB TITR MATTHEW; 50 MCG/HR PRN Reason: Protocol Last Admin: 09/02/17 12:45 Dose: Not Given Piperacillin Sod/Tazobactam (Sod 4.5 gm/ Dextrose) 100 mls @ 200 mls/hr IVPB Q8H-IV MATTHEW Last Admin: 09/03/17 09:24 Dose: 200 mls/hr Vancomycin HCl 1,000 mg/ (Dextrose) 250 mls @ 166.667 mls/hr IVPB Q12H [facility] Last Admin: 09/03/17 00:12 Dose: 166.667 mls/hr Potassium Chloride/Dextrose/Sod Cl (D5-1/2ns+20 Meq Kcl -) 20 meq in 1,000 mls @ 100 mls/hr IV ASDIR [facility] Last Admin: 09/03/17 09:15 Dose: 100 mls/hr Levetiracetam (Keppra Injection -) 1,000 mg IVPB TID [facility] Last Admin: 09/03/17 06:12 Dose: 1,000 mg Metoprolol Tartrate (Lopressor Injection -) 5 mg IVPUSH Q4H PRN PRN Reason: HYPERTENSION Metronidazole (Flagyl -) 500 mg PO TID [facility] Mupirocin (Bactroban Ointment (For Decolonization) -) 1 applic NS BID [facility] Stop: 09/06/17 09:59 Last Admin: 09/03/17 09:24 Dose: 1 applic Pantoprazole Sodium (Protonix Iv) 40 mg IVPUSH BID [facility] Last Admin: 09/03/17 09:26 Dose: 40 mg Potassium Chloride (Potassium Chloride Oral Liquid) 40 meq PO BID [facility] Last Admin: 09/03/17 09:25 Dose: Not Given Valproate Sodium (Depacon Injection -) 1,000 mg IVPB TID [facility] Last Admin: 09/03/17 06:13 Dose: 1,000 mg Gen: Extubated, awake and interactive Heart: RRR Lung: scattered rhonchi Abd: soft, nontender Ext: trace edema Laboratory Results - last 24 hr 09/02/17 09/03/17 09/03/17 22:25 05:15 05:15 WBC 7.7 RBC 3.45 L Hgb 10.8 L Hct 32.2 L MCV 93.4 MCH 31.4 MCHC 33.6 RDW 16.5 H Plt Count 189 MPV 8.6 Neutrophils % 61.8 Lymphocytes % 26.1 Monocytes % 8.4 Eosinophils % 3.1 D Basophils % 0.6 Sodium 143 Potassium 3.3 L Chloride 107 Carbon Dioxide 28 Anion Gap 8 BUN 3 L D Creatinine 0.6 L Creat Clearance w eGFR > 60 POC Glucometer [phone] Random Glucose 93 D Calcium 7.8 L Phosphorus 4.1 D Magnesium 2.0 Total Bilirubin 0.7 D AST 8 L ALT 9 L Alkaline Phosphatase 46 Total Protein 6.2 L Albumin 2.3 L ASSESSMENT AND PLAN: Seizure Episode with known underlying Seizure Disorder Acute Hypoxic and Hypercapneic Respiratory Failure Pneumonia - r/o Aspiration UTI Sepsis Lactic Acidosis resolved - continue antiepileptics per neuro - ABX coverage - f/u final cultures - O2 to keep SpO2 >90% - Aspiration precautions - PO as tolerated - DVT/GI prophylaxis - Floor Dr Slaughter Critical care time spent in reviewing chart, evaluating patient and formulating plan 36 min
[2017-09-03] MEDS ORDERED: POTASSIUM CHLORIDE ORAL LIQUID 20 MEQ/15 ML PO ONE (12:00)
[2017-09-03] MEDS ORDERED: ASPIRIN COATED 81 MG TABLET.EC PO SCH (12:00)
--- NOTE | 2017-09-03 13:56 | PN ---
Physical Exam: SUBJECTIVE: Patient seen and examined this am. Was extubated yesterday, tolerated NC well, but desaturated while NC. Awake, communicating, no seizures, and requesting food. OBJECTIVE: Vital Signs Period Temp Pulse Resp BP Sys/Bond Pulse Ox Last 24 Hr 97.6 F-98.4 F 63-94 15-27 103-147/54-99 89-100 Vital Signs Temp 97.6 F 09/03/17 12:00 Pulse 73 09/03/17 12:00 Resp 18 09/03/17 12:00 BP 143/99 09/03/17 12:00 Pulse Ox 89 L 09/03/17 10:37 Intake & Output 09/02/17 09/03/17 09/03/17 23:59 11:59 23:59 Intake Total 1656 1179 966 Output Total 2600 Balance -944 1179 966 Weight 77.2 kg Intake: IV 1006 279 166 Normal Saline - 1,000 ml 996 279 166 @ 83 mls/hr IV ASDIR MATTHEW Rx#:[id number] fentanyl 10 IVPB 650 900 650 Oral 150 Output: Urine 2600 [place] 2600 Other: Voiding Method Indwelling Catheter Indwelling Catheter Bowel Movement No No No Weight Measurement Method Built in [facility] GGENERAL: The patient is on NC- 2L sating well HEAD: Normal with no signs of trauma. EYES: Bilaterally reactive round pupils. NECK: supple. LUNGS: Vesicular,breath sounds bilaterally HEART: S1, S2 , tachycardic. ABDOMEN: Soft, nondistended, bowel sounds+, EXTREMITIES: 2+ pulses, warm, well-perfused, no edema, NEUROLOGICAL: Intubated, and drowsy PSYCH: Cannot assess SKIN: Warm, dry Lines: 2LUE peripheral lines, urinal Laboratory Results - last 24 hr 09/02/17 09/03/17 09/03/17 22:25 05:15 05:15 WBC 7.7 RBC 3.45 L Hgb 10.8 L Hct 32.2 L MCV 93.4 MCH 31.4 MCHC 33.6 RDW 16.5 H Plt Count 189 MPV 8.6 Neutrophils % 61.8 Lymphocytes % 26.1 Monocytes % 8.4 Eosinophils % 3.1 D Basophils % 0.6 Sodium 143 Potassium 3.3 L Chloride 107 Carbon Dioxide 28 Anion Gap 8 BUN 3 L D Creatinine 0.6 L Creat Clearance w eGFR > 60 POC Glucometer [phone] Random Glucose 93 D Calcium 7.8 L Phosphorus 4.1 D Magnesium 2.0 Total Bilirubin 0.7 D AST 8 L ALT 9 L Alkaline Phosphatase 46 Total Protein 6.2 L Albumin 2.3 L Microbiology 08/31/17 23:05 Sputum - Endotrachea Suction/Ventilator Gram Stain - Final 08/31/17 23:05 Sputum - Endotrachea Suction/Ventilator Sputum Culture - Final NORMAL RESPIRATORY SP 08/31/17 22:30 Urine - Urine [place] Urine Culture - Final Enterobacter Aerogenes 08/31/17 22:24 Blood - Peripheral Venous Blood Culture - Preliminary NO GROWTH OBTAINED AFTER 48 HOURS, INCUBATION TO CONTINUE FOR 3 DAYS. 08/31/17 22:20 Blood - Peripheral Venous Blood Culture - Preliminary NO GROWTH OBTAINED AFTER 48 HOURS, INCUBATION TO CONTINUE FOR 3 DAYS. Active Medications Generic Name Dose Route Start Last Admin Trade Name Freq PRN Reason Stop Dose Admin Albuterol Sulfate 1 amp 09/01/17 01:50 09/03/17 06:28 Ventolin 0.083% Nebulizer Soln - NEB 1 amp Q4H PRN Administration SHORT OF BREATH/WHEEZING Aspirin 81 mg 09/03/17 12:00 09/03/17 12:00 Ecotrin - PO Not Given DAILY [facility] Heparin Sodium (Porcine) 5,000 unit 09/01/17 06:00 09/03/17 06:13 Heparin - SQ 5,000 unit TID MATTHEW Administration Piperacillin Sod/Tazobactam 100 mls @ 200 mls/hr 09/01/17 11:45 09/03/17 09: 24 Sod 4.5 gm/ Dextrose IVPB 200 mls/hr Q8H-IV MATTHEW Administration Vancomycin HCl 1,000 mg/ 250 mls @ 166.667 mls/hr 09/01/17 12:00 09/03/17 12: 56 Dextrose IVPB 166.667 mls/hr Q12H MATTHEW Administration Levetiracetam 1,000 mg 09/03/17 14:00 Keppra - PO TID [facility] Metoprolol Tartrate 25 mg 09/03/17 22:00 Lopressor - PO BID [facility] Metronidazole 500 mg 09/03/17 14:00 Flagyl - PO TID [facility] Pantoprazole Sodium 40 mg 09/04/17 10:00 Protonix - PO DAILY [facility] Potassium Chloride 40 meq 09/02/17 10:00 09/03/17 09:25 Potassium Chloride Oral Liquid PO Not Given BID [facility] Tamsulosin HCl 0.4 mg 09/03/17 19:00 Flomax - PO 1900 [facility] Valproate Sodium 1,000 mg 09/03/17 14:00 Depakene - PO TID MATTHEW ASSESSMENT/PLAN: 52 y/o M from [facility] with PMHx HTN, HLD, seizure disorder s/p garett holes, on Depakote/Keppra admitted to ICU with sepsis and likely aspiration PNA now extubated Pulm/ ID: Acute hypoxic respiratory failure in post-ictal state R/O aspiration PNA Sepsis likely 2/2 to aspiration PNA Extubated- on NC Lactic acidosis- resolved Recent GI bleed and C diff Ag+ iv Zosyn- 3.375 iv Vanco 1.2 Resume PO Metronidazole 500mg Q8H Albuterol nebs Q4H Follow cultures-urine growing Enterobacter Aerogenes NC -oxygen PRN Neuro: Seizure disorder No seizures noted Resume home meds PO Depakote-1g tid PO keppra 1g tid Cardiology: HTN, HLD Troponinemia- peaked likely in setting of demand ischemia from hypoxia Monitor Discuss anticoagulation resume home meds PO metoprolol 25mg ASA GI/ nutrition/Renal/lines: Renal function intact- follow urine cx S/p swallow eval -recommendations noted Soft diet ordered 2LUE peripheral lines CMP Monitor lytes KCL 40meq PO given Cont PO Kcl 40meq bid Protonix iv 40mg bid Stop Iv Normal saline @83mls/hr Flomax resume Prophylaxis Resume Protonix PO 40mg daily SQ heparin 500iu tid Dispo: Med Surg Visit type - Emergency Visit Emergency Visit: Yes ED Registration Date: 08/31/17 Care time: The patient presented to the Emergency Department on the above date and was hospitalized for further evaluation of their emergent condition. - New Patient This patient is new to me today: No - Critical Care Critical Care patient: Yes Total Critical Care Time (in minutes): 35 Critical Care Statement: The care of this patient involved high complexity decision making to prevent further life threatening deterioration of the patient 's condition and/or to evaluate & treat vital organ system(s) failure or risk of failure. - Discharge Referral Referred to [facility] Med [facility] No
[2017-09-03] MEDS: ASPIRIN 81 MG CHEWABLE TABLETS PO SCH (14:00)
[2017-09-03] MEDS ORDERED: metroNIDAZOLE 250 MG TABLET PO SCH ×2 (14:00)
[2017-09-03] MEDS ORDERED: VALPROIC ACID 250 MG CAPSULE PO SCH (14:00)
[2017-09-03] MEDS ORDERED: levETIRAcetam 500 MG TABLET (FP) PO SCH (14:00)
[2017-09-03] MEDS: VALPROATE SODIUM 250 MG/5 ML UNIT DOSE CUP PO SCH ×2 (14:02→22:20)
[2017-09-03] MEDS: PANTOPRAZOLE SOD 40 MG SUSPENSION PACKET PO SCH (15:00)
[2017-09-03] MEDS: levETIRAcetam 500 MG/5 ML ORAL SOLUTION (UNIT-DOSE CUPS) PO SCH ×2 (16:53→22:21)
[2017-09-03] MEDS: TAMSULOSIN HCL 0.4 MG CAP.ER.24H (FP) PO SCH (18:11)
[2017-09-03] MEDS ORDERED: ALBUTEROL SO4 0.083% IH SOL 2.5 MG/3 ML VIAL.NEB. NEB PRN (18:14)
[2017-09-03] MEDS ORDERED: HEPARIN NA (PORCINE) 5,000 UNITS/ML 1ML VIAL SQ SCH (22:00)
[2017-09-03] MEDS: METOPROLOL TARTRATE 25 MG TABLET (FP) PO SCH (22:19)
[2017-09-03] MEDS: metroNIDAZOLE 250 MG TABLET PO SCH (22:20)
[2017-09-04] MEDS ORDERED: VANCOMYCIN 1,000 MG in DEXTROSE 5%-WATER - 250 ML IVPB SCH
[2017-09-04] MEDS: PIPERACILLIN/TAZOB 4.5 GM 4.5 GM in DEXTROSE 5%-WATER - 100 ML IVPB SCH ×2 (02:00→09:53)
[2017-09-04] MEDS: VALPROATE SODIUM 250 MG/5 ML UNIT DOSE CUP PO SCH ×2 (06:08→13:06)
[2017-09-04] MEDS: metroNIDAZOLE 250 MG TABLET PO SCH ×2 (06:08→13:07)
[2017-09-04] MEDS: levETIRAcetam 500 MG/5 ML ORAL SOLUTION (UNIT-DOSE CUPS) PO SCH ×2 (06:08→13:07)
[2017-09-04] MEDS: HEPARIN NA (PORCINE) 5,000 UNITS/ML 1ML VIAL SQ SCH ×2 (06:09→13:08)
[2017-09-04 06:20] LABS: BASO % 0.4 % (0-2.0); EOS % 2.5 % (0-4.5); HEMOGLOBIN 11.6 GM/dL (11.7-16.9); LYMPH % 28.9 % (8-40); MCHC 33.2 g/dl (32.0-35.9); MEAN CELL VOLUME 93.4 fl (80-96); MEAN PLT VOLUME 8.5 fl (7.5-11.1); MONO % 11.7 % (3.8-10.2); NEUT % 56.5 % (42.8-82.8); PLATELET COUNT 191 K/MM3 (134-434); RBC 3.75 M/mm3 (4.00-5.60); RDW 16.9 % (11.9-15.9); WHITE BLOOD COUNT 7.6 K/mm3 (4.0-10.0)
[2017-09-04 06:43] LABS: ALBUMIN 2.4 g/dl (3.4-5.0); ANION GAP 10 (8-16); BLOOD UREA NITROGEN 5 mg/dL (7-18); CALCIUM 8.6 mg/dL (8.5-10.1); CHLORIDE 107 mmol/L (98-107); CO2 29 mmol/L (21-32); GLUCOSE,RANDOM 97 mg/dL (74-106); MAGNESIUM 2.1 mg/dL (1.8-2.4); PHOSPHOROUS 4.3 mg/dL (2.5-4.9); POTASSIUM 3.6 mmol/L (3.5-5.1); SGOT/AST 12 U/L (15-37); SODIUM 146 mmol/L (136-145)
[2017-09-04 06:45] LABS: ALK PHOS 47 U/L (45-117); BILIRUBIN,TOTAL 0.5 mg/dL (0.2-1.0); SGPT/ALT 8 U/L (12-78); TOT PROT 6.5 g/dl (6.4-8.2)
--- NOTE | 2017-09-04 07:08 | PN ---
Physical Exam: SUBJECTIVE: Patient seen and examined. Waiting for an isolation bed. No new complaints. OBJECTIVE: Vital Signs Period Temp Pulse Resp BP Sys/Bond Pulse Ox Last 24 Hr 97.6 F-98.2 F 64-83 15-26 97-143/70-99 89-100 GENERAL: The patient is on NC- 2L sating well HEAD: Normal with no signs of trauma. EYES: Bilaterally reactive round pupils. NECK: supple. LUNGS: Vesicular,breath sounds bilaterally HEART: S1, S2 , tachycardic. ABDOMEN: Soft, nondistended, bowel sounds+, EXTREMITIES: 2+ pulses, warm, well-perfused, no edema, NEUROLOGICAL: Awake, alert, communicating PSYCH: Cannot assess SKIN: Warm, dry Lines: 2LUE peripheral lines, ny Laboratory Results - last 24 hr 09/01/17 09/03/17 09/04/17 00:10 05:15 05:00 WBC 7.6 RBC 3.75 L Hgb 11.6 L Hct 35.0 L MCV 93.4 MCH 31.0 MCHC 33.2 RDW 16.9 H Plt Count 191 MPV 8.5 Neutrophils % 56.5 Lymphocytes % 28.9 Monocytes % 11.7 H Eosinophils % 2.5 Basophils % 0.4 Sodium 143 Potassium 3.3 L Chloride 107 Carbon Dioxide 28 Anion Gap 8 BUN 3 L D Creatinine 0.6 L Creat Clearance w eGFR > 60 Random Glucose 93 D Calcium 7.8 L Phosphorus 4.1 D Magnesium 2.0 Total Bilirubin 0.7 D AST 8 L ALT 9 L Alkaline Phosphatase 46 Total Protein 6.2 L Albumin 2.3 L Levetiracetam 48.2 H Active Medications Generic Name Dose Route Start Last Admin Trade Name Freq PRN Reason Stop Dose Admin Albuterol Sulfate 1 amp 09/03/17 18:14 Ventolin 0.083% Nebulizer Soln - NEB Q4H PRN SHORT OF BREATH/WHEEZING Aspirin 81 mg 09/03/17 14:00 09/03/17 14:00 Asa - PO 81 mg DAILY MATTHEW Administration Heparin Sodium (Porcine) 5,000 unit 09/03/17 22:00 09/04/17 06:09 Heparin - SQ 5,000 unit TID MATTHEW Administration Piperacillin Sod/Tazobactam 100 mls @ 200 mls/hr 09/04/17 02:00 09/04/17 02: 00 Sod 4.5 gm/ Dextrose IVPB 200 mls/hr Q8H-IV MATTHEW Administration Vancomycin HCl 1,000 mg/ 250 mls @ 166.667 mls/hr 09/04/17 00:00 09/04/17 00: 00 Dextrose IVPB 166.667 mls/hr Q12H MATTHEW Administration Levetiracetam 1,000 mg 09/03/17 15:00 09/04/17 06:08 Keppra Oral Solution - PO 1,000 mg TID MATTHEW Administration Metoprolol Tartrate 25 mg 09/03/17 22:00 09/03/17 22:19 Lopressor - PO 25 mg BID MATTHEW Administration Metronidazole 500 mg 09/03/17 22:00 09/04/17 06:08 Flagyl - PO 500 mg TID MATTHEW Administration Pantoprazole Sodium 40 mg 09/03/17 15:00 09/03/17 15:00 Protonix Packets For Oral Suspension - PO Not Given DAILY MATTHEW Potassium Chloride 40 meq 09/03/17 22:00 09/03/17 22:19 Potassium Chloride Oral Liquid PO 40 meq BID MATTHEW Administration Tamsulosin HCl 0.4 mg 09/03/17 19:00 09/03/17 18:11 Flomax - PO 0.4 mg 1900 MATTHEW Administration Valproate Sodium 1,000 mg 09/03/17 14:00 09/04/17 06:08 Depakene - PO 1,000 mg TID MATTHEW Administration ASSESSMENT/PLAN: 52 y/o M from [facility] with PMHx HTN, HLD, seizure disorder s/p garett holes, on Depakote/Keppra admitted to ICU with sepsis and likely aspiration PNA now extubated and was pending isolation Pulm/ ID: Acute hypoxic respiratory failure in post-ictal state R/O aspiration PNA Sepsis likely 2/2 to aspiration PNA- Extubated- on NC Lactic acidosis- resolved Recent GI bleed and C diff Ag+ iv Zosyn- 3.375 Stop iv Vanco 1.2 Albuterol nebs Q4H urine cx- Enterobacter Aerogenes NC -oxygen PRN Still awaiting isolation room for cdiff D/W George Priest and [place], [facility] Contact social works Start Augmentin 875mg PO Q12H x72hrs Continue PO Metronidazole 500mg Q8H for 1week Contact isolation for Enterobacter Aerogenes D/W Primary Neuro: Seizure disorder No seizures noted PO Depakote-1g tid PO keppra 1g tid Cardiology: HTN, HLD Troponinemia- peaked likely in setting of demand ischemia from hypoxia Monitor Discuss anticoagulation PO metoprolol 25mg ASA GI/ nutrition/Renal/lines: Renal function intact- follow urine cx S/p swallow eval -recommendations noted Soft diet ordered 2LUE peripheral lines CMP Monitor lytes KCL 40meq PO given Stop PO Kcl 40meq bid Protonix iv 40mg bid Flomax resume Prophylaxis Resume Protonix PO 40mg daily SQ heparin 500iu tid Dispo: [facility] back [facility] prison Visit type - Emergency Visit Emergency Visit: Yes ED Registration Date: 08/31/17 Care time: The patient presented to the Emergency Department on the above date and was hospitalized for further evaluation of their emergent condition. - New Patient This patient is new to me today: No - Critical Care Critical Care patient: Yes Total Critical Care Time (in minutes): 35 Critical Care Statement: The care of this patient involved high complexity decision making to prevent further life threatening deterioration of the patient 's condition and/or to evaluate & treat vital organ system(s) failure or risk of failure. - Discharge Referral Referred to [facility] Med [facility]C.: No
[2017-09-04] MEDS ORDERED: PT OWN MED DRAWER 7, Y5N ONE ×4 (07:27→15:59)
--- NOTE | 2017-09-04 09:44 | PN ---
Progress Note (short form) - Note Progress Note: patient seen and examined. Comfortable Alert and awake now eating very well Afebrile Vital Signs Temp 97.5 F L 09/04/17 08:00 Pulse 70 09/04/17 08:00 Resp 18 09/04/17 08:00 BP 108/70 09/04/17 08:00 Pulse Ox 99 09/04/17 08:00 Intake & Output 09/03/17 09/03/17 09/04/17 11:59 23:59 11:59 Intake Total 1179 2266 1200 Output Total 1100 4000 Balance 1179 1166 -2800 Weight 170 lb 3.15 oz 164 lb 14.492 oz Intake: IV 279 1166 900 D5-1/2NS+20 MEQ KCL - 20 1000 900 meq In 1,000 ml @ 100 mls /hr IV ASDIR MATTHEW Rx#: [id number] Normal Saline - 1,000 ml 279 166 @ 83 mls/hr IV ASDIR MATTHEW Rx#:[id number] IVPB 900 750 300 Oral 350 Output: Urine 1100 4000 [place]rera 1100 4000 Other: Voiding Method Indwelling Catheter Indwelling Catheter Indwelling Catheter Bowel Movement No No Yes # Bowel Movements 2 Weight Measurement Method Built in [facility] Active Medications Albuterol Sulfate (Ventolin 0.083% Nebulizer Soln -) 1 amp NEB Q4H PRN PRN Reason: SHORT OF BREATH/WHEEZING Aspirin (Asa -) 81 mg PO DAILY [facility] Last Admin: 09/03/17 14:00 Dose: 81 mg Heparin Sodium (Porcine) (Heparin -) 5,000 unit SQ TID [facility] Last Admin: 09/04/17 06:09 Dose: 5,000 unit Piperacillin Sod/Tazobactam (Sod 4.5 gm/ Dextrose) 100 mls @ 200 mls/hr IVPB Q8H-IV MATTHEW Last Admin: 09/04/17 02:00 Dose: 200 mls/hr Vancomycin HCl 1,000 mg/ (Dextrose) 250 mls @ 166.667 mls/hr IVPB Q12H MATTHEW Last Admin: 09/04/17 00:00 Dose: 166.667 mls/hr Levetiracetam (Keppra Oral Solution -) 1,000 mg PO TID [facility] Last Admin: 09/04/17 06:08 Dose: 1,000 mg Metoprolol Tartrate (Lopressor -) 25 mg PO BID [facility] Last Admin: 09/03/17 22:19 Dose: 25 mg Metronidazole (Flagyl -) 500 mg PO TID [facility] Last Admin: 09/04/17 06:08 Dose: 500 mg Pantoprazole Sodium (Protonix Packets For Oral Suspension -) 40 mg PO DAILY [facility] Last Admin: 09/03/17 15:00 Dose: Not Given Potassium Chloride (Potassium Chloride Oral Liquid) 40 meq PO BID [facility] Last Admin: 09/03/17 22:19 Dose: 40 meq Tamsulosin HCl (Flomax -) 0.4 mg PO 1900 [facility] Last Admin: 09/03/17 18:11 Dose: 0.4 mg Valproate Sodium (Depakene -) 1,000 mg PO TID [facility] Last Admin: 09/04/17 06:08 Dose: 1,000 mg CBC, BMP 09/04/17 05:00 09/04/17 05:00 Physical exam Alert and awake CVS--regular rate and rhythm lungs decreased at bases abd soft, nt ext no edema. Assessment and plan Status epilepticus Seizure disorder pneumonia status post respiratory failure leukocytosis clinically much better Daily out of bed to chair continue antibiotics--change to by mouth if okay with ID discharge planning/transfer to floor Will follow Problem List - Problems (1) Acute hypercapnic respiratory failure Code(s): J96.02 - ACUTE RESPIRATORY FAILURE WITH HYPERCAPNIA (2) Post-ictal confusion Code(s): F05 - DELIRIUM DUE TO KNOWN PHYSIOLOGICAL CONDITION (3) Status epilepticus Code(s): G40.901 - EPILEPSY, UNSP, NOT INTRACTABLE, WITH STATUS EPILEPTICUS (4) Ventilator dependence Code(s): Z99.11 - DEPENDENCE ON RESPIRATOR [VENTILATOR] STATUS (5) Hypotension Code(s): I95.9 - HYPOTENSION, UNSPECIFIED
[2017-09-04] MEDS: POTASSIUM CHLORIDE ORAL LIQUID 20 MEQ/15 ML PO SCH (09:53)
[2017-09-04] MEDS ORDERED: PANTOPRAZOLE 40 MG TABLET (FP) PO SCH (10:00)
[2017-09-04] MEDS: PANTOPRAZOLE SOD 40 MG SUSPENSION PACKET PO SCH (11:00)
[2017-09-04] MEDS: METOPROLOL TARTRATE 25 MG TABLET (FP) PO SCH (11:00)
[2017-09-04] MEDS: ASPIRIN 81 MG CHEWABLE TABLETS PO SCH (11:00)
--- NOTE | 2017-09-04 11:01 | PN ---
Progress Note (short form) - Note Progress Note: extubated 2 days oob in chair Vital Signs Period Temp Pulse Resp BP Sys/Bond Pulse Ox Last 24 Hr 97.5 F-98.2 F 64-83 15-26 97-143/70-99 99-100 cor-rrr lungs decreased bs at bases abd soft,nt ext no edema CBC, BMP 09/04/17 05:00 09/04/17 05:00 Microbiology 08/31/17 22:24 Blood - Peripheral Venous Blood Culture - Preliminary NO GROWTH OBTAINED AFTER 72 HOURS, INCUBATION TO CONTINUE FOR 2 DAYS. 08/31/17 22:20 Blood - Peripheral Venous Blood Culture - Preliminary NO GROWTH OBTAINED AFTER 72 HOURS, INCUBATION TO CONTINUE FOR 2 DAYS. 08/31/17 23:05 Sputum - Endotrachea Suction/Ventilator Gram Stain - Final 08/31/17 23:05 Sputum - Endotrachea Suction/Ventilator Sputum Culture - Final NORMAL RESPIRATORY SP 08/31/17 22:30 Urine - Urine [place]rera Urine Culture - Final Enterobacter Aerogenes cxray right lung has cleared, left base atelectasis imp/reccd 52 year old man with known seizure disorder r Aspiration Pneumonia-cover for hospital pathogens given two recent admissions to the hospital respiratory failure recurrent seizures (seizure disorder) recent rectal bleeding with +cdiff antigen d/c vancomycin antibiotics day #4 can switch to po augmentin for 3 days po flagyl for another week d/w ICU resident Problem List - Problems (1) Pneumonia Code(s): J18.9 - PNEUMONIA, UNSPECIFIED ORGANISM (2) Respiratory failure Code(s): J96.90 - RESPIRATORY FAILURE, UNSP, UNSP W HYPOXIA OR HYPERCAPNIA (3) Seizure Code(s): R56.9 - UNSPECIFIED CONVULSIONS (4) C. difficile colitis Code(s): A04.72 - ENTEROCOLITIS D/T CLOSTRIDIUM DIFFICILE, NOT SPCF RECUR
--- NOTE | 2017-09-04 11:03 | PN ---
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 OOB. Looks well.Verbal. Continue modified diet upon d/c. Suggest OPD MBS, if diet advance is considered when stronger, once at [facility].
--- NOTE | 2017-09-04 11:26 | PN ---
Teaching Attending Note Name of Resident: Saira Powers ATTENDING PHYSICIAN STATEMENT I saw and evaluated the patient. I reviewed the resident's note and discussed the case with the resident. I agree with the resident's findings and plan as documented. SUBJECTIVE: Patient seen and examined in the ICU. OOB to chair. Some cough, but better. Intake & Output 09/01/17 09/02/17 09/03/17 09/04/17 23:59 23:59 23:59 23:59 Intake Total 2347.5 3080.7 3445 1600 Output Total 2760 3025 1100 4000 Balance -412.5 55.7 2345 -2400 Weight 167 lb 12.348 oz 170 lb 5 oz 170 lb 3.15 oz 164 lb 14.492 oz Last Vital Signs Temp Pulse Resp BP Pulse Ox 97.8 F 80 18 132/80 99 09/04/17 10:00 09/04/17 10:00 09/04/17 10:00 09/04/17 10:00 09/04/17 08:00 Active Medications Albuterol Sulfate (Ventolin 0.083% Nebulizer Soln -) 1 amp NEB Q4H PRN PRN Reason: SHORT OF BREATH/WHEEZING Aspirin (Asa -) 81 mg PO DAILY [facility] Last Admin: 09/04/17 11:00 Dose: 81 mg Heparin Sodium (Porcine) (Heparin -) 5,000 unit SQ TID [facility] Last Admin: 09/04/17 06:09 Dose: 5,000 unit Piperacillin Sod/Tazobactam (Sod 4.5 gm/ Dextrose) 100 mls @ 200 mls/hr IVPB Q8H-IV [facility] Last Admin: 09/04/17 09:53 Dose: 200 mls/hr Levetiracetam (Keppra Oral Solution -) 1,000 mg PO TID [facility] Last Admin: 09/04/17 06:08 Dose: 1,000 mg Metoprolol Tartrate (Lopressor -) 25 mg PO BID [facility] Last Admin: 09/04/17 11:00 Dose: 25 mg Metronidazole (Flagyl -) 500 mg PO TID [facility] Last Admin: 09/04/17 06:08 Dose: 500 mg Pantoprazole Sodium (Protonix Packets For Oral Suspension -) 40 mg PO DAILY [facility] Last Admin: 09/04/17 11:00 Dose: 40 mg Potassium Chloride (Potassium Chloride Oral Liquid) 40 meq PO BID [facility] Last Admin: 09/04/17 09:53 Dose: 40 meq Tamsulosin HCl (Flomax -) 0.4 mg PO 1900 [facility] Last Admin: 09/03/17 18:11 Dose: 0.4 mg Valproate Sodium (Depakene -) 1,000 mg PO TID [facility] Last Admin: 09/04/17 06:08 Dose: 1,000 mg Gen: awake and alert, NAD Heart: RRR Lung: scattered rhonchi Abd: soft, nontender Ext: trace edema Laboratory Results - last 24 hr 09/01/17 09/04/17 09/04/17 00:10 05:00 05:00 WBC 7.6 RBC 3.75 L Hgb 11.6 L Hct 35.0 L MCV 93.4 MCH 31.0 MCHC 33.2 RDW 16.9 H Plt Count 191 MPV 8.5 Neutrophils % 56.5 Lymphocytes % 28.9 Monocytes % 11.7 H Eosinophils % 2.5 Basophils % 0.4 Sodium 146 H Potassium 3.6 Chloride 107 Carbon Dioxide 29 Anion Gap 10 BUN 5 L D Creatinine 1.0 D Creat Clearance w eGFR > 60 Random Glucose 97 Calcium 8.6 Phosphorus 4.3 Magnesium 2.1 Total Bilirubin 0.5 D AST 12 L D ALT 8 L Alkaline Phosphatase 47 Total Protein 6.5 Albumin 2.4 L Levetiracetam 48.2 H ASSESSMENT AND PLAN: Seizure Episode with known underlying Seizure Disorder Acute Hypoxic and Hypercapneic Respiratory Failure Pneumonia - r/o Aspiration UTI Sepsis Lactic Acidosis resolved - continue antiepileptics per neuro - PO ABX - O2 to keep SpO2 >90% - Aspiration precautions - PO as tolerated - DVT/GI prophylaxis - Floor / DC planning Dr Slaughter
--- NOTE | 2017-09-04 16:21 | DS ---
Physical Examination Vital Signs: Vital Signs Temperature 97.7 F 09/04/17 14:00 Pulse Rate 75 09/04/17 14:00 Respiratory Rate 21 09/04/17 14:00 Blood Pressure 105/76 09/04/17 14:00 O2 Sat by Pulse Oximetry (%) 99 09/04/17 08:00 Findings/Remarks: see today's progress note Labs: CBC, BMP 09/04/17 05:00 09/04/17 05:00 Discharge Summary Reason For Visit: RESPIRATORY FAILURE, STATUS EPILEPTICUS Current Active Problems Acute hypercapnic respiratory failure (Acute) Post-ictal confusion (Acute) Status epilepticus (Acute) Ventilator dependence (Acute) Hospital Course: patient admitted due to status epilepticus--with a known underlying seizure disorder /leukocytosis/aspiration pneumonia/respiratory failure. admitted in ICU treated with broad-spectrum antibiotics Critical team and ID followed Successfully extubated Neurology also followed Now much better stable for discharge to prison on by mouth medications Medications reconciled. Will follow on prison Condition: Improved - Instructions Disposition: LONG-TERM FACILITY - Home Medications Comprehensive Discharge Medication List: Ambulatory Orders Aspirin Coated [Ecotrin -] 81 mg PO DAILY #90 tab 12/16/16 Metoprolol Tartrate [Lopressor -] 25 mg PO BID #60 tablet 12/16/16 Albuterol 0.083% Nebulizer Letitia [Ventolin 0.083% Nebulizer Soln -] 1 amp NEB Q4H PRN amp 08/07/17 Pantoprazole Sodium [Protonix -] 40 mg PO DAILY tablet.ec 08/07/17 Heparin - 5,000 unit SQ BID 08/12/17 Tamsulosin HCl [Flomax -] 0.4 mg PO 1900 08/12/17 Acetaminophen [Tylenol .Regular Strength -] 650 mg PO Q6H PRN tablet 08/18/17 Levetiracetam [Keppra -] 1,000 mg PO TID tablet 08/18/17 Valproic Acid [Depakene -] 1,000 mg PO TID capsule 08/18/17 Amox-Tr/K Cl [Augmentin 875-125mg Tablet -] 4 tab PO BID@0800,1730 3 Days #6 tablet 09/04/17 Chlorhexidine Gluconate [Hibiclens For Decolonization -] 1 applic TP HS bottle 09/04/17 Metronidazole [Flagyl -] 500 mg PO TID #21 tablet 09/04/17
[2017-09-04] MEDS ORDERED: AMOX TR/POT CLAV 875MG/125MG TABLETS (FP) PO SCH ×2 (17:30)
[2017-09-04 18:27] VITALS: BP 148/78; PULSE 74; TEMP 98
[2017-09-04] MEDS: TAMSULOSIN HCL 0.4 MG CAP.ER.24H (FP) PO SCH (18:49)
== END 2017-09-04 20:20 | DRG 871 ==
LOC: JER 22:02 → JERBED 23:53 → JICU 09-01 01:26
PROVIDERS: ADMIT Internal Medicine; ATTEND Internal Medicine
PROC: 5A1945Z Respiratory Ventilation, 24-96 Consecutive Hours (ICD-10-PCS; principal; 2017-08-31)
PROC: 0BH17EZ Insertion of Endotracheal Airway into Trachea, Via Natural or Artificial Opening (ICD-10-PCS; 2017-08-31)
DX: A41.9 Sepsis, unspecified organism (principal); J96.02 Acute respiratory failure with hypercapnia; J69.0 Pneumonitis due to inhalation of food and vomit; J96.01 Acute respiratory failure with hypoxia; G92 Toxic encephalopathy; N39.0 Urinary tract infection, site not specified; E87.2 Acidosis; A04.72 Enterocolitis due to Clostridium difficile, not specified as recurrent; I24.8 Other forms of acute ischemic heart disease; I10 Essential (primary) hypertension; E78.00 Pure hypercholesterolemia, unspecified; G40.901 Epilepsy, unspecified, not intractable, with status epilepticus; F32.9 Major depressive disorder, single episode, unspecified; E78.5 Hyperlipidemia, unspecified
CPT/HCPCS: 36415; 36600; 70450-TC; 71045-TC; 80053; 80164; 81003; 81015; 82375; 82550; 82803; 82962; 83050; 83605; 83690; 83735; 83880; 84100; 84484; 85025; 85610; 85730; 86850; 86900; 86901; 87040; 87070; 87086; 87186; 87205; 93005; 93010; 94002; 94640; 99285-25; J1644

== ENCOUNTER 2017-12-14 13:47 | Observation (INO) | payer OTHER ==
[2017-12-14 14:06] VITALS: BMI 27.4
--- NOTE | 2017-12-14 14:16 | PDOC ---
History of Present Illness - General History Source: Family Exam Limitations: Clinical Condition - History of Present Illness Initial Comments: The patient is a 52 year old male accompanied with his father, with a significant past medical history of seizures, hypertension, and hyperlipidemia who was brought in by EMS for evaluation of a witnessed seizure. The patients father reports the patient was walking and stumbled on the wall, but the patients brother caught him and placed him on the floor during his seizure. The patient did not hit his head. Of note, the EMS administered versed 5mg. At presentation, patient is having an absent seizure. The patient is a poor historian. Allergies: NKA Past surgical history: Neurologic surgery: Garett holes Social history: No reported cigarette, alcohol, or drug use. <Marlo Cummins - Last Filed: 12/14/17 15:24> - General History Source: Patient Exam Limitations: No Limitations <Stacey Chisholm - Last Filed: 12/16/17 10:53> - General Chief Complaint: Seizure Stated Complaint: SEIZURE Time Seen by Provider: 12/14/17 14:15 Past History <Marlo Cummins - Last Filed: 12/14/17 15:24> - Past Medical History Anemia: No Asthma: No Cancer: No Cardiac Disorders: No CVA: No COPD: No CHF: No DVT: No Dementia: No Diabetes: No Dialysis: No GI Disorders: No Disorders: No HTN: Yes Hypercholesterolemia: Yes Kidney Stones: No Liver Disease: No Psychiatric Problems: Yes Seizures: Yes Thyroid Disease: No - Surgical History Abdominal Surgery: No Appendectomy: No Cardiac Surgery: No Cholecystectomy: No Lung Surgery: No Neurologic Surgery: Yes (s/p garett holes) Orthopedic Surgery: No - Immunization History Immunization Up to Date: Yes - Suicide/Smoking/Psychosocial Hx Smoking Status: No Smoking History: Unknown if ever smoked Have you smoked in the past 12 months: No Number of Cigarettes Smoked Daily: 0 Cigars Per Day: 0 Information on smoking cessation initiated: No Hx Alcohol Use: No Drug/Substance Use Hx: No Substance Use Type: None Hx Substance Use Treatment: No <Stacey Chisholm - Last Filed: 12/16/17 10:53> - Past Medical History Allergies/Adverse Reactions: Allergies Allergy/AdvReac Type Severity Reaction Status Date / Time No Known Drug Allergies Allergy Verified 08/31/17 22:24 Home Medications: Ambulatory Orders Aspirin Coated [Ecotrin -] 81 mg PO DAILY #90 tab 12/16/16 Metoprolol Tartrate [Lopressor -] 25 mg PO BID #60 tablet 12/16/16 Pantoprazole Sodium [Protonix -] 40 mg PO DAILY tablet.ec 08/07/17 Tamsulosin HCl [Flomax -] 0.4 mg PO 1900 08/12/17 Valproic Acid [Depakene -] 1,000 mg PO TID capsule 08/18/17 levETIRAcetam [Keppra -] 1,000 mg PO TID tablet 08/18/17 Chlorhexidine Gluconate [Hibiclens For Decolonization -] 1 applic TP HS bottle 09/04/17 Review of Systems - Review of Systems Able to Perform ROS?: No Comments:: Unable to obtain ROS due to clinical status. <Marlo Cummins - Last Filed: 12/14/17 15:24> *Physical Exam - Vital Signs Last Vital Signs Temp Pulse Resp BP Pulse Ox 98.7 F 78 20 119/83 91 L 12/14/17 14:04 12/14/17 14:04 12/14/17 14:04 12/14/17 14:04 12/14/17 14:04 - Physical Exam Comments: GENERAL: The patient is in no acute distress. HEAD: Normal with no signs of trauma. EYES: (+)Actively seizing nystagmus towards the right. Sclera anicteric, conjunctiva clear. ENT: Ears normal, nares patent, oropharynx clear without exudates. Moist mucous membranes. NECK: Normal range of motion, supple without lymphadenopathy, JVD, or masses. LUNGS: Breath sounds equal, clear to auscultation bilaterally. No wheezes, and no crackles. HEART:Regular rate and rhythm, normal S1 and S2 without murmur, rub or gallop. ABDOMEN: Soft, nontender, normoactive bowel sounds. No guarding, no rebound. No masses palpable. EXTREMITIES: Normal range of motion, no edema. No clubbing or cyanosis. No erythema, or tenderness. NEUROLOGICAL: (+)No purposeful movement. Cranial nerves II through XII grossly intact. Normal speech. No focal neurological deficits. MUSCULOSKELETAL: Back non-tender to palpation, no CVA tenderness SKIN: Warm, Dry, normal turgor, no rashes or lesions noted. <Marlo Cummins - Last Filed: 12/14/17 15:24> - Vital Signs Last Vital Signs Temp Pulse Resp BP Pulse Ox 98.7 F 78 20 119/83 91 L 12/14/17 14:04 12/14/17 14:04 12/14/17 14:04 12/14/17 14:04 12/14/17 14:04 <Stacey Chisholm - Last Filed: 12/16/17 10:53> ED Treatment Course - Medications Given in the ED: ED Medications Discontinued Medications Generic Name Dose Route Start Last Admin Trade Name Bee PRN Reason Stop Dose Admin Lorazepam 2 mg 12/14/17 14:19 12/14/17 14:20 Ativan Injection - IVPUSH 12/14/17 14:20 2 mg ONCE ONE Administration <Marlo Cummins - Last Filed: 12/14/17 15:24> - LABORATORY CBC & Chemistry Diagram: 12/15/17 05:35 12/15/17 05:35 <Stacey Chisholm - Last Filed: 12/16/17 10:53> Medical Decision Making - Medical Decision Making Consulted with Dr. 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 Typically he is well-controlled on Depakote 1 gm q 8 hrs and keppra 1gm q 8 hrs. Historically, has recurrent UTI's and associated breakthrough seizures. Given versed 5 mg IV by EMS Pt continued to have right eye deviation and blinking, no purposeful movement Given Ativan 2mg IV Pt stopped blinking EXAM: Right frontal scar. Lethargic Attends to examiner moves left hand and left foot does not move right hand or right foot 12/14/17 14:[address] Johnson Recommends assessing for signs of infection, sending drug levels Pt given Versed 5 mg IV enroute Pt given Ativan 2mg IV in the ER Pending labs Pending re assessment Pt signed out to Dr Bentley <Stacey Chisholm - Last Filed: 12/16/17 10:53> *DC/Admit/Observation/Transfer - Attestations Scribe Attestion: Documentation prepared by Marlo Cummins, acting as medical technologist hematology for Stacey Chisholm MD. <Marlo Cummins - Last Filed: 12/14/17 15:24> <Stacey Chisholm - Last Filed: 12/16/17 10:53> Diagnosis at time of Disposition: Seizure, Post-ictal confusion, Seizure disorder
--- NOTE | 2017-12-14 21:10 | PDOC ---
*Physical Exam - Vital Signs Last Vital Signs Temp Pulse Resp BP Pulse Ox 98.7 F 78 20 119/83 91 L 12/14/17 14:04 12/14/17 14:04 12/14/17 14:04 12/14/17 14:04 12/14/17 14:04 ED Treatment Course - Medications Given in the ED: ED Medications Discontinued Medications Generic Name Dose Route Start Last Admin Trade Name Bee PRN Reason Stop Dose Admin Lorazepam 2 mg 12/14/17 14:19 12/14/17 14:20 Ativan Injection - IVPUSH 12/14/17 14:20 2 mg ONCE ONE Administration Medical Decision Making - Medical Decision Making 12/14/17 21:02 52-year-old male brought in by ambulance after having a witnessed tonic-clonic seizure. Patient is a known history of epilepsy. He did have some tongue trauma and has had a prolonged post ictal state. His neurologist, Dr. Johnson, was consulted and said he is compliant with his seizure medicines, BUT if he has a infection, he seems to have increased in his seizures ct scan head -encepheloamacia, bur holes,s/p craniotomies *DC/Admit/Observation/Transfer Diagnosis at time of Disposition: Post-ictal confusion, Seizure disorder Seizure Qualifiers: Convulsion type: unspecified Qualified Code(s): R56.9 - Unspecified convulsions - Discharge Dispostion Admit: Yes - Referrals Referrals: Ailyn Meadows MD [Primary Care Provider] - - Patient Instructions - Post Discharge Activity
[2017-12-14 21:49] LABS: BASO % 0.4 % (0-2.0); EOS % 0.1 % (0-4.5); HEMATOCRIT 41.2 % (35.4-49); LYMPH % 28.3 % (8-40); MCH 30.6 pg (25.7-33.7); MEAN CELL VOLUME 89.9 fl (80-96); MEAN PLT VOLUME 9.3 fl (7.5-11.1); MONO % 9.5 % (3.8-10.2); NEUT % 61.7 % (42.8-82.8); PLATELET COUNT 129 K/MM3 (134-434); RBC 4.58 M/mm3 (4.00-5.60); RDW 16.6 % (11.9-15.9); WHITE BLOOD COUNT 10.3 K/mm3 (4.0-10.0)
[2017-12-14] MEDS ORDERED: levETIRAcetam 500 MG/5 ML INJECTION VIAL IVPB ONE (21:49)
[2017-12-14 21:51] LABS: URINE APPEARANCE SLCLOUDY; URINE BILIRUBIN NEGATIVE (<2.0 mg/dL); URINE BLOOD NEGATIVE (NEGATIVE); URINE COLOR AMBER; URINE GLUCOSE (UA) NEGATIVE (NEGATIVE); URINE KETONE 1+ (NEGATIVE); URINE NITRITE NEGATIVE (NEGATIVE)
--- NOTE | 2017-12-14 22:13 | PN ---
Teaching Attending Note Name of Resident: Rene Bowman ATTENDING PHYSICIAN STATEMENT I saw and evaluated the patient. I reviewed the resident's note and discussed the case with the resident. I agree with the resident's findings and plan as documented. SUBJECTIVE: 52 M with Pmhx. of HTN, HLD, Seizure do s/p Jason holes who presents with evaluation of a witnessed seizure at home. As per patients father he was walking when he went to wall and was put on the ground for seizure. He did not hit head. EMS gave pt. Versed 5mg en route. Pt. is AA0X1 (person) at baseline. Poor Historian OBJECTIVE: Physical: VS: Vital Signs Period Temp Pulse Resp BP Sys/Bond Pulse Ox Last 24 Hr 98.7 F 78 20 119/83 91 GEN: NAD, Resting in bed, AA0X1 (person) HEENT: NCAT, PERRL, Throat without erythema or exudates CARD: RRR S1, S2 RESP: CTAB ABD: BSX4, NTD to palpation EXT: - C/C/E NEURO: Follows commands, MS +5/5. CBCD WBC 10.3 K/mm3 (4.0-10.0) H D 12/14/17 21:20 RBC 4.58 M/mm3 (4.00-5.60) D 12/14/17 21:20 Hgb 14.0 GM/dL (11.7-16.9) D 12/14/17 21:20 Hct 41.2 % (35.4-49) D 12/14/17 21:20 MCV 89.9 fl (80-96) 12/14/17 21:20 MCHC 34.0 g/dl (32.0-35.9) 12/14/17 21:20 RDW 16.6 % (11.9-15.9) H 12/14/17 21:20 Plt Count 129 K/MM3 (134-434) L D 12/14/17 21:20 MPV 9.3 fl (7.5-11.1) 12/14/17 21:20 CBCD WBC 10.3 K/mm3 (4.0-10.0) H D 12/14/17 21:20 RBC 4.58 M/mm3 (4.00-5.60) D 12/14/17 21:20 Hgb 14.0 GM/dL (11.7-16.9) D 12/14/17 21:20 Hct 41.2 % (35.4-49) D 12/14/17 21:20 MCV 89.9 fl (80-96) 12/14/17 21:20 MCHC 34.0 g/dl (32.0-35.9) 12/14/17 21:20 RDW 16.6 % (11.9-15.9) H 12/14/17 21:20 Plt Count 129 K/MM3 (134-434) L D 12/14/17 21:20 MPV 9.3 fl (7.5-11.1) 12/14/17 21:20 CMP Sodium 140 mmol/L (136-145) 12/14/17 21:20 Potassium 4.3 mmol/L (3.5-5.1) 12/14/17 21:20 Chloride 106 mmol/L (98-107) 12/14/17 21:20 Carbon Dioxide 28 mmol/L (21-32) 12/14/17 21:20 Anion Gap 6 (8-16) L 12/14/17 21:20 BUN 30 mg/dL (7-18) H D 12/14/17 21:20 Creatinine 1.2 mg/dL (0.7-1.3) 12/14/17 21:20 Creat Clearance w eGFR > 60 (>60) 12/14/17 21:20 Random Glucose 105 mg/dL (74-106) 12/14/17 21:20 Calcium 8.7 mg/dL (8.5-10.1) 12/14/17 21:20 Total Bilirubin 0.5 mg/dL (0.2-1.0) 12/14/17 21:20 AST 20 U/L (15-37) D 12/14/17 21:20 ALT 16 U/L (12-78) D 12/14/17 21:20 Alkaline Phosphatase 77 U/L (45-117) D 12/14/17 21:20 Total Protein 7.4 g/dl (6.4-8.2) 12/14/17 21:20 Albumin 3.1 g/dl (3.4-5.0) L D 12/14/17 21:20 Urine Test Results Urine Color [place] 12/14/17 21:20 Urine Appearance Slcloudy 12/14/17 21:20 Urine pH 5.0 (5.0-8.0) 12/14/17 21:20 Ur Specific [place] 1.034 (1.001-1.035) 12/14/17 21:20 Urine Protein 1+ (NEGATIVE) H 12/14/17 21:20 Urine Glucose (UA) Negative (NEGATIVE) 12/14/17 21:20 Urine Ketones 1+ (NEGATIVE) H 12/14/17 21:20 Urine Blood Negative (NEGATIVE) 12/14/17 21:20 Urine Nitrite Negative (NEGATIVE) 12/14/17 21:20 Urine Bilirubin Negative (<2.0 mg/dL) 12/14/17 21:20 Ur Leukocyte Esterase 1+ (NEGATIVE) H 12/14/17 21:20 Urine Mucus Rare 12/14/17 21:20 EKG: S doreen 52 CXR: No Acute Process Ambulatory Orders Aspirin Coated [Ecotrin -] 81 mg PO DAILY #90 tab 12/16/16 Metoprolol Tartrate [Lopressor -] 25 mg PO BID #60 tablet 12/16/16 Pantoprazole Sodium [Protonix -] 40 mg PO DAILY tablet.ec 08/07/17 Tamsulosin HCl [Flomax -] 0.4 mg PO 1900 08/12/17 Valproic Acid [Depakene -] 1,000 mg PO TID capsule 08/18/17 levETIRAcetam [Keppra -] 1,000 mg PO TID tablet 08/18/17 Chlorhexidine Gluconate [Hibiclens For Decolonization -] 1 applic TP HS bottle 09/04/17 ASSESSMENT AND PLAN: 52 M with Pmhx. of HTN, HLD, Seizure do s/p [place] holes, with witnessed Seizure 1.) Seizure - CT Head negative - Neurology consulted and spoken to by ED - C/W Depakote/ Keppra - FU Levels - TSH 2.) UTI - Ceftriaxone - U Cx 3.) HTN - C/W Home meds 4.) Dvt Ppx - Heparin [address] in Tele Rest as per resident note
[2017-12-14 22:23] LABS: ALBUMIN 3.1 g/dl (3.4-5.0); ANION GAP 6 (8-16); BILIRUBIN,TOTAL 0.5 mg/dL (0.2-1.0); BLOOD UREA NITROGEN 30 mg/dL (7-18); CALCIUM 8.7 mg/dL (8.5-10.1); CHLORIDE 106 mmol/L (98-107); CO2 28 mmol/L (21-32); CREATININE 1.2 mg/dL (0.7-1.3); GLUCOSE,RANDOM 105 mg/dL (74-106); POTASSIUM 4.3 mmol/L (3.5-5.1); SGOT/AST 20 U/L (15-37); SGPT/ALT 16 U/L (12-78); SODIUM 140 mmol/L (136-145); TOT PROT 7.4 g/dl (6.4-8.2)
[2017-12-14 22:24] LABS: ALK PHOS 77 U/L (45-117)
--- NOTE | 2017-12-14 22:39 | HP ---
CHIEF COMPLAINT: seizure PCP: Dr. Meadows HISTORY OF PRESENT ILLNESS: Patient is a 52 yo M with Pmhx of HTN, HLD, epilepsy (with multiple admissions), was brought by EMS for a witnessed seizure. Unable obtain history from patient. A/o x 1 at baseline. It was noted that patient was walking and stumbled on the wall with his brother catching him and placed him on the floor during the seizure. Patient did not hit his head. Patient was given 5mg Versed enroute to hospital by EMS. Typically he is well- controlled on Depakote 1 gm q 8 hrs and keppra 1gm q 8 hrs. ER course was notable for: (1) 2mg Ativan in ER Recent Travel: n/a PAST MEDICAL HISTORY: Per HPI PAST SURGICAL HISTORY: Jason holes Social History: Smoking: n/a Alcohol: n/a Drugs: n/a Family History: Allergies No Known Drug Allergies Allergy (Verified 08/31/17 22:24) HOME MEDICATIONS: Home Medications Medication Instructions Recorded Aspirin Coated [Ecotrin -] 81 mg PO DAILY #90 tab 12/16/16 Metoprolol Tartrate [Lopressor -] 25 mg PO BID #60 tablet 12/16/16 Albuterol 0.083% Nebulizer Letitia 1 amp NEB Q4H PRN amp 08/07/17 [Ventolin 0.083% Nebulizer Soln -] Pantoprazole Sodium [Protonix -] 40 mg PO DAILY tablet.ec 08/07/17 Heparin - 5,000 unit SQ BID 08/12/17 Tamsulosin HCl [Flomax -] 0.4 mg PO 1900 08/12/17 Acetaminophen [Tylenol .Regular 650 mg PO Q6H PRN tablet 08/18/17 Strength -] Valproic Acid [Depakene -] 1,000 mg PO TID capsule 08/18/17 levETIRAcetam [Keppra -] 1,000 mg PO TID tablet 08/18/17 Amox-Tr/K Cl [Augmentin 875-125mg 4 tab PO BID@0800,1730 3 Days #6 09/04/17 Tablet -] tablet Chlorhexidine Gluconate [Hibiclens 1 applic TP HS bottle 09/04/17 For Decolonization -] metroNIDAZOLE [Flagyl -] 500 mg PO TID #21 tablet 09/04/17 REVIEW OF SYSTEMS Unable to obtain ROS PHYSICAL EXAMINATION Vital Signs - 24 hr 12/14/17 14:04 Temperature 98.7 F Pulse Rate 78 Respiratory 20 Rate Blood Pressure 119/83 O2 Sat by Pulse 91 L Oximetry (%) GENERAL: a/o x1, responds to simple commands HEAD: Normal with no signs of trauma. EYES: sclera anicteric, conjunctiva clear. No lid lag. EARS, NOSE, THROAT: oropharynx clear without exudates. dry mucous membranes. NECK: No JVD, or masses. LUNGS: course breath sounds HEART: Regular rate and rhythm, normal S1 and S2 without murmur, rub or gallop. ABDOMEN: Soft, nontender, not distended, normoactive bowel sounds UPPER EXTREMITIES: 2+ pulses, warm, well-perfused. No cyanosis. No clubbing. No peripheral edema. LOWER EXTREMITIES: 2+ pulses, warm, well-perfused. No calf tenderness. No peripheral edema. NEUROLOGICAL: unable to obtain Laboratory Results - last 24 hr 12/14/17 12/14/17 12/14/17 21:20 21:20 21:20 WBC 10.3 H D RBC 4.58 D Hgb 14.0 D Hct 41.2 D MCV 89.9 MCH 30.6 MCHC 34.0 RDW 16.6 H Plt Count 129 L D MPV 9.3 Neutrophils % 61.7 Lymphocytes % 28.3 Monocytes % 9.5 Eosinophils % 0.1 D Basophils % 0.4 Lactic Acid 1.1 Valproic Acid 65.041 ASSESSMENT/PLAN: Patient is a 52 yo M with Pmhx of HTN, HLD, epilepsy (with multiple admissions) , was brought by EMS for a witnessed seizure. #Seizure -1x Versed 5mg, 1x 2mg Ativan -cont. home meds: Depakote 1gm q8, Keppra 1gm q8 -Ucx, u/a -Cxr -Neuro check q2 -neuro consulted: Dr. Johnson #UTI -pending UCx -Ceftriaxone 1x #AMAN -IV fluids -avoid nephrotoxins -will monitor #HTN -cont. home meds #FEN -IV Normal saline -WNL -Sodium restricted diet #PPX -Hep Sq obs-tele Visit type - Emergency Visit Emergency Visit: Yes ED Registration Date: 12/14/17 Care time: The patient presented to the Emergency Department on the above date and was hospitalized for further evaluation of their emergent condition. - New Patient This patient is new to me today: Yes Date on this admission: 12/15/17 - Critical Care Critical Care patient: No Hospitalist Screening - Colonoscopy Questionnaire Colonoscopy Questionnaire: Colonoscopy Questionnaire - Patient: 50 - 75 years old and never had a screening colonoscopy: Unknown History of colon or rectal polyps, or CA: Unknown History of IBD, Crohn's disease or UC: Unknown History of abdominal radiation therapy as a child: Unknown - Relative: 1 with colon or rectal CA, or polyps at age 60 or younger: Unknown Colon or rectal CA diagnosed at age 45 or younger: Unknown Multiple relatives with colon or rectal CA: Unknown - Outcome: Screening Result: Negative Screen
[2017-12-14 22:43] LABS: URINE LEUK ESTERASE 1+ (NEGATIVE); URINE PROTEIN 1+ (NEGATIVE)
[2017-12-14 22:49] LABS: URINE MUCUS RARE
[2017-12-14] MEDS: SODIUM CHLORIDE 1,000 ML IV SCH (22:59)
[2017-12-14] MEDS ORDERED: DIVALPROEX SODIUM 500 MG TABLET E.C. PO ONE (23:02)
[2017-12-15] MEDS ORDERED: DIVALPROEX SODIUM 500 MG TABLET E.C. PO ONE (00:15)
[2017-12-15] MEDS ORDERED: CEFTRIAXONE 1 GM in DEXTROSE 5%-WATER - 50 ML IVPB ONE (05:15)
[2017-12-15] MEDS: levETIRAcetam 500 MG TABLET (FP) PO SCH ×3 (05:42→22:20)
[2017-12-15] MEDS: VALPROIC ACID 250 MG CAPSULE PO SCH ×3 (05:42→22:21)
[2017-12-15] MEDS ORDERED: cefTRIAXone SODIUM 1 GM VIAL ONE (05:51)
[2017-12-15] MEDS ORDERED: DEXTROSE 5%-WATER - 50 ML IVPB ONE (05:51)
[2017-12-15 06:49] LABS: HEMOGLOBIN 12.4 GM/dL (11.7-16.9); MCH 30.9 pg (25.7-33.7); MCHC 34.5 g/dl (32.0-35.9); MEAN CELL VOLUME 89.5 fl (80-96); MEAN PLT VOLUME 9.6 fl (7.5-11.1); PLATELET COUNT 93 K/MM3 (134-434); RBC 4.02 M/mm3 (4.00-5.60); RDW 16.3 % (11.9-15.9)
[2017-12-15 07:17] LABS: ALBUMIN 2.8 g/dl (3.4-5.0); ANION GAP 9 (8-16); BLOOD UREA NITROGEN 24 mg/dL (7-18); CALCIUM 8.4 mg/dL (8.5-10.1); CHLORIDE 107 mmol/L (98-107); CO2 25 mmol/L (21-32); GLUCOSE,RANDOM 79 mg/dL (74-106); SODIUM 141 mmol/L (136-145)
[2017-12-15 07:21] LABS: ALK PHOS 65 U/L (45-117); BILIRUBIN,TOTAL 0.5 mg/dL (0.2-1.0); CREATININE 0.8 mg/dL (0.7-1.3); PHOSPHOROUS 3.2 mg/dL (2.5-4.9); SGPT/ALT 11 U/L (12-78); TOT PROT 6.8 g/dl (6.4-8.2)
[2017-12-15 07:48] LABS: SGOT/AST 19 U/L (15-37)
--- NOTE | 2017-12-15 09:08 | PN ---
Progress Note, Physician History of Present Illness: pt seen/ examined chart reviewed well known to me . awake/ comfortable no complains looks weak eating breakfast - Current Medication List Current Medications: Active Medications Aspirin (Ecotrin -) 81 mg PO DAILY [facility] Heparin Sodium (Porcine) (Heparin -) 5,000 unit SQ BID [facility] Sodium Chloride (Normal Saline -) 1,000 mls @ 83 mls/hr IV ASDIR [facility] Last Admin: 12/14/17 22:59 Dose: 83 mls/hr Ceftriaxone Sodium 1 gm/ (Dextrose) 100 mls @ 200 mls/hr IVPB DAILY [facility] PRN Reason: Protocol Levetiracetam (Keppra -) 1,000 mg PO TID [facility] Last Admin: 12/15/17 05:42 Dose: 1,000 mg Metoprolol Tartrate (Lopressor -) 25 mg PO BID [facility] Pantoprazole Sodium (Protonix -) 40 mg PO DAILY [facility] Tamsulosin HCl (Flomax -) 0.4 mg PO 1900 [facility] Valproic Acid (Depakene -) 1,000 mg PO TID [facility] Last Admin: 12/15/17 05:42 Dose: 1,000 mg - Objective Vital Signs: Vital Signs Temperature 98.8 F 12/15/17 05:44 Pulse Rate 59 L 12/15/17 05:44 Respiratory Rate 16 12/15/17 05:44 Blood Pressure 101/66 12/15/17 05:44 O2 Sat by Pulse Oximetry (%) 96 12/15/17 00:48 Constitutional: Yes: No Distress, Calm Eyes: Yes: Conjunctiva Clear Neck: Yes: Supple Cardiovascular: Yes: Regular Rate and Rhythm Respiratory: Yes: CTA Bilaterally Gastrointestinal: Yes: Soft Edema: No Neurological: Yes: Alert Labs: CBC, BMP 12/15/17 05:35 12/15/17 05:35 Problem List - Problems (1) UTI (urinary tract infection) Code(s): N39.0 - URINARY TRACT INFECTION, SITE NOT SPECIFIED (2) Post-ictal confusion Code(s): F05 - DELIRIUM DUE TO KNOWN PHYSIOLOGICAL CONDITION (3) Seizure Code(s): R56.9 - UNSPECIFIED CONVULSIONS Qualifiers: Convulsion type: unspecified Qualified Code(s): R56.9 - Unspecified convulsions (4) Seizure disorder Code(s): G40.909 - EPILEPSY, UNSP, NOT INTRACTABLE, WITHOUT STATUS EPILEPTICUS Assessment/Plan monitor closely continue present care seizure precautions neuro consult pending continue abx f/u cultures will follow continue mild hydration for now.
[2017-12-15] MEDS ORDERED: PT OWN MED DRAWER 7, Y5N ONE ×4 (09:20→22:19)
[2017-12-15] MEDS: METOPROLOL TARTRATE 25 MG TABLET (FP) PO SCH ×2 (10:17→22:20)
[2017-12-15] MEDS: HEPARIN NA (PORCINE) 5,000 UNITS/ML 1ML VIAL SQ SCH ×2 (10:17→22:20)
[2017-12-15] MEDS: PANTOPRAZOLE 40 MG TABLET (FP) PO SCH (10:17)
[2017-12-15] MEDS: ASPIRIN COATED 81 MG TABLET.EC PO SCH (10:17)
--- NOTE | 2017-12-15 10:17 | EKG ---
Test Reason : Blood Pressure : / mmHG Vent. Rate : 058 BPM Atrial Rate : 058 BPM P-R Int : 146 ms QRS Dur : 072 ms QT Int : 420 ms P-R-T Axes : 038 000 048 degrees QTc Int : 412 ms SINUS BRADYCARDIA OTHERWISE NORMAL ECG WHEN COMPARED WITH ECG OF 14-DEC-2017 15:13, NO SIGNIFICANT CHANGE WAS FOUND Confirmed by MD VERONA, SHAJI ([id number]) on 12/15/2017 10:16:31 AM Referred By: Confirmed By:SHAJI RHOADES MD
--- NOTE | 2017-12-15 10:20 | EKG ---
Test Reason : Blood Pressure : / mmHG Vent. Rate : 056 BPM Atrial Rate : 056 BPM P-R Int : 150 ms QRS Dur : 074 ms QT Int : 436 ms P-R-T Axes : 027 -21 037 degrees QTc Int : 420 ms SINUS BRADYCARDIA OTHERWISE NORMAL ECG WHEN COMPARED WITH ECG OF 01-SEP-2017 02:28, VENT. RATE HAS DECREASED BY 32 BPM NONSPECIFIC T WAVE ABNORMALITY NO LONGER EVIDENT IN LATERAL LEADS Confirmed by MD VERONA, SHAJI ([id number]) on 12/15/2017 10:20:17 AM Referred By: Confirmed By:SHAJI RHOADES MD
[2017-12-15] MEDS: SODIUM CHLORIDE 1,000 ML IV SCH ×2 (11:33→23:15)
[2017-12-15] MEDS: TAMSULOSIN HCL 0.4 MG CAP.ER.24H (FP) PO SCH (18:03)
--- NOTE | 2017-12-15 18:46 | CONSULT ---
Consult - text type - Consultation Consultation Note: NEUROLOGY CONSULTATION is greatly appreciated: This 52 yo man is well known to me for fragile seizures often induced by recurrent UTI's. S/P Multiple brain surgeries and shunts in childhood, presumably for hydrocephalus. Chronic static encephalopathy with aphasia, left hemiparesis. Now admitted after recurrent seizures. Found to have UTI (Urine WBC= 30). Now on ceftriaxone. CT of head (reviewed) shows a left frontal garett hole and right temporal craniectony with left subfrontal and tight frontotemporal encephalomalacia, enlarged ventricles and diffuse atrophy. No acute changes. Exam: Multiple frontal scars. Neck supple. No bruits. NEURO: awake, alert. Follows simple commands. Full hannah to threat. Mild left facial. Gag OK Brief partial seizures with obscuration of consciousness, left head and eye tdurning and lip smacking lasting < 1 min . Moves right >>left. Mild Left Hemiatrophy Withdraws all 4's to pinch. IMP: B/L cerebral dysfunction (R>L) with B/L encephalomalacia Seizure disorder. Toxic-metabolic encephalopathy (due to UTI). SUGGEST: Continue antibiotics and hydration. Continue Depakote 1000 mg q 8 hrs. Continue Keppra 1000 mg q 8 hrs. Mobilize with bedside PT. OOB to chair. Thank you very much, Sanya Villarreal MD
[2017-12-15] MEDS ORDERED: CHLORHEXIDINE GLUCONATE 4% CLEANSER FOR DECOLONIZATION TP SCH (22:00)
[2017-12-16] MEDS ORDERED: PT OWN MED DRAWER 7, Y5N ONE ×2 (05:17→21:58)
[2017-12-16] MEDS: levETIRAcetam 500 MG TABLET (FP) PO SCH ×3 (05:19→22:02)
[2017-12-16] MEDS: VALPROIC ACID 250 MG CAPSULE PO SCH ×3 (05:20→22:01)
[2017-12-16] MEDS ORDERED: DEXTROSE 5%-WATER - 50 ML IVPB ONE (09:45)
[2017-12-16] MEDS ORDERED: cefTRIAXone SODIUM 1 GM VIAL ONE (09:45)
[2017-12-16] MEDS: CEFTRIAXONE 1 GM in DEXTROSE 5%-WATER - 50 ML IVPB SCH (09:55)
[2017-12-16] MEDS: HEPARIN NA (PORCINE) 5,000 UNITS/ML 1ML VIAL SQ SCH (09:56)
[2017-12-16] MEDS: PANTOPRAZOLE 40 MG TABLET (FP) PO SCH (09:56)
[2017-12-16] MEDS: METOPROLOL TARTRATE 25 MG TABLET (FP) PO SCH ×2 (09:56→22:03)
[2017-12-16] MEDS: ASPIRIN COATED 81 MG TABLET.EC PO SCH (09:56)
--- NOTE | 2017-12-16 13:47 | PN ---
Progress Note, Physician Chief Complaint: events noted pt is better pt nurse awake and alert - Current Medication List Current Medications: Active Medications Aspirin (Ecotrin -) 81 mg PO DAILY [facility] Last Admin: 12/16/17 09:56 Dose: 81 mg Heparin Sodium (Porcine) (Heparin -) 5,000 unit SQ BID [facility] Last Admin: 12/16/17 09:56 Dose: 5,000 unit Sodium Chloride (Normal Saline -) 1,000 mls @ 83 mls/hr IV ASDIR [facility] Last Admin: 12/15/17 23:15 Dose: 83 mls/hr Ceftriaxone Sodium 1 gm/ (Dextrose) 50 mls @ 100 mls/hr IVPB DAILY [facility]1983 PRN Reason: Protocol Last Admin: 12/16/17 09:55 Dose: 100 mls/hr Levetiracetam (Keppra -) 1,000 mg PO TID [facility] Last Admin: 12/16/17 05:19 Dose: 1,000 mg Metoprolol Tartrate (Lopressor -) 25 mg PO BID [facility] Last Admin: 12/16/17 09:56 Dose: 25 mg Pantoprazole Sodium (Protonix -) 40 mg PO DAILY [facility] Last Admin: 12/16/17 09:56 Dose: 40 mg Tamsulosin HCl (Flomax -) 0.4 mg PO 1900 [facility] Last Admin: 12/15/17 18:03 Dose: 0.4 mg Valproic Acid (Depakene -) 1,000 mg PO TID [facility] Last Admin: 12/16/17 05:20 Dose: 1,000 mg - Objective Vital Signs: Vital Signs Temperature 98.6 F 12/16/17 10:00 Pulse Rate 68 12/16/17 10:00 Respiratory Rate 16 12/16/17 10:00 Blood Pressure 125/70 12/16/17 10:00 O2 Sat by Pulse Oximetry (%) 96 12/15/17 00:48 Constitutional: Yes: No Distress Cardiovascular: Yes: Regular Rate and Rhythm Respiratory: Yes: CTA Bilaterally Gastrointestinal: Yes: Normal Bowel Sounds, Soft, Abdomen, Obese. No: Tenderness Edema: No Labs: CBC, BMP 12/15/17 05:35 12/15/17 05:35 Problem List - Problems (1) Post-ictal confusion Code(s): F05 - DELIRIUM DUE TO KNOWN PHYSIOLOGICAL CONDITION (2) Seizure Code(s): R56.9 - UNSPECIFIED CONVULSIONS Qualifiers: Convulsion type: unspecified Qualified Code(s): R56.9 - Unspecified convulsions (3) Seizure disorder Code(s): G40.909 - EPILEPSY, UNSP, NOT INTRACTABLE, WITHOUT STATUS EPILEPTICUS (4) UTI (urinary tract infection) Code(s): N39.0 - URINARY TRACT INFECTION, SITE NOT SPECIFIED Assessment/Plan PLAN Continue with seizure meds on iv ceftriaxone Neurology eval appreciated fall precautions PT eval
[2017-12-16] MEDS: TAMSULOSIN HCL 0.4 MG CAP.ER.24H (FP) PO SCH (18:00)
[2017-12-17] MEDS ORDERED: PT OWN MED DRAWER 7, Y5N ONE (05:48)
[2017-12-17] MEDS: VALPROIC ACID 250 MG CAPSULE PO SCH ×2 (05:52→14:51)
[2017-12-17] MEDS: levETIRAcetam 500 MG TABLET (FP) PO SCH ×2 (05:52→14:50)
[2017-12-17 07:20] LABS: HEMATOCRIT 37.1 % (35.4-49); HEMOGLOBIN 12.6 GM/dL (11.7-16.9); MCH 30.6 pg (25.7-33.7); MCHC 34.1 g/dl (32.0-35.9); MEAN CELL VOLUME 89.7 fl (80-96); PLATELET COUNT 109 K/MM3 (134-434); RBC 4.13 M/mm3 (4.00-5.60); RDW 16.8 % (11.9-15.9); WHITE BLOOD COUNT 8.8 K/mm3 (4.0-10.0)
[2017-12-17 08:52] LABS: PLATELET ESTIMATE DECREASED
[2017-12-17] MEDS ORDERED: cefTRIAXone SODIUM 1 GM VIAL ONE (09:28)
[2017-12-17] MEDS ORDERED: DEXTROSE 5%-WATER - 50 ML IVPB ONE (09:28)
[2017-12-17] MEDS: ASPIRIN COATED 81 MG TABLET.EC PO SCH (09:31)
[2017-12-17] MEDS: CEFTRIAXONE 1 GM in DEXTROSE 5%-WATER - 50 ML IVPB SCH (09:31)
[2017-12-17] MEDS: METOPROLOL TARTRATE 25 MG TABLET (FP) PO SCH (09:31)
[2017-12-17] MEDS: PANTOPRAZOLE 40 MG TABLET (FP) PO SCH (09:31)
--- NOTE | 2017-12-17 13:40 | PN ---
Progress Note, Physician Chief Complaint: has unsteady gait awake and alert - Current Medication List Current Medications: Active Medications Aspirin (Ecotrin -) 81 mg PO DAILY [facility] Last Admin: 12/17/17 09:31 Dose: 81 mg Sodium Chloride (Normal Saline -) 1,000 mls @ 83 mls/hr IV ASDIR [facility] Last Admin: 12/15/17 23:15 Dose: 83 mls/hr Ceftriaxone Sodium 1 gm/ (Dextrose) 50 mls @ 100 mls/hr IVPB DAILY [facility] PRN Reason: Protocol Last Admin: 12/17/17 09:31 Dose: 100 mls/hr Levetiracetam (Keppra -) 1,000 mg PO TID [facility] Last Admin: 12/17/17 05:52 Dose: 1,000 mg Metoprolol Tartrate (Lopressor -) 25 mg PO BID [facility] Last Admin: 12/17/17 09:31 Dose: 25 mg Pantoprazole Sodium (Protonix -) 40 mg PO DAILY [facility] Last Admin: 12/17/17 09:31 Dose: 40 mg Tamsulosin HCl (Flomax -) 0.4 mg PO 1900 [facility] Last Admin: 12/16/17 18:00 Dose: 0.4 mg Valproic Acid (Depakene -) 1,000 mg PO TID [facility] Last Admin: 12/17/17 05:52 Dose: 1,000 mg - Objective Vital Signs: Vital Signs Temperature 98.4 F 12/17/17 08:59 Pulse Rate 65 12/17/17 08:59 Respiratory Rate 20 12/17/17 08:59 Blood Pressure 116/76 12/17/17 08:59 O2 Sat by Pulse Oximetry (%) 96 12/15/17 00:48 Constitutional: Yes: No Distress, Calm Cardiovascular: Yes: Regular Rate and Rhythm Respiratory: Yes: Diminished Gastrointestinal: Yes: Normal Bowel Sounds, Soft, Abdomen, Obese. No: Tenderness Edema: No Labs: CBC, BMP 12/17/17 05:35 12/15/17 05:35 Problem List - Problems (1) Post-ictal confusion Code(s): F05 - DELIRIUM DUE TO KNOWN PHYSIOLOGICAL CONDITION (2) Seizure Code(s): R56.9 - UNSPECIFIED CONVULSIONS Qualifiers: Convulsion type: unspecified Qualified Code(s): R56.9 - Unspecified convulsions (3) Seizure disorder Code(s): G40.909 - EPILEPSY, UNSP, NOT INTRACTABLE, WITHOUT STATUS EPILEPTICUS (4) UTI (urinary tract infection) Code(s): N39.0 - URINARY TRACT INFECTION, SITE NOT SPECIFIED Assessment/Plan PLAN Continue with seizure meds on iv ceftriaxone Neurology eval appreciated fall precautions PT eval will need SNF-- spoke with continuous pillowcase cutter
[2017-12-17] MEDS: SODIUM CHLORIDE 1,000 ML IV SCH (14:52)
[2017-12-17 19:20] VITALS: BP 141/76; PULSE 60; TEMP 98.8
== END 2017-12-17 18:37 ==
LOC: JER 13:47 → JERBED 21:14 → J4S 23:47
PROVIDERS: ADMIT Internal Medicine; ATTEND Internal Medicine
PROC: 3E03329 Introduction of Other Anti-infective into Peripheral Vein, Percutaneous Approach (ICD-10-PCS; principal; 2017-12-14)
PROC: 3E033GC Introduction of Other Therapeutic Substance into Peripheral Vein, Percutaneous Approach (ICD-10-PCS; 2017-12-14)
PROC: 3E0337Z Introduction of Electrolytic and Water Balance Substance into Peripheral Vein, Percutaneous Approach (ICD-10-PCS; 2017-12-14)
PROC: 3E013GC Introduction of Other Therapeutic Substance into Subcutaneous Tissue, Percutaneous Approach (ICD-10-PCS; 2017-12-14)
DX: G40.419 Other generalized epilepsy and epileptic syndromes, intractable, without status epilepticus (principal); F05 Delirium due to known physiological condition; N39.0 Urinary tract infection, site not specified; I10 Essential (primary) hypertension; E78.5 Hyperlipidemia, unspecified; Z79.82 Long term (current) use of aspirin; N17.9 Acute kidney failure, unspecified; G92 Toxic encephalopathy; G93.9 Disorder of brain, unspecified
CPT/HCPCS: 36415; 70450-TC; 71045-TC-FY; 80053; 80164; 81003; 81015; 83605; 83735; 84100; 85025; 85027; 86850; 86900; 86901; 87086; 93005; 93010; 96365; 96372; 96375; 97116-GP; 97161-GP; 99285-25; G0378; J1644; J7030

== ENCOUNTER 2018-04-16 19:35 | Observation (INO) | payer OTHER ==
[2018-04-16] MEDS ORDERED: diazePAM ACUDIAL 5-7.5-10 MG 1 EACH KIT PR ONE ×2 (19:41)
[2018-04-16] MEDS ORDERED: SODIUM CHLORIDE 0.9% 500 ML INFUS.BAG IV ONE (19:41)
[2018-04-16] MEDS ORDERED: LORazepam 2 MG/ML SDV VIAL ONE (19:46)
[2018-04-16 19:51] VITALS: BMI 27.4
--- NOTE | 2018-04-16 20:11 | PDOC ---
History of Present Illness - General Chief Complaint: Seizure Stated Complaint: SEIZURE Time Seen by Provider: 04/16/18 19:40 - History of Present Illness Initial Comments: 04/16/18 20:59 The patient is a 53 year old male with a history of HTN, HLD, Seizures who presents for evaluation of a witnessed seizure. Per the patient's family, the patient was at home watching TV when he began having facial twitching progressing to a full tonic clonic seizure typical of his normal seizures. The patient received 10 of im versed en rout to the ED without resolution of his seizure and presents with continued twitching movements. The patient's family notes that he tends to have breakthrough seizures when he has urinary tract infection. ROS is limited due to the patient's seizure. Past History - Past Medical History Allergies/Adverse Reactions: Allergies Allergy/AdvReac Type Severity Reaction Status Date / Time No Known Drug Allergies Allergy Verified 08/31/17 22:24 Home Medications: Ambulatory Orders Aspirin Coated [Ecotrin -] 81 mg PO DAILY #90 tab 12/16/16 Metoprolol Tartrate [Lopressor -] 25 mg PO BID #60 tablet 12/16/16 Pantoprazole Sodium [Protonix -] 40 mg PO DAILY tablet.ec 08/07/17 Tamsulosin HCl [Flomax -] 0.4 mg PO 1900 08/12/17 levETIRAcetam [Keppra -] 1,000 mg PO TID tablet 08/18/17 Nortriptyline HCl [Pamelor -] 10 mg PO DAILY 04/16/18 Simvastatin 20 mg PO DAILY 04/16/18 Valproic Acid [Depakene -] 1,000 mg PO Q8H 04/16/18 Anemia: No Asthma: No Cancer: No Cardiac Disorders: No CVA: No COPD: No CHF: No DVT: No Dementia: No Diabetes: No Dialysis: No GI Disorders: No Disorders: No HTN: Yes Hypercholesterolemia: Yes Kidney Stones: No Liver Disease: No Psychiatric Problems: Yes Seizures: Yes Thyroid Disease: No - Surgical History Abdominal Surgery: No Appendectomy: No Cardiac Surgery: No Cholecystectomy: No Lung Surgery: No Neurologic Surgery: Yes (s/p garett holes) Orthopedic Surgery: No - Immunization History Immunization Up to Date: Yes - Suicide/Smoking/Psychosocial Hx Smoking Status: No Smoking History: Unknown if ever smoked Have you smoked in the past 12 months: No Number of Cigarettes Smoked Daily: 0 Cigars Per Day: 0 Information on smoking cessation initiated: No Hx Alcohol Use: No Drug/Substance Use Hx: No Substance Use Type: None Hx Substance Use Treatment: No Review of Systems - Review of Systems Able to Perform ROS?: No (Seizure) *Physical Exam - Vital Signs Last Vital Signs Temp Pulse Resp BP Pulse Ox 100.2 F H 97 H 32 H 128/92 99 04/16/18 19:37 04/16/18 19:37 04/16/18 19:37 04/16/18 19:37 04/16/18 19:37 - Physical Exam Comments: 04/16/18 21:06 General Appearance: Nourished. In Apparent Distress HEENT: Pupils minimally reactive on exam. No Pharyngeal Erythema, Tonsillar Exudate, Tonsillar Erythema Neck: No Cervical Lymphadenopathy Respiratory/Chest: Lungs Clear, Normal Breath Sounds. Bibasilar rales noted on exam. No Rhonchi, Wheezing Cardiovascular: Regular Rhythm, Tachycardic Rate. No Murmur, Gallops, Rubs Gastrointestinal/Abdominal: Normal Bowel Sounds, Soft. No Guarding, Rebound, Tenderness Musculoskeletal: No CVA Tenderness Extremity: Normal Capillary Refill Integumentary: Normal Color, Dry, Warm Neurologic: Right eye deviation. Facial fasciculation and right sided fasciculation noted on exam. Non-responsive. Negative Babinski bilaterally. ED Treatment Course - LABORATORY CBC & Chemistry Diagram: 04/16/18 20:00 04/16/18 20:00 - RADIOLOGY Radiology Studies Ordered: Category Date Time Status CHEST X-RAY PORTABLE* [RAD] Stat Radiology 04/16/18 20:09 Ordered - Medications Given in the ED: ED Medications Discontinued Medications Generic Name Dose Route Start Last Admin Trade Name Freq PRN Reason Stop Dose Admin Diazepam 10 mg 04/16/18 19:41 04/16/18 19:52 Diastat Rectal Gel - PA 04/16/18 19:42 10 mg ONCE ONE Administration Medical Decision Making - Critical Care Time Total Critical Care Time (minutes): 60 Critical Care Statement: The care of this patient involved high complexity decision making to prevent further life threatening deterioration of the patient 's condition and/or to evaluate & treat vital organ system(s) failure or risk of failure. - Medical Decision Making 04/16/18 21:10 The patient is a 53 year old male with a history of HTN, HLD, Seizures who presents for evaluation of a witnessed seizure. The patient presented actively seizing. He received 5mg of diazepam PA and 4mg of Ativan IV with resolution of his seizure. Differential includes but is not limited to: Breakthrough seizure, Stroke, Infectious, Metabolic derangement. Given the patient's history and physical exam, we will obtain a cbc, cmp, vbg, lactate, blood cultures, ua, urine culture, head CT, ekg, Chest plain film to evaluate further. We will treat the patient with iv fluids and valproic acid. The patient will likely require admission for further monitoring and management. We will continue to monitor and reassess while here in the ED. 04/16/18 21:57 CBC demonstrates an wbc of 14. CMP is unremarkable. Lactate acid of 6. UA is unremarkable. Chest plain film is unremarkable. Given the patient's difficult to manage seizures, we believe the patient requires observation admission for further management. We discussed the case with the hospitalist team who accepted the patient for admission. *DC/Admit/Observation/Transfer Diagnosis at time of Disposition: Status epilepticus Seizure Qualifiers: Convulsion type: unspecified Qualified Code(s): R56.9 - Unspecified convulsions - Discharge Dispostion Condition at time of disposition: Stable Decision to Admit order: Yes - Referrals Referrals: Ailyn Meadows MD [Primary Care Provider] - - Patient Instructions - Post Discharge Activity
[2018-04-16] MEDS ORDERED: levETIRAcetam 500 MG/5 ML INJECTION VIAL IVPB ONE (20:16)
--- NOTE | 2018-04-16 20:16 | PDOC ---
Attending Attestation - HPI HPI: The patient is a 53 year old male, with a significant past medical history of seizures, hypertension, and hyperlipidemia, who presents to the emergency department with, seizure. As per EMS, he was in bed when he began to seize. EMS was was called and he began to [place] seize and was given 10mg of Versed. While in the ED, the patient was given 5mg of rectal Diazepam, glucose, and 4mg of Ativan. The patient was unresponsive and had a temperature of 100.2 Fahrenheit. The history is limited due to the patients clinical condition. Allergies: NKA Past surgical history: Neurologic surgery: [place] holes. Social History: Nonsmoker. Denies EtOH use and recreational drug use. Primary Care Physician: Dr. Edward Meadows Neurologist: Dr. Johnson - Physicial Exam PE: 04/16/18 20:49 GENERAL: Unresponsive. HEAD/FACE: Muscular fascicular deficits of the right side of the face. No signs of trauma EYES: Originally deviated to the right. No blinking reflexes. NECK: Normal ROM, supple, no lymphadenopathy, JVD, or masses LUNGS: Coarse breath sounds bilaterally. No wheezes, and no crackles HEART: Tachycardic. Regular rhythm, normal S1 and S2, no murmurs, rubs or gallops ABDOMEN: Soft, nontender, normoactive bowel sounds. No guarding, no rebound. No masses NEUROLOGICAL: Babinski going downward. Flaccid extremities. SKIN: Warm, Dry, normal turgor, no rashes or lesions noted. <Albertina Mahoney - Last Filed: 04/16/18 22:22> - Resident Resident Name: Madi Collazo - ED Attending Attestation I have performed the following: I have examined & evaluated the patient, The case was reviewed & discussed with the resident, I agree w/resident's findings & plan - HPI HPI: 04/16/18 20:19 Pt comes with status epilepticus seizures. He has a hx of seizures. 04/16/18 20:50 04/16/18 20:51 Nasal trumpet placed on arrival. Pt was maintaining O2sat 92%-98%. 04/16/18 21:01 Pt received 10mg ativan IM by EMS. IN the ER immidiate 5mg diastat was rectally administered. 5mg more was ordered from the pharmacy, as pt was still seizing. diastat took too long to arrive, so ativan 4mg IV given once we established an IV in the ER. - Critical Care Time Total Critical Care Time: 30 Critical Care Statement: The care of this patient involved high complexity decision making to prevent further life threatening deterioration of the patient 's condition and/or to evaluate & treat vital organ system(s) failure or risk of failure. - Medical Decision Making 04/16/18 20:52 Pt is now more awake. O2 sat is 100% with facemask. He is groaning and post- ictal. Moving extemities at this time, and withdrawing to pain of the ABG syringe in both arms. 04/16/18 20:54 CT scan shows chronic changes; no interval change. 04/16/18 20:58 Pt has bibasilar atelectasis; similar to last CXR 5 months ago. Better inhalatory effort this time. 04/16/18 21:00 We decided to load the patient with va;proate rather than keppra, as the last time pt had levels checked his valproate was low- low/normal and keppra level was elevated. 04/16/18 23:06 Lactic acid elevated; we will repeat the lactic acid in the ER. <Zulma Ortiz - Last Filed: 04/16/18 23:07> Heart Score/ECG Review #1 04/16/18 22:22 EKG performed at: 16 April 2018 at 22:10:58 Vent Rate 100 bpm KS interval 140 ms QRS duration 76 ms QT/QTc 342/441 ms P-R-T axes 45 4 49 <Albertina Mahoney - Last Filed: 04/16/18 22:22> Attestations - Attestations 04/16/18 20:48 Documentation prepared by Albertina Mahoney, acting as medical office worker for Zulma Ortiz MD. <Albertina Mahoney - Last Filed: 04/16/18 22:22>
[2018-04-16 20:24] LABS: BASO % 0.3 % (0-2.0); EOS % 0.3 % (0-4.5); HEMATOCRIT 44.3 % (35.4-49); HEMOGLOBIN 14.7 GM/dL (11.7-16.9); LYMPH % 61.9 % (8-40); MCH 31.1 pg (25.7-33.7); MCHC 33.3 g/dl (32.0-35.9); MEAN CELL VOLUME 93.3 fl (80-96); MONO % 7.7 % (3.8-10.2); NEUT % 29.8 % (42.8-82.8); PLATELET COUNT 193 K/MM3 (134-434); RBC 4.74 M/mm3 (4.00-5.60); RDW 14.9 % (11.9-15.9); WHITE BLOOD COUNT 14.3 K/mm3 (4.0-10.0)
[2018-04-16] MEDS ORDERED: VALPROATE SODIUM 500 MG/5 ML VIAL IVPB ONE (20:25)
[2018-04-16 20:27] LABS: VENOUS PO2 93.1 mmHg (28-48)
[2018-04-16 20:29] LABS: VENOUS PC02 77.9 mmHg (38-52); VENOUS PH 7.11 (7.32-7.42)
[2018-04-16] MEDS ORDERED: VALPROATE SODIUM 500 MG/5 ML VIAL ONE (20:40)
[2018-04-16 20:44] LABS: INR 1.15 (0.83-1.09)
[2018-04-16 20:59] LABS: ARTERIAL BLD GAS O2 SATURATION 99.5 % (90-98.9); ARTERIAL BLOOD GAS BASE EXCESS -2.7 meq/l (-2-2); ARTERIAL BLOOD GAS PCO2 24.9 mmHg (35-45); ARTERIAL BLOOD GAS pH 7.49 (7.35-7.45)
[2018-04-16 21:04] LABS: ALBUMIN 3.5 g/dl (3.4-5.0); ALK PHOS 139 U/L (45-117); ANION GAP 9 MMOL/L (8-16); BILIRUBIN,TOTAL 0.5 mg/dL (0.2-1.0); BLOOD UREA NITROGEN 26 mg/dL (7-18); CALCIUM 8.6 mg/dL (8.5-10.1); CHLORIDE 106 mmol/L (98-107); CO2 25 mmol/L (21-32); CREATININE 1.3 mg/dL (0.7-1.3); GLUCOSE,RANDOM 94 mg/dL (74-106); SGOT/AST 19 U/L (15-37); SGPT/ALT 17 U/L (12-78); SODIUM 140 mmol/L (136-145); TOT PROT 8.4 g/dl (6.4-8.2)
[2018-04-16 21:37] LABS: URINE APPEARANCE SLCLOUDY; URINE BILIRUBIN NEGATIVE (<2.0 mg/dL); URINE COLOR AMBER; URINE GLUCOSE (UA) 3+ (NEGATIVE); URINE KETONE TRACE (NEGATIVE); URINE LEUK ESTERASE NEGATIVE (NEGATIVE); URINE NITRITE NEGATIVE (NEGATIVE); URINE PROTEIN 1+ (NEGATIVE); URINE UROBILINOGEN 4.0 E.U/dl mg/dL (0.2-1.0)
[2018-04-16 21:39] LABS: GRANULAR CASTS 2 /lpf; URINE HYALINE CAST 1 /lpf; URINE MUCUS RARE
[2018-04-16] MEDS ORDERED: SODIUM CHLORIDE 1,000 ML IV STA (22:01)
[2018-04-16] MEDS ORDERED: ONDANSETRON 4 MG/2 ML VIAL IVPUSH ONE (22:02)
--- NOTE | 2018-04-16 22:31 | HP ---
CHIEF COMPLAINT: seizure PCP: Abdiel HISTORY OF PRESENT ILLNESS: This is a 53 year old male with known seizure disorder who presented to the ED via EMS with seizure activity. He was given versed IM in EMS without resolution of symptoms. Upon arrival to the ED he was given valium 5mg NE and then lorazepam 4mg IV once access established. His seizure activity ceased after receipt of ativan IV as per ED. Pt is currently sedated and unable to answer questions. Family not present but reported h/o breakthrough seizures during UTI or infectious episodes to the ED staff. ER course was notable for: (1) seizure activity, given valium NE and ativan IV, valproic acid 1000mg IV, keppra 1000mg IV (2) CT head with no acute changes (3) WBC 14.3 (4) lactic acid 6.6 Recent Travel: unknown PAST MEDICAL HISTORY: HTN, HLD, Seizure d/o, hydrocephalus as a child, pneumonia, C diff with GI bleed PAST SURGICAL HISTORY: bilateral small frontal craniectomies and parietal garett holes Social History: Smoking: unk Alcohol: unk Drugs: unk Family History: unk Allergies No Known Drug Allergies Allergy (Verified 08/31/17 22:24) HOME MEDICATIONS: 3 Medication Instructions Recorded Aspirin Coated [Ecotrin -] 81 mg PO DAILY #90 tab 12/16/16 Metoprolol Tartrate [Lopressor -] 25 mg PO BID #60 tablet 12/16/16 Pantoprazole Sodium [Protonix -] 40 mg PO DAILY tablet.ec 08/07/17 Tamsulosin HCl [Flomax -] 0.4 mg PO 1900 08/12/17 levETIRAcetam [Keppra -] 1,000 mg PO TID tablet 08/18/17 Nortriptyline HCl [Pamelor -] 10 mg PO DAILY 04/16/18 Simvastatin 20 mg PO DAILY 04/16/18 Valproic Acid [Depakene -] 1,000 mg PO Q8H 04/16/18 REVIEW OF SYSTEMS unable to obtain PHYSICAL EXAMINATION Vital Signs - 24 hr 3 04/16/18 19:37 Temperature 100.2 F H Pulse Rate 97 H Respiratory 32 H Rate Blood Pressure 128/92 O2 Sat by Pulse 99 Oximetry (%) GENERAL: arousable, opens eyes to command once aroused, moaning noted once aroused HEAD: bilat frontal craniectomies noted with pulsatile soft spots, multiple surgical scars bilat frontal and temporal regions EYES: Pupils equal, round and reactive to light, extraocular movements intact, sclera anicteric, conjunctiva clear. No lid lag. EARS, NOSE, THROAT: Ears normal, nares patent, oropharynx clear without exudates. Moist mucous membranes. drooling noted NECK: Normal range of motion, supple without lymphadenopathy, JVD, or masses. LUNGS: Breath sounds equal, clear to auscultation bilaterally. No wheezes, and no crackles. No accessory muscle use. HEART: Regular rate and rhythm, normal S1 and S2 without murmur, rub or gallop. ABDOMEN: Soft, nontender, not distended, normoactive bowel sounds, no guarding, no rebound, no masses. No hepatomegaly or splenomegaly. MUSCULOSKELETAL: spontaneously moving all extremities. UPPER EXTREMITIES: 2+ pulses, warm, well-perfused. No cyanosis. No clubbing. No peripheral edema. LOWER EXTREMITIES: 2+ pulses, warm, well-perfused. No calf tenderness. No peripheral edema. NEUROLOGICAL: unable to assess fully, pt sedated, ? right facial droop PSYCHIATRIC: sedated SKIN: Warm, dry, normal turgor, no rashes or lesions noted, normal capillary refill. Laboratory Results - last 24 hr 3 04/16/18 04/16/18 04/16/18 20:00 20:00 20:00 WBC 14.3 H RBC 4.74 Hgb 14.7 Hct 44.3 D MCV 93.3 MCH 31.1 MCHC 33.3 RDW 14.9 D Plt Count 193 D MPV 8.0 D Absolute Neuts (auto) 4.3 Total Counted 100 Neutrophils % 29.8 L D Neutrophils % (Manual) 23.0 L D Lymphocytes % 61.9 H D Lymphocytes % (Manual) 64.0 H Monocytes % 7.7 Monocytes % (Manual) 5 Eosinophils % 0.3 D Eosinophils % (Manual) 1.0 Basophils % 0.3 Nucleated RBC % 0 PT with INR 13.00 INR 1.15 H PTT (Actin FS) 31.1 Anticoagulation Therapy Puncture Site ABG pH ABG pCO2 at Pt Temp ABG pO2 at Pt Temp ABG HCO3 ABG O2 Sat (Measured) ABG O2 Content ABG Base Excess Keegan Test VBG pH POC VBG pCO2 POC VBG pO2 Mixed VBG HCO3 O2 Delivery Device Oxygen Flow Rate Vent Mode Vent Rate Mechanical Rate Pressure Support Vent Sodium 140 Potassium 4.0 Chloride 106 Carbon Dioxide 25 Anion Gap 9 BUN 26 H Creatinine 1.3 Creat Clearance w eGFR 57.53 Random Glucose 94 Lactic Acid Calcium 8.6 Total Bilirubin 0.5 AST 19 ALT 17 D Alkaline Phosphatase 139 H Total Protein 8.4 H Albumin 3.5 Urine Color Urine Appearance Urine pH Ur Specific [place] Urine Protein Urine Glucose (UA) Urine Ketones Urine Blood Urine Nitrite Urine Bilirubin Urine Urobilinogen Ur Leukocyte Esterase Urine WBC (Auto) Urine RBC (Auto) Hyaline Casts Granular Casts Urine Mucus Valproic Acid 90.8 Blood Type O POSITIVE Antibody Screen Negative 3 04/16/18 04/16/18 04/16/18 20:00 20:20 20:54 WBC RBC Hgb Hct MCV MCH MCHC RDW Plt Count MPV Absolute Neuts (auto) Total Counted Neutrophils % Neutrophils % (Manual) Lymphocytes % Lymphocytes % (Manual) Monocytes % Monocytes % (Manual) Eosinophils % Eosinophils % (Manual) Basophils % Nucleated RBC % PT with INR INR PTT (Actin FS) Anticoagulation Therapy No Result Required. Puncture Site No Result Required. ABG pH 7.49 H ABG pCO2 at Pt Temp 24.9 L D ABG pO2 at Pt Temp 187.0 H* ABG HCO3 18.9 L ABG O2 Sat (Measured) 99.5 H ABG O2 Content 17.2 ABG Base Excess -2.7 L Keegan Test No Result Required. VBG pH 7.11 L* POC VBG pCO2 77.9 H* POC VBG pO2 93.1 H Mixed VBG HCO3 23.7 O2 Delivery Device No Result Required. Oxygen Flow Rate No Result Required. Vent Mode No Result Required. Vent Rate No Result Required. Mechanical Rate No Result Required. Pressure Support Vent No Result Required. Sodium Potassium Chloride Carbon Dioxide Anion Gap BUN Creatinine Creat Clearance w eGFR Random Glucose Lactic Acid 6.6 H* Calcium Total Bilirubin AST ALT Alkaline Phosphatase Total Protein Albumin Urine Color Urine Appearance Urine pH Ur Specific [place] Urine Protein Urine Glucose (UA) Urine Ketones Urine Blood Urine Nitrite Urine Bilirubin Urine Urobilinogen Ur Leukocyte Esterase Urine WBC (Auto) Urine RBC (Auto) Hyaline Casts Granular Casts Urine Mucus Valproic Acid Blood Type Antibody Screen 3 Urine Color Lida 04/16/18 21:00 Urine Appearance Slcloudy 04/16/18 21:00 Urine pH 5.0 (5.0-8.0) 04/16/18 21:00 Ur Specific [place] 1.027 (1.001-1.035) 04/16/18 21:00 Urine Protein 1+ (NEGATIVE) H 04/16/18 21:00 Urine Glucose (UA) 3+ (NEGATIVE) H 04/16/18 21:00 Urine Ketones Trace (NEGATIVE) H 04/16/18 21:00 Urine Blood Negative (NEGATIVE) 04/16/18 21:00 Urine Nitrite Negative (NEGATIVE) 04/16/18 21:00 Urine Bilirubin Negative (<2.0 mg/dL) 04/16/18 21:00 Urine Urobilinogen 4.0 e.u/dl 04/16/18 21:00 Ur Leukocyte Esterase Negative (NEGATIVE) 04/16/18 21:00 Urine WBC (Auto) 6 04/16/18 21:00 Urine RBC (Auto) 2 04/16/18 21:00 Hyaline Casts 1 04/16/18 21:00 Granular Casts 2 04/16/18 21:00 Urine Mucus Rare 04/16/18 21:00 Radiology Reports Chest, portable final read pending no obvious infiltrates or effusions Head CT, non contrast No intracranial hemorrhage is seen. There has been no definite interval change in comparison to a previous CT exam of 12/14/2017. No acute infarct is identified within the limitations of CT. Bilateral frontal and temporal encephalomalacia is seen. Small bilateral frontal craniectomies. Right parietal garett hole. There is no extra-axial fluid collection. No obstructive hydrocephalus is noted. There is no gross mass lesion noncontrast imaging. Impression: No definite interval change is seen. Multifocal chronic findings as discussed above. Reported By: Endy Mason MD 04/16/182007 ASSESSMENT/PLAN: 53yM with PMH HTN, HLD, Seizure d/o, hydrocephalus as a child, pneumonia, C diff with GI bleed presented to the ED with seizure activity. Seizure disorder - admit to tele for observation - cont home seizure meds in AM po if alert, will change to IV if not - neuro consult AMAN - Cr 1.3, was 0.8 in November upon DC - received 1L NS in ED - cont at 75cc/hr - repeat BMP in am Leukocytosis with elevated lactic acid - no clear source, CXR unimpressive and U/A with only 6 WBC, no leuk esterase and no nitrites - will defer antibiotics for now - repeat lactic acid now - repeat CBC in am - follow official CXR report HTN/HLD - cont home meds po in am if alert DVT PPX - hold heparin PPX for now, anticipated LOS <48h, reassess if stay exceeds FEN - NS @ 75 cc/hr - BMP in AM - Low sodium diet in am if alert Dispo: pt currently requires further observation. Visit type - Emergency Visit Emergency Visit: Yes ED Registration Date: 04/16/18 Care time: The patient presented to the Emergency Department on the above date and was hospitalized for further evaluation of their emergent condition. - New Patient This patient is new to me today: Yes Date on this admission: 04/16/18 - Critical Care Critical Care patient: No Hospitalist Screening - Colonoscopy Questionnaire Colonoscopy Questionnaire: Colonoscopy Questionnaire - Patient: 50 - 75 years old and never had a screening colonoscopy: Unknown History of colon or rectal polyps, or CA: Unknown History of IBD, Crohn's disease or UC: Unknown History of abdominal radiation therapy as a child: Unknown - Relative: 1 with colon or rectal CA, or polyps at age 60 or younger: Unknown Colon or rectal CA diagnosed at age 45 or younger: Unknown Multiple relatives with colon or rectal CA: Unknown - Outcome: Screening Result: Negative Screen
[2018-04-16] MEDS: VALPROIC ACID 250 MG CAPSULE PO SCH (23:00)
[2018-04-16] MEDS ORDERED: ONDANSETRON 4 MG/2 ML VIAL ONE (23:25)
[2018-04-16] MEDS: SODIUM CHLORIDE 1,000 ML IV SCH (23:53)
[2018-04-17 06:52] LABS: BASO % 0.4 % (0-2.0); EOS % 0.1 % (0-4.5); HEMATOCRIT 36.4 % (35.4-49); HEMOGLOBIN 12.1 GM/dL (11.7-16.9); MCH 30.8 pg (25.7-33.7); MCHC 33.3 g/dl (32.0-35.9); MEAN CELL VOLUME 92.4 fl (80-96); MEAN PLT VOLUME 8.2 fl (7.5-11.1); MONO % 11.1 % (3.8-10.2); NEUT % 58.4 % (42.8-82.8); PLATELET COUNT 125 K/MM3 (134-434); RBC 3.94 M/mm3 (4.00-5.60); RDW 14.9 % (11.9-15.9); WHITE BLOOD COUNT 9.3 K/mm3 (4.0-10.0)
[2018-04-17] MEDS: VALPROIC ACID 250 MG CAPSULE PO SCH ×3 (06:56→23:19)
[2018-04-17] MEDS: levETIRAcetam 500 MG TABLET (FP) PO SCH ×3 (06:56→21:55)
[2018-04-17 07:20] LABS: ANION GAP 9 MMOL/L (8-16); BLOOD UREA NITROGEN 15 mg/dL (7-18); CHLORIDE 109 mmol/L (98-107); CO2 26 mmol/L (21-32); CREATININE 0.7 mg/dL (0.7-1.3); GLUCOSE,RANDOM 74 mg/dL (74-106); PHOSPHOROUS 2.9 mg/dL (2.5-4.9); POTASSIUM 4.1 mmol/L (3.5-5.1); SODIUM 144 mmol/L (136-145)
[2018-04-17] MEDS: ASPIRIN COATED 81 MG TABLET.EC PO SCH (09:59)
[2018-04-17] MEDS: METOPROLOL TARTRATE 25 MG TABLET (FP) PO SCH ×2 (09:59→21:56)
[2018-04-17] MEDS: PANTOPRAZOLE 40 MG TABLET (FP) PO SCH (09:59)
[2018-04-17] MEDS ORDERED: NORTRIPTYLINE HCL 10 MG CAPSULE PO SCH (10:00)
[2018-04-17] MEDS ORDERED: PT OWN MED DRAWER 7, Y5N ONE ×2 (10:02→21:29)
--- NOTE | 2018-04-17 14:08 | PN ---
Progress Note, Physician History of Present Illness: pt seen/ examined events noted well known to me pt continue to have seizures awake/ comfortable. chronic ill appearance afebrile denies cough. - Current Medication List Current Medications: Active Medications Aspirin (Ecotrin -) 81 mg PO DAILY [facility] Last Admin: 04/17/18 09:59 Dose: 81 mg Atorvastatin Calcium (Lipitor -) 10 mg PO HS [facility] Sodium Chloride (Normal Saline -) 1,000 mls @ 75 mls/hr IV ASDIR [facility] Last Admin: 04/16/18 23:53 Dose: 75 mls/hr Levetiracetam (Keppra -) 1,000 mg PO TID [facility] Last Admin: 04/17/18 13:40 Dose: 1,000 mg Metoprolol Tartrate (Lopressor -) 25 mg PO BID [facility] Last Admin: 04/17/18 09:59 Dose: 25 mg Nortriptyline HCl (Pamelor -) 10 mg PO DAILY [facility] Last Admin: 04/17/18 13:40 Dose: 10 mg Pantoprazole Sodium (Protonix -) 40 mg PO DAILY [facility] Last Admin: 04/17/18 09:59 Dose: 40 mg Tamsulosin HCl (Flomax -) 0.4 mg PO DAILY@1900 [facility] Valproic Acid (Depakene -) 1,000 mg PO TID [facility] Last Admin: 04/17/18 13:39 Dose: 1,000 mg - Objective Vital Signs: Vital Signs Temperature 98.2 F 04/17/18 08:00 Pulse Rate 89 04/17/18 08:00 Respiratory Rate 20 04/17/18 09:00 Blood Pressure 120/82 04/17/18 08:00 O2 Sat by Pulse Oximetry (%) 98 04/17/18 09:00 Constitutional: Yes: No Distress, Calm, Other (chronic ill appearance) Eyes: Yes: Conjunctiva Clear, PERRL HENT: Yes: Other (clear) Neck: Yes: Supple Cardiovascular: Yes: Regular Rate and Rhythm Respiratory: Yes: CTA Bilaterally Gastrointestinal: Yes: Soft Edema: No Neurological: Yes: Alert Labs: CBC, BMP 04/17/18 05:30 04/17/18 05:30 INR, PTT INR 1.15 (0.83-1.09) H 04/16/18 20:00 - ....Imaging Chest X-ray: Report Reviewed Cat Scan: Report Reviewed EKG: Pending, Other Problem List - Problems (1) Seizure Code(s): R56.9 - UNSPECIFIED CONVULSIONS Qualifiers: Convulsion type: unspecified Qualified Code(s): R56.9 - Unspecified convulsions (2) Post-ictal confusion Code(s): F05 - DELIRIUM DUE TO KNOWN PHYSIOLOGICAL CONDITION Assessment/Plan monitor continue present care observe off abx f/u cxr dvt prophylaxis neuro to follow will follow discussed with nursing staff
--- NOTE | 2018-04-17 17:58 | CON.NEURO ---
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 Cardio/Vascular: Yes: HTN, Hyperlipdemia Pulmonary: Yes: Pneumonia Psych: Yes: Depression - Alcohol/Substance Use Hx Alcohol Use: No - Smoking History Smoking history: Unknown if ever smoked Have you smoked in the past 12 months: No Aproximately how many cigarettes per day: 0 - Social History ADL: Family Assistance History of Recent Travel: No Home Medications - Allergies Allergies/Adverse Reactions: Allergies Allergy/AdvReac Type Severity Reaction Status Date / Time No Known Drug Allergies Allergy Verified 08/31/17 22:24 - Home Medications Home Medications: Ambulatory Orders Aspirin Coated [Ecotrin -] 81 mg PO DAILY #90 tab 12/16/16 Metoprolol Tartrate [Lopressor -] 25 mg PO BID #60 tablet 12/16/16 Pantoprazole Sodium [Protonix -] 40 mg PO DAILY tablet.ec 08/07/17 Tamsulosin HCl [Flomax -] 0.4 mg PO 1900 08/12/17 levETIRAcetam [Keppra -] 1,000 mg PO TID tablet 08/18/17 Nortriptyline HCl [Pamelor -] 10 mg PO DAILY 04/16/18 Simvastatin 20 mg PO DAILY 04/16/18 Valproic Acid [Depakene -] 1,000 mg PO Q8H 04/16/18 Physical Exam-Neuro Vital Signs: Vital Signs Temperature 98.8 F 04/17/18 14:53 Pulse Rate 74 04/17/18 14:53 Respiratory Rate 20 04/17/18 09:00 Blood Pressure 117/71 04/17/18 14:53 O2 Sat by Pulse Oximetry (%) 98 04/17/18 09:00 Labs: CBC, BMP 04/17/18 05:30 04/17/18 05:30 INR, PTT INR 1.15 (0.83-1.09) H 04/16/18 20:00 Assessment/Plan cc breakthrough seizure HPI 53 year old male history of intractable epilepsy. He has three admission at [facility] since August. Patient has been given Rectal valium, IM versed and Lorazepam at hospital. Patient was post ictal and today morning , he seems to be goign back to normal. On previous occasions his medication was not changed. PAST MEDICAL HISTORY: HTN, HLD, Seizure d/o, hydrocephalus as a child, pneumonia, C diff with GI bleed PAST SURGICAL HISTORY: bilateral small frontal craniectomies and parietal garett holes SH,FH,ROS reviewed in chart NKDA HOME MEDICATIONS: 3 Medication Instructions Recorded Aspirin Coated [Ecotrin -] 81 mg PO DAILY #90 tab 12/16/16 Metoprolol Tartrate [Lopressor -] 25 mg PO BID #60 tablet 12/16/16 Pantoprazole Sodium [Protonix -] 40 mg PO DAILY tablet.ec 08/07/17 Tamsulosin HCl [Flomax -] 0.4 mg PO 1900 08/12/17 levETIRAcetam [Keppra -] 1,000 mg PO TID tablet 08/18/17 Nortriptyline HCl [Pamelor -] 10 mg PO DAILY 04/16/18 Simvastatin 20 mg PO DAILY 04/16/18 Valproic Acid [Depakene -] 1,000 mg PO Q8H 04/16/18 REVIEW OF SYSTEMS unable to obtain Neurological Examination Alert follow command, eating his lunch His speech is dysarthric and able to tell he is at [facility] and could not tell what date i stoday Right sided facial palsy and eomi, pupils is reactive Right sided hemiparesis sensation is noraml reflex is bilateral symmetrical CT head showed there is bilateral frontal temporal encephalomalacia, garett hole bilateral frontal lobe Assessment- Breakthrough seizure, History of Congenital hydrocephalus and s/p bilateral frontal garett hole surgery in childhood . Now he has intractable seizure. This is his third seizure, ? induced by UTI vs Nortriptyline can lower seizure threshold Plan- Treat any intercurrent illness - stop nortripytline - keppra can be increased to 2000 mg po bid , as this is this third seizure eeg , on thursday - eeg can be done outpatient, do not need to keep him in hospital for EEG -Seizure Precautions Thanking you so much Carroll Mckeon MD
[2018-04-17] MEDS: TAMSULOSIN HCL 0.4 MG CAP.ER.24H (FP) PO SCH (18:02)
--- NOTE | 2018-04-17 19:06 | EKG ---
Test Reason : Blood Pressure : / mmHG Vent. Rate : 100 BPM Atrial Rate : 100 BPM P-R Int : 140 ms QRS Dur : 076 ms QT Int : 342 ms P-R-T Axes : 045 004 049 degrees QTc Int : 441 ms POOR DATA QUALITY, INTERPRETATION MAY BE ADVERSELY AFFECTED NORMAL SINUS RHYTHM CANNOT RULE OUT INFERIOR INFARCT , AGE UNDETERMINED ABNORMAL ECG WHEN COMPARED WITH ECG OF 14-DEC-2017 21:36, VENT. RATE HAS INCREASED BY 42 BPM MINIMAL CRITERIA FOR INFERIOR INFARCT ARE NOW PRESENT Confirmed by BECKIE RODRIGUEZ MD ([id number]) on 04/17/2018 7:05:42 PM Referred By: Confirmed By:BECKIE RODRIGUEZ MD
[2018-04-17] MEDS: ATORVASTATIN CA 10 MG TABLET (FP) PO SCH (21:55)
[2018-04-17] MEDS: SODIUM CHLORIDE 1,000 ML IV SCH (23:21)
[2018-04-18] MEDS: VALPROIC ACID 250 MG CAPSULE PO SCH ×3 (05:39→21:10)
--- NOTE | 2018-04-18 07:44 | PN ---
Progress Note (short form) - Note Progress Note: 53 year old male history of intractable epilepsy. He has three admission at [facility] since August. Patient has been given Rectal valium, IM versed and Lorazepam at hospital. He has history of congenital hydrocephalus and had two garett hole surgery as a child and has cognitive difficulty as baseline. He is being treated for epilepsy with two AED as outpatient nad came to hospital for breakthrough seizure SUBJECTIVE: No seizure since admission. NEUROLOGICAL EXAMINATION: Alert follow command, able to tell me this is march and this is [facility] His speech is dysarthric a Right sided facial palsy and eomi, pupils is reactive Right sided hemiparesis sensation is noraml reflex is bilateral symmetrical LAB AND DATA: CT head showed there is bilateral frontal temporal encephalomalacia, garett hole bilateral frontal lobe ASSESSMENT: Breakthrough seizure, History of Congenital hydrocephalus and s/p bilateral frontal garett hole surgery in childhood . . This is his third seizure admission at [facility] ? induced by UTI vs Nortriptyline can lower seizure threshold Plan- Treat any intercurrent illness - Hold nortriptyline as it can lower seizure threshold - increse keppra to 2 gm po bid -EEG on Thursday, - He can be is discharged from neuro point of view, and follow up with Neurologist as outpatient Thanking you so much Carroll Mckeon MD
[2018-04-18] MEDS: ASPIRIN COATED 81 MG TABLET.EC PO SCH (09:42)
[2018-04-18] MEDS: PANTOPRAZOLE 40 MG TABLET (FP) PO SCH (09:45)
[2018-04-18] MEDS: METOPROLOL TARTRATE 25 MG TABLET (FP) PO SCH ×2 (09:45→21:15)
[2018-04-18] MEDS ORDERED: PT OWN MED DRAWER 7, Y5N ONE ×2 (09:48→20:29)
[2018-04-18] MEDS: levETIRAcetam 500 MG TABLET (FP) PO SCH ×2 (12:56→21:12)
--- NOTE | 2018-04-18 14:18 | PN ---
Progress Note (short form) - Note Progress Note: Comfortable Neurology follow up noted/ appreciated No further seizure activity Vital Signs Temp 98.8 F 04/18/18 13:54 Pulse 70 04/18/18 13:54 Resp 18 04/18/18 13:54 BP 128/86 04/18/18 13:54 Pulse Ox 100 04/17/18 22:00 Intake & Output 04/17/18 04/18/18 04/18/18 23:59 11:59 23:59 Intake Total 800 1050 Output Total 2 Balance 798 1050 Intake: IV 800 950 Normal Saline - 1,000 ml 800 950 @ 75 mls/hr IV ASDIR [facility] Rx#:[id number] Oral 100 Output: Urine 2 Void 2 Other: Voiding Method Diaper Incontinent # Unmeasured Voids Void 4 3 Bowel Movement No Active Medications Aspirin (Ecotrin -) 81 mg PO DAILY [facility] Last Admin: 04/18/18 09:42 Dose: 81 mg Atorvastatin Calcium (Lipitor -) 10 mg PO HS [facility] Last Admin: 04/17/18 21:55 Dose: 10 mg Sodium Chloride (Normal Saline -) 1,000 mls @ 75 mls/hr IV ASDIR [facility] Last Admin: 04/17/18 23:21 Dose: 75 mls/hr Levetiracetam (Keppra -) 2,000 mg PO BID [facility] Last Admin: 04/18/18 12:56 Dose: 2,000 mg Metoprolol Tartrate (Lopressor -) 25 mg PO BID [facility] Last Admin: 04/18/18 09:45 Dose: 25 mg Pantoprazole Sodium (Protonix -) 40 mg PO DAILY [facility] Last Admin: 04/18/18 09:45 Dose: 40 mg Tamsulosin HCl (Flomax -) 0.4 mg PO DAILY@1900 [facility] Last Admin: 04/17/18 18:02 Dose: 0.4 mg Valproic Acid (Depakene -) 1,000 mg PO TID [facility] Last Admin: 04/18/18 13:53 Dose: 1,000 mg CBC, BMP 04/17/18 05:30 04/17/18 05:30 Microbiology 04/16/18 21:00 Urine Culture - Final Urine - Urine - Catheterized NO GROWTH OBTAINED 04/16/18 20:15 Blood Culture - Preliminary Blood - Peripheral Venous NO GROWTH OBTAINED AFTER 24 HOURS, INCUBATION TO CONTINUE FOR 4 DAYS. 04/16/18 20:18 Blood Culture - Preliminary Blood - Peripheral Venous NO GROWTH OBTAINED AFTER 24 HOURS, INCUBATION TO CONTINUE FOR 4 DAYS. Physical Constitutional: Yes: No Distress, Calm, Other (chronic ill appearance) Eyes: Yes: Conjunctiva Clear, PERRLA HENT: Yes: Other (clear) Neck: Yes: Supple/no jvd Cardiovascular: Yes: Regular Rate and Rhythm Respiratory: Yes: CTA Bilaterally Gastrointestinal: Yes: Soft Edema: No Neurological: Yes: Alert Labs: CBC, BMP 04/17/18 05:30 04/17/18 05:30 INR, PTT INR 1.15 (0.83-1.09) H 04/16/18 20:00 - ....Imaging Chest X-ray: Report Reviewed Cat Scan: Report Reviewed EKG: Pending, Other Problem List - Problems (1) Seizure Code(s): R56.9 - UNSPECIFIED CONVULSIONS Qualifiers: Convulsion type: unspecified Qualified Code(s): R56.9 - Unspecified convulsions (2) Post-ictal confusion Code(s): F05 - DELIRIUM DUE TO KNOWN PHYSIOLOGICAL CONDITION Assessment/Plan Stable monitor continue present care observe off abx f/u cxr -- noted -- no infiltrate dvt prophylaxis Keppra increased will follow Problem List - Problems (1) Seizure Code(s): R56.9 - UNSPECIFIED CONVULSIONS Qualifiers: Convulsion type: unspecified Qualified Code(s): R56.9 - Unspecified convulsions (2) Post-ictal confusion Code(s): F05 - DELIRIUM DUE TO KNOWN PHYSIOLOGICAL CONDITION
[2018-04-18] MEDS: TAMSULOSIN HCL 0.4 MG CAP.ER.24H (FP) PO SCH ×2 (17:43→19:14)
[2018-04-18] MEDS: ATORVASTATIN CA 10 MG TABLET (FP) PO SCH (21:15)
[2018-04-18] MEDS: SODIUM CHLORIDE 1,000 ML IV SCH (21:16)
[2018-04-19] MEDS ORDERED: PT OWN MED DRAWER 7, Y5N ONE ×2 (05:41→15:25)
[2018-04-19] MEDS: VALPROIC ACID 250 MG CAPSULE PO SCH ×2 (05:42→15:28)
[2018-04-19 09:02] VITALS: PULSE 68; TEMP 97.8
--- NOTE | 2018-04-19 09:56 | PN ---
Progress Note (short form) - Note Progress Note: 53 year old male history of intractable epilepsy. He has three admission at [facility] since August. Patient has been given Rectal valium, IM versed and Lorazepam at hospital. He has history of congenital hydrocephalus and had two garett hole surgery as a child and has cognitive difficulty as baseline. He is being treated for epilepsy with two AED as outpatient nad came to hospital for breakthrough seizure SUBJECTIVE: No seizure since admission. He is eating and denies any new focal neuro symptoms NEUROLOGICAL EXAMINATION: Alert follow command, able to tell me this is march and this is [facility] His speech is dysarthric a Right sided facial palsy and eomi, pupils is reactive Right sided hemiparesis sensation is noraml reflex is bilateral symmetrical LAB AND DATA: CT head showed there is bilateral frontal temporal encephalomalacia, garett hole bilateral frontal lobe ASSESSMENT: Breakthrough seizure, History of Congenital hydrocephalus and s/p bilateral frontal garett hole surgery in childhood . . This is his third seizure admission at [facility] this year, nortripytline can lower seizure threshold Plan- - Hold nortriptyline as it can lower seizure threshold - continue keppra to 2 gm po bid , tolerating medication -awaiting eeg - He can be is discharged from neuro point of view, and follow up with Neurologist as outpatient Thanking you so much Carroll Mckeon MD
[2018-04-19] MEDS: ASPIRIN COATED 81 MG TABLET.EC PO SCH (10:36)
[2018-04-19] MEDS: PANTOPRAZOLE 40 MG TABLET (FP) PO SCH (10:36)
[2018-04-19] MEDS: METOPROLOL TARTRATE 25 MG TABLET (FP) PO SCH (10:36)
[2018-04-19] MEDS: levETIRAcetam 500 MG TABLET (FP) PO SCH (10:36)
--- NOTE | 2018-04-19 13:21 | DS ---
Physical Examination Vital Signs: Vital Signs Temperature 97.8 F 04/19/18 09:00 Pulse Rate 68 04/19/18 09:00 Respiratory Rate 18 04/19/18 09:00 Blood Pressure 130/76 04/19/18 09:00 O2 Sat by Pulse Oximetry (%) 99 04/18/18 21:00 Findings/Remarks: Comfortable no further seizure activity no distress Constitutional: Yes: No Distress, Calm Neck: Yes: Supple Respiratory: Yes: CTA Bilaterally Gastrointestinal: Yes: Soft Edema: No Neurological: Yes: Alert Psychiatric: Yes: Alert Labs: CBC, BMP 04/17/18 05:30 04/17/18 05:30 Discharge Summary Reason For Visit: SEIZURE DISORDER, STATUS EPILEPTICUE Current Active Problems Seizure (Acute) Status epilepticus (Acute) Hospital Course: admitted for recurrent seizure meds adjusted again stable cleared for d/c by neurology will d/c home to family meds reconcilled close f/u with neurology as out pt Condition: Stable - Instructions Referrals: Ailyn Meadows MD [Primary Care Provider] - Disposition: HOME - Home Medications Comprehensive Discharge Medication List: Ambulatory Orders Aspirin Coated [Ecotrin -] 81 mg PO DAILY #90 tab 12/16/16 Metoprolol Tartrate [Lopressor -] 25 mg PO BID #60 tablet 12/16/16 Pantoprazole Sodium [Protonix -] 40 mg PO DAILY tablet.ec 08/07/17 Tamsulosin HCl [Flomax -] 0.4 mg PO 1900 08/12/17 Simvastatin 20 mg PO DAILY 04/16/18 Valproic Acid [Depakene -] 1,000 mg PO Q8H 04/16/18 levETIRAcetam [Keppra -] 2,000 mg PO BID tablet 04/19/18
[2018-04-19 15:30] VITALS: BP 129/90
== END 2018-04-19 18:38 | disposition home or self-care (01) ==
LOC: JER 19:35 → JERBED 21:53 → J4W 04-17 01:41
PROVIDERS: ADMIT Internal Medicine; ATTEND Internal Medicine
PROC: 3E033GC Introduction of Other Therapeutic Substance into Peripheral Vein, Percutaneous Approach (ICD-10-PCS; principal; 2018-04-16)
PROC: 3E0337Z Introduction of Electrolytic and Water Balance Substance into Peripheral Vein, Percutaneous Approach (ICD-10-PCS; 2018-04-16)
DX: G40.911 Epilepsy, unspecified, intractable, with status epilepticus (principal); I10 Essential (primary) hypertension; E78.5 Hyperlipidemia, unspecified; Z79.82 Long term (current) use of aspirin; N17.9 Acute kidney failure, unspecified; D72.829 Elevated white blood cell count, unspecified; R74.0 Nonspecific elevation of levels of transaminase and lactic acid dehydrogenase [LDH]; F05 Delirium due to known physiological condition
CPT/HCPCS: 36415; 36600; 70450-TC; 71045-TC-FY; 80048; 80053; 80164; 81003; 81015; 82803; 83605; 83735; 84100; 85025; 85610; 85730; 86850; 86900; 86901; 87040; 87086; 93005; 93010; 96361; 96374; 96375; 99283-25; G0378; J7030

== ENCOUNTER 2018-07-12 12:12 | Emergency (ER) | payer OTHER ==
[2018-07-12 12:25] VITALS: TEMP 97.9; BMI 24.2
--- NOTE | 2018-07-12 12:33 | PDOC ---
Attending Attestation - Resident Resident Name: Marco A Ram - ED Attending Attestation I have performed the following: I have examined & evaluated the patient, The case was reviewed & discussed with the resident, I agree w/resident's findings & plan, Exceptions are as noted - HPI HPI: 07/12/18 13:01 53-year-old gentleman history of hypertension, lipidemia, seizures presenting status post fall. Per aide the patient was taking a shower he was refusing assistance during the shower and he felt dizzy and fell back against a wall. He fell back denies any headache head injury, LOC endorses mild back pain denies any upper extremity pain lower extremity pain, lower back pain, numbness, tingling, weakness. Any associated chest pain, shortness of breath, palpitations , abdominal pain, nausea, vomiting, vision changes, seizure like activity - Physicial Exam PE: 07/12/18 13:03 General Appearance: Nourished. In no Apparent Distress HEENT: Atraumatic scalp, neg batltes sign, no hemotypanjum Neck: No Cervical Lymphadenopathy, no focal midline tenderness in cervical/ thoracic/lumbar spine. Respiratory/Chest: Lungs Clear, Normal Breath Sounds. Bibasilar rales noted on exam. No Rhonchi, Wheezing Cardiovascular: Regular Rhythm and rate No Murmur, Gallops, Rubs Gastrointestinal/Abdominal: Soft. No Guarding, Rebound, or Tenderness Musculoskeletal: No CVA Tenderness, moving all 4 extremities spontaneously and symmetrically Extremity: Normal Capillary Refill Integumentary: Normal Color, Dry, Warm Neurologic: Right eye deviation. Facial fasciculation and right sided fasciculation noted on exam. Non-responsive. Negative Babinski bilaterally. - Medical Decision Making 07/12/18 13:15 will ck labs to r/o metabolic derangement, anemia, will ck ct head ekg to scren for arrythmia will erassess Heart Score/ECG Review - ECG Impressions Comment:: 07/12/18 14:26 Twelve-lead EKG was performed and reviewed by me. There is normal sinus rhythm with a rate of 54 The axis is normal. Impression: Sinus bradycardia
[2018-07-12 13:25] LABS: BASO % 0.4 % (0-2.0); EOS % 0.3 % (0-4.5); HEMATOCRIT 43.3 % (35.4-49); MCH 32.7 pg (25.7-33.7); MCHC 34.6 g/dl (32.0-35.9); MEAN CELL VOLUME 94.4 fl (80-96); MEAN PLT VOLUME 9.6 fl (7.5-11.1); MONO % 9.1 % (3.8-10.2); NEUT % 42.2 % (42.8-82.8); PLATELET COUNT 139 K/MM3 (134-434); RBC 4.58 M/mm3 (4.00-5.60); RDW 15.1 % (11.9-15.9); WHITE BLOOD COUNT 7.5 K/mm3 (4.0-10.0)
[2018-07-12 13:51] LABS: URINE APPEARANCE CLEAR; URINE BILIRUBIN NEGATIVE (<2.0 mg/dL); URINE COLOR DKYELLOW; URINE GLUCOSE (UA) NEGATIVE (NEGATIVE); URINE KETONE TRACE (NEGATIVE); URINE LEUK ESTERASE TRACE (NEGATIVE); URINE NITRITE NEGATIVE (NEGATIVE); URINE PROTEIN NEGATIVE (NEGATIVE)
[2018-07-12 13:59] LABS: ALBUMIN 3.3 g/dl (3.4-5.0); ALK PHOS 83 U/L (45-117); ANION GAP 6 MMOL/L (8-16); BILIRUBIN,TOTAL 0.4 mg/dL (0.2-1); BLOOD UREA NITROGEN 26 mg/dL (7-18); CALCIUM 9.1 mg/dL (8.5-10.1); CHLORIDE 104 mmol/L (98-107); CO2 30 mmol/L (21-32); CREATININE 0.9 mg/dL (0.55-1.3); GLUCOSE,RANDOM 76 mg/dL (74-106); POTASSIUM 4.5 mmol/L (3.5-5.1); SGOT/AST 26 U/L (15-37); SGPT/ALT 20 U/L (13-61); SODIUM 140 mmol/L (136-145)
[2018-07-12 14:13] LABS: URINE MUCUS RARE
--- NOTE | 2018-07-12 14:22 | PDOC ---
History of Present Illness - General Chief Complaint: Injury Stated Complaint: Injury Time Seen by Provider: 07/12/18 12:22 History Source: Patient Exam Limitations: No Limitations - History of Present Illness Initial Comments: 07/12/18 14:02 53 yo male pmh significant for HTN, HLD, childhood brain surgeries and recurrent seizures presents to the ED after dizziness and a witnessed loss of balance at 11 am this morning. Pt presents with new nurse aide who is not familiar with pts baseline mental status. States he was putting on his pants in the bathroom without assistance of NA, lost balance, hit his head on the tiled wall but did not lose consciousness or fall to the floor. NA was close by when the event occurred and denied convulsions and agrees pt was at the same baseline prior to event. Denies changes in vision, N/V/F/C, one sided sensory or strength changes. Past History - Past Medical History Allergies/Adverse Reactions: Allergies Allergy/AdvReac Type Severity Reaction Status Date / Time No Known Drug Allergies Allergy Verified 07/12/18 12:25 Home Medications: Ambulatory Orders Aspirin Coated [Ecotrin -] 81 mg PO DAILY #90 tab 12/16/16 Metoprolol Tartrate [Lopressor -] 25 mg PO BID #60 tablet 12/16/16 Pantoprazole Sodium [Protonix -] 40 mg PO DAILY tablet.ec 08/07/17 Tamsulosin HCl [Flomax -] 0.4 mg PO 1900 08/12/17 Simvastatin 20 mg PO DAILY 04/16/18 Valproic Acid [Depakene -] 1,000 mg PO Q8H 04/16/18 Cefuroxime Axetil [Ceftin -] 500 mg PO Q12H #8 tablet 05/01/18 levETIRAcetam [Keppra -] 1,000 mg PO Q8H #90 tablet 05/01/18 Anemia: No Asthma: No Cancer: No Cardiac Disorders: No CVA: No COPD: No CHF: No DVT: No Dementia: No Diabetes: No Dialysis: No GI Disorders: No Disorders: No HTN: Yes Hypercholesterolemia: Yes Kidney Stones: No Liver Disease: No Psychiatric Problems: Yes Seizures: Yes Thyroid Disease: No - Surgical History Abdominal Surgery: No Appendectomy: No Cardiac Surgery: No Cholecystectomy: No Lung Surgery: No Neurologic Surgery: Yes (s/p garett holes) Orthopedic Surgery: No - Immunization History Immunization Up to Date: Yes - Suicide/Smoking/Psychosocial Hx Smoking Status: No Smoking History: Unknown if ever smoked Have you smoked in the past 12 months: No Number of Cigarettes Smoked Daily: 0 Cigars Per Day: 0 Information on smoking cessation initiated: No Hx Alcohol Use: No Drug/Substance Use Hx: No Substance Use Type: None Hx Substance Use Treatment: No Review of Systems - Review of Systems Constitutional: No: Chills, Fever Respiratory: No: Shortness of Breath Cardiac (ROS): No: Chest Pain ABD/GI: No: Constipated, Diarrhea, Nausea, Vomiting : No: Burning, Dysuria, Discharge, Frequency Musculoskeletal: No: Back Pain Integumentary: No: Bruising Neurological: Yes: Dizziness. No: Headache, Numbness, Paresthesia, Weakness *Physical Exam - Vital Signs Last Vital Signs Temp Pulse Resp BP Pulse Ox 97.9 F 61 16 125/75 100 07/12/18 12:22 07/12/18 12:22 07/12/18 12:22 07/12/18 12:22 07/12/18 12:22 - Physical Exam General Appearance: Yes: Nourished, Appropriately Dressed. No: Apparent Distress HEENT: positive: EOMI, GISEL. negative: Pale Conjunctivae, Photophobia, Scleral Icterus (R), Scleral Icterus (L) Neck: positive: Supple Respiratory/Chest: positive: Lungs Clear, Normal Breath Sounds. negative: Respiratory Distress Cardiovascular: positive: Regular Rhythm, Regular Rate, S1, S2. negative: Edema , JVD, Murmur Vascular Pulses: Dorsalis-Pedis (R): 4+, Doralis-Pedis (L): 4+ Gastrointestinal/Abdominal: positive: Flat, Soft. negative: Pulsatile Mass, Guarding, Rebound, Tenderness Extremity: positive: Normal Capillary Refill Integumentary: positive: Normal Color, Dry, Warm Neurologic: positive: aerial sprayer II-XII NML intact, Alert, Normal Mood/Affect, Normal Response, Motor Strength 5/5, Confused (baseline). negative: Fully Oriented ( baseline AOX2), Facial Droop, Numbness, Sensory Deficit, Finger to Nose ED Treatment Course - LABORATORY CBC & Chemistry Diagram: 07/12/18 13:16 07/12/18 13:16 - ADDITIONAL ORDERS Additional order review: Laboratory Results 07/12/18 07/12/18 07/12/18 13:40 13:16 13:16 WBC RBC Hgb Hct MCV MCH MCHC RDW Plt Count MPV Absolute Neuts (auto) Neutrophils % Lymphocytes % Monocytes % Eosinophils % Basophils % Nucleated RBC % Sodium 140 Potassium 4.5 Chloride 104 Carbon Dioxide 30 Anion Gap 6 L BUN 26 H Creatinine 0.9 Creat Clearance w eGFR > 60 Random Glucose 76 Calcium 9.1 Total Bilirubin 0.4 AST 26 ALT 20 Alkaline Phosphatase 83 Total Protein 8.0 Albumin 3.3 L Urine Color Dkyellow Urine Appearance Clear Urine pH 5.0 Ur Specific Galvin 1.034 Urine Protein Negative Urine Glucose (UA) Negative Urine Ketones Trace H Urine Blood Negative Urine Nitrite Negative Urine Bilirubin Negative Urine Urobilinogen 2.0 Ur Leukocyte Esterase Trace Valproic Acid 96.1 07/12/18 13:16 WBC 7.5 RBC 4.58 Hgb 15.0 Hct 43.3 MCV 94.4 MCH 32.7 MCHC 34.6 RDW 15.1 Plt Count 139 MPV 9.6 D Absolute Neuts (auto) 3.1 Neutrophils % 42.2 L Lymphocytes % 48.0 H Monocytes % 9.1 Eosinophils % 0.3 Basophils % 0.4 Nucleated RBC % 0 Sodium Potassium Chloride Carbon Dioxide Anion Gap BUN Creatinine Creat Clearance w eGFR Random Glucose Calcium Total Bilirubin AST ALT Alkaline Phosphatase Total Protein Albumin Urine Color Urine Appearance Urine pH Ur Specific Galvin Urine Protein Urine Glucose (UA) Urine Ketones Urine Blood Urine Nitrite Urine Bilirubin Urine Urobilinogen Ur Leukocyte Esterase Valproic Acid 07/12/18 13:16 RBC 4.58 MCV 94.4 MCHC 34.6 RDW 15.1 MPV 9.6 D Neutrophils % 42.2 L Lymphocytes % 48.0 H Monocytes % 9.1 Eosinophils % 0.3 Basophils % 0.4 - RADIOLOGY Radiology Studies Ordered: Category Date Time Status HEAD CT WITHOUT CONTRAST [CT] Stat CT Scan 07/12/18 12:56 Ordered Medical Decision Making - Medical Decision Making 07/12/18 14:01 attempted call Mr. Wong's brother to determine baseline, no answer. Second call was picked up and brother states pt is at his baseline mentation and is usually AOX2 53 yo male pmh of craniotomy and recurrent seizures provoked by UTIs presents to the ED with dizziness and loss of balance. Pt at baseline mentation and has no concerning neurological deficits on HPI or exam. DDX: toxic/metabolic derangements, seizure, uti, stroke CBC/CMP no metabolic derangements, anemia UA negative for infection Valproic acid level 96 therapeutic EKG: sinus doreen no change Head CT: no acute intracranial infarct or changes Pt resting comfortably with no current complaints Spoke with Dr. Johnson who is pts Neurologist. States that pt has frequent UTIs leading to increased seizures also a PCP recently changed his keppra and valproic acid without neurology consult. Dr. Angel states he has an appointment Sep 09 but is willing to move the date closer if the patient and family have further concerns. Dr. Angel would like pt sent home with continuation of home meds as long as there is no UTI and head CT neg then follow up in clinic *DC/Admit/Observation/Transfer Diagnosis at time of Disposition: Dizziness - Discharge Dispostion Disposition: HOME Condition at time of disposition: Stable Decision to Admit order: No - Referrals Referrals: Sanya Johnson MD [Staff Physician] - - Patient Instructions Printed Discharge Instructions: How to Prevent Falls Additional Instructions: Please follow up with Dr. Johnson with your appointment scheduled for September 09 and if you have any further concerns please give Dr. Johnson's office a call and schedule an earlier appointment. Please continue taking your home dosed medications as prescribed. Please return to the Emergency Room for new or worsening symptoms including but not limited: seizures, headaches, weakness or numbness on one side of your body. Thank you - Post Discharge Activity
[2018-07-12 17:32] VITALS: BP 136/84; PULSE 60
--- NOTE | 2018-07-12 18:22 | EKG ---
Test Reason : Blood Pressure : / mmHG Vent. Rate : 054 BPM Atrial Rate : 054 BPM P-R Int : 134 ms QRS Dur : 074 ms QT Int : 410 ms P-R-T Axes : 031 -22 020 degrees QTc Int : 388 ms SINUS BRADYCARDIA OTHERWISE NORMAL ECG WHEN COMPARED WITH ECG OF 27-APR-2018 19:26, NO SIGNIFICANT CHANGE WAS FOUND Confirmed by ARIAS MIRANDA MD ([id number]) on 07/12/2018 6:22:17 PM Referred By: Confirmed By:ARIAS MIRANDA MD
== END 2018-07-12 17:36 | disposition home or self-care (01) ==
LOC: JER 12:12
DX: R00.1 Bradycardia, unspecified (principal); R42 Dizziness and giddiness; G40.909 Epilepsy, unspecified, not intractable, without status epilepticus; W18.2XXA Fall in (into) shower or empty bathtub, initial encounter; Y93.E1 Activity, personal bathing and showering; Y92.012 Bathroom of single-family (private) house as the place of occurrence of the external cause; Y99.8 Other external cause status; I10 Essential (primary) hypertension; E78.5 Hyperlipidemia, unspecified
CPT/HCPCS: 36415; 70450-TC; 80053; 80164; 81003; 81015; 85025; 87086; 93005; 93010; 99283-25

== ENCOUNTER 2018-07-22 01:09 | Inpatient (IN) | payer OTHER ==
--- NOTE | 2018-07-22 01:21 | PDOC ---
History of Present Illness - General Chief Complaint: Seizure Stated Complaint: SEIZURE Time Seen by Provider: 07/22/18 01:21 History Source: EMS, Sibling - History of Present Illness Initial Comments: 07/22/18 03:34 The patient is a 53 yo male with PMH HTN, HLD, epilepsy who presents to the ED brought by ambulance with seizure. He was found by his brother at home. On the way to the hospital, he continued to have seizure, was given Versed 5 mg and was also hypotensive. Here in ED the patient continued to have seizure, rhytmic jaw and leg movements , systolic BP in 90s, given Ativan 2 mg that stopped seizure, The patient was not able to provide any history, his brother is not sure what was the recent dose change of Depakote. Past History - Travel Traveled outside of the country in the last 30 days: No - Past Medical History Allergies/Adverse Reactions: Allergies Allergy/AdvReac Type Severity Reaction Status Date / Time No Known Drug Allergies Allergy Verified 07/22/18 01:16 Home Medications: Ambulatory Orders Aspirin Coated [Ecotrin -] 81 mg PO DAILY #90 tab 12/16/16 Metoprolol Tartrate [Lopressor -] 25 mg PO BID #60 tablet 12/16/16 Pantoprazole Sodium [Protonix -] 40 mg PO DAILY tablet.ec 08/07/17 Tamsulosin HCl [Flomax -] 0.4 mg PO 1900 08/12/17 Simvastatin 20 mg PO DAILY 04/16/18 Valproic Acid [Depakene -] 1,000 mg PO Q8H 04/16/18 Cefuroxime Axetil [Ceftin -] 500 mg PO Q12H #8 tablet 05/01/18 levETIRAcetam [Keppra -] 1,000 mg PO Q8H #90 tablet 05/01/18 Anemia: No Asthma: No Cancer: No Cardiac Disorders: No CVA: No COPD: No CHF: No DVT: No Dementia: No Diabetes: No Dialysis: No GI Disorders: No Disorders: No HTN: Yes Hypercholesterolemia: Yes Kidney Stones: No Liver Disease: No Psychiatric Problems: Yes Seizures: Yes Thyroid Disease: No - Surgical History Abdominal Surgery: No Appendectomy: No Cardiac Surgery: No Cholecystectomy: No Lung Surgery: No Neurologic Surgery: Yes (s/p garett holes) Orthopedic Surgery: No - Immunization History Immunization Up to Date: Yes - Suicide/Smoking/Psychosocial Hx Smoking Status: No Smoking History: Unknown if ever smoked Have you smoked in the past 12 months: No Number of Cigarettes Smoked Daily: 0 Cigars Per Day: 0 Hx Alcohol Use: No Drug/Substance Use Hx: No Substance Use Type: None Hx Substance Use Treatment: No Review of Systems - Review of Systems Able to Perform ROS?: No *Physical Exam - Vital Signs Last Vital Signs Temp Pulse Resp BP Pulse Ox 80 16 87/57 L 92 L 07/22/18 01:12 07/22/18 01:12 07/22/18 01:12 07/22/18 01:12 - Physical Exam General Appearance: Yes: Nourished HEENT: positive: GISEL Respiratory/Chest: positive: Lungs Clear, Normal Breath Sounds. negative: Accessory Muscle Use Cardiovascular: positive: Regular Rhythm, Regular Rate Gastrointestinal/Abdominal: positive: Normal Bowel Sounds, Soft Neurologic: positive: Respond to painful stimul, Other (the patient is actively seizing, ). negative: Fully Oriented, Alert Moderate Sedation - Procedure Monitoring Vital Signs: Procedure Monitoring Vital Signs Temperature Pulse Rate 80 07/22/18 01:12 Respiratory Rate 16 07/22/18 01:12 Blood Pressure 87/57 L 07/22/18 01:12 O2 Sat by Pulse Oximetry (%) 92 L 07/22/18 01:12 ED Treatment Course - LABORATORY CBC & Chemistry Diagram: 07/22/18 01:53 07/22/18 01:53 Medical Decision Making - Medical Decision Making 07/22/18 03:44 The patient presented in status epilepticus, given Ativan that stopped it. We ordered CBC, CMP, UA, VGB, CT head without contrstrast. It is possible that seizure was induced by infection, non compliance. Keppra 1 g IV was given. CXR with infiltrate, Zosyn, NS and cultures were ordered. 07/22/18 03:49 Lactic acid came back elevated, will follow. Repeated LA 2.7, additional 1 L of NS given. CT head done, CXR done with visible infiltrate. Hospitalist accepted the patient to the service. *DC/Admit/Observation/Transfer Diagnosis at time of Disposition: Seizure, Seizure disorder - Discharge Dispostion Condition at time of disposition: Stable Decision to Admit order: Yes - Referrals - Patient Instructions - Post Discharge Activity
[2018-07-22] MEDS ORDERED: LORazepam 2 MG/ML SDV VIAL ONE (01:29)
[2018-07-22] MEDS ORDERED: SODIUM CHLORIDE 0.9% 1000 ML INFUS.BAG IV ONE (01:51)
[2018-07-22 01:59] LABS: VENOUS PC02 69.2 mmHg (38-52); VENOUS PH 7.25 (7.32-7.42); VENOUS PO2 20.8 mmHg (28-48)
[2018-07-22 02:03] LABS: BASO % 0.4 % (0-2.0); HEMATOCRIT 40.4 % (35.4-49); HEMOGLOBIN 13.8 GM/dL (11.7-16.9); LYMPH % 23.3 % (8-40); MCH 32.8 pg (25.7-33.7); MCHC 34.2 g/dl (32.0-35.9); MEAN CELL VOLUME 95.7 fl (80-96); MEAN PLT VOLUME 10.2 fl (7.5-11.1); MONO % 8.5 % (3.8-10.2); NEUT % 67.8 % (42.8-82.8); PLATELET COUNT 177 K/MM3 (134-434); RBC 4.22 M/mm3 (4.00-5.60); RDW 15.3 % (11.9-15.9)
[2018-07-22] MEDS ORDERED: levETIRAcetam 500 MG/5 ML INJECTION VIAL IVPB ONE ×3 (02:10→06:40)
--- NOTE | 2018-07-22 02:11 | PDOC ---
Attending Attestation - HPI HPI: 07/22/18 02:34 The patient is a 53-year-old male with past medical history significant for seizures (the last episode was 2 months ago) presents to the emergency department with vis EMS s/p a seizure episode. The patient was found by his brother, who called EMS. The patient was given 5 mg of versed enroute of the ER. The patients glucose en route was 104 and 107. At the ER the patient was hypotensive and actively seizing. The EMS reports the patients Depakote dose was increased. Unable to obtain a history from the patient secondary to patient s status. Allergies: NKDA PcP: Dr Meadows Neurologist: Dr. Johnson. - Physicial Exam PE: 07/22/18 02:35 GENERAL: The patient was still seizing at the ER. in no acute distress HEAD: No signs of trauma EYES: + Nystagmus to the right, rhythmic eye movement to the right. conjunctiva clear ENT: +Jaw twitching. Auricles normal inspection, hearing grossly normal, nares patent, oropharynx clear without exudates. Moist mucosa NECK: Normal ROM, supple, no lymphadenopathy, JVD, or masses LUNGS: coarse breath sounds bilaterally. clear to auscultation bilaterally. No wheezes, and no crackles HEART: Tachycardia. Regular rate and rhythm, normal S1 and S2, no murmurs, rubs or gallops ABDOMEN: +urinary incontinence during the episode. Soft, nontender No guarding , no rebound. No masses EXTREMITIES: +right leg twitchingNormal range of motion, no edema. No clubbing or cyanosis. No cords, erythema, or tenderness NEUROLOGICAL: Actively seizing. SKIN: Warm, Dry, normal turgor, no rashes or lesions noted. - Medical Decision Making 07/22/18 02:36 Documentation prepared by Loree Olivo, acting as biomedical technician for Virgen Gutierrez DO. <Loree Olivo - Last Filed: 07/22/18 02:34> - Resident Resident Name: Amy Marino - ED Attending Attestation I have performed the following: I have examined & evaluated the patient, The case was reviewed & discussed with the resident, I agree w/resident's findings & plan, Exceptions are as noted - Critical Care Time Total Critical Care Time: 45 Critical Care Statement: The care of this patient involved high complexity decision making to prevent further life threatening deterioration of the patient 's condition and/or to evaluate & treat vital organ system(s) failure or risk of failure. - Medical Decision Making 07/22/18 02:08 I, Dr. Virgen Gutierrez, DO, attest that this document has been prepared under my direction and personally reviewed by me in its entirety. I further attest, that it accurately reflects all work, treatment, procedures and medical decision -making performed by me. 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
[2018-07-22 02:15] LABS: INR 1.08 (0.83-1.09); PROTHROMBIN TIME (PATIENT) 12.8 SEC (9.7-13.0)
[2018-07-22 02:18] LABS: ACTIVATED PTT 25.6 SECONDS (25.2-36.5)
[2018-07-22] MEDS ORDERED: PIPERACILLIN/TAZOB 4.5 GM 4.5 GM in DEXTROSE 5%-WATER 100 ML IVPB ONE (02:44)
[2018-07-22 02:47] LABS: ALBUMIN 2.9 g/dl (3.4-5.0); ALK PHOS 92 U/L (45-117); ANION GAP 6 MMOL/L (8-16); BILIRUBIN,TOTAL 0.4 mg/dL (0.2-1); BLOOD UREA NITROGEN 25 mg/dL (7-18); CALCIUM 8.3 mg/dL (8.5-10.1); CHLORIDE 106 mmol/L (98-107); CO2 28 mmol/L (21-32); CREATININE 1.3 mg/dL (0.55-1.3); GLUCOSE,RANDOM 125 mg/dL (74-106); MAGNESIUM 2.3 mg/dL (1.8-2.4); POTASSIUM 5.4 mmol/L (3.5-5.1); SGOT/AST 36 U/L (15-37); SGPT/ALT 22 U/L (13-61); SODIUM 140 mmol/L (136-145); TOT PROT 7.6 g/dl (6.4-8.2)
[2018-07-22 03:06] LABS: ARTERIAL BLD GAS O2 SATURATION 96.9 % (90-98.9); ARTERIAL BLOOD GAS PCO2 39.5 mmHg (35-45); ARTERIAL BLOOD GAS PO2 99.8 mmHg (80-100); ARTERIAL BLOOD GAS pH 7.36 (7.35-7.45)
[2018-07-22] MEDS ORDERED: PIPERACILLIN/TAZOB 4.5 GM 4.5 GM/100 ML BAG IVPB ONE (03:11)
[2018-07-22 03:25] LABS: ALLENS TEST POSITIVE
[2018-07-22] MEDS ORDERED: SODIUM CHLORIDE 0.9% 500 ML INFUS.BAG IV ONE (03:48)
--- NOTE | 2018-07-22 04:41 | HP ---
Admitting History and Physical - Primary Care Physician PCP: Ailyn Meadows - Admission Chief Complaint: Seizure Activity History of Present Illness: This is a 53 y/o man with significant medical history of Seizure Disorder, Hypertension, Hyperlipidemia, Multiple Shunts for Congenital Hydrocephalus, Encephalomalacia. Who presents to the ED via ambulance for seizure activity. Per the ED record: The patient was found by his brother at home. On the way to the hospital, he continued to have seizures, was given Versed 5 mg and was also hypotensive. Here in ED the patient continued to have seizures, rhythmic jaw and leg movements, systolic BP in 90s, given Ativan 2 mg that stopped seizure, The patient was not able to provide any history, his brother is not sure what was the recent dose change of Depakote. CT brain- no ICH, unchanged, Chest Xray- R- Infiltrate, Lactic Acid 2.4~2.7, given Zosyn and NS fluid resuscitation per protocol. Patient requires Admission to Telemetry. History Source: Family Member, Medical Record Limitations to Obtaining History: Clinical Condition - Past Medical History RHIA: Yes: Seizure Cardiovascular: Yes: HTN, Hyperlipdemia Pulmonary: Yes: Pneumonia Psych: Yes: Depression - Smoking History Smoking history: Unknown if ever smoked Have you smoked in the past 12 months: No Aproximately how many cigarettes per day: 0 - Alcohol/Substance Use Hx Alcohol Use: No - Social History ADL: Family Assistance History of Recent Travel: No Home Medications - Allergies Allergies/Adverse Reactions: Allergies Allergy/AdvReac Type Severity Reaction Status Date / Time No Known Drug Allergies Allergy Verified 07/22/18 01:16 - Home Medications Home Medications: Ambulatory Orders Aspirin Coated [Ecotrin -] 81 mg PO DAILY #90 tab 12/16/16 Metoprolol Tartrate [Lopressor -] 25 mg PO BID #60 tablet 12/16/16 Pantoprazole Sodium [Protonix -] 40 mg PO DAILY tablet.ec 08/07/17 Tamsulosin HCl [Flomax -] 0.4 mg PO 1900 08/12/17 Simvastatin 20 mg PO DAILY 04/16/18 Valproic Acid [Depakene -] 1,000 mg PO Q8H 04/16/18 Cefuroxime Axetil [Ceftin -] 500 mg PO Q12H #8 tablet 05/01/18 levETIRAcetam [Keppra -] 1,000 mg PO Q8H #90 tablet 05/01/18 Family Disease History - Family Disease History Family History: Unable to Obtain Review of Systems Unable to obtain ROS, reason: Postictal Physical Examination Vital Signs: Vital Signs Temperature Pulse Rate 84 07/22/18 02:18 Respiratory Rate 18 07/22/18 02:18 Blood Pressure 116/85 07/22/18 02:18 O2 Sat by Pulse Oximetry (%) 95 07/22/18 02:18 Constitutional: Yes: No Distress, Thin, Other ( postictal) Eyes: Yes: Conjunctiva Clear, PERRL HENT: Yes: WNL, Atraumatic, Normocephalic Neck: Yes: WNL, Supple, Trachea Midline Cardiovascular: Yes: Regular Rate and Rhythm, S1, S2 Respiratory: Yes: Diminished, On Nasal O2, Rhonchi Gastrointestinal: Yes: WNL, Normal Bowel Sounds, Soft ...Rectal Exam: Yes: Deferred Renal/: Yes: Incontinence Breast(s): Yes: WNL Musculoskeletal: Yes: WNL Extremities: Yes: WNL Edema: No Peripheral Pulses WNL: Yes Neurological: Yes: Lethargy Labs: CBC, BMP 07/22/18 01:53 07/22/18 01:53 Laboratory Results - last 24 hr 07/22/18 07/22/18 07/22/18 01:53 01:53 01:53 WBC RBC Hgb Hct MCV MCH MCHC RDW Plt Count MPV Absolute Neuts (auto) Neutrophils % Lymphocytes % Monocytes % Eosinophils % Basophils % Nucleated RBC % PT with INR 12.80 INR 1.08 PTT (Actin FS) 25.6 Anticoagulation Therapy Puncture Site ABG pH ABG pCO2 at Pt Temp ABG pO2 at Pt Temp ABG HCO3 ABG O2 Sat (Measured) ABG O2 Content ABG Base Excess Keegan Test VBG pH 7.25 L POC VBG pCO2 69.2 H* POC VBG pO2 20.8 L Mixed VBG HCO3 29.1 H O2 Delivery Device Oxygen Flow Rate Vent Mode Vent Rate Mechanical Rate Pressure Support Vent Sodium 140 Potassium 5.4 H Chloride 106 Carbon Dioxide 28 Anion Gap 6 L BUN 25 H Creatinine 1.3 Creat Clearance w eGFR 57.53 Random Glucose 125 H Lactic Acid Calcium 8.3 L Magnesium 2.3 Total Bilirubin 0.4 AST 36 ALT 22 Alkaline Phosphatase 92 Creatine Kinase 136 Troponin I < 0.02 Total Protein 7.6 Albumin 2.9 L 07/22/18 07/22/18 07/22/18 01:53 01:53 02:55 WBC 12.0 H RBC 4.22 Hgb 13.8 Hct 40.4 MCV 95.7 MCH 32.8 MCHC 34.2 RDW 15.3 Plt Count 177 D MPV 10.2 Absolute Neuts (auto) 8.2 H Neutrophils % 67.8 D Lymphocytes % 23.3 D Monocytes % 8.5 Eosinophils % 0.0 D Basophils % 0.4 Nucleated RBC % 0 PT with INR INR PTT (Actin FS) Anticoagulation Therapy No Result Required. Puncture Site Right radial ABG pH 7.36 ABG pCO2 at Pt Temp 39.5 D ABG pO2 at Pt Temp 99.8 D ABG HCO3 21.6 L ABG O2 Sat (Measured) 96.9 ABG O2 Content 17.4 ABG Base Excess -3.0 L Keegan Test Positive VBG pH POC VBG pCO2 POC VBG pO2 Mixed VBG HCO3 O2 Delivery Device Room air Oxygen Flow Rate 21% Vent Mode No Result Required. Vent Rate No Result Required. Mechanical Rate No Result Required. Pressure Support Vent No Result Required. Sodium Potassium Chloride Carbon Dioxide Anion Gap BUN Creatinine Creat Clearance w eGFR Random Glucose Lactic Acid 2.4 H* Calcium Magnesium Total Bilirubin AST ALT Alkaline Phosphatase Creatine Kinase Troponin I Total Protein Albumin 07/22/18 03:03 WBC RBC Hgb Hct MCV MCH MCHC RDW Plt Count MPV Absolute Neuts (auto) Neutrophils % Lymphocytes % Monocytes % Eosinophils % Basophils % Nucleated RBC % PT with INR INR PTT (Actin FS) Anticoagulation Therapy Puncture Site ABG pH ABG pCO2 at Pt Temp ABG pO2 at Pt Temp ABG HCO3 ABG O2 Sat (Measured) ABG O2 Content ABG Base Excess Keegan Test VBG pH POC VBG pCO2 POC VBG pO2 Mixed VBG HCO3 O2 Delivery Device Oxygen Flow Rate Vent Mode Vent Rate Mechanical Rate Pressure Support Vent Sodium Potassium Chloride Carbon Dioxide Anion Gap BUN Creatinine Creat Clearance w eGFR Random Glucose Lactic Acid 2.7 H* Calcium Magnesium Total Bilirubin AST ALT Alkaline Phosphatase Creatine Kinase Troponin I Total Protein Albumin Intake & Output 07/19/18 07/20/18 07/21/18 07/22/18 23:59 23:59 23:59 23:59 Weight 68.039 kg Imaging - Results Chest X-ray: Image Reviewed Cat Scan: Image Reviewed EKG: Pending Problem List - Problems (1) Status epilepticus Assessment/Plan: Likely due to infection vs non compliance vs tumor Continue cardiac monitoring Head CT- no acute brain parenchymal abnormality, no hemorrhage, mass or acute territorial infarct, garett holes bilateral frontal bones and right parietal bones Encephalomalacia, Atrophy Keppra given in ED, will continue Valproic Acid level- 94.8 Will continue Valproic Acid Appreciate Neurology consult Seizure Precautions Aspiration Precautions Fall Precautions Monitor CBC, BMP Code(s): G40.901 - EPILEPSY, UNSP, NOT INTRACTABLE, WITH STATUS EPILEPTICUS (2) Seizure disorder Assessment/Plan: See above Code(s): G40.909 - EPILEPSY, UNSP, NOT INTRACTABLE, WITHOUT STATUS EPILEPTICUS (3) Sepsis Assessment/Plan: Likely secondary to Pneumonia Sepsis Criteria Met V: BP 87/57, Spo2 92%, WBC 12.0, LA 2.4~2.7, BUN 25 qSOFA 2 Blood Cultures-pending UA, Urine Culture-pending Fluid resuscitation NS 2L given in ED Maintain Map > 65 Will continue IVF Zosyn given in ED, will continue Appreciate ID consult Continue cardiac monitoring Monitor CBC, BMP Tylenol prn Code(s): A41.9 - SEPSIS, UNSPECIFIED ORGANISM (4) Pneumonia Assessment/Plan: Likely secondary to Aspiration vs Community Chest Xray image- RLL infiltrate WBC 12.0 Lactic Acid 2.4~2.7 Blood Cultures pending UA and UC pending Will add Urine Legionella Zosyn given in ED will continue Appreciate ID consult Monitor CBC, BMP Monitor vitals Repeat Lactic Acid post fluid bolus Tylenol prn Code(s): J18.9 - PNEUMONIA, UNSPECIFIED ORGANISM (5) Lactic acid blood increased Assessment/Plan: Likely secondary to Pneumonia vs Seizure Activity Fluid Bolus given in ED Repeat Lactic Acid in am Monitor vitals Monitor CBC, BMP Blood Cultures-pending Urine Culture-pending Code(s): R79.89 - OTHER SPECIFIED ABNORMAL FINDINGS OF BLOOD CHEMISTRY (6) HTN (hypertension) Assessment/Plan: Will hold home meds secondary to hypotension Will resume when BP is normotensive Code(s): I10 - ESSENTIAL (PRIMARY) HYPERTENSION (7) Hyperlipidemia Assessment/Plan: Hold for now, pt is post tictal Will resume when patient is alert Code(s): E78.5 - HYPERLIPIDEMIA, UNSPECIFIED Qualifiers: Assessment/Plan This is a 53 y/o man Admitted to Telemetry for Status Epilepticus, Severe Sepsis secondary to Pneumonia for further evaluation of their emergent condition. FEN D51/2NS@42ml/hr Replete lytes prn NPO DVT ppx SCDs Heparin SQ Code Status: Full Code Dispo: Requires Inpatient Care Visit type - Emergency Visit Emergency Visit: Yes ED Registration Date: 07/22/18 Care time: The patient presented to the Emergency Department on the above date and was hospitalized for further evaluation of their emergent condition. - New Patient This patient is new to me today: Yes Date on this admission: 07/22/18 - Critical Care Critical Care patient: No
[2018-07-22] MEDS ORDERED: ACETAMINOPHEN 1000 MG/100 ML VIAL (NON FORMULARY) IVPB PRN (06:29)
[2018-07-22] MEDS ORDERED: DEXTROSE 5%-0.45% SALINE 1,000 ML IV SCH (06:45)
[2018-07-22] MEDS: levETIRAcetam 500 MG/5 ML INJECTION VIAL IVPB SCH ×3 (07:12→21:23)
[2018-07-22 07:13] LABS: URINE APPEARANCE CLEAR; URINE BILIRUBIN NEGATIVE (<2.0 mg/dL); URINE COLOR STRAW; URINE GLUCOSE (UA) NEGATIVE (NEGATIVE); URINE KETONE TRACE (NEGATIVE); URINE LEUK ESTERASE NEGATIVE (NEGATIVE); URINE NITRITE NEGATIVE (NEGATIVE); URINE PROTEIN NEGATIVE (NEGATIVE); URINE UROBILINOGEN NEGATIVE mg/dL (0.2-1.0)
[2018-07-22] MEDS: VALPROATE SODIUM 500 MG/5 ML VIAL IVPB SCH ×3 (07:34→21:25)
[2018-07-22] MEDS ORDERED: LORazepam 2 MG/ML SDV VIAL IVPUSH PRN (10:16)
[2018-07-22] MEDS ORDERED: ALBUTEROL SO4 2.5/IPRATROPIUM 0.5 INH SOL 3 ML VIAL.NEB. NEB PRN (10:16)
--- NOTE | 2018-07-22 10:18 | PN ---
Progress Note (short form) - Note Progress Note: Events noted Lethargic but follows commands Admitted for status epilepticus Found to have pneumonia Vital Signs - 24 hr 07/22/18 07/22/18 07/22/18 01:12 02:18 06:27 Temperature 100.4 F H Pulse Rate 80 Pulse Rate [ 84 88 Apical] Respiratory 16 18 19 Rate Blood Pressure 87/57 L Blood Pressure 116/85 130/80 [Left Arm] O2 Sat by Pulse 92 L 95 100 Oximetry (%) 07/22/18 07:50 Temperature 99.9 F H Pulse Rate 77 Pulse Rate [ 77 Apical] Respiratory 16 Rate Blood Pressure 105/72 Blood Pressure 105/72 [Left Arm] O2 Sat by Pulse 99 Oximetry (%) Current Medications Generic Name Dose Route Start Last Admin Trade Name Freq PRN Reason Stop Dose Admin Acetaminophen 1,000 mg 07/22/18 06:29 07/22/18 07:11 Ofirmev Injection - IVPB 1,000 mg Q6H PRN Administration FEVER Albuterol/Ipratropium 1 amp 07/22/18 10:16 Duoneb - NEB Q4H PRN SHORTNESS OF BREATH Heparin Sodium (Porcine) 5,000 unit 07/22/18 10:00 Heparin - SQ BID MATTHEW Dextrose/Sodium Chloride 1,000 mls @ 80 mls/hr 07/22/18 10:17 D5-1/2ns - IV ASDIR MATTHEW Levetiracetam 1,000 mg 07/22/18 06:00 07/22/18 07:12 Keppra Injection - IVPB 1,000 mg TID MATTHEW Administration Lorazepam 2 mg 07/22/18 10:16 Ativan Injection - IVPUSH TID PRN seizures Valproate Sodium 1,000 mg 07/22/18 06:30 07/22/18 07:34 Depacon Injection - IVPB 1,000 mg TID MATTHEW Administration Laboratory Results - last 24 hr 07/22/18 07/22/18 07/22/18 01:53 01:53 01:53 WBC RBC Hgb Hct MCV MCH MCHC RDW Plt Count MPV Absolute Neuts (auto) Neutrophils % Lymphocytes % Monocytes % Eosinophils % Basophils % Nucleated RBC % PT with INR 12.80 INR 1.08 PTT (Actin FS) 25.6 Anticoagulation Therapy Puncture Site ABG pH ABG pCO2 at Pt Temp ABG pO2 at Pt Temp ABG HCO3 ABG O2 Sat (Measured) ABG O2 Content ABG Base Excess Keegan Test VBG pH 7.25 L POC VBG pCO2 69.2 H* POC VBG pO2 20.8 L Mixed VBG HCO3 29.1 H O2 Delivery Device Oxygen Flow Rate Vent Mode Vent Rate Mechanical Rate Pressure Support Vent Sodium Potassium Chloride Carbon Dioxide Anion Gap BUN Creatinine Creat Clearance w eGFR Random Glucose Lactic Acid Calcium Magnesium Total Bilirubin AST ALT Alkaline Phosphatase Creatine Kinase Troponin I Total Protein Albumin Urine Color Straw Urine Appearance Clear Urine pH 7.0 D Ur Specific [place] 1.013 Urine Protein Negative Urine Glucose (UA) Negative Urine Ketones Trace H Urine Blood Negative Urine Nitrite Negative Urine Bilirubin Negative Urine Urobilinogen Negative Ur Leukocyte Esterase Negative Valproic Acid 07/22/18 07/22/18 07/22/18 01:53 01:53 01:53 WBC 12.0 H RBC 4.22 Hgb 13.8 Hct 40.4 MCV 95.7 MCH 32.8 MCHC 34.2 RDW 15.3 Plt Count 177 D MPV 10.2 Absolute Neuts (auto) 8.2 H Neutrophils % 67.8 D Lymphocytes % 23.3 D Monocytes % 8.5 Eosinophils % 0.0 D Basophils % 0.4 Nucleated RBC % 0 PT with INR INR PTT (Actin FS) Anticoagulation Therapy Puncture Site ABG pH ABG pCO2 at Pt Temp ABG pO2 at Pt Temp ABG HCO3 ABG O2 Sat (Measured) ABG O2 Content ABG Base Excess Keegan Test VBG pH POC VBG pCO2 POC VBG pO2 Mixed VBG HCO3 O2 Delivery Device Oxygen Flow Rate Vent Mode Vent Rate Mechanical Rate Pressure Support Vent Sodium 140 Potassium 5.4 H Chloride 106 Carbon Dioxide 28 Anion Gap 6 L BUN 25 H Creatinine 1.3 Creat Clearance w eGFR 57.53 Random Glucose 125 H Lactic Acid 2.4 H* Calcium 8.3 L Magnesium 2.3 Total Bilirubin 0.4 AST 36 ALT 22 Alkaline Phosphatase 92 Creatine Kinase 136 Troponin I < 0.02 Total Protein 7.6 Albumin 2.9 L Urine Color Urine Appearance Urine pH Ur Specific [place] Urine Protein Urine Glucose (UA) Urine Ketones Urine Blood Urine Nitrite Urine Bilirubin Urine Urobilinogen Ur Leukocyte Esterase Valproic Acid 07/22/18 07/22/18 07/22/18 01:53 02:55 03:03 WBC RBC Hgb Hct MCV MCH MCHC RDW Plt Count MPV Absolute Neuts (auto) Neutrophils % Lymphocytes % Monocytes % Eosinophils % Basophils % Nucleated RBC % PT with INR INR PTT (Actin FS) Anticoagulation Therapy No Result Required. Puncture Site Right radial ABG pH 7.36 ABG pCO2 at Pt Temp 39.5 D ABG pO2 at Pt Temp 99.8 D ABG HCO3 21.6 L ABG O2 Sat (Measured) 96.9 ABG O2 Content 17.4 ABG Base Excess -3.0 L Keegan Test Positive VBG pH POC VBG pCO2 POC VBG pO2 Mixed VBG HCO3 O2 Delivery Device Room air Oxygen Flow Rate 21% Vent Mode No Result Required. Vent Rate No Result Required. Mechanical Rate No Result Required. Pressure Support Vent No Result Required. Sodium Potassium Chloride Carbon Dioxide Anion Gap BUN Creatinine Creat Clearance w eGFR Random Glucose Lactic Acid 2.7 H* Calcium Magnesium Total Bilirubin AST ALT Alkaline Phosphatase Creatine Kinase Troponin I Total Protein Albumin Urine Color Urine Appearance Urine pH Ur Specific [place] Urine Protein Urine Glucose (UA) Urine Ketones Urine Blood Urine Nitrite Urine Bilirubin Urine Urobilinogen Ur Leukocyte Esterase Valproic Acid 94.8 07/22/18 07:41 WBC RBC Hgb Hct MCV MCH MCHC RDW Plt Count MPV Absolute Neuts (auto) Neutrophils % Lymphocytes % Monocytes % Eosinophils % Basophils % Nucleated RBC % PT with INR INR PTT (Actin FS) Anticoagulation Therapy Puncture Site ABG pH ABG pCO2 at Pt Temp ABG pO2 at Pt Temp ABG HCO3 ABG O2 Sat (Measured) ABG O2 Content ABG Base Excess Keegan Test VBG pH POC VBG pCO2 POC VBG pO2 Mixed VBG HCO3 O2 Delivery Device Oxygen Flow Rate Vent Mode Vent Rate Mechanical Rate Pressure Support Vent Sodium Potassium Chloride Carbon Dioxide Anion Gap BUN Creatinine Creat Clearance w eGFR Random Glucose Lactic Acid 1.7 Calcium Magnesium Total Bilirubin AST ALT Alkaline Phosphatase Creatine Kinase Troponin I Total Protein Albumin Urine Color Urine Appearance Urine pH Ur Specific [place] Urine Protein Urine Glucose (UA) Urine Ketones Urine Blood Urine Nitrite Urine Bilirubin Urine Urobilinogen Ur Leukocyte Esterase Valproic Acid S1 S2 RRR Lungs -- ronchi B/L Lethargic Abd- soft, obese, NT No edema Status epilepticus Pneumonia Sepsis PLAN Pneumonia/sepsis -- urine antigens ordered -- check sputum cultures -- iv antibiotics, O2 , Nebs -- ID eval Seizures -- Ativan PRN -- Keppra IV and Valproate IV to continue -- change to PO when pt becomes more alert -- Neurology eval -- CT head noted DVT prophylaxis -- Heparin SC Problem List - Problems (1) Status epilepticus Code(s): G40.901 - EPILEPSY, UNSP, NOT INTRACTABLE, WITH STATUS EPILEPTICUS (2) Sepsis Code(s): A41.9 - SEPSIS, UNSPECIFIED ORGANISM (3) Pneumonia Code(s): J18.9 - PNEUMONIA, UNSPECIFIED ORGANISM
[2018-07-22 10:32] VITALS: BMI 24.7
--- NOTE | 2018-07-22 10:50 | PN ---
Progress Note (short form) - Note Progress Note: ID Consult dictated R/O aspiration pneumonia S/P seizure
--- NOTE | 2018-07-22 11:19 | CONS ---
INFECTIOUS DISEASE CONSULTATION DATE OF CONSULTATION: 07/22/2018 The patient is a 53-year-old male with a history of known seizure disorder, hypertension, hyperlipidemia, evaluated for possible pneumonia. He was admitted to the hospital on July 22, 2018, after seizure activity. In the emergency room, patient was noted to be hypotensive. He required Ativan for control of seizures. Chest x-ray shows possible infiltrate bilaterally. There are some atelectatic changes at the bases. At the present time, he is awake. However, he is not verbally responsive. He is in no acute respiratory distress. Patient has had a low-grade fever and elevated white blood cell count. He has had recent hospital admissions for seizure activity. He was last admitted in March 2018, for seizure. PAST MEDICAL HISTORY: Positive for hypertension, hyperlipidemia, seizure disorder. ALLERGIES: No known allergies. MEDICATIONS: Include aspirin, Lopressor, Protonix, Flomax, simvastatin. SOCIAL HISTORY: He lives at home. He is a nonsmoker, nondrinker. SYSTEMS REVIEW: Neurologic: Positive for seizure activity. History of neurosurgery. Cardiac: Negative chest pain or palpitations. Respiratory: Negative cough or sputum production. Gastrointestinal: Negative vomiting or diarrhea. Genitourinary: Negative for urinary tract infection. LABORATORY DATA: White count 12.0, hematocrit 40.4, platelet count 177. BUN 25, creatinine 1.3. Liver enzymes normal. Lactic acid 2.7. Urine leukocyte esterase negative. Cultures are pending. PHYSICAL EXAMINATION: General: He is awake. He is not verbally responsive. He is in no acute respiratory distress. Vital Signs: Temperature 99.9; blood pressure 100.4; blood pressure 105/72; pulse 77, regular; respirations 16 per minute. HEENT: Sclerae anicteric. Heart: Sounds S1, S2. Lungs: Poor inspiratory effort. Scattered rhonchi. Abdomen: Soft, nontender. Extremities: Negative edema. IMPRESSION: 1. Probable aspiration pneumonia. 2. Status post seizure activity. 3. Lactic acidosis, rule out sepsis secondary to lung source. Pending cultures, would empirically treat with ceftriaxone 2 g IV piggyback daily for possible aspiration pneumonia. Await culture results. Seizure precautions. Will follow. Thank you for the kind referral. CLEMENTINE ESCOBAR M.D. [id number]
[2018-07-22] MEDS ORDERED: DEXTROSE 5%-WATER 100 ML IVPB ONE (11:29)
[2018-07-22] MEDS: DEXTROSE 5%-0.45% SALINE 1,000 ML IV SCH (11:31)
[2018-07-22] MEDS: HEPARIN NA (PORCINE) 5,000 UNITS/ML 1ML VIAL SQ SCH ×2 (11:31→21:24)
[2018-07-22] MEDS: CEFTRIAXONE 2 GM in DEXTROSE 5%-WATER 100 ML IVPB SCH (11:32)
--- NOTE | 2018-07-22 11:58 | EKG ---
Test Reason : Blood Pressure : / mmHG Vent. Rate : 082 BPM Atrial Rate : 082 BPM P-R Int : 140 ms QRS Dur : 070 ms QT Int : 390 ms P-R-T Axes : 036 010 042 degrees QTc Int : 455 ms NORMAL SINUS RHYTHM NORMAL ECG WHEN COMPARED WITH ECG OF 12-JUL-2018 13:17, VENT. RATE HAS INCREASED BY 28 BPM QT HAS LENGTHENED Confirmed by JUSTIN DAMON, BRANDI ([id number]) on 07/22/2018 11:58:39 AM Referred By: Confirmed By:BRANDI ANDERSON MD
--- NOTE | 2018-07-23 00:13 | CONSULT ---
Consult - text type - Consultation Consultation Note: NEUROLOGY CONSULTATION is greatly appreciated: This 52 yo man with HTN and GERD is well-known to me with difficult to control seizures. Multiple childhood brain surgeries presumably for hydrocephalus with residual encephalomalacia in the left frontal and right temporal regions and resultant static encephalopathy, mild right hemiparesis and seizures. Currently maintained on Depakote ER 1000 mg q 8 hrs and Levetiracetam 1000 mg q 8 hrs Often admitted for seizures with infection, especially UTI's but this time had repeated, witnessed generalized seizures without obvious evidence of infection. Given versed by EMS and lorazepam in the ED. Given additional IV Keppra as well. On ceftriaxone, empirically. EXAM: Multiple cranial scars and defects. Mod. Megancephaly. NEURO: Awake. Dysarthric. Left gaze preference with difficulty looking right. Increased right hemiparesis. Static encephalopathy. IMP: Static encephalopathy Left > right cerebral dysfunction Multiple breakthrough seizures without obvious infection this time. 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 SUGGEST: Continue levetiracetam 1000 mg q 8 hrs and Depakote 1000 mg q 8 hrs for now. Await admission (hopefully pre-loading) blood levels. Switch to PO meds. Observe for improvement of right hemiparesis. May need a third AED if no signs of infection and if AED levels are "adequate/therapeutic." Thank you very much, Sanya Johnson MD
[2018-07-23] MEDS: VALPROATE SODIUM 500 MG/5 ML VIAL IVPB SCH ×3 (05:38→23:27)
[2018-07-23] MEDS: levETIRAcetam 500 MG/5 ML INJECTION VIAL IVPB SCH ×3 (05:39→23:27)
[2018-07-23] MEDS: DEXTROSE 5%-0.45% SALINE 1,000 ML IV SCH ×2 (05:45→14:55)
[2018-07-23 06:37] LABS: BASO % 0.2 % (0-2.0); EOS % 0.6 % (0-4.5); HEMATOCRIT 35.2 % (35.4-49); HEMOGLOBIN 11.5 GM/dL (11.7-16.9); LYMPH % 46.1 % (8-40); MCH 31.5 pg (25.7-33.7); MCHC 32.8 g/dl (32.0-35.9); MEAN CELL VOLUME 96.1 fl (80-96); MEAN PLT VOLUME 9.2 fl (7.5-11.1); MONO % 8.9 % (3.8-10.2); NEUT % 44.2 % (42.8-82.8); PLATELET COUNT 94 K/MM3 (134-434); RBC 3.66 M/mm3 (4.00-5.60); RDW 14.6 % (11.9-15.9); WHITE BLOOD COUNT 7.1 K/mm3 (4.0-10.0)
[2018-07-23 07:29] LABS: ALBUMIN 2.4 g/dl (3.4-5.0); ALK PHOS 59 U/L (45-117); ANION GAP 6 MMOL/L (8-16); BILIRUBIN,TOTAL 0.3 mg/dL (0.2-1); BLOOD UREA NITROGEN 10 mg/dL (7-18); CALCIUM 7.9 mg/dL (8.5-10.1); CHLORIDE 107 mmol/L (98-107); CO2 29 mmol/L (21-32); CREATININE 0.8 mg/dL (0.55-1.3); GLUCOSE,RANDOM 83 mg/dL (74-106); POTASSIUM 3.5 mmol/L (3.5-5.1); SGOT/AST 50 U/L (15-37); SGPT/ALT 17 U/L (13-61); SODIUM 142 mmol/L (136-145); TOT PROT 5.9 g/dl (6.4-8.2)
[2018-07-23] MEDS ORDERED: DEXTROSE 5%-WATER 100 ML IVPB ONE (09:15)
[2018-07-23] MEDS: CEFTRIAXONE 2 GM in DEXTROSE 5%-WATER 100 ML IVPB SCH (09:21)
[2018-07-23] MEDS: HEPARIN NA (PORCINE) 5,000 UNITS/ML 1ML VIAL SQ SCH ×2 (09:21→23:26)
--- NOTE | 2018-07-23 12:32 | PN ---
Progress Note (short form) - Note Progress Note: pt seen/ examined chart reviewed. lethargic but arousable afebrile Vital Signs Temp 98.3 F 07/23/18 10:00 Pulse 61 07/23/18 10:00 Resp 20 07/23/18 10:00 BP 144/84 07/23/18 10:00 Pulse Ox 100 07/23/18 09:00 Intake & Output 07/22/18 07/23/18 07/23/18 23:59 11:59 23:59 Intake Total 2540 1100 Output Total 1500 Balance 2540 -400 Intake: IV 1840 800 D5-1/2Ns - 1,000 ml @ 42 560 mls/hr IV ASDIR [facility] Rx#: [id number] D5-1/2Ns - 1,000 ml @ 80 1280 800 mls/hr IV ASDIR MATTHEW Rx#: [id number] IVPB 700 300 Output: Urine 1500 Void 1500 Other: Voiding Method Incontinent Incontinent # Unmeasured Voids Void 2 Bowel Movement No No Active Medications Acetaminophen (Ofirmev Injection -) 1,000 mg IVPB Q6H PRN PRN Reason: FEVER Last Admin: 07/22/18 07:11 Dose: 1,000 mg Albuterol/Ipratropium (Duoneb -) 1 amp NEB Q4H PRN PRN Reason: SHORTNESS OF BREATH Heparin Sodium (Porcine) (Heparin -) 5,000 unit SQ BID [facility] Last Admin: 07/23/18 09:21 Dose: 5,000 unit Dextrose/Sodium Chloride (D5-1/2ns -) 1,000 mls @ 80 mls/hr IV ASDIR [facility] Last Admin: 07/23/18 05:45 Dose: 80 mls/hr Ceftriaxone Sodium 2 gm/ (Dextrose) 100 mls @ 100 mls/hr IVPB DAILY [facility]; Protocol Last Admin: 07/23/18 09:21 Dose: 100 mls/hr Levetiracetam (Keppra Injection -) 1,000 mg IVPB TID [facility] Last Admin: 07/23/18 05:39 Dose: 1,000 mg Lorazepam (Ativan Injection -) 2 mg IVPUSH TID PRN PRN Reason: seizures Valproate Sodium (Depacon Injection -) 1,000 mg IVPB TID [facility] Last Admin: 07/23/18 05:38 Dose: 1,000 mg CBC, BMP 07/23/18 05:30 07/23/18 05:30 Microbiology 07/22/18 03:03 Blood Culture - Preliminary Blood - Peripheral Venous NO GROWTH OBTAINED AFTER 24 HOURS, INCUBATION TO CONTINUE FOR 4 DAYS. 07/22/18 03:03 Blood Culture - Preliminary Blood - Peripheral Venous NO GROWTH OBTAINED AFTER 24 HOURS, INCUBATION TO CONTINUE FOR 4 DAYS. 07/22/18 06:40 Legionella Antigen - Final Urine For Antigen Detection Streptococcus pneumoniae Antigen (M - Final Physical heent- scars + - scalp S1 S2 RRR Lungs -- rhonchi B/L Lethargic Abd- soft, obese, NT No edema Status epilepticus Pneumonia continue abx monitor labs/ levels neurology consult noted/ appreciated daily oob - chair will follow Problem List - Problems (1) Status epilepticus Code(s): G40.901 - EPILEPSY, UNSP, NOT INTRACTABLE, WITH STATUS EPILEPTICUS (2) Sepsis Code(s): A41.9 - SEPSIS, UNSPECIFIED ORGANISM (3) Pneumonia Code(s): J18.9 - PNEUMONIA, UNSPECIFIED ORGANISM
[2018-07-23] MEDS ORDERED: PT OWN MED DRAWER 7, Y5N ONE ×2 (14:45→21:27)
--- NOTE | 2018-07-23 18:12 | PN ---
Progress Note, Physician History of Present Illness: Much more awake and alert Answers simple questions Breathing non-labored No fever/ chills Temps down Afebrile WBC WNL - Current Medication List Current Medications: Active Medications Acetaminophen (Ofirmev Injection -) 1,000 mg IVPB Q6H PRN PRN Reason: FEVER Last Admin: 07/22/18 07:11 Dose: 1,000 mg Albuterol/Ipratropium (Duoneb -) 1 amp NEB Q4H PRN PRN Reason: SHORTNESS OF BREATH Heparin Sodium (Porcine) (Heparin -) 5,000 unit SQ BID MATTHEW Last Admin: 07/23/18 09:21 Dose: 5,000 unit Dextrose/Sodium Chloride (D5-1/2ns -) 1,000 mls @ 80 mls/hr IV ASDIR MATTHEW Last Admin: 07/23/18 14:55 Dose: 80 mls/hr Ceftriaxone Sodium 2 gm/ (Dextrose) 100 mls @ 100 mls/hr IVPB DAILY [facility]; Protocol Last Admin: 07/23/18 09:21 Dose: 100 mls/hr Levetiracetam (Keppra Injection -) 1,000 mg IVPB TID [facility] Last Admin: 07/23/18 14:55 Dose: 1,000 mg Lorazepam (Ativan Injection -) 2 mg IVPUSH TID PRN PRN Reason: seizures Valproate Sodium (Depacon Injection -) 1,000 mg IVPB TID [facility] Last Admin: 07/23/18 15:00 Dose: 1,000 mg - Objective Vital Signs: Vital Signs Temperature 98.0 F 07/23/18 14:00 Pulse Rate 68 07/23/18 14:00 Respiratory Rate 20 07/23/18 10:00 Blood Pressure 127/85 07/23/18 14:00 O2 Sat by Pulse Oximetry (%) 100 07/23/18 09:00 Constitutional: Yes: No Distress Eyes: Yes: Conjunctiva Clear Cardiovascular: Yes: Regular Rate and Rhythm, S1, S2 Respiratory: Yes: CTA Bilaterally Gastrointestinal: Yes: Normal Bowel Sounds, Soft Edema: No Labs: CBC, BMP 07/23/18 05:30 07/23/18 05:30 INR, PTT INR 1.08 (0.83-1.09) 07/22/18 01:53 Assessment/Plan Probable aspiration pneumonia S/P seizure activity Continue empiric ceftriaxone
[2018-07-24] MEDS: levETIRAcetam 500 MG/5 ML INJECTION VIAL IVPB SCH ×3 (05:01→22:51)
[2018-07-24] MEDS: VALPROATE SODIUM 500 MG/5 ML VIAL IVPB SCH ×3 (05:05→22:53)
[2018-07-24] MEDS ORDERED: DEXTROSE 5%-WATER 100 ML IVPB ONE (08:26)
[2018-07-24] MEDS: CEFTRIAXONE 2 GM in DEXTROSE 5%-WATER 100 ML IVPB SCH (10:02)
[2018-07-24] MEDS: HEPARIN NA (PORCINE) 5,000 UNITS/ML 1ML VIAL SQ SCH ×2 (10:03→22:49)
[2018-07-24] MEDS: DEXTROSE 5%-0.45% SALINE 1,000 ML IV SCH (10:03)
--- NOTE | 2018-07-24 14:03 | PN ---
Progress Note (short form) - Note Progress Note: overall condition same no further seizure so far. remains lethargic--likely due to meds Vital Signs Temp 98.6 F 07/24/18 10:00 Pulse 76 07/24/18 10:00 Resp 18 07/24/18 10:00 BP 122/69 07/24/18 10:00 Pulse Ox 100 07/24/18 10:00 Intake & Output 07/23/18 07/24/18 07/24/18 23:59 11:59 23:59 Intake Total 520 760 Output Total 700 400 Balance -180 360 Intake: IV 320 560 D5-1/2Ns - 1,000 ml @ 80 320 560 mls/hr IV ASDIR MATTHEW Rx#: [id number] IVPB 200 200 Output: Urine 700 400 Void 700 400 Other: Voiding Method Urinal Urinal Active Medications Acetaminophen (Ofirmev Injection -) 1,000 mg IVPB Q6H PRN PRN Reason: FEVER Last Admin: 07/22/18 07:11 Dose: 1,000 mg Albuterol/Ipratropium (Duoneb -) 1 amp NEB Q4H PRN PRN Reason: SHORTNESS OF BREATH Heparin Sodium (Porcine) (Heparin -) 5,000 unit SQ BID MATTHEW Last Admin: 07/24/18 10:03 Dose: 5,000 unit Dextrose/Sodium Chloride (D5-1/2ns -) 1,000 mls @ 80 mls/hr IV ASDIR MATTHEW Last Admin: 07/24/18 10:03 Dose: 80 mls/hr Ceftriaxone Sodium 2 gm/ (Dextrose) 100 mls @ 100 mls/hr IVPB DAILY [facility]; Protocol Last Admin: 07/24/18 10:02 Dose: 100 mls/hr Levetiracetam (Keppra Injection -) 1,000 mg IVPB TID MATTHEW Last Admin: 07/24/18 05:01 Dose: 1,000 mg Lorazepam (Ativan Injection -) 2 mg IVPUSH TID PRN PRN Reason: seizures Valproate Sodium (Depacon Injection -) 1,000 mg IVPB TID MATTHEW Last Admin: 07/24/18 05:05 Dose: 1,000 mg CBC, BMP 07/23/18 05:30 07/23/18 05:30 Microbiology 07/22/18 03:03 Blood Culture - Preliminary Blood - Peripheral Venous NO GROWTH OBTAINED AFTER 48 HOURS, INCUBATION TO CONTINUE FOR 3 DAYS. 07/22/18 03:03 Blood Culture - Preliminary Blood - Peripheral Venous NO GROWTH OBTAINED AFTER 48 HOURS, INCUBATION TO CONTINUE FOR 3 DAYS. Physical S1 S2 RRR Lungs -- rhonchi B/L Lethargic Abd- soft, obese, NT No edema Status epilepticus Pneumonia continue present care f/u labs/ levels - keppra pending abx will follow Problem List - Problems (1) Status epilepticus Code(s): G40.901 - EPILEPSY, UNSP, NOT INTRACTABLE, WITH STATUS EPILEPTICUS (2) Sepsis Code(s): A41.9 - SEPSIS, UNSPECIFIED ORGANISM (3) Pneumonia Code(s): J18.9 - PNEUMONIA, UNSPECIFIED ORGANISM
[2018-07-25] MEDS ORDERED: PT OWN MED DRAWER 7, Y5N ONE (04:03)
[2018-07-25] MEDS: levETIRAcetam 500 MG/5 ML INJECTION VIAL IVPB SCH ×3 (05:20→22:00)
[2018-07-25] MEDS: VALPROATE SODIUM 500 MG/5 ML VIAL IVPB SCH ×3 (05:20→21:58)
[2018-07-25] MEDS ORDERED: DEXTROSE 5%-WATER 100 ML IVPB ONE (07:55)
[2018-07-25] MEDS: HEPARIN NA (PORCINE) 5,000 UNITS/ML 1ML VIAL SQ SCH ×2 (10:43→21:59)
[2018-07-25] MEDS: CEFTRIAXONE 2 GM in DEXTROSE 5%-WATER 100 ML IVPB SCH (10:43)
[2018-07-25] MEDS: DEXTROSE 5%-0.45% SALINE 1,000 ML IV SCH (10:43)
--- NOTE | 2018-07-25 13:12 | PN ---
Progress Note (short form) - Note Progress Note: More awake. no new issues Vital Signs Temp 98.0 F 07/25/18 05:00 Pulse 60 07/25/18 05:00 Resp 18 07/25/18 05:00 BP 114/74 07/25/18 05:00 Pulse Ox 100 07/24/18 21:00 Intake & Output 07/24/18 07/25/18 07/25/18 23:59 11:59 23:59 Intake Total 600 440 Balance 600 440 Intake: IV 400 440 D5-1/2Ns - 1,000 ml @ 80 400 440 mls/hr IV ASDIR [facility] Rx#: [id number] IVPB 200 Other: Voiding Method Diaper Diaper Active Medications Acetaminophen (Ofirmev Injection -) 1,000 mg IVPB Q6H PRN PRN Reason: FEVER Last Admin: 07/22/18 07:11 Dose: 1,000 mg Albuterol/Ipratropium (Duoneb -) 1 amp NEB Q4H PRN PRN Reason: SHORTNESS OF BREATH Heparin Sodium (Porcine) (Heparin -) 5,000 unit SQ BID [facility] Last Admin: 07/25/18 10:43 Dose: 5,000 unit Dextrose/Sodium Chloride (D5-1/2ns -) 1,000 mls @ 80 mls/hr IV ASDIR [facility] Last Admin: 07/25/18 10:43 Dose: 80 mls/hr Ceftriaxone Sodium 2 gm/ (Dextrose) 100 mls @ 100 mls/hr IVPB DAILY [facility]; Protocol Last Admin: 07/25/18 10:43 Dose: 100 mls/hr Levetiracetam (Keppra Injection -) 1,000 mg IVPB TID [facility] Last Admin: 07/25/18 05:20 Dose: 1,000 mg Valproate Sodium (Depacon Injection -) 1,000 mg IVPB TID [facility] Last Admin: 07/25/18 05:20 Dose: 1,000 mg CBC, BMP 07/23/18 05:30 07/23/18 05:30 Microbiology 07/22/18 03:03 Blood Culture - Preliminary Blood - Peripheral Venous NO GROWTH OBTAINED AFTER 72 HOURS, INCUBATION TO CONTINUE FOR 2 DAYS. 07/22/18 03:03 Blood Culture - Preliminary Blood - Peripheral Venous NO GROWTH OBTAINED AFTER 72 HOURS, INCUBATION TO CONTINUE FOR 2 DAYS. Physical S1 S2 RRR Lungs -- rhonchi B/L Lethargic Abd- soft, obese, NT No edema Status epilepticus Pneumonia continue present care f/u labs/ levels - keppra pending abx will follow start on diet -- puree Problem List - Problems (1) Status epilepticus Code(s): G40.901 - EPILEPSY, UNSP, NOT INTRACTABLE, WITH STATUS EPILEPTICUS (2) Sepsis Code(s): A41.9 - SEPSIS, UNSPECIFIED ORGANISM (3) Pneumonia Code(s): J18.9 - PNEUMONIA, UNSPECIFIED ORGANISM
[2018-07-26] MEDS: levETIRAcetam 500 MG/5 ML INJECTION VIAL IVPB SCH (05:41)
[2018-07-26] MEDS: VALPROATE SODIUM 500 MG/5 ML VIAL IVPB SCH (05:44)
[2018-07-26 06:48] LABS: BASO % 0.2 % (0-2.0); EOS % 0.7 % (0-4.5); HEMATOCRIT 40.8 % (35.4-49); HEMOGLOBIN 12.9 GM/dL (11.7-16.9); LYMPH % 60.8 % (8-40); MCH 30.7 pg (25.7-33.7); MCHC 31.8 g/dl (32.0-35.9); MEAN CELL VOLUME 96.7 fl (80-96); MEAN PLT VOLUME 8.2 fl (7.5-11.1); MONO % 9.4 % (3.8-10.2); NEUT % 28.9 % (42.8-82.8); PLATELET COUNT 113 K/MM3 (134-434); RBC 4.22 M/mm3 (4.00-5.60); RDW 14.7 % (11.9-15.9)
[2018-07-26 07:35] LABS: ALBUMIN 2.4 g/dl (3.4-5.0); ALK PHOS 85 U/L (45-117); ANION GAP 7 MMOL/L (8-16); BILIRUBIN,TOTAL 0.2 mg/dL (0.2-1); BLOOD UREA NITROGEN 15 mg/dL (7-18); CALCIUM 8.1 mg/dL (8.5-10.1); CHLORIDE 107 mmol/L (98-107); CO2 31 mmol/L (21-32); CREATININE 0.9 mg/dL (0.55-1.3); GLUCOSE,RANDOM 100 mg/dL (74-106); POTASSIUM 3.8 mmol/L (3.5-5.1); SGOT/AST 26 U/L (15-37); SGPT/ALT 19 U/L (13-61); SODIUM 144 mmol/L (136-145); TOT PROT 6.2 g/dl (6.4-8.2)
[2018-07-26] MEDS ORDERED: DEXTROSE 5%-WATER 100 ML IVPB ONE (09:27)
[2018-07-26 10:33] LABS: ANISOCYTOSIS 0; MACROCYTOSIS 1+; OVALOCYTE 1+; PLATELET ESTIMATE DECREASED
[2018-07-26] MEDS: HEPARIN NA (PORCINE) 5,000 UNITS/ML 1ML VIAL SQ SCH ×2 (11:06→22:18)
[2018-07-26] MEDS: CEFTRIAXONE 2 GM in DEXTROSE 5%-WATER 100 ML IVPB SCH (11:07)
[2018-07-26] MEDS: DEXTROSE 5%-0.45% SALINE 1,000 ML IV SCH (11:07)
--- NOTE | 2018-07-26 14:04 | PN ---
Progress Note (short form) - Note Progress Note: pt seen/ examined. more alert eating okay Afebrile Vital Signs Temp 98.1 F 07/26/18 10:00 Pulse 69 07/26/18 10:00 Resp 20 07/26/18 10:00 BP 112/78 07/26/18 10:00 Pulse Ox 100 07/26/18 09:00 Intake & Output 07/25/18 07/26/18 07/26/18 23:59 11:59 23:59 Intake Total 520 480 Output Total 800 Balance 520 480 -800 Intake: IV 320 480 D5-1/2Ns - 1,000 ml @ 80 320 480 mls/hr IV ASDIR MATTHEW Rx#: [id number] IVPB 200 Output: Urine 800 Void 800 Other: Voiding Method Diaper Diaper Urinal Bowel Movement No Active Medications Acetaminophen (Ofirmev Injection -) 1,000 mg IVPB Q6H PRN PRN Reason: FEVER Last Admin: 07/22/18 07:11 Dose: 1,000 mg Albuterol/Ipratropium (Duoneb -) 1 amp NEB Q4H PRN PRN Reason: SHORTNESS OF BREATH Heparin Sodium (Porcine) (Heparin -) 5,000 unit SQ BID [facility]THEW Last Admin: 07/26/18 11:06 Dose: 5,000 unit Dextrose/Sodium Chloride (D5-1/2ns -) 1,000 mls @ 80 mls/hr IV ASDIR MATTHEW Last Admin: 07/26/18 11:07 Dose: Not Given Ceftriaxone Sodium 2 gm/ (Dextrose) 100 mls @ 100 mls/hr IVPB DAILY [facility]; Protocol Last Admin: 07/26/18 11:07 Dose: 100 mls/hr Levetiracetam (Keppra -) 1,000 mg PO BID MATTHEW Valproate Sodium (Depacon Injection -) 1,000 mg IVPB TID [facility]THEW Last Admin: 07/26/18 05:44 Dose: 1,000 mg CBC, BMP 07/26/18 05:30 07/26/18 05:30 Microbiology 07/22/18 03:03 Blood Culture - Preliminary Blood - Peripheral Venous NO GROWTH OBTAINED AFTER 96 HOURS, INCUBATION TO CONTINUE FOR 1 DAYS. 07/22/18 03:03 Blood Culture - Preliminary Blood - Peripheral Venous NO GROWTH OBTAINED AFTER 96 HOURS, INCUBATION TO CONTINUE FOR 1 DAYS. Abnormal Lab Results 07/22/18 07/26/18 07/26/18 08:30 05:30 05:30 MCV 96.7 H MCHC 31.8 L Plt Count 113 L D Neutrophils % 28.9 L D Neutrophils % (Manual) 27.6 L Lymphocytes % 60.8 H D Lymphocytes % (Manual) 58.2 H Anion Gap 7 L Calcium 8.1 L Total Protein 6.2 L Albumin 2.4 L Levetiracetam 76.4 H Physical Exam more alert and awake S1 S2 RRR Lungs -- rhonchi B/L Abd- soft, obese, NT No edema Status epilepticus Pneumonia--likely aspiration continue present care f/u labs/ levels - keppra level high Decrease dose of Keppra abx--continue--aspirin ID neurology to follow As well as ID will follow
[2018-07-26] MEDS ORDERED: PT OWN MED DRAWER 7, Y5N ONE ×3 (14:20→22:17)
--- NOTE | 2018-07-26 15:59 | PN ---
Progress Note, Physician History of Present Illness: Much more awake, alert , and conversant Answers simple questions Breathing non-labored No fever/ chills Temps down Afebrile WBC WNL - Current Medication List Current Medications: Active Medications Acetaminophen (Ofirmev Injection -) 1,000 mg IVPB Q6H PRN PRN Reason: FEVER Last Admin: 07/22/18 07:11 Dose: 1,000 mg Albuterol/Ipratropium (Duoneb -) 1 amp NEB Q4H PRN PRN Reason: SHORTNESS OF BREATH Divalproex Sodium (Depakote -) 1,000 mg PO TID MATTHEW Heparin Sodium (Porcine) (Heparin -) 5,000 unit SQ BID [facility]THEW Last Admin: 07/26/18 11:06 Dose: 5,000 unit Dextrose/Sodium Chloride (D5-1/2ns -) 1,000 mls @ 80 mls/hr IV ASDIR [facility] Last Admin: 07/26/18 11:07 Dose: Not Given Ceftriaxone Sodium 2 gm/ (Dextrose) 100 mls @ 100 mls/hr IVPB DAILY [facility]; Protocol Last Admin: 07/26/18 11:07 Dose: 100 mls/hr Levetiracetam (Keppra -) 1,000 mg PO BID [facility] - Objective Vital Signs: Vital Signs Temperature 98.2 F 07/26/18 14:15 Pulse Rate 77 07/26/18 14:15 Respiratory Rate 20 07/26/18 14:15 Blood Pressure 113/66 07/26/18 14:15 O2 Sat by Pulse Oximetry (%) 100 07/26/18 09:00 Constitutional: Yes: No Distress Cardiovascular: Yes: Regular Rate and Rhythm, S1, S2 Respiratory: Yes: Other (rhonchi R base) Gastrointestinal: Yes: Normal Bowel Sounds, Soft. No: Tenderness Labs: CBC, BMP 07/26/18 05:30 07/26/18 05:30 INR, PTT INR 1.08 (0.83-1.09) 07/22/18 01:53 Assessment/Plan Probable aspiration pneumonia S/P seizure activity Continue empiric ceftriaxone Repeat CXR
[2018-07-26] MEDS: levETIRAcetam 500 MG TABLET (FP) PO SCH (22:18)
[2018-07-26] MEDS: DIVALPROEX SODIUM 500 MG TABLET E.C. PO SCH (22:18)
[2018-07-27] MEDS ORDERED: PT OWN MED DRAWER 7, Y5N ONE (05:34)
[2018-07-27] MEDS: DIVALPROEX SODIUM 500 MG TABLET E.C. PO SCH ×2 (05:53→13:37)
[2018-07-27] MEDS: HEPARIN NA (PORCINE) 5,000 UNITS/ML 1ML VIAL SQ SCH (09:59)
[2018-07-27] MEDS: levETIRAcetam 500 MG TABLET (FP) PO SCH (10:00)
[2018-07-27] MEDS: CEFTRIAXONE 2 GM in DEXTROSE 5%-WATER 100 ML IVPB SCH (10:05)
--- NOTE | 2018-07-27 12:18 | DS ---
Physical Examination Vital Signs: Vital Signs Temperature 97 F L 07/27/18 08:56 Pulse Rate 70 07/27/18 08:56 Respiratory Rate 18 07/27/18 08:56 Blood Pressure 148/86 07/27/18 08:56 O2 Sat by Pulse Oximetry (%) 97 07/27/18 08:54 Constitutional: Yes: No Distress, Calm Cardiovascular: Yes: Regular Rate and Rhythm Respiratory: Yes: Diminished Gastrointestinal: Yes: Normal Bowel Sounds, Soft, Abdomen, Obese. 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 (Acute) Hospital Course: Pt admitted for status epilepticus and aspiration pneumonia Has dizziness on standing up-- orthostasis encourage oral fluids seen by Neurology and ID Was on IV antibiotics Stable on meds for seizures Stable for dc to [facility] for gait training as he is unsteady Condition: Stable - Instructions [facility] - Home Medications Comprehensive Discharge Medication List: Ambulatory Orders Aspirin Coated [Ecotrin -] 81 mg PO DAILY #90 tab 12/16/16 Metoprolol Tartrate [Lopressor -] 25 mg PO BID #60 tablet 12/16/16 Pantoprazole Sodium [Protonix -] 40 mg PO DAILY tablet.ec 08/07/17 Tamsulosin HCl [Flomax -] 0.4 mg PO 1900 08/12/17 Simvastatin 20 mg PO DAILY 04/16/18 Valproic Acid [Depakene -] 1,000 mg PO Q8H 04/16/18 Cefuroxime Axetil [Ceftin -] 500 mg PO Q12H #8 tablet 05/01/18 levETIRAcetam [Keppra -] 1,000 mg PO Q8H #90 tablet 05/01/18
[2018-07-27] MEDS: DEXTROSE 5%-0.45% SALINE 1,000 ML IV SCH (12:28)
[2018-07-27 15:14] VITALS: PULSE 84; TEMP 97.4
[2018-07-27 15:16] VITALS: BP 135/88
== END 2018-07-27 15:35 | DRG 871 ==
LOC: JER 01:09 → JERBED 02:41 → UNDOADMIN 03:29 → JERBED 03:29 → J2W 09:57 → J4W 07-23 10:47
PROVIDERS: ADMIT Internal Medicine; ATTEND Internal Medicine
DX: A41.9 Sepsis, unspecified organism (principal); J69.0 Pneumonitis due to inhalation of food and vomit; G93.49 Other encephalopathy; G81.93 Hemiplegia, unspecified affecting right nondominant side; G40.901 Epilepsy, unspecified, not intractable, with status epilepticus; R79.89 Other specified abnormal findings of blood chemistry; I10 Essential (primary) hypertension; E78.5 Hyperlipidemia, unspecified; K21.9 Gastro-esophageal reflux disease without esophagitis
CPT/HCPCS: 36415; 36600; 70450-TC; 71045-TC-FY; 80053; 80164; 80177; 81003; 82550; 82803; 83605; 83735; 84443; 84484; 85025; 85610; 85730; 87040; 87899; 93005; 93010; 97116-GP; 97162-GP; 99285-25; J0131; J1644; J7030

== ENCOUNTER 2018-08-27 21:13 | Inpatient (IN) | payer OTHER ==
[2018-08-27] MEDS ORDERED: LORazepam 2 MG/ML SDV VIAL ONE ×2 (21:22→22:06)
--- NOTE | 2018-08-27 21:37 | PDOC ---
History of Present Illness - General Chief Complaint: Seizure Stated Complaint: SEIZURE Time Seen by Provider: 08/27/18 21:33 - History of Present Illness Initial Comments: 08/27/18 21:39 Mr. Wong is a 53 yo male w/ pmh of HTN, HLD, congenital hydrocephaly, epilepsy , and recent admission 07/22-07/27 for status epilepticus in setting of pneumonia who presents for evaluation by ambulance from [place] after being found on floor seizing earlier this evening. Patient dosing at longterm of anti- epileptics confirmed as Keppra 1000mg BID and valproic acid 1000mg Q8. Patient treated during previous admission with both medications 1000mg TID. Unable to obtain further history at this time. Past History - Past Medical History Allergies/Adverse Reactions: Allergies Allergy/AdvReac Type Severity Reaction Status Date / Time No Known Drug Allergies Allergy Verified 08/27/18 21:37 Home Medications: Ambulatory Orders Aspirin Coated [Ecotrin -] 81 mg PO DAILY #90 tab 12/16/16 Metoprolol Tartrate [Lopressor -] 25 mg PO BID #60 tablet 12/16/16 Pantoprazole Sodium [Protonix -] 40 mg PO DAILY tablet.ec 08/07/17 Tamsulosin HCl [Flomax -] 0.4 mg PO 1900 08/12/17 Simvastatin 20 mg PO DAILY 04/16/18 Valproic Acid [Depakene -] 1,000 mg PO Q8H 04/16/18 Amoxicillin/Potassium Clav [Augmentin 875-125 Tablet] 1 each PO BID #8 tablet Heparin - 5,000 unit SQ BID #14 vial 07/27/18 levETIRAcetam [Keppra -] 1,000 mg PO BID #30 tablet 07/27/18 Anemia: No Asthma: No Cancer: No Cardiac Disorders: No CVA: No COPD: No CHF: No DVT: No Dementia: No Diabetes: No Dialysis: No GI Disorders: No Disorders: No HTN: Yes Hypercholesterolemia: Yes Kidney Stones: No Liver Disease: No Psychiatric Problems: Yes Seizures: Yes Thyroid Disease: No - Surgical History Abdominal Surgery: No Appendectomy: No Cardiac Surgery: No Cholecystectomy: No Lung Surgery: No Neurologic Surgery: Yes (s/p garett holes) Orthopedic Surgery: No - Immunization History Immunization Up to Date: Yes - Suicide/Smoking/Psychosocial Hx Smoking Status: No Smoking History: Never smoked Have you smoked in the past 12 months: No Number of Cigarettes Smoked Daily: 0 Cigars Per Day: 0 Information on smoking cessation initiated: No Hx Alcohol Use: No Drug/Substance Use Hx: No Substance Use Type: None Hx Substance Use Treatment: No Review of Systems - Review of Systems Comments:: 08/27/18 22:10 Unable to obtain further. *Physical Exam - Vital Signs Last Vital Signs Temp Pulse Resp BP Pulse Ox 99.8 F H 103 H 24 H 142/99 99 08/27/18 21:13 08/27/18 21:13 08/27/18 21:13 08/27/18 21:13 08/27/18 21:13 - Physical Exam Comments: 08/27/18 22:12 GENERAL: +Patient actively seizing upon arrival with R deviated gaze. HEAD: No signs of trauma, normocephalic, atraumatic EYES: PERRLA, EOMI, sclera anicteric, conjunctiva clear ENT: Auricles normal inspection, hearing grossly normal, nares patent, oropharynx clear without exudates. Moist mucosa NECK: Normal ROM, supple, no lymphadenopathy, JVD, or masses LUNGS: +Coarse lung sounds on left side. HEART: Regular rate and rhythm, normal S1 and S2, no murmurs, rubs or gallops, peripheral pulses normal and equal bilaterally. ABDOMEN: +Bruising noted to abdomen. Soft, nontender, normoactive bowel sounds. No guarding, no rebound. No masses EXTREMITIES: Normal inspection, Normal range of motion, no edema. No clubbing or cyanosis. NEUROLOGICAL: +Unable to assess at this time. SKIN: Warm, Dry, normal turgor, no rashes or lesions noted. Moderate Sedation - Procedure Monitoring Vital Signs: Procedure Monitoring Vital Signs Temperature 99.8 F H 08/27/18 21:13 Pulse Rate 103 H 08/27/18 21:13 Respiratory Rate 24 H 08/27/18 21:13 Blood Pressure 142/99 08/27/18 21:13 O2 Sat by Pulse Oximetry (%) 99 08/27/18 21:13 ED Treatment Course - LABORATORY CBC & Chemistry Diagram: 08/27/18 21:39 08/27/18 21:39 Medical Decision Making - Medical Decision Making 08/27/18 22:10 Mr. Wong is a 53 yo male w/ pmh as described who presents for evaluation with active seizure. Patient was given 5 versed IM via EMS while en route. Patient also given 2.5mg diazepam rectally and 2mg ativan IV at presentation. Additional 4mg ativan required again to break seizure. Keppra 1000mg also added. Patient will be evaluated with head CT as well as infectious workup for causes of seizure. 08/27/18 23:28 Patient workup significant for elevated lactate as below. Suspect this is 2/2 seizing - patient hydrated with NS and will repeat to ensure it has decreased. Admitting patient for neurology consult and further evaluation. 08/27/18 23:59 Patient signed out to Dr. Carmen for further evaluation. Laboratory Results - last 24 hr 08/27/18 08/27/18 08/27/18 21:39 21:39 21:39 WBC 10.6 H RBC 3.99 L Hgb 12.8 Hct 37.5 MCV 93.9 MCH 32.0 MCHC 34.1 RDW 14.6 Plt Count 177 D MPV 9.3 D Absolute Neuts (auto) 4.4 Neutrophils % 41.4 L D Lymphocytes % 45.5 H D Monocytes % 11.6 H Eosinophils % 1.1 Basophils % 0.4 Nucleated RBC % 0 Sodium 135 L Potassium 4.4 Chloride 96 L Carbon Dioxide 25 Anion Gap 13 BUN 24 H Creatinine 1.3 Creat Clearance w eGFR 57.53 Random Glucose 75 Lactic Acid Calcium 8.8 Total Bilirubin 0.4 AST 28 ALT 31 Alkaline Phosphatase 82 Creatine Kinase 234 Creatine Kinase Index 0.8 CK-MB (CK-2) 1.9 Troponin I < 0.02 Total Protein 8.7 H Albumin 3.6 08/27/18 21:44 WBC RBC Hgb Hct MCV MCH MCHC RDW Plt Count MPV Absolute Neuts (auto) Neutrophils % Lymphocytes % Monocytes % Eosinophils % Basophils % Nucleated RBC % Sodium Potassium Chloride Carbon Dioxide Anion Gap BUN Creatinine Creat Clearance w eGFR Random Glucose Lactic Acid 7.5 H* Calcium Total Bilirubin AST ALT Alkaline Phosphatase Creatine Kinase Creatine Kinase Index CK-MB (CK-2) Troponin I Total Protein Albumin 08/28/18 00:10 *DC/Admit/Observation/Transfer Diagnosis at time of Disposition: Status epilepticus Seizure Qualifiers: Convulsion type: unspecified Qualified Code(s): R56.9 - Unspecified convulsions - Discharge Dispostion Condition at time of disposition: Guarded Decision to Admit order: Yes - Referrals Referrals: Ailyn Meadows MD [Primary Care Provider] - - Patient Instructions - Post Discharge Activity
[2018-08-27] MEDS ORDERED: diazePAM 2.5 MG PEDIATRIC RECTAL APP GEL PR ONE (21:43)
[2018-08-27] MEDS ORDERED: diazePAM 2.5 MG PEDIATRIC RECTAL APP GEL RC ONE (21:47)
[2018-08-27] MEDS ORDERED: SODIUM CHLORIDE 0.9% 500 ML INFUS.BAG IV ONE (21:51)
[2018-08-27 21:55] LABS: BASO % 0.4 % (0-2.0); EOS % 1.1 % (0-4.5); HEMATOCRIT 37.5 % (35.4-49); HEMOGLOBIN 12.8 GM/dL (11.7-16.9); LYMPH % 45.5 % (8-40); MCHC 34.1 g/dl (32.0-35.9); MEAN CELL VOLUME 93.9 fl (80-96); MEAN PLT VOLUME 9.3 fl (7.5-11.1); MONO % 11.6 % (3.8-10.2); NEUT % 41.4 % (42.8-82.8); PLATELET COUNT 177 K/MM3 (134-434); RBC 3.99 M/mm3 (4.00-5.60); RDW 14.6 % (11.9-15.9); WHITE BLOOD COUNT 10.6 K/mm3 (4.0-10.0)
[2018-08-27] MEDS ORDERED: levETIRAcetam 500 MG/5 ML INJECTION VIAL IVPB ONE (22:02)
--- NOTE | 2018-08-27 22:05 | PDOC ---
History of Present Illness - General Chief Complaint: Seizure Stated Complaint: SEIZURE Time Seen by Provider: 08/27/18 21:33 Past History - Past Medical History Allergies/Adverse Reactions: Allergies Allergy/AdvReac Type Severity Reaction Status Date / Time No Known Drug Allergies Allergy Verified 08/27/18 21:37 Home Medications: Ambulatory Orders Aspirin Coated [Ecotrin -] 81 mg PO DAILY #90 tab 12/16/16 Metoprolol Tartrate [Lopressor -] 25 mg PO BID #60 tablet 12/16/16 Pantoprazole Sodium [Protonix -] 40 mg PO DAILY tablet.ec 08/07/17 Tamsulosin HCl [Flomax -] 0.4 mg PO 1900 08/12/17 Simvastatin 20 mg PO DAILY 04/16/18 Valproic Acid [Depakene -] 1,000 mg PO Q8H 04/16/18 Amoxicillin/Potassium Clav [Augmentin 875-125 Tablet] 1 each PO BID #8 tablet Heparin - 5,000 unit SQ BID #14 vial 07/27/18 levETIRAcetam [Keppra -] 1,000 mg PO BID #30 tablet 07/27/18 Anemia: No Asthma: No Cancer: No Cardiac Disorders: No CVA: No COPD: No CHF: No DVT: No Dementia: No Diabetes: No Dialysis: No GI Disorders: No Disorders: No HTN: Yes Hypercholesterolemia: Yes Kidney Stones: No Liver Disease: No Psychiatric Problems: Yes Seizures: Yes Thyroid Disease: No - Surgical History Abdominal Surgery: No Appendectomy: No Cardiac Surgery: No Cholecystectomy: No Lung Surgery: No Neurologic Surgery: Yes (s/p garett holes) Orthopedic Surgery: No - Immunization History Immunization Up to Date: Yes - Suicide/Smoking/Psychosocial Hx Smoking Status: No Smoking History: Never smoked Have you smoked in the past 12 months: No Number of Cigarettes Smoked Daily: 0 Cigars Per Day: 0 Information on smoking cessation initiated: No Hx Alcohol Use: No Drug/Substance Use Hx: No Substance Use Type: None Hx Substance Use Treatment: No *Physical Exam - Vital Signs Last Vital Signs Temp Pulse Resp BP Pulse Ox 99.1 F 103 H 24 H 142/99 99 08/27/18 22:03 08/27/18 21:13 08/27/18 21:13 08/27/18 21:13 08/27/18 21:13 Moderate Sedation - Procedure Monitoring Vital Signs: Procedure Monitoring Vital Signs Temperature 99.1 F 08/27/18 22:03 Pulse Rate 103 H 08/27/18 21:13 Respiratory Rate 24 H 08/27/18 21:13 Blood Pressure 142/99 08/27/18 21:13 O2 Sat by Pulse Oximetry (%) 99 08/27/18 21:13 ED Treatment Course - LABORATORY CBC & Chemistry Diagram: 08/27/18 21:39 08/27/18 21:39 - ADDITIONAL ORDERS Additional order review: 08/27/18 21:39 RBC 3.99 L MCV 93.9 MCHC 34.1 RDW 14.6 MPV 9.3 D Neutrophils % 41.4 L D Lymphocytes % 45.5 H D Monocytes % 11.6 H Eosinophils % 1.1 Basophils % 0.4 - RADIOLOGY Radiology Studies Ordered: Category Date Time Status HEAD CT WITHOUT CONTRAST [CT] Stat CT Scan 08/27/18 21:41 Ordered CHEST X-RAY PORTABLE* [RAD] Stat Radiology 08/27/18 21:36 Taken - Medications Given in the ED: ED Medications Discontinued Medications Generic Name Dose Route Start Last Admin Trade Name Freq PRN Reason Stop Dose Admin Diazepam 2.5 mg 08/27/18 21:43 08/27/18 21:54 Diastat *Pediatric Rectal Gel* - DC 08/27/18 21:44 2.5 mg ONCE ONE Administration Lorazepam 2 mg 08/27/18 21:38 08/27/18 21:54 Ativan Injection - IVPUSH 08/27/18 21:39 2 mg ONCE ONE Administration Sodium Chloride 1,000 ml 08/27/18 21:51 08/27/18 21:54 Normal Saline - IV 08/27/18 21:52 1,000 ml ONCE ONE Administration *DC/Admit/Observation/Transfer - Discharge Dispostion Condition at time of disposition: Guarded - Referrals Referrals: Ailyn Meadows MD [Primary Care Provider] - - Patient Instructions - Post Discharge Activity
--- NOTE | 2018-08-27 22:06 | PDOC ---
Attending Attestation - HPI HPI: 08/27/18 22:08 The patient is a 53 year old male with a PMH with seizures, HTN, GERD, multiple surgeries for hydrocephalus, mild right hemiparesis, status epilepticus, on depakote 1000 mg every 8hrs, on keppra TID, left sided gaze preference, from [facility] brought in by EMS for seizure activity. The [facility] states they found the patient on the floor today seizing. Patient received 5mg of Versed from EMS en route to the ED. No further history provided at this time. Patient was seen in this ED for a seizure on 07/12 and had a pneumonia then for which he was admitted. Neurologist: Dr. Johnson - Physicial Exam PE: 08/27/18 22:08 GENERAL: Awake. Afebrile. HEAD: No signs of trauma EYES: (+) Right side gaze preference with beating nystagmus. sclera anicteric, conjunctiva clear ENT: Auricles normal inspection, hearing grossly normal, nares patent, oropharynx clear without exudates. Moist mucosa NECK: Normal ROM, supple, no lymphadenopathy, JVD, or masses LUNGS: (+) Coarse breath sounds on the left. HEART: Regular rate and rhythm, normal S1 and S2, no murmurs, rubs or gallops ABDOMEN: Soft, nontender, normoactive bowel sounds. (+) Hematomas on his abdomen. EXTREMITIES: Normal range of motion, no edema. NEUROLOGICAL: (+) Non-responsive. SKIN: Warm, Dry, normal turgor, no rashes or lesions noted. <Renetta White - Last Filed: 08/27/18 22:10> - Resident Resident Name: Mc Carmen - ED Attending Attestation I have performed the following: I have examined & evaluated the patient, The case was reviewed & discussed with the resident, I agree w/resident's findings & plan - Medical Decision Making 08/28/18 06:[address] head is normal; Pt's seizing ceased with the rectal diazepam; 4mg ativan given for good measure, as he had some eye twitching; Pt also loaded with Keppra 1 g. Levels are pending. He will be admitted to [facility] for neuro eval for his seizures that have become more and more recurrent -could it be the fact that his seizure meds are SUPRAtherapeutic, thus predisposing him to seize? <Zulma Ortiz - Last Filed: 08/28/18 06:43> Heart Score/ECG Review - ECG Intrepretation Rhythm: Regular Rhythm - [place]: Normal - P and [place] Delta Wave(s) Present: No WPW: No - QRS Poor R Wave Progression: No Q Wave Present: No - ST and T Early Repolarization: No Non Specific ST-T Wave changes: No Flattened T Waves: No Prolonged Q-T Interval: No - ECG Impressions Normal ECG: Yes Non-specific ST Elevation: No Ischemic Changes: No Bradycardia: No Torsades danny Pointes: No WPW: No <Zulma Ortiz - Last Filed: 08/28/18 06:43>
[2018-08-27 22:07] LABS: INR 0.92 (0.83-1.09); PROTHROMBIN TIME (PATIENT) 10.8 SEC (9.7-13.0)
[2018-08-27 22:48] LABS: ALBUMIN 3.6 g/dl (3.4-5.0); ALK PHOS 82 U/L (45-117); BLOOD UREA NITROGEN 24 mg/dL (7-18); CALCIUM 8.8 mg/dL (8.5-10.1); CHLORIDE 96 mmol/L (98-107); CO2 25 mmol/L (21-32); CREATININE 1.3 mg/dL (0.55-1.3); GLUCOSE,RANDOM 75 mg/dL (74-106); SGPT/ALT 31 U/L (13-61); SODIUM 135 mmol/L (136-145); TOT PROT 8.7 g/dl (6.4-8.2)
[2018-08-27 22:49] LABS: ANION GAP 13 MMOL/L (8-16); BILIRUBIN,TOTAL 0.4 mg/dL (0.2-1); POTASSIUM 4.4 mmol/L (3.5-5.1); SGOT/AST 28 U/L (15-37)
[2018-08-27] MEDS ORDERED: SODIUM CHLORIDE 1,000 ML IV STA (23:14)
--- NOTE | 2018-08-28 01:57 | PDOC ---
*Physical Exam - Vital Signs Last Vital Signs Temp Pulse Resp BP Pulse Ox 99.1 F 103 H 24 H 142/99 99 08/27/18 22:03 08/27/18 21:13 08/27/18 21:13 08/27/18 21:13 08/27/18 21:13 ED Treatment Course - LABORATORY CBC & Chemistry Diagram: 08/28/18 05:36 08/27/18 21:39 - ADDITIONAL ORDERS Additional order review: Laboratory Results 08/27/18 08/27/18 08/27/18 23:55 22:35 21:44 PT with INR 10.80 INR 0.92 Sodium Potassium Chloride Carbon Dioxide Anion Gap BUN Creatinine Creat Clearance w eGFR POC Glucometer Random Glucose Lactic Acid 1.3 7.5 H* Calcium Total Bilirubin AST ALT Alkaline Phosphatase Creatine Kinase Creatine Kinase Index CK-MB (CK-2) Troponin I Total Protein Albumin 08/27/18 08/27/18 08/27/18 21:39 21:39 21:17 PT with INR INR Sodium 135 L Potassium 4.4 Chloride 96 L Carbon Dioxide 25 Anion Gap 13 BUN 24 H Creatinine 1.3 Creat Clearance w eGFR 57.53 POC Glucometer 91.41077 Random Glucose 75 Lactic Acid Calcium 8.8 Total Bilirubin 0.4 AST 28 ALT 31 Alkaline Phosphatase 82 Creatine Kinase 234 Creatine Kinase Index 0.8 CK-MB (CK-2) 1.9 Troponin I < 0.02 Total Protein 8.7 H Albumin 3.6 08/27/18 08/27/18 21:39 21:17 RBC 3.99 L MCV 93.9 MCHC 34.1 RDW 14.6 MPV 9.3 D Neutrophils % 41.4 L D Lymphocytes % 45.5 H D Monocytes % 11.6 H Eosinophils % 1.1 Basophils % 0.4 POC Glucometer 91.85985 - Medications Given in the ED: ED Medications Discontinued Medications Generic Name Dose Route Start Last Admin Trade Name Freq PRN Reason Stop Dose Admin Diazepam 2.5 mg 08/27/18 21:43 08/27/18 21:54 Diastat *Pediatric Rectal Gel* - MD 08/27/18 21:44 2.5 mg ONCE ONE Administration Sodium Chloride 1,000 mls @ 1,000 mls/hr 08/27/18 23:14 08/28/18 00:08 Normal Saline - IV 08/28/18 00:13 1,000 mls/hr ASDIR STA Administration Levetiracetam 1,000 mg 08/27/18 22:02 08/27/18 22:27 Keppra Injection - IVPB 08/27/18 22:03 1,000 mg ONCE ONE Administration Lorazepam 2 mg 08/27/18 21:38 08/27/18 21:54 Ativan Injection - IVPUSH 08/27/18 21:39 2 mg ONCE ONE Administration Lorazepam 4 mg 08/27/18 22:04 08/27/18 22:13 Ativan Injection - IVPUSH 08/27/18 22:05 4 mg ONCE ONE Administration Sodium Chloride 1,000 ml 08/27/18 21:51 08/27/18 21:54 Normal Saline - IV 08/27/18 21:52 1,000 ml ONCE ONE Administration Medical Decision Making - Medical Decision Making 08/28/18 01:[address] Rodriguez. Patient is 53M with extensive medical history here today with status epilepticus, resolved after keppra loading and multiple benzos. Patient reassessed. Satting 97% on room air. No seizure activity. Post ictal. D/W Mikaela Collins. Admitted to [facility]. *DC/Admit/Observation/Transfer Diagnosis at time of Disposition: Status epilepticus Seizure Qualifiers: Convulsion type: unspecified Qualified Code(s): R56.9 - Unspecified convulsions - Discharge Dispostion Condition at time of disposition: Stable Decision to Admit order: Yes - Referrals - Patient Instructions - Post Discharge Activity
[2018-08-28] MEDS ORDERED: DEXTROSE 5%-0.45% SALINE 1,000 ML IV SCH (02:00)
--- NOTE | 2018-08-28 02:25 | HP ---
Admitting History and Physical - Primary Care Physician PCP: Ailyn Meadows - Admission Chief Complaint: Seizure Activity History of Present Illness: This is a 53 y/o man from [facility] with a significant past medical history of HTN, GERD, Seizure Disorder, Multiple Shunts for Congenital Hydrocephalus, Encephalomalacia, last admission 07/22/18- 07/27. Who presents to the ED for Seizure Activity. Per SD papers, patient was found by staff on the floor seizing , was given Versed in the field, and Ativan in the ED for continue Seizure activity. Patient is post tictal unable to provide HPI. Patient was given loading dose of Keppra, valproric acid and levetiracetam levels are pending. Patient will be admitted to Telemetry. 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 Cardiovascular: Yes: HTN, Hyperlipdemia Pulmonary: Yes: Pneumonia Psych: Yes: Depression - Smoking History Smoking history: Never smoked Have you smoked in the past 12 months: No Aproximately how many cigarettes per day: 0 - Alcohol/Substance Use Hx Alcohol Use: No - Social History Usual Living Arrangement: Yes: With Parent ADL: Family Assistance History of Recent Travel: No Home Medications - Allergies Allergies/Adverse Reactions: Allergies Allergy/AdvReac Type Severity Reaction Status Date / Time No Known Drug Allergies Allergy Verified 08/28/18 07:15 - Home Medications Home Medications: Ambulatory Orders Aspirin Coated [Ecotrin -] 81 mg PO DAILY #90 tab 12/16/16 Metoprolol Tartrate [Lopressor -] 25 mg PO BID #60 tablet 12/16/16 Pantoprazole Sodium [Protonix -] 40 mg PO DAILY tablet.ec 08/07/17 Tamsulosin HCl [Flomax -] 0.4 mg PO 1900 08/12/17 Simvastatin 20 mg PO DAILY 04/16/18 Valproic Acid [Depakene -] 1,000 mg PO Q8H 04/16/18 Amoxicillin/Potassium Clav [Augmentin 875-125 Tablet] 1 each PO BID #8 tablet Heparin - 5,000 unit SQ BID #14 vial 07/27/18 levETIRAcetam [Keppra -] 1,000 mg PO BID #30 tablet 07/27/18 Family Disease History - Family Disease History Family History: Unable to Obtain Review of Systems Unable to obtain ROS, reason: Post Tictal Physical Examination Vital Signs: Vital Signs Temperature 99.1 F 08/27/18 22:03 Pulse Rate 103 H 08/27/18 21:13 Respiratory Rate 24 H 08/27/18 21:13 Blood Pressure 142/99 08/27/18 21:13 O2 Sat by Pulse Oximetry (%) 99 08/27/18 21:13 Constitutional: Yes: Other (lethargy, responds slightly to name- opens right eye ) Eyes: Yes: Conjunctiva Clear, PERRL (r- eye) HENT: Yes: WNL, Atraumatic, Normocephalic Neck: Yes: WNL, Supple, Trachea Midline Cardiovascular: Yes: WNL, Regular Rate and Rhythm, S1, S2 Respiratory: Yes: On Nasal O2, Rhonchi, Wheezes Gastrointestinal: Yes: WNL, Normal Bowel Sounds, Soft Renal/: Yes: Incontinence Breast(s): Yes: WNL Musculoskeletal: Yes: WNL Extremities: Yes: WNL Edema: No Peripheral Pulses WNL: Yes Neurological: Yes: Lethargy Labs: CBC, BMP 08/27/18 21:39 08/27/18 21:39 Laboratory Results - last 24 hr 08/27/18 08/27/18 08/27/18 21:17 21:39 21:39 WBC 10.6 H RBC 3.99 L Hgb 12.8 Hct 37.5 MCV 93.9 MCH 32.0 MCHC 34.1 RDW 14.6 Plt Count 177 D MPV 9.3 D Absolute Neuts (auto) 4.4 Neutrophils % 41.4 L D Lymphocytes % 45.5 H D Monocytes % 11.6 H Eosinophils % 1.1 Basophils % 0.4 Nucleated RBC % 0 PT with INR INR Sodium Potassium Chloride Carbon Dioxide Anion Gap BUN Creatinine Creat Clearance w eGFR POC Glucometer 91.40777 Random Glucose Lactic Acid Calcium Phosphorus Magnesium Total Bilirubin AST ALT Alkaline Phosphatase Creatine Kinase 234 Creatine Kinase Index 0.8 CK-MB (CK-2) 1.9 Troponin I < 0.02 Total Protein Albumin Urine Color Urine Appearance Urine pH Ur Specific [place] Urine Protein Urine Glucose (UA) Urine Ketones Urine Blood Urine Nitrite Urine Bilirubin Urine Urobilinogen Ur Leukocyte Esterase Valproic Acid 01/04/19 01/04/19 01/04/19 21:39 21:44 22:35 WBC RBC Hgb Hct MCV MCH MCHC RDW Plt Count MPV Absolute Neuts (auto) Neutrophils % Lymphocytes % Monocytes % Eosinophils % Basophils % Nucleated RBC % PT with INR 10.80 INR 0.92 Sodium 135 L Potassium 4.4 Chloride 96 L Carbon Dioxide 25 Anion Gap 13 BUN 24 H Creatinine 1.3 Creat Clearance w eGFR 57.53 POC Glucometer Random Glucose 75 Lactic Acid 7.5 H* Calcium 8.8 Phosphorus Magnesium Total Bilirubin 0.4 AST 28 ALT 31 Alkaline Phosphatase 82 Creatine Kinase Creatine Kinase Index CK-MB (CK-2) Troponin I Total Protein 8.7 H Albumin 3.6 Urine Color Urine Appearance Urine pH Ur Specific [place] Urine Protein Urine Glucose (UA) Urine Ketones Urine Blood Urine Nitrite Urine Bilirubin Urine Urobilinogen Ur Leukocyte Esterase Valproic Acid 08/27/18 08/28/18 08/28/18 23:55 04:43 05:00 WBC RBC Hgb Hct MCV MCH MCHC RDW Plt Count MPV Absolute Neuts (auto) Neutrophils % Lymphocytes % Monocytes % Eosinophils % Basophils % Nucleated RBC % PT with INR INR Sodium Potassium Chloride Carbon Dioxide Anion Gap BUN Creatinine Creat Clearance w eGFR POC Glucometer Random Glucose Lactic Acid 1.3 Calcium Phosphorus Magnesium Total Bilirubin AST ALT Alkaline Phosphatase Creatine Kinase Creatine Kinase Index CK-MB (CK-2) Troponin I Total Protein Albumin Urine Color Straw Urine Appearance Clear Urine pH 7.0 Ur Specific [place] 1.016 Urine Protein Negative Urine Glucose (UA) Negative Urine Ketones Negative Urine Blood Negative Urine Nitrite Negative Urine Bilirubin Negative Urine Urobilinogen Negative Ur Leukocyte Esterase Negative Valproic Acid 40.0 L 08/28/18 08/28/18 05:36 05:36 WBC 8.8 RBC 3.86 L Hgb 11.8 Hct 36.4 MCV 94.4 MCH 30.7 MCHC 32.5 RDW 14.4 Plt Count 135 D MPV 8.6 Absolute Neuts (auto) 5.2 Neutrophils % 59.1 D Lymphocytes % 27.9 D Monocytes % 12.2 H Eosinophils % 0.4 Basophils % 0.4 Nucleated RBC % 0 PT with INR INR Sodium 137 Potassium 4.0 Chloride 103 Carbon Dioxide 28 Anion Gap 6 L BUN 23 H Creatinine 0.9 Creat Clearance w eGFR > 60 POC Glucometer Random Glucose 112 H Lactic Acid Calcium 8.0 L Phosphorus 3.3 Magnesium 2.0 Total Bilirubin 0.2 AST 18 ALT 24 Alkaline Phosphatase 57 Creatine Kinase Creatine Kinase Index CK-MB (CK-2) Troponin I Total Protein 6.6 Albumin 2.9 L Urine Color Urine Appearance Urine pH Ur Specific [place] Urine Protein Urine Glucose (UA) Urine Ketones Urine Blood Urine Nitrite Urine Bilirubin Urine Urobilinogen Ur Leukocyte Esterase Valproic Acid Current Medications Generic Name Dose Route Start Last Admin Trade Name Edmundq PRN Reason Stop Dose Admin Heparin Sodium (Porcine) 5,000 unit 08/28/18 10:00 Heparin - SQ BID MATTHEW Dextrose/Sodium Chloride 1,000 mls @ 42 mls/hr 08/28/18 02:00 08/28/18 03:10 D5-1/2ns - IV 42 mls/hr ASDIR MATTHEW Administration Levetiracetam 1,000 mg 08/28/18 10:00 Keppra Injection - IVPB BID MATTHEW Valproate Sodium 1,000 mg 08/28/18 06:00 08/28/18 05:47 Depacon Injection - IVPB 1,000 mg TID MATTHEW Administration Imaging - Results Chest X-ray: Image Reviewed Cat Scan: Report Reviewed, Image Reviewed Problem List - Problems (1) Status epilepticus Assessment/Plan: Likely secondary to infection vs non-compliance vs tumor Continue cardiac monitoring Head CT- reviewed Chest Xray- reviewed Blood Cultures-pending UA, Urine Culture pending Keppra given in ED Will continue Keppra, Depakote Appreciate Neurology consult Monitor CBC, BMP Keppra, Depakote levels-pending Continue IVFs Neurochecks Seizure Precautions Aspiration Precautions Fall Precautions Code(s): G40.901 - EPILEPSY, UNSP, NOT INTRACTABLE, WITH STATUS EPILEPTICUS (2) Lactic acid blood increased Assessment/Plan: Likely secondary to Seizure Activity vs Infectious NS bolus x2 given in ED LA 7.3~ 1.3 Code(s): R79.89 - OTHER SPECIFIED ABNORMAL FINDINGS OF BLOOD CHEMISTRY (3) HTN (hypertension) Assessment/Plan: Stable Monitor BP Consider Lopressor IV 2/2 Lethargy Code(s): I10 - ESSENTIAL (PRIMARY) HYPERTENSION (4) Hyperlipidemia Assessment/Plan: Hold statin for now secondary to lethargy Code(s): E78.5 - HYPERLIPIDEMIA, UNSPECIFIED Qualifiers: Assessment/Plan This is a 53 y/o man admitted to Telemetry for Status Epilepticus, Lactic Acidemia, Acute Kidney Injury for further evaluation of their emergent condition. Plan: FEN D51/2NS@42ml/hr Replete lytes prn NPO DVT ppx SCDs Heparin SQ Code Status: Full Code Dispo: Requires Inpatient Care Visit type - Emergency Visit Emergency Visit: Yes ED Registration Date: 08/27/18 Care time: The patient presented to the Emergency Department on the above date and was hospitalized for further evaluation of their emergent condition. - New Patient This patient is new to me today: Yes Date on this admission: 08/28/18 - Critical Care Critical Care patient: No
[2018-08-28] MEDS: DEXTROSE 5%-0.45% SALINE 1,000 ML IV SCH ×2 (03:10→18:48)
[2018-08-28 04:52] LABS: URINE APPEARANCE CLEAR; URINE BILIRUBIN NEGATIVE (<2.0 mg/dL); URINE COLOR STRAW; URINE GLUCOSE (UA) NEGATIVE (NEGATIVE); URINE KETONE NEGATIVE (NEGATIVE); URINE LEUK ESTERASE NEGATIVE (NEGATIVE); URINE NITRITE NEGATIVE (NEGATIVE); URINE PROTEIN NEGATIVE (NEGATIVE); URINE UROBILINOGEN NEGATIVE mg/dL (0.2-1.0)
[2018-08-28] MEDS: VALPROATE SODIUM 500 MG/5 ML VIAL IVPB SCH ×3 (05:47→22:23)
[2018-08-28 06:01] LABS: BASO % 0.4 % (0-2.0); EOS % 0.4 % (0-4.5); HEMATOCRIT 36.4 % (35.4-49); HEMOGLOBIN 11.8 GM/dL (11.7-16.9); LYMPH % 27.9 % (8-40); MCH 30.7 pg (25.7-33.7); MCHC 32.5 g/dl (32.0-35.9); MEAN CELL VOLUME 94.4 fl (80-96); MEAN PLT VOLUME 8.6 fl (7.5-11.1); MONO % 12.2 % (3.8-10.2); NEUT % 59.1 % (42.8-82.8); PLATELET COUNT 135 K/MM3 (134-434); RBC 3.86 M/mm3 (4.00-5.60); RDW 14.4 % (11.9-15.9); WHITE BLOOD COUNT 8.8 K/mm3 (4.0-10.0)
[2018-08-28 06:49] LABS: ALBUMIN 2.9 g/dl (3.4-5.0); ALK PHOS 57 U/L (45-117); ANION GAP 6 MMOL/L (8-16); BILIRUBIN,TOTAL 0.2 mg/dL (0.2-1); BLOOD UREA NITROGEN 23 mg/dL (7-18); CHLORIDE 103 mmol/L (98-107); CO2 28 mmol/L (21-32); CREATININE 0.9 mg/dL (0.55-1.3); GLUCOSE,RANDOM 112 mg/dL (74-106); PHOSPHOROUS 3.3 mg/dL (2.5-4.9); SGOT/AST 18 U/L (15-37); SGPT/ALT 24 U/L (13-61); SODIUM 137 mmol/L (136-145); TOT PROT 6.6 g/dl (6.4-8.2)
[2018-08-28] MEDS ORDERED: levETIRAcetam 500 MG/5 ML INJECTION VIAL IVPB ONE (10:10)
[2018-08-28] MEDS ORDERED: HEPARIN NA (PORCINE) 5,000 UNITS/ML 1ML VIAL ONE (10:10)
[2018-08-28] MEDS: levETIRAcetam 500 MG/5 ML INJECTION VIAL IVPB SCH ×2 (10:13→21:45)
[2018-08-28] MEDS: HEPARIN NA (PORCINE) 5,000 UNITS/ML 1ML VIAL SQ SCH ×2 (10:13→21:45)
--- NOTE | 2018-08-28 12:19 | PN ---
Progress Note (short form) - Note Progress Note: pt seen/ examined in er chart reviewed well known to me awake/comfortable Vital Signs Temp 98.3 F 08/28/18 06:56 Pulse 72 08/28/18 08:00 Resp 18 08/28/18 08:00 BP 112/69 08/28/18 08:00 Pulse Ox 95 08/28/18 08:00 Intake & Output 08/27/18 08/28/18 08/28/18 23:59 11:59 23:59 Weight 174 lb Other: Voiding Method Incontinent Diaper Height 5 ft 5 in Body Mass Index (BMI) 28.9 Weight Measurement Method Estimated by Staff Active Medications Heparin Sodium (Porcine) (Heparin -) 5,000 unit SQ BID [facility] Last Admin: 08/28/18 10:13 Dose: 5,000 unit Dextrose/Sodium Chloride (D5-1/2ns -) 1,000 mls @ 42 mls/hr IV ASDIR [facility] Last Admin: 08/28/18 03:10 Dose: 42 mls/hr Levetiracetam (Keppra Injection -) 1,000 mg IVPB BID [facility] Last Admin: 08/28/18 10:13 Dose: 1,000 mg Valproate Sodium (Depacon Injection -) 1,000 mg IVPB TID [facility] Last Admin: 08/28/18 05:47 Dose: 1,000 mg CBC, BMP 08/28/18 05:36 08/28/18 05:36 Abnormal Lab Results 08/27/18 08/27/18 08/27/18 21:39 21:39 21:44 WBC 10.6 H RBC 3.99 L Neutrophils % 41.4 L D Lymphocytes % 45.5 H D Monocytes % 11.6 H Sodium 135 L Chloride 96 L Anion Gap BUN 24 H Random Glucose Lactic Acid 7.5 H* Calcium Total Protein 8.7 H Albumin Valproic Acid 08/28/18 08/28/18 08/28/18 05:00 05:36 05:36 WBC RBC 3.86 L Neutrophils % Lymphocytes % Monocytes % 12.2 H Sodium Chloride Anion Gap 6 L BUN 23 H Random Glucose 112 H Lactic Acid Calcium 8.0 L Total Protein Albumin 2.9 L Valproic Acid 40.0 L Physical Exam Awake. 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
--- NOTE | 2018-08-28 12:46 | EKG ---
Test Reason : Blood Pressure : / mmHG Vent. Rate : 094 BPM Atrial Rate : 094 BPM P-R Int : 140 ms QRS Dur : 072 ms QT Int : 366 ms P-R-T Axes : 041 -14 048 degrees QTc Int : 457 ms NORMAL SINUS RHYTHM NONSPECIFIC T WAVE ABNORMALITY BORDERLINE ECG Confirmed by MD IZZY, MILAGRO ([id number]) on 08/28/2018 12:46:22 PM Referred By: Confirmed By:MILAGRO MAGANA MD
[2018-08-28] MEDS ORDERED: VALPROATE SODIUM 500 MG/5 ML VIAL ONE (15:17)
[2018-08-28 17:43] VITALS: BMI 27.4
[2018-08-28] MEDS ORDERED: FLU VACCINE QUAD 60 MCG/0.5 ML (MDV 18-19) IM ONE (18:30)
[2018-08-28] MEDS ORDERED: PT OWN MED DRAWER 7, Y5N ONE (21:35)
[2018-08-29] MEDS: DEXTROSE 5%-0.45% SALINE 1,000 ML IV SCH (02:45)
[2018-08-29] MEDS ORDERED: PT OWN MED DRAWER 7, Y5N ONE ×3 (05:12→21:21)
[2018-08-29] MEDS: VALPROATE SODIUM 500 MG/5 ML VIAL IVPB SCH ×3 (05:55→22:09)
[2018-08-29] MEDS: levETIRAcetam 500 MG/5 ML INJECTION VIAL IVPB SCH ×2 (09:00→21:26)
[2018-08-29] MEDS: HEPARIN NA (PORCINE) 5,000 UNITS/ML 1ML VIAL SQ SCH ×2 (09:01→21:26)
--- NOTE | 2018-08-29 11:36 | PN ---
Progress Note (short form) - Note Progress Note: more awake. no distress no further seizure activity Vital Signs Temp 97.5 F L 08/29/18 09:09 Pulse 70 08/29/18 09:09 Resp 18 08/29/18 09:09 BP 118/76 08/29/18 09:09 Pulse Ox 97 08/29/18 09:09 Intake & Output 08/28/18 08/28/18 08/29/18 11:59 23:59 11:59 Intake Total 252 294 Output Total 400 Balance 252 -106 Weight 165 lb Intake: IV 252 294 D5-1/2Ns - 1,000 ml @ 42 252 294 mls/hr IV ASDIR [facility] Rx#: [id number] Output: Urine 400 Void 400 Other: Voiding Method Diaper Incontinent Diaper # Unmeasured Voids Void 2 Bowel Movement No Height 5 ft 5 in Body Mass Index (BMI) 27.4 Active Medications Heparin Sodium (Porcine) (Heparin -) 5,000 unit SQ BID [facility] Last Admin: 08/29/18 09:01 Dose: 5,000 unit Dextrose/Sodium Chloride (D5-1/2ns -) 1,000 mls @ 42 mls/hr IV ASDIR [facility] Last Admin: 08/29/18 02:45 Dose: 42 mls/hr Levetiracetam (Keppra Injection -) 1,000 mg IVPB BID [facility] Last Admin: 08/29/18 09:00 Dose: 1,000 mg Valproate Sodium (Depacon Injection -) 1,000 mg IVPB TID [facility] Last Admin: 08/29/18 05:55 Dose: 1,000 mg CBC, BMP 08/28/18 05:36 08/28/18 05:36 Microbiology 08/28/18 04:43 Urine Culture - Final Urine - Urine Clean Catch NO GROWTH OBTAINED 08/27/18 21:39 Blood Culture - Preliminary Blood - Peripheral Venous NO GROWTH OBTAINED AFTER 24 HOURS, INCUBATION TO CONTINUE FOR 4 DAYS. 08/27/18 21:39 Blood Culture - Preliminary Blood - Peripheral Venous NO GROWTH OBTAINED AFTER 24 HOURS, INCUBATION TO CONTINUE FOR 4 DAYS. Physical Exam Awake. 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
[2018-08-30] MEDS: DEXTROSE 5%-0.45% SALINE 1,000 ML IV SCH (02:50)
[2018-08-30] MEDS: VALPROATE SODIUM 500 MG/5 ML VIAL IVPB SCH (05:40)
[2018-08-30] MEDS ORDERED: PT OWN MED DRAWER 7, Y5N ONE ×3 (09:15→21:46)
[2018-08-30] MEDS: levETIRAcetam 500 MG/5 ML INJECTION VIAL IVPB SCH (09:31)
[2018-08-30] MEDS: HEPARIN NA (PORCINE) 5,000 UNITS/ML 1ML VIAL SQ SCH ×2 (09:31→21:47)
--- NOTE | 2018-08-30 12:12 | PN ---
Progress Note (short form) - Note Progress Note: pt seen/ examined alert/ awake eating well no complains offered no further seizure activity Vital Signs Temp 97.8 F 08/30/18 09:28 Pulse 86 08/30/18 09:28 Resp 18 08/30/18 09:28 BP 127/74 08/30/18 09:28 Pulse Ox 94 L 08/29/18 20:06 Intake & Output 08/29/18 08/30/18 08/30/18 23:59 11:59 23:59 Intake Total 1347 352 Balance 1347 352 Intake: IV 447 252 D5-1/2Ns - 1,000 ml @ 42 447 252 mls/hr IV ASDIR [facility] Rx#: [id number] IVPB 400 100 Oral 500 Other: Voiding Method Diaper Diaper # Unmeasured Voids Void 1 2 Bowel Movement No Active Medications Heparin Sodium (Porcine) (Heparin -) 5,000 unit SQ BID [facility] Last Admin: 08/30/18 09:31 Dose: 5,000 unit Dextrose/Sodium Chloride (D5-1/2ns -) 1,000 mls @ 42 mls/hr IV ASDIR [facility] Last Admin: 08/30/18 02:50 Dose: 42 mls/hr Levetiracetam (Keppra Injection -) 1,000 mg IVPB BID [facility] Last Admin: 08/30/18 09:31 Dose: 1,000 mg Valproate Sodium (Depacon Injection -) 1,000 mg IVPB TID [facility] Last Admin: 08/30/18 05:40 Dose: 1,000 mg CBC, BMP 08/28/18 05:36 08/28/18 05:36 Microbiology 08/27/18 21:39 Blood Culture - Preliminary Blood - Peripheral Venous NO GROWTH OBTAINED AFTER 48 HOURS, INCUBATION TO CONTINUE FOR 3 DAYS. 08/27/18 21:39 Blood Culture - Preliminary Blood - Peripheral Venous NO GROWTH OBTAINED AFTER 48 HOURS, INCUBATION TO CONTINUE FOR 3 DAYS. 08/28/18 04:43 Urine Culture - Final Urine - Urine Clean Catch NO GROWTH OBTAINED Physical Exam Awake. No distress. 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 will likely need str will follow Problem List - Problems (1) Seizure Code(s): R56.9 - UNSPECIFIED CONVULSIONS Qualifiers: Convulsion type: unspecified Qualified Code(s): R56.9 - Unspecified convulsions (2) Post-ictal confusion Code(s): F05 - DELIRIUM DUE TO KNOWN PHYSIOLOGICAL CONDITION
[2018-08-30] MEDS: VALPROIC ACID 250 MG CAPSULE PO SCH ×2 (14:40→21:47)
[2018-08-30] MEDS ORDERED: levETIRAcetam 500 MG TABLET (FP) PO SCH (22:00)
--- NOTE | 2018-08-30 22:24 | CONSULT ---
Consult - text type - Consultation Consultation Note: NEUROLOGY CONSULTATION is greatly appreciated: This 53 yo man with h/o of coremaker floor brain surgery is well-know with chronic seizure disorder. For some time has been maintained on Depakote 1000 q 8 hrs and levetiracetam 1000 mg q 8 hrs. However, he has been in a nrsing home and has been receiving levetiracetam 1000 mg q 12 hrs and depakote 1000 mg q 8hrs. Now admitted after witnessed generalized seizures. On admission Depakote level was subtherapeutic at 40 ug % and levetiracetam level was [address] of head is unchanged: It shows bitemporal garett holes and chronic right temporal and left frontotemporal encephalomalacia. Now awake, alert, cooperative. Non-fluent aphasia. Static encephalopathy Gag OK Full hannah and EOM's Mild right hemiparesis. No seizures noted. IMP: Static encephalopathy with multiple seizure foci. Now has post-ichtal aphasia (suggesting left frontotemporal onset) which will hopefully improve over the next few days. Suggest: To simplify the AED regimen as follows: Depakote 2000 mg q 12 hrs Levetiracetam 1250 mg q 12 hrs (ie: 500 x 2 + 250) Check levels in 2 weeks. Neuro follow-up as outpatient. Thank you very much, Sanya Johnson MD
[2018-08-31 06:02] VITALS: TEMP 98.2
[2018-08-31] MEDS ORDERED: levETIRAcetam 500 MG TABLET (FP) PO ONE (08:44)
[2018-08-31] MEDS ORDERED: levETIRAcetam 250 MG TABLET (FP) PO ONE (08:44)
[2018-08-31] MEDS ORDERED: PT OWN MED DRAWER 7, Y5N ONE ×2 (08:44→12:05)
[2018-08-31] MEDS: HEPARIN NA (PORCINE) 5,000 UNITS/ML 1ML VIAL SQ SCH (08:59)
[2018-08-31] MEDS ORDERED: levETIRAcetam 500 MG/5 ML ORAL SOLUTION (UNIT-DOSE CUPS) PO SCH (10:00)
[2018-08-31] MEDS ORDERED: DIVALPROEX NA *ER* EXTEND REL 500 MG TABLET.SA (FP) PO SCH (10:00)
--- NOTE | 2018-08-31 11:07 | DS ---
Physical Examination Vital Signs: Vital Signs Temperature 98.2 F 08/31/18 05:00 Pulse Rate 97 H 08/31/18 05:00 Respiratory Rate 16 08/31/18 05:00 Blood Pressure 128/81 08/31/18 05:00 O2 Sat by Pulse Oximetry (%) 95 08/30/18 21:00 Constitutional: Yes: No Distress, Calm Cardiovascular: Yes: Regular Rate and Rhythm Respiratory: Yes: CTA Bilaterally Gastrointestinal: Yes: Normal Bowel Sounds, Soft, Abdomen, Obese. No: Tenderness Edema: No Labs: CBC, BMP 08/28/18 05:36 08/28/18 05:36 Discharge Summary Reason For Visit: STATUS EPILEPTICUS Current Active Problems Seizure (Acute) Status epilepticus (Acute) Hospital Course: Admitted for status epilepticus No source of infection mpted all cultures negative Pt seen by Neurology head CT -- no acute abnormalities Meds adjusted Pt is better clinically stable for dc to STR Condition: Stable - Instructions Referrals: Ailyn Meadows MD [Primary Care Provider] - Disposition: [facility] F[facility]ILITY - Home Medications Comprehensive Discharge Medication List: Ambulatory Orders Aspirin Coated [Ecotrin -] 81 mg PO DAILY #90 tab 12/16/16 Metoprolol Tartrate [Lopressor -] 25 mg PO BID #60 tablet 12/16/16 Pantoprazole Sodium [Protonix -] 40 mg PO DAILY tablet.ec 08/07/17 Tamsulosin HCl [Flomax -] 0.4 mg PO 1900 08/12/17 Simvastatin 20 mg PO DAILY 04/16/18 Valproic Acid [Depakene -] 1,000 mg PO Q8H 04/16/18 Amoxicillin/Potassium Clav [Augmentin 875-125 Tablet] 1 each PO BID #8 tablet Heparin - 5,000 unit SQ BID #14 vial 07/27/18 levETIRAcetam [Keppra -] 1,000 mg PO BID #30 tablet 07/27/18
[2018-08-31 12:53] VITALS: BP 122/86; PULSE 74
== END 2018-08-31 15:24 | DRG 71 ==
LOC: JER 21:13 → JERBED 08-28 01:57 → J4S 08-28 16:48
PROVIDERS: ADMIT Internal Medicine; ATTEND Internal Medicine
DX: G93.40 Encephalopathy, unspecified (principal); R47.01 Aphasia; G40.901 Epilepsy, unspecified, not intractable, with status epilepticus; G81.91 Hemiplegia, unspecified affecting right dominant side; Q03.9 Congenital hydrocephalus, unspecified; G93.89 Other specified disorders of brain; I10 Essential (primary) hypertension; E78.5 Hyperlipidemia, unspecified; K21.9 Gastro-esophageal reflux disease without esophagitis
CPT/HCPCS: 36415; 70450-TC; 71045-TC-FY; 80053; 80164; 80177; 81003; 82550; 82553; 82962; 83605; 83735; 84100; 84484; 85025; 85610; 87040; 87086; 90688; 93005; 93010; 97116-GP; 97162-GP; 99285-25; G0008; J1644; J7030

== ENCOUNTER 2019-01-27 08:37 | Inpatient (IN) | payer OTHER ==
[2019-01-27] MEDS ORDERED: LORazepam 2 MG/ML SDV VIAL ONE (08:42)
[2019-01-27] MEDS ORDERED: SODIUM CHLORIDE 1,000 ML IV STA (09:14)
[2019-01-27 10:02] LABS: BASO % 0.4 % (0-2.0); EOS % 0.3 % (0-4.5); HEMATOCRIT 43.5 % (35.4-49); HEMOGLOBIN 14.5 GM/dL (11.7-16.9); MCH 31.8 pg (25.7-33.7); MCHC 33.3 g/dl (32.0-35.9); MEAN CELL VOLUME 95.4 fl (80-96); MEAN PLT VOLUME 9.4 fl (7.5-11.1); MONO % 9.6 % (3.8-10.2); NEUT % 36.7 % (42.8-82.8); PLATELET COUNT 112 K/MM3 (134-434); RBC 4.56 M/mm3 (4.00-5.60); RDW 16.2 % (11.9-15.9); WHITE BLOOD COUNT 6.6 K/mm3 (4.0-10.0)
--- NOTE | 2019-01-27 10:09 | PDOC ---
History of Present Illness - General Chief Complaint: Seizure Stated Complaint: SEIZURE Time Seen by Provider: 01/27/19 09:06 - History of Present Illness Initial Comments: 01/27/19 10:09 53yo M hx seizures (on depakote 2G BID, Keppra 1250mg BID per last DC in EMR), HTN, GERD, multiple surgeries for hydrocephalus, mild right hemiparesis presents to the ED after having 5 seizures at home. History is limited as pt is currently aphasic. Per EMS, RN who took report, pt had 5 generalized seizures while at home. FS 91. On arrival to ED, pt had another generalized seizure that resolved with ativan 2mg. Unknown headstrike. No family at bedside. Attempted to call brother (POA) at listed number, went to voicekyil. Past History - Past Medical History Allergies/Adverse Reactions: Allergies Allergy/AdvReac Type Severity Reaction Status Date / Time No Known Drug Allergies Allergy Verified 01/27/19 08:54 Home Medications: Ambulatory Orders Aspirin Coated [Ecotrin -] 81 mg PO DAILY #90 tab 12/16/16 Metoprolol Tartrate [Lopressor -] 25 mg PO BID #60 tablet 12/16/16 Pantoprazole Sodium [Protonix -] 40 mg PO DAILY tablet.ec 08/07/17 Tamsulosin HCl [Flomax -] 0.4 mg PO 1900 08/12/17 Simvastatin 20 mg PO DAILY 04/16/18 Heparin - 5,000 unit SQ BID #14 vial 07/27/18 Divalproex *ER* [Depakote *ER* -] 2,000 mg PO BID #30 tablet.sa 08/31/18 levETIRAcetam [Keppra -] 1,250 mg PO BID #60 tablet 08/31/18 Docusate Sodium [Colace] 100 mg PO DAILY 01/27/19 Anemia: No Asthma: No Cancer: No Cardiac Disorders: No CVA: No COPD: No CHF: No DVT: No Dementia: No Diabetes: No Dialysis: No GI Disorders: Yes (GERD) Disorders: No HTN: Yes Hypercholesterolemia: Yes Kidney Stones: No Liver Disease: No Psychiatric Problems: Yes Seizures: Yes Thyroid Disease: No - Surgical History Abdominal Surgery: No Appendectomy: No Cardiac Surgery: No Cholecystectomy: No Lung Surgery: No Neurologic Surgery: Yes (Congenital hydrocephalus w multiple shunts) Orthopedic Surgery: No - Immunization History Immunization Up to Date: Yes - Suicide/Smoking/Psychosocial Hx Smoking Status: No Smoking History: Unknown if ever smoked Have you smoked in the past 12 months: No Number of Cigarettes Smoked Daily: 0 Cigars Per Day: 0 Information on smoking cessation initiated: No Hx Alcohol Use: No Drug/Substance Use Hx: No Substance Use Type: None Hx Substance Use Treatment: No Review of Systems - Review of Systems Comments:: 01/27/19 10:14 unable to obtain *Physical Exam - Vital Signs Last Vital Signs Temp Pulse Resp BP Pulse Ox 97.5 F L 78 16 137/77 100 01/27/19 08:39 01/27/19 08:39 01/27/19 08:39 01/27/19 08:39 01/27/19 08:39 - Physical Exam Comments: 01/27/19 10:14 GENERAL: Awake, alert, in no acute distress. Tracks examiner. HEAD: No signs of trauma. Multiple healed cranial scars EYES: R gaze preference but VFF. PERRLA, conjunctiva clear ENT: Auricles normal inspection, nares patent, oropharynx clear without exudates. Moist mucosa NECK: c-collar in place LUNGS: Breath sounds equal, +rhonchi bilaterally. No wheezes, and no crackles HEART: Regular rate and rhythm, normal S1 and S2, no murmurs, rubs or gallops ABDOMEN: Soft, nontender, non distended EXTREMITIES: Normal range of motion, no edema. No clubbing or cyanosis. No cords, erythema, or tenderness. WWP, palpable pulses in all extremities BACK: no midline cervical, thoracic, lumbar ttp. No deformities or step offs NEUROLOGICAL: Aphasic, cranial nerves grossly intact, moving all extremities spontaneously. Normal rectal tone. SKIN: Warm, Dry, normal turgor, no rashes or lesions noted. Heart Score/ECG Review #1 01/27/19 10:18 Twelve-lead EKG was performed and reviewed by me. Normal sinus rhythm, rate 69. Normal axis and intervals. No ST elevations or T-wave inversions. ED Treatment Course - LABORATORY CBC & Chemistry Diagram: 01/27/19 09:30 01/27/19 09:30 - ADDITIONAL ORDERS Additional order review: 01/27/19 09:30 RBC 4.56 MCV 95.4 MCHC 33.3 RDW 16.2 H MPV 9.4 Neutrophils % 36.7 L D Lymphocytes % 53.0 H D Monocytes % 9.6 Eosinophils % 0.3 Basophils % 0.4 - RADIOLOGY Radiology Studies Ordered: Category Date Time Status CERVICAL SPINE CT W/O CONTR [CT] Stat CT Scan 01/27/19 09:[address] WITHOUT CONTRAST [CT] Stat CT Scan 01/27/19 09:11 Ordered CHEST X-RAY PORTABLE* [RAD] Stat Radiology 01/27/19 09:12 Taken - Medications Given in the ED: ED Medications Discontinued Medications Generic Name Dose Route Start Last Admin Trade Name Bee PRN Reason Stop Dose Admin Lorazepam 2 mg 01/27/19 09:29 01/27/19 08:50 Ativan Injection - IVPUSH 01/27/19 09:30 2 mg ONCE ONE Administration Medical Decision Making - Medical Decision Making 01/27/19 10:19 53yo M with MMP including seizure d/o presents to the ED after 6 generalized seizures. Unknown trauma. Unable to obtain collateral Vitals wnl Exam with no gross evidence of trauma from head to toe, will scan head, c-spine Not in status as he is awake, alert at this time Will do broad w/u for breakthrough seizure, ddx includses infectious vs metabolic vs neurologic pathology vs non compliance with AEDs +rhonchi on exam, possible aspiration? No rectal temp. Will hold off on empiric abx coverage given non toxic appearance, normal vitals. Anticipate admission 01/27/19 10:36 CMP with mild hypoglycemia -> D50 Pt's brother Trent called in, states pt was in his bed awake but not responsive which usually happens before he has a seizure They activated EMS, once he got [facility], he had generalized seizure He reports that Samer at baseline can answer some questions like his name, location but after he has seizures he often is non verbal HE reports he administers pt's AEDs twice a day (depakote 2G, keppra 1250mg) and pt has not missed a dose Has been in his USOH recently, no fevers, chills, headaches, weakness 01/27/19 15:02 Despite D50, rpt fingerstick 60 Pt given another amp D50 Case discussed with Dr. Parker, pt accepted for admission Case discussed in detail with admitting physician including history, physical exam and ancillary studies. Admitting physician has assumed care for the patient, will follow all pending diagnostics and will complete the evaluation and treatment. *DC/Admit/Observation/Transfer Diagnosis at time of Disposition: Seizure - Discharge Dispostion Decision to Admit order Date/Time: Decision to Admit Order Category Date Time Status Decision to Admit to Hospital Routine Admission 01/27/19 09:55 Active - Referrals - Patient Instructions - Post Discharge Activity - Attestations Physician Attestion: 01/27/19 15:04 I, Dr. Laurie Baum MD, attest that this document has been prepared under my direction and personally reviewed by me in its entirety. I further attest, that it accurately reflects all work, treatment, procedures and medical decision -making performed by me.
[2019-01-27 10:15] LABS: INR 1.03 (0.83-1.09); PROTHROMBIN TIME (PATIENT) 12.2 SEC (9.7-13.0)
[2019-01-27 10:18] LABS: ACTIVATED PTT 38.1 SECONDS (25.2-36.5)
[2019-01-27 10:43] LABS: ALBUMIN 3.3 g/dl (3.4-5.0); BILIRUBIN,TOTAL 0.5 mg/dL (0.2-1); CALCIUM 8.8 mg/dL (8.5-10.1); CREATININE 1.1 mg/dL (0.55-1.3); POTASSIUM 4.3 mmol/L (3.5-5.1); TOT PROT 7.7 g/dl (6.4-8.2)
[2019-01-27] MEDS ORDERED: DEXTROSE 50%-WATER - 25 GM/50 ML VIAL IVPUSH ONE ×2 (10:44→14:57)
[2019-01-27 10:47] LABS: EPI CELLS 0.4 /HPF (0-5/HPF); HYALINE CASTS 2 /lpf (0-8); URINE APPEARANCE CLEAR; URINE BILIRUBIN NEGATIVE (NEGATIVE); URINE COLOR YELLOW; URINE GLUCOSE (UA) NEGATIVE (NEGATIVE); URINE KETONE NEGATIVE (NEGATIVE); URINE LEUK ESTERASE 1+ (NEGATIVE); URINE NITRITE NEGATIVE (NEGATIVE); URINE PROTEIN NEGATIVE (NEGATIVE); URINE RBC 1 /hpf (0-4); URINE WBC 3 /hpf (0-5)
[2019-01-27] MEDS ORDERED: DEXTROSE 50%-WATER 25 GM/50 ML DISP.SYRIN ONE ×2 (11:07→14:28)
--- NOTE | 2019-01-27 12:51 | EKG ---
Test Reason : Blood Pressure : / mmHG Vent. Rate : 069 BPM Atrial Rate : 069 BPM P-R Int : 136 ms QRS Dur : 072 ms QT Int : 408 ms P-R-T Axes : 046 007 058 degrees QTc Int : 437 ms NORMAL SINUS RHYTHM NORMAL ECG WHEN COMPARED WITH ECG OF 27-AUG-2018 22:02, NO SIGNIFICANT CHANGE WAS FOUND Confirmed by BRANDI ANDERSON MD ([id number]) on 01/27/2019 12:51:07 PM Referred By: Confirmed By:BRANDI ANDERSON MD
[2019-01-27] MEDS ORDERED: levETIRAcetam 500 MG/5 ML INJECTION VIAL IVPB ONE (14:04)
[2019-01-27] MEDS ORDERED: DIVALPROEX NA *ER* EXTEND REL 500 MG TABLET.SA (FP) PO ONE (14:06)
[2019-01-27] MEDS ORDERED: WATER IVPB ONE (14:30)
[2019-01-27] MEDS ORDERED: DEXTROSE 5% IVPB ONE (14:30)
[2019-01-27] MEDS ORDERED: LEVETIRACETAM IVPB ONE (14:30)
[2019-01-27] MEDS ORDERED: DIVALPROEX SODIUM 500 MG TABLET E.C. ONE (16:15)
[2019-01-27 17:31] VITALS: BMI 28.7
[2019-01-27] MEDS ORDERED: DIVALPROEX SODIUM 500 MG TABLET E.C. PO SCH (18:00)
[2019-01-27] MEDS: HEPARIN NA (PORCINE) 5,000 UNITS/ML 1ML VIAL SQ SCH (21:40)
[2019-01-27] MEDS: METOPROLOL TARTRATE 25 MG TABLET (FP) PO SCH (21:45)
[2019-01-27] MEDS: levETIRAcetam 500 MG/5 ML INJECTION VIAL IVPB SCH (21:45)
[2019-01-27] MEDS ORDERED: DIVALPROEX NA *ER* EXTEND REL 500 MG TABLET.SA (FP) PO SCH (22:00)
[2019-01-28 07:35] LABS: BASO % 0.5 % (0-2.0); EOS % 0.2 % (0-4.5); HEMATOCRIT 41.7 % (35.4-49); HEMOGLOBIN 13.9 GM/dL (11.7-16.9); LYMPH % 44.8 % (8-40); MCH 31.6 pg (25.7-33.7); MCHC 33.3 g/dl (32.0-35.9); MEAN CELL VOLUME 94.8 fl (80-96); MEAN PLT VOLUME 8.8 fl (7.5-11.1); MONO % 12.9 % (3.8-10.2); NEUT % 41.6 % (42.8-82.8); RDW 16.6 % (11.9-15.9)
[2019-01-28 08:44] LABS: ALBUMIN 3.2 g/dl (3.4-5.0); BILIRUBIN,TOTAL 0.7 mg/dL (0.2-1); CREATININE 1.1 mg/dL (0.55-1.3); POTASSIUM 5.1 mmol/L (3.5-5.1); TOT PROT 7.3 g/dl (6.4-8.2)
[2019-01-28] MEDS: levETIRAcetam 500 MG/5 ML INJECTION VIAL IVPB SCH ×2 (09:21→23:23)
[2019-01-28] MEDS: HEPARIN NA (PORCINE) 5,000 UNITS/ML 1ML VIAL SQ SCH ×2 (09:22→23:23)
[2019-01-28] MEDS: METOPROLOL TARTRATE 25 MG TABLET (FP) PO SCH ×2 (09:22→23:23)
[2019-01-28] MEDS ORDERED: DIVALPROEX SODIUM 500 MG TABLET E.C. PO SCH (10:00)
--- NOTE | 2019-01-28 10:10 | CONSULT ---
Consult - text type - Consultation Consultation Note: NEUROLOGY CONSULT GREATLY APPRECIATED: This 53 yo RH man is well-known to me w multifocal seizure disorder and childhood brain surgery with B/L foci of encephalomalacia. Last seen 09/09/18 in office consult while in [facility]. Since discharged home and brother has been administering medication. Maintained on Depakote 2 grams q12H and leveteracetam 1250 mg q12H. Reports intermittent "dizziness" and holocranial headache. Admitted after reported 5 generalized seizures while at home and one witnessed in EMS route, resolved after Ativan. BS on admission= 69. Pt unable to provide cogent history. Head Ct (reviewed): Mod atrophy with ex vacuo ventricular dilation. S/P B/L frontotemporal craniotomies. Encephalomalacia B/L temporal lobes. CT of C spine: essentially normal study. VPA= 70.6 UA WBC= 3 YOLY: Neck supple. No evidence of head trauma. Multiple cranial scars and garett hole. In diaper. NEURO: Awake, alert, cooperative with exam. Speech, dysarthric, sparse. Ox [facility]. Static encephalopathy. CNII-CNXII: Conjugate nystagmus on L gaze. Motor: No drift. Strength normal. Brisk reflexes. Toes downgoing. Coordination: No FTN dystaxia. Sensation: Feels pinch in all fours. Romberg + Gait: Wide-based. Unsteady. Impression: Static Encephalopathy Multifocal seizure disorder ? Possible worsening due to Toxic-Metabolic Encephalopathy Suggest: Continue Depakote ER 2 grams q12H. Empirically increase Keppra to 1500 mg Q12H while awaiting levels. Orthostatic BP's Await Urine culture, blood cultures. Add thiamine 250 mg IVP q8h x 3 days PT eval with walker for gait safety I will review the extensive office record to determine the most successful regimen in the past. Thank you very much, Sanya Johnson MD
--- NOTE | 2019-01-28 11:23 | HP ---
Admitting History and Physical - Primary Care Physician PCP: Ailyn Meadows - Admission History of Present Illness: pt well known to me chart reviewed [facility] records and I agree 53yo M hx seizures (on depakote 2G BID, Keppra 1250mg BID per last DC in EMR), HTN, GERD, multiple surgeries for hydrocephalus, mild right hemiparesis presents to the ED after having 5 seizures at home. History is limited as pt is currently aphasic. Per EMS, RN who took report, pt had 5 generalized seizures while at home. FS 91. On arrival to ED, pt had another generalized seizure that resolved with ativan 2mg. Unknown headstrike. No family at bedside. Attempted to call brother (POA) at listed number, went to voiceriil. Pt admitted to tele History Source: Medical Record Limitations to Obtaining History: Clinical Condition - Past Medical History DIETETICS DIRECTOR: Yes: Seizure Cardiovascular: Yes: HTN, Hyperlipdemia Pulmonary: Yes: Pneumonia Psych: Yes: Depression - Smoking History Smoking history: Never smoked Have you smoked in the past 12 months: No Aproximately how many cigarettes per day: 0 - Alcohol/Substance Use Hx Alcohol Use: No - Social History ADL: Family Assistance History of Recent Travel: No Home Medications - Allergies Allergies/Adverse Reactions: Allergies Allergy/AdvReac Type Severity Reaction Status Date / Time No Known Drug Allergies Allergy Verified 01/27/19 08:54 - Home Medications Home Medications: Ambulatory Orders Aspirin Coated [Ecotrin -] 81 mg PO DAILY #90 tab 12/16/16 Metoprolol Tartrate [Lopressor -] 25 mg PO BID #60 tablet 12/16/16 Pantoprazole Sodium [Protonix -] 40 mg PO DAILY tablet.ec 08/07/17 Tamsulosin HCl [Flomax -] 0.4 mg PO 1900 08/12/17 Simvastatin 20 mg PO DAILY 04/16/18 Heparin - 5,000 unit SQ BID #14 vial 07/27/18 Divalproex *ER* [Depakote *ER* -] 2,000 mg PO BID #30 tablet.sa 08/31/18 levETIRAcetam [Keppra -] 1,250 mg PO BID #60 tablet 08/31/18 Docusate Sodium [Colace] 100 mg PO DAILY 01/27/19 Physical Examination Vital Signs: Vital Signs Temperature 98.8 F 01/28/19 09:00 Pulse Rate 56 L 01/28/19 10:27 Respiratory Rate 20 01/28/19 09:00 Blood Pressure 125/81 01/28/19 10:27 O2 Sat by Pulse Oximetry (%) 97 01/28/19 09:00 Constitutional: Yes: No Distress, Calm Eyes: Yes: Conjunctiva Clear Neck: Yes: Supple Cardiovascular: Yes: Regular Rate and Rhythm Respiratory: Yes: CTA Bilaterally Gastrointestinal: Yes: Soft Edema: No Neurological: Yes: Confusion Labs: CBC, BMP 01/28/19 06:52 01/28/19 06:52 Imaging - Results Chest X-ray: Report Reviewed Cat Scan: Report Reviewed EKG: Report Reviewed Problem List - Problems (1) Seizure Code(s): R56.9 - UNSPECIFIED CONVULSIONS (2) Post-ictal confusion Code(s): F05 - DELIRIUM DUE TO KNOWN PHYSIOLOGICAL CONDITION (3) Seizure disorder Code(s): G40.909 - EPILEPSY, UNSP, NOT INTRACTABLE, WITHOUT STATUS EPILEPTICUS Assessment/Plan Monitor Seizure meds close monitoring check levels Neurology consult will follow
[2019-01-28 11:43] LABS: PLATELET COUNT 121 K/MM3 (134-434)
[2019-01-28] MEDS ORDERED: PT OWN MED DRAWER 7, Y5N ONE ×2 (12:14→23:19)
[2019-01-28] MEDS: THIAMINE HCL 200 MG/2 ML VIAL IVPB SCH ×2 (13:39→23:24)
[2019-01-28] MEDS: DIVALPROEX SODIUM 500 MG TABLET E.C. PO SCH (23:22)
[2019-01-29] MEDS: THIAMINE HCL 200 MG/2 ML VIAL IVPB SCH ×3 (07:23→22:21)
[2019-01-29] MEDS: levETIRAcetam 500 MG/5 ML INJECTION VIAL IVPB SCH ×2 (10:21→22:21)
[2019-01-29] MEDS: HEPARIN NA (PORCINE) 5,000 UNITS/ML 1ML VIAL SQ SCH ×2 (10:21→22:21)
[2019-01-29] MEDS: METOPROLOL TARTRATE 25 MG TABLET (FP) PO SCH ×2 (10:21→22:21)
[2019-01-29] MEDS: DIVALPROEX SODIUM 500 MG TABLET E.C. PO SCH (10:23)
--- NOTE | 2019-01-29 12:55 | PN ---
Progress Note (short form) - Note Progress Note: pt awake/ comfortable looks better eating lunch no further seizure activity Vital Signs Temp 98.1 F 01/29/19 09:00 Pulse 60 01/29/19 09:00 Resp 19 01/29/19 09:00 BP 127/85 01/29/19 09:00 Pulse Ox 97 01/29/19 09:00 Intake & Output 01/28/19 01/29/19 01/29/19 23:59 11:59 23:59 Intake Total 440 540 Output Total 1100 400 Balance -660 140 Intake: IVPB 200 300 Oral 240 240 Output: Urine 1100 400 Void 1100 400 Other: Voiding Method Urinal Urinal # Unmeasured Voids Void 2 Bowel Movement No Active Medications Divalproex Sodium (Depakote -) 2,000 mg PO BID [facility] Last Admin: 01/29/19 10:23 Dose: 2,000 mg Heparin Sodium (Porcine) (Heparin -) 5,000 unit SQ BID [facility] Last Admin: 01/29/19 10:21 Dose: 5,000 unit Levetiracetam (Keppra Injection -) 1,500 mg IVPB BID [facility] Last Admin: 01/29/19 10:21 Dose: 1,500 mg Metoprolol Tartrate (Lopressor -) 25 mg PO BID [facility] Last Admin: 01/29/19 10:21 Dose: 25 mg Thiamine HCl (Vitamin B1 Injection -) 250 mg IVPB TID [facility] Stop: 01/31/19 13:59 Last Admin: 01/29/19 07:23 Dose: 250 mg CBC, BMP 01/28/19 06:52 01/28/19 06:52 Microbiology 01/27/19 09:45 Blood Culture - Preliminary Blood - Peripheral Venous NO GROWTH OBTAINED AFTER 48 HOURS, INCUBATION TO CONTINUE FOR 3 DAYS. 01/27/19 09:55 Blood Culture - Preliminary Blood - Peripheral Venous NO GROWTH OBTAINED AFTER 48 HOURS, INCUBATION TO CONTINUE FOR 3 DAYS. 01/27/19 10:00 Urine Culture - Final Urine - Urine Clean Catch NO GROWTH OBTAINED Physical Examination Constitutional: Yes: No Distress, Calm Eyes: Yes: Conjunctiva Clear Neck: Yes: Supple Cardiovascular: Yes: Regular Rate and Rhythm Respiratory: Yes: CTA Bilaterally Gastrointestinal: Yes: Soft/ non tender Edema: No Neurological: Yes: Confusion Imaging - Results Chest X-ray: Report Reviewed Cat Scan: Report Reviewed EKG: Report Reviewed Problem List - Problems (1) Seizure Code(s): R56.9 - UNSPECIFIED CONVULSIONS (2) Post-ictal confusion Code(s): F05 - DELIRIUM DUE TO KNOWN PHYSIOLOGICAL CONDITION (3) Seizure disorder Code(s): G40.909 - EPILEPSY, UNSP, NOT INTRACTABLE, WITHOUT STATUS EPILEPTICUS Assessment/Plan Monitor Seizure meds close monitoring better check levels Neurology on case. will follow.
[2019-01-29] MEDS ORDERED: PT OWN MED DRAWER 7, Y5N ONE (22:23)
[2019-01-30] MEDS: DIVALPROEX SODIUM 500 MG TABLET E.C. PO SCH ×2 (00:06→12:55)
[2019-01-30] MEDS: THIAMINE HCL 200 MG/2 ML VIAL IVPB SCH ×3 (05:56→21:34)
[2019-01-30] MEDS ORDERED: PT OWN MED DRAWER 7, Y5N ONE ×3 (09:28→21:23)
[2019-01-30] MEDS ORDERED: LORazepam 2 MG/ML SDV VIAL ONE (09:29)
[2019-01-30] MEDS: HEPARIN NA (PORCINE) 5,000 UNITS/ML 1ML VIAL SQ SCH ×2 (09:41→21:29)
[2019-01-30] MEDS: levETIRAcetam 500 MG/5 ML INJECTION VIAL IVPB SCH ×2 (09:41→22:44)
[2019-01-30] MEDS ORDERED: LORazepam 2 MG/ML SDV VIAL IVPUSH ONE (12:30)
[2019-01-30] MEDS: METOPROLOL TARTRATE 25 MG TABLET (FP) PO SCH ×2 (12:55→21:30)
--- NOTE | 2019-01-30 13:23 | PN ---
Progress Note (short form) - Note Progress Note: pt seen / examined has another seizure earlier today Vital Signs Temp 98.8 F 01/30/19 09:00 Pulse 70 01/30/19 09:00 Resp 20 01/30/19 09:00 BP 140/85 01/30/19 09:00 Pulse Ox 98 01/30/19 09:11 Intake & Output 01/29/19 01/30/19 01/30/19 23:59 11:59 23:59 Intake Total 950 200 240 Output Total 400 400 Balance 550 -200 240 Intake: IVPB 400 100 Oral 550 100 240 Output: Urine 400 400 Void 400 400 Other: Voiding Method Urinal Urinal Incontinent # Unmeasured Voids Void 3 Bowel Movement No No Active Medications Divalproex Sodium (Depakote -) 2,000 mg PO BID [facility] Last Admin: 01/30/19 12:55 Dose: Not Given Heparin Sodium (Porcine) (Heparin -) 5,000 unit SQ BID [facility] Last Admin: 01/30/19 09:41 Dose: 5,000 unit Dextrose/Sodium Chloride (D5-1/2ns -) 1,000 mls @ 100 mls/hr IV ASDIR [facility] Levetiracetam (Keppra Injection -) 1,500 mg IVPB BID [facility] Last Admin: 01/30/19 09:41 Dose: 1,500 mg Metoprolol Tartrate (Lopressor -) 25 mg PO BID [facility] Last Admin: 01/30/19 12:55 Dose: Not Given Thiamine HCl (Vitamin B1 Injection -) 250 mg IVPB TID [facility] Stop: 01/31/19 13:59 Last Admin: 01/30/19 13:09 Dose: 250 mg CBC, BMP 01/28/19 06:52 01/28/19 06:52 Physical Examination Constitutional: Yes: No Distress, confused. post ictal -- Eyes: Yes: Conjunctiva Clear Neck: Yes: Supple Cardiovascular: Yes: Regular Rate and Rhythm Respiratory: Yes: CTA Bilaterally Gastrointestinal: Yes: Soft/ non tender Edema: No Neurological: Yes: Confusion Imaging - Results Chest X-ray: Report Reviewed Cat Scan: Report Reviewed EKG: Report Reviewed Problem List - Problems (1) Seizure Code(s): R56.9 - UNSPECIFIED CONVULSIONS (2) Post-ictal confusion Code(s): F05 - DELIRIUM DUE TO KNOWN PHYSIOLOGICAL CONDITION (3) Seizure disorder Code(s): G40.909 - EPILEPSY, UNSP, NOT INTRACTABLE, WITHOUT STATUS EPILEPTICUS Assessment/Plan Monitor Seizure meds close monitoring Start on mild hydration keep npo till he is awake-- Lethargic now f/u labs monitor neurology to follow
[2019-01-30] MEDS: DEXTROSE 5%-0.45% SALINE 1,000 ML IV SCH (13:30)
[2019-01-30] MEDS ORDERED: LORazepam 2 MG/ML SDV VIAL IVPUSH PRN (14:34)
[2019-01-30] MEDS: VALPROATE SODIUM 500 MG/5 ML VIAL IV SCH ×2 (15:33→21:30)
[2019-01-31] MEDS ORDERED: PT OWN MED DRAWER 7, Y5N ONE ×4 (03:35→20:05)
[2019-01-31] MEDS: VALPROATE SODIUM 500 MG/5 ML VIAL IV SCH ×4 (03:46→21:32)
[2019-01-31] MEDS: THIAMINE HCL 200 MG/2 ML VIAL IVPB SCH (05:29)
[2019-01-31 06:25] LABS: BASO % 0.3 % (0-2.0); EOS % 0.4 % (0-4.5); HEMATOCRIT 40.4 % (35.4-49); HEMOGLOBIN 13.6 GM/dL (11.7-16.9); LYMPH % 48.6 % (8-40); MCH 31.9 pg (25.7-33.7); MCHC 33.6 g/dl (32.0-35.9); MEAN CELL VOLUME 94.9 fl (80-96); MEAN PLT VOLUME 8.8 fl (7.5-11.1); NEUT % 39.7 % (42.8-82.8); PLATELET COUNT 121 K/MM3 (134-434); RBC 4.26 M/mm3 (4.00-5.60); RDW 15.9 % (11.9-15.9); WHITE BLOOD COUNT 8.2 K/mm3 (4.0-10.0)
[2019-01-31 07:13] LABS: ALBUMIN 2.8 g/dl (3.4-5.0); BILIRUBIN,TOTAL 0.4 mg/dL (0.2-1); BLOOD UREA NITROGEN 6.4 mg/dL (7-18); CALCIUM 8.6 mg/dL (8.5-10.1); CREATININE 0.9 mg/dL (0.55-1.3); POTASSIUM 3.7 mmol/L (3.5-5.1); TOT PROT 6.9 g/dl (6.4-8.2)
[2019-01-31] MEDS: DEXTROSE 5%-0.45% SALINE 1,000 ML IV SCH (08:51)
[2019-01-31] MEDS: levETIRAcetam 500 MG/5 ML INJECTION VIAL IVPB SCH (10:26)
[2019-01-31] MEDS: METOPROLOL TARTRATE 25 MG TABLET (FP) PO SCH ×2 (10:26→21:33)
[2019-01-31] MEDS: HEPARIN NA (PORCINE) 5,000 UNITS/ML 1ML VIAL SQ SCH ×2 (10:26→21:33)
--- NOTE | 2019-01-31 11:45 | PN ---
Progress Note (short form) - Note Progress Note: pt seen/ examined alert/awake Vital Signs Temp 97.8 F 01/31/19 09:00 Pulse 52 L 01/31/19 09:00 Resp 18 01/31/19 09:00 BP 122/74 01/31/19 09:00 Pulse Ox 98 01/31/19 09:00 Intake & Output 01/30/19 01/30/19 01/31/19 11:59 23:59 11:59 Intake Total 350 439 6385 Output Total 400 275 Balance -200 740 855 Intake: IV 200 800 D5-1/2Ns - 1,000 ml @ 100 200 800 mls/hr IV ASDIR [facility] Rx#: [id number] IVPB 100 300 330 Oral 100 240 Output: Urine 400 275 Void 400 275 Other: Voiding Method Urinal Urinal Incontinent # Unmeasured Voids Void 2 Bowel Movement No No Active Medications Heparin Sodium (Porcine) (Heparin -) 5,000 unit SQ BID [facility] Last Admin: 01/31/19 10:26 Dose: 5,000 unit Levetiracetam (Keppra Injection -) 1,500 mg IVPB BID [facility] Last Admin: 01/31/19 10:26 Dose: 1,500 mg Lorazepam (Ativan Injection -) 2 mg IVPUSH Q6H PRN PRN Reason: SEIZURES Metoprolol Tartrate (Lopressor -) 25 mg PO BID [facility] Last Admin: 01/31/19 10:26 Dose: 25 mg Thiamine HCl (Vitamin B1 Injection -) 250 mg IVPB TID [facility] Stop: 01/31/19 13:59 Last Admin: 01/31/19 05:29 Dose: 250 mg Valproate Sodium (Depacon Injection -) 500 mg IV Q6H-IV [facility]THEW Last Admin: 01/31/19 08:49 Dose: 500 mg CBC, BMP 01/31/19 05:30 01/31/19 05:30 Physical Examination Constitutional: Yes: No Distress, awake Eyes: Yes: Conjunctiva Clear Neck: Yes: Supple Cardiovascular: Yes: Regular Rate and Rhythm Respiratory: Yes: CTA Bilaterally Gastrointestinal: Yes: Soft/ non tender Edema: No Neurological: Yes: Awake Imaging - Results Chest X-ray: Report Reviewed Cat Scan: Report Reviewed EKG: Report Reviewed Problem List - Problems (1) Seizure Code(s): R56.9 - UNSPECIFIED CONVULSIONS (2) Post-ictal confusion Code(s): F05 - DELIRIUM DUE TO KNOWN PHYSIOLOGICAL CONDITION (3) Seizure disorder Code(s): G40.909 - EPILEPSY, UNSP, NOT INTRACTABLE, WITHOUT STATUS EPILEPTICUS Assessment/Plan Monitor Seizure meds close monitoring monitor neurology to follow started on diet-- ate well d/c fluids monitor on tele today
[2019-01-31] MEDS ORDERED: DEXTROSE 50%-WATER 25 GM/50 ML DISP.SYRIN ONE (17:45)
--- NOTE | 2019-02-01 00:22 | PN ---
Progress Note (short form) - Note Progress Note: Paged for infiltrated LH IV site. Will elevate hand and apply warm compresses. Pt. able to move hand without restriction. Pt. asking for pain medication, will give Tylenol. Will attempt IV access on RH.
[2019-02-01] MEDS: levETIRAcetam 500 MG/5 ML INJECTION VIAL IVPB SCH ×2 (01:21→10:27)
[2019-02-01] MEDS: VALPROATE SODIUM 500 MG/5 ML VIAL IV SCH ×2 (04:00→09:31)
[2019-02-01] MEDS: METOPROLOL TARTRATE 25 MG TABLET (FP) PO SCH (10:23)
[2019-02-01] MEDS: HEPARIN NA (PORCINE) 5,000 UNITS/ML 1ML VIAL SQ SCH (10:26)
--- NOTE | 2019-02-01 11:58 | DS ---
Physical Examination Vital Signs: Vital Signs Temperature 97.8 F 02/01/19 10:00 Pulse Rate 62 02/01/19 10:00 Respiratory Rate 20 02/01/19 10:00 Blood Pressure 135/83 02/01/19 10:00 O2 Sat by Pulse Oximetry (%) 97 02/01/19 09:00 Constitutional: Yes: No Distress, Calm Cardiovascular: Yes: Regular Rate and Rhythm Respiratory: Yes: CTA Bilaterally Gastrointestinal: Yes: Normal Bowel Sounds, Soft, Abdomen, Obese. No: Tenderness Edema: No Labs: CBC, BMP 01/31/19 05:30 01/31/19 05:30 Discharge Summary Reason For Visit: SEIZURE Current Active Problems Seizure (Acute) Hospital Course: Admitted for breakthrough seizures CT head negative No signs of infection cultures negative CXR negative Keppra increased per Neurology has a seizure episode two days ago No further seizures stable for dc home needs to follow up with Neurology Condition: Improved - Instructions Referrals: Sanya Johnson MD [Staff Physician] - Disposition: HOME - Home Medications Comprehensive Discharge Medication List: Ambulatory Orders Aspirin Coated [Ecotrin -] 81 mg PO DAILY #90 tab 12/16/16 Metoprolol Tartrate [Lopressor -] 25 mg PO BID #60 tablet 12/16/16 Pantoprazole Sodium [Protonix -] 40 mg PO DAILY tablet.ec 08/07/17 Tamsulosin HCl [Flomax -] 0.4 mg PO 1900 08/12/17 Simvastatin 20 mg PO DAILY 04/16/18 Heparin - 5,000 unit SQ BID #14 vial 07/27/18 Divalproex *ER* [Depakote *ER* -] 2,000 mg PO BID #30 tablet.sa 08/31/18 levETIRAcetam [Keppra -] 1,250 mg PO BID #60 tablet 08/31/18 Docusate Sodium [Colace] 100 mg PO DAILY 01/27/19
[2019-02-01] MEDS ORDERED: DIVALPROEX NA *ER* EXTEND REL 500 MG TABLET.SA (FP) PO SCH (12:00)
[2019-02-01 14:16] VITALS: BP 122/76; PULSE 65; TEMP 98.9
[2019-02-01] MEDS ORDERED: levETIRAcetam 500 MG TABLET (FP) PO SCH (22:00)
== END 2019-02-01 16:35 | disposition home or self-care (01) | DRG 101 ==
LOC: JER 08:37 → JERBED 09:55 → J4W 17:05
PROVIDERS: ADMIT Internal Medicine; ATTEND Internal Medicine
DX: G40.909 Epilepsy, unspecified, not intractable, without status epilepticus (principal); G93.49 Other encephalopathy; F05 Delirium due to known physiological condition; G91.9 Hydrocephalus, unspecified; G81.91 Hemiplegia, unspecified affecting right dominant side; K21.9 Gastro-esophageal reflux disease without esophagitis; I10 Essential (primary) hypertension
CPT/HCPCS: 36415; 70450-TC; 71045-TC-FY; 71260-TC; 72125-TC; 80053; 80164; 80177; 81003; 82962; 83605; 83735; 85025; 85610; 85730; 87040; 87086; 93005; 93010; 97116-GP; 97161-GP; 99284-25; 99285-25; J1644; J7030

== ENCOUNTER 2019-02-01 16:38 | Inpatient (IN) | payer OTHER ==
--- NOTE | 2019-02-01 16:47 | PDOC ---
History of Present Illness - General Chief Complaint: Seizure Stated Complaint: SEIZURE Time Seen by Provider: 02/01/19 16:47 Past History - Past Medical History Allergies/Adverse Reactions: Allergies Allergy/AdvReac Type Severity Reaction Status Date / Time No Known Drug Allergies Allergy Verified 02/01/19 16:46 Home Medications: Ambulatory Orders Aspirin Coated [Ecotrin -] 81 mg PO DAILY #90 tab 12/16/16 Metoprolol Tartrate [Lopressor -] 25 mg PO BID #60 tablet 12/16/16 Pantoprazole Sodium [Protonix -] 40 mg PO DAILY tablet.ec 08/07/17 Tamsulosin HCl [Flomax -] 0.4 mg PO 1900 08/12/17 Simvastatin 20 mg PO DAILY 04/16/18 Divalproex *ER* [Depakote *ER* -] 2,000 mg PO BID #30 tablet.sa 08/31/18 Docusate Sodium [Colace] 100 mg PO DAILY 01/27/19 levETIRAcetam [Keppra -] 1,500 mg PO BID #60 tablet 02/01/19 Anemia: No Asthma: No Cancer: No Cardiac Disorders: No CVA: No COPD: No CHF: No DVT: No Dementia: No Diabetes: No Dialysis: No GI Disorders: Yes (GERD) Disorders: No HTN: Yes Hypercholesterolemia: Yes Kidney Stones: No Liver Disease: No Psychiatric Problems: Yes Seizures: Yes Thyroid Disease: No - Surgical History Abdominal Surgery: No Appendectomy: No Cardiac Surgery: No Cholecystectomy: No Lung Surgery: No Neurologic Surgery: Yes (Congenital hydrocephalus w multiple shunts) Orthopedic Surgery: No - Immunization History Immunization Up to Date: Yes - Suicide/Smoking/Psychosocial Hx Smoking Status: No Smoking History: Never smoked Have you smoked in the past 12 months: No Number of Cigarettes Smoked Daily: 0 Cigars Per Day: 0 Hx Alcohol Use: No Drug/Substance Use Hx: No Substance Use Type: None Hx Substance Use Treatment: No
[2019-02-01 16:48] VITALS: BMI 29.1
--- NOTE | 2019-02-01 16:56 | PDOC ---
History of Present Illness - General Chief Complaint: Seizure Stated Complaint: SEIZURE Time Seen by Provider: 02/01/19 16:47 History Source: Patient, Family Exam Limitations: Other (MR at baseline) - History of Present Illness Initial Comments: 02/01/19 17:17 53 year old male with PMH hydrocephalus s/p B/L frontotemporal craniotomies, HTN , GERD, seizure disorder presented to ED for seizure. Per family member at bedside, patient was outside the front of the hospital, when he suddenly had an episode where he stared off into space and was not verbally responsive, lasting around one minute, resolving on its own. Family member denied fall/head injury/ vomiting. Rapid response was called and patient was brought to the Emergency Department. Pt was admitted to [facility] for multiple seizures, had his AED dosages increased, was discharged today. Allergies: NKDA Past History - Past Medical History Allergies/Adverse Reactions: Allergies Allergy/AdvReac Type Severity Reaction Status Date / Time No Known Drug Allergies Allergy Verified 02/01/19 16:46 Home Medications: Ambulatory Orders Aspirin Coated [Ecotrin -] 81 mg PO DAILY #90 tab 12/16/16 Metoprolol Tartrate [Lopressor -] 25 mg PO BID #60 tablet 12/16/16 Pantoprazole Sodium [Protonix -] 40 mg PO DAILY tablet.ec 08/07/17 Tamsulosin HCl [Flomax -] 0.4 mg PO 1900 08/12/17 Simvastatin 20 mg PO DAILY 04/16/18 Divalproex *ER* [Depakote *ER* -] 2,000 mg PO BID #30 tablet.sa 08/31/18 Docusate Sodium [Colace] 100 mg PO DAILY 01/27/19 levETIRAcetam [Keppra -] 1,500 mg PO BID #60 tablet 02/01/19 levETIRAcetam [Keppra -] 1,500 mg PO BID #84 tablet 02/01/19 Anemia: No Asthma: No Cancer: No Cardiac Disorders: No CVA: No COPD: No CHF: No DVT: No Dementia: No Diabetes: No Dialysis: No GI Disorders: Yes (GERD) Disorders: No HTN: Yes Hypercholesterolemia: Yes Kidney Stones: No Liver Disease: No Psychiatric Problems: Yes Seizures: Yes Thyroid Disease: No - Surgical History Abdominal Surgery: No Appendectomy: No Cardiac Surgery: No Cholecystectomy: No Lung Surgery: No Neurologic Surgery: Yes (Congenital hydrocephalus w multiple shunts) Orthopedic Surgery: No - Immunization History Immunization Up to Date: Yes - Suicide/Smoking/Psychosocial Hx Smoking Status: No Smoking History: Never smoked Have you smoked in the past 12 months: No Number of Cigarettes Smoked Daily: 0 Cigars Per Day: 0 Hx Alcohol Use: No Drug/Substance Use Hx: No Substance Use Type: None Hx Substance Use Treatment: No Review of Systems - Review of Systems Able to Perform ROS?: Yes Comments:: 02/01/19 17:20 General: denied fever, chills, generalized weakness. HEENT: denied sore throat, rhinorrhea, ear pain. Heart: denied chest pain, palpitations, syncope, diaphoresis. Respiratory: denied shortness of breath, cough, sputum production, hemoptysis. Abdomen: denied abdominal pain, nausea, vomiting, diarrhea, constipation, blood in stool. : denied dysuria, increased urinary frequency, hematuria, urinary incontinence , flank pain. Back: denied back pain. Musculoskeletal: denied joint pain, muscle pain, joint swelling. Neurological: admitted to seizure. denied headache, dizziness, numbness, tingling, weakness. Skin: denied rash, laceration, abrasion. *Physical Exam - Vital Signs Last Vital Signs Temp Pulse Resp BP Pulse Ox 99.1 F 69 18 164/97 100 02/01/19 16:46 02/01/19 16:46 02/01/19 16:46 02/01/19 16:46 02/01/19 16:46 - Physical Exam Comments: 02/01/19 17:20 Constitutional: Well-nourished, Well-developed, appearing stated age. HEENT: head is normocephalic, atraumatic. EOMI. PERRLA. Neck: supple. Full ROM. Heart: regular rhythm. no murmurs, rubs or gallops. Lungs: clear to auscultation bilaterally. no crackles, rhonchi or wheezing. no stridor. Abdomen: soft, nontender. normal bowel sounds. no rebound, guarding, masses. Extremities: peripheral pulses intact. no lower extremity edema. Neurological: post-ictal. CN 2-12 grossly intact. moves all four extremities. Psych: somnolent but arousable, oriented to person and place. follows commands. ED Treatment Course - LABORATORY CBC & Chemistry Diagram: 02/02/19 06:20 02/02/19 06:20 - ADDITIONAL ORDERS Additional order review: Laboratory Results 02/01/19 16:50 POC Glucometer 92 02/01/19 16:50 POC Glucometer 92 Medical Decision Making - Medical Decision Making 02/01/19 17:21 53 year old male with above PMH presented to ED for seizure. Initial Vital Signs Temp Pulse Resp BP Pulse Ox 99.1 F 69 18 164/97 100 02/01/19 16:46 02/01/19 16:46 02/01/19 16:46 02/01/19 16:46 02/01/19 16:46 Afebrile. No tachycardia. No tachypnea. Mild hypertension. No hypoxia on room air. Labs ordered: CBC, CMP, coags Imaging ordered: Medications ordered: none EKG performed at 1647: rate 60, regular rhythm, normal axis, normal intervals, nonspecific ST changes. Chart review: -Admitted 01/27/19 for 6 seizures -CT head report: CT scan of the brain without intravenous contrast. Compared to prior CT scan of the head dated 08/27/2018 Patient is status post bilateral temporal craniotomy. Encephalomalacia again seen in the right temporal lobe, site of surgery. There is also encephalomalacia in the left frontal lobe, anteriorly/ inferiorly. A small craniectomy is present in the left and right side of the frontal bone. Jason hole at the right posterior parietal/occipital junction. There is moderate volume loss and ventricular dilatation.. Mild periventricular chronic microvascular ischemic or shift of the midline structures. The craniocervical junction appears unremarkable. Normal sized pituitary gland IMPRESSION: No significant interval change. Bilateral temporal and bilateral frontal craniectomies. Monson hole at the right posterior parietal/ occipital junction. Encephalomalacia in the left frontal lobe, anteriorly/ inferiorly as well as at the site of surgery and in the right temporal lobe. Moderate volume loss and ventricular dilatation. No gross acute intracranial pathology is identified. -CT c-spine report: CT scan of the cervical spine without intravenous contrast Coronal and sagittal reconstruction images were obtained. No gross fracture, subluxation or prevertebral soft tissue swelling is seen. No jumped facets are identified. C5-C6 mild degenerative disc disease and mild central disc bulge without gross cord impingement. Visualized portion of the airway appears unremarkable without gross narrowing. No gross enlarged lymph nodes or discrete mass lesions identified. Normal size thyroid gland. Included thoracic inlet demonstrates atelectatic changes in the right lung apex, posteriorly. IMPRESSION : No compression fracture or subluxation are identified. No jumped facets are identified. C5-C6 mild mainly central disc bulge. Mild atelectatic changes in included portion of the right lung apex, posteriorly. Reported By: Victor M Herrmann MD 01/27/19 1221 -Seen and evaluated by Dr. Johnson, who increased Keppra from 1250 BID to 1500 BID -Discharged 02/01/19 with Keppra 1250 BID prescription -Pt never left the hospital 02/01/19 17:40 Dr. Johnson paged. 02/01/19 18:18 Pt seizing, staring off to right, resolved within 20 seconds before medication could be given. I spoke with Dr. Johnson, who recommended loading with Keppra 500 mg PO once and Depakote ER 500 mg PO once. Pt to be discharged on Keppra 1500 mg PO BID and Depakote ER 2000 mg PO BID CBC WBC 12.4 K/mm3 (4.0-10.0) H 02/01/19 17:10 RBC 4.36 M/mm3 (4.00-5.60) 02/01/19 17:10 Hgb 14.0 GM/dL (11.7-16.9) 02/01/19 17:10 Hct 41.4 % (35.4-49) 02/01/19 17:10 MCV 95.0 fl (80-96) 02/01/19 17:10 MCH 32.0 pg (25.7-33.7) 02/01/19 17:10 MCHC 33.7 g/dl (32.0-35.9) 02/01/19 17:10 RDW 16.7 % (11.9-15.9) H 02/01/19 17:10 Plt Count 237 K/MM3 (134-434) D 02/01/19 17:10 MPV 10.5 fl (7.5-11.1) D 02/01/19 17:10 Absolute Neuts (auto) 4.6 K/mm3 (1.5-8.0) 02/01/19 17:10 Neutrophils % 37.4 % (42.8-82.8) L 02/01/19 17:10 Lymphocytes % 50.8 % (8-40) H 02/01/19 17:10 Monocytes % 10.9 % (3.8-10.2) H 02/01/19 17:10 Eosinophils % 0.6 % (0-4.5) 02/01/19 17:10 Basophils % 0.3 % (0-2.0) 02/01/19 17:10 Nucleated RBC % 0 % (0-0) 02/01/19 17:10 Leukocytosis. No anemia. 02/01/19 19:04 Pt seizing, staring off to the right. Medications ordered: 2 mg Ativan IV 02/01/19 20:[address] Mckeon about the patient. He stated pt can be placed on up to 2000 mg Keppra BID if seizures continue. If seizures then continue pt can be placed on Lamictal. 02/01/19 21:08 CMP Sodium 137 mmol/L (136-145) 02/01/19 19:50 Potassium 4.5 mmol/L (3.5-5.1) 02/01/19 19:50 Chloride 104 mmol/L (98-107) 02/01/19 19:50 Carbon Dioxide 27 mmol/L (21-32) 02/01/19 19:50 Anion Gap 7 MMOL/L (8-16) L 02/01/19 19:50 BUN 14.3 mg/dL (7-18) 02/01/19 19:50 Creatinine 0.9 mg/dL (0.55-1.3) 02/01/19 19:50 Est GFR (CKD-EPI)AfAm 111.83 02/01/19 19:50 Est GFR (CKD-EPI)NonAf 96.49 02/01/19 19:50 POC Glucometer 92 UNITS (80-120) 02/01/19 16:50 Random Glucose 110 mg/dL (74-106) H 02/01/19 19:50 Calcium 8.6 mg/dL (8.5-10.1) 02/01/19 19:50 Total Bilirubin 0.4 mg/dL (0.2-1) 02/01/19 19:50 AST 34 U/L (15-37) 02/01/19 19:50 ALT 26 U/L (13-61) 02/01/19 19:50 Alkaline Phosphatase 96 U/L (45-117) 02/01/19 19:50 Total Protein 7.2 g/dl (6.4-8.2) 02/01/19 19:50 Albumin 2.8 g/dl (3.4-5.0) L 02/01/19 19:50 No electrolyte abnormalities. No AMAN. No transaminitis. I spoke with Dr. Ramirez, who will assume care for the patient. Pending admission. 02/03/19 15:46 Follow up CXR report: Chest: Seizure A single AP view of the chest is submitted. Since 01/27/2019 the fluid and atelectasis at the left base has cleared. Again noted is the prominent mediastinum. An acute process is not seen. Impression: Improvement. Better aeration left base. Reported By: Javier Villegas MD 02/02/19 0644 *DC/Admit/Observation/Transfer Diagnosis at time of Disposition: Seizure - Discharge Dispostion Condition at time of disposition: Stable Decision to Admit order: Yes - Prescriptions - Referrals - Patient Instructions - Post Discharge Activity
[2019-02-01 17:43] LABS: BASO % 0.3 % (0-2.0); EOS % 0.6 % (0-4.5); HEMATOCRIT 41.4 % (35.4-49); LYMPH % 50.8 % (8-40); MCHC 33.7 g/dl (32.0-35.9); MEAN PLT VOLUME 10.5 fl (7.5-11.1); MONO % 10.9 % (3.8-10.2); NEUT % 37.4 % (42.8-82.8); PLATELET COUNT 237 K/MM3 (134-434); RBC 4.36 M/mm3 (4.00-5.60); RDW 16.7 % (11.9-15.9); WHITE BLOOD COUNT 12.4 K/mm3 (4.0-10.0)
[2019-02-01] MEDS ORDERED: DIVALPROEX NA *ER* EXTEND REL 500 MG TABLET.SA (FP) PO ONE (18:15)
[2019-02-01] MEDS ORDERED: levETIRAcetam 500 MG TABLET (FP) PO ONE ×3 (18:15→22:07)
--- NOTE | 2019-02-01 18:18 | PDOC ---
Documentation entered by Jennifer Lin SCRIBE, acting as scribe for Mikaela Bentley MD. Mikaela Bentley MD: This documentation has been prepared by the Delia mallory Brenda, SCRIBE, under my direction and personally reviewed by me in its entirety. I confirm that the documentation accurately reflects all work, treatment, procedures, and medical decision making performed by me. Attending Attestation - Resident Resident Name: Meri Wood - ED Attending Attestation I have performed the following: I have examined & evaluated the patient, The case was reviewed & discussed with the resident, I agree w/resident's findings & plan, Exceptions are as noted - HPI HPI: 02/01/19 17:37 The patient is a 53 year old male with a significant past medical history of hydrocephalus s/p B/L frontotemporal craniotomies, HTN, GERD and seizure disorder who presents to the Emergency Department for a seizure episode lasting one minute. As per family at bedside, patient was in front of the hospital on his way out from being discharged for seizures, at which time he stared off into space. The patient was noted to be unverbal and unresponsive. As per family , rapid response was called and the patient was brought to the Emergency Department. The family member denies any fall, head trauma or emesis. Allergies: NKDA PCP: Dr. Meadows 02/01/19 19:50 - Physicial Exam PE: 02/01/19 17:44 GENERAL: + Somnolent + Yawning Well developed, well nourished. Awake. No acute distress. HEENT: Normocephalic, atraumatic. PERRLA, EOMI. No conjunctival pallor. Sclera are non- icteric. Moist mucous membranes. Oropharynx is clear. NECK: Supple. Full ROM. No JVD. Carotid pulses 2+ and symmetric, without bruits. No thyromegaly. No lymphadenopathy. CARDIOVASCULAR: Regular rate and rhythm. No murmurs, rubs, or gallops. Distal pulses are 2+ and symmetric. PULMONARY: No evidence of respiratory distress. Lungs clear to auscultation bilaterally. No wheezing, rales or rhonchi. ABDOMINAL: Soft. Non-tender. Non-distended. No rebound or guarding. No organomegaly. Normoactive bowel sounds. MUSCULOSKELETAL : + Witnessed episode, no observed head trauma No bony deformities or tenderness. No CVA tenderness. EXTREMITIES: No cyanosis. No clubbing. No pitting edema. No calf tenderness. SKIN: Warm and dry. Normal capillary refill. No rashes. No jaundice. NEUROLOGICAL: + Postictal + Nonconversal - Medical Decision Making 02/01/19 18:16 53-year-old male who was admitted one week ago for seizures and today was discharged from our hospital. Upon leaving the hospital, he had another witnessed seizure.He did not hit his head. -Dr Wood spoke with the neurologist, Dr. Johnson and after further discussion , it was found that the patient was not given his new higher dose of his antiseizure medicine. So therefore, he is seizure medicine will be supplemented and he will be discharged home 02/01/19 19:30 After giving him the additional seizure medis he had another tonic clonic seizure and required ativan this pt needs to have further neuro eval and has poorly controlled seizures and will be re admitted 02/01/19 21:50
[2019-02-01] MEDS ORDERED: DIVALPROEX SODIUM 500 MG TABLET E.C. ONE ×2 (18:19→22:07)
[2019-02-01 18:43] LABS: PROTHROMBIN TIME (PATIENT) 11.8 SEC (9.7-13.0)
[2019-02-01 18:45] LABS: ACTIVATED PTT 35.3 SECONDS (25.2-36.5)
[2019-02-01] MEDS ORDERED: LORazepam 2 MG/ML SDV VIAL ONE (18:56)
[2019-02-01 20:59] LABS: ALBUMIN 2.8 g/dl (3.4-5.0); BILIRUBIN,TOTAL 0.4 mg/dL (0.2-1); BLOOD UREA NITROGEN 14.3 mg/dL (7-18); CALCIUM 8.6 mg/dL (8.5-10.1); CREATININE 0.9 mg/dL (0.55-1.3); POTASSIUM 4.5 mmol/L (3.5-5.1); TOT PROT 7.2 g/dl (6.4-8.2)
[2019-02-01] MEDS ORDERED: LORazepam 2 MG/ML SDV VIAL IVPUSH PRN (21:27)
--- NOTE | 2019-02-01 21:35 | HP ---
Admitting History and Physical - Primary Care Physician PCP: Ailyn Meadows - Admission Chief Complaint: witnessed seizures History of Present Illness: 53 y/o man past medical history of HTN, GERD, Seizure Disorder, Multiple Shunts for Congenital Hydrocephalus, Encephalomalacia, admitted on 01/27/2019 with breakthrough seizures AED optimized Max Depakote and Keppra is increased to 1250 mg BID, patient was discharged home today, while just getting out of the hospital had a witnessed seizure in the lobby as per family patient had episode of stare with LOC that lasted 1 minute so [employer] was called and patient was transported back to ED received IV lorazepam and now drowsy, all labs are at base line, hemodynamically stable, neurology was consulted in the Ed - Past Medical History 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 Cardiovascular: Yes: HTN, Hyperlipdemia Pulmonary: Yes: Pneumonia Psych: Yes: Depression - Past Surgical History Additional Past Surgical History: CP shunt - Smoking History Smoking history: Never smoked Have you smoked in the past 12 months: No Aproximately how many cigarettes per day: 0 - Alcohol/Substance Use Hx Alcohol Use: No - Social History ADL: Family Assistance History of Recent Travel: No Home Medications - Allergies Allergies/Adverse Reactions: Allergies Allergy/AdvReac Type Severity Reaction Status Date / Time No Known Drug Allergies Allergy Verified 02/01/19 16:46 - Home Medications Home Medications: Ambulatory Orders Aspirin Coated [Ecotrin -] 81 mg PO DAILY #90 tab 12/16/16 Metoprolol Tartrate [Lopressor -] 25 mg PO BID #60 tablet 12/16/16 Pantoprazole Sodium [Protonix -] 40 mg PO DAILY tablet.ec 08/07/17 Tamsulosin HCl [Flomax -] 0.4 mg PO 1900 08/12/17 Simvastatin 20 mg PO DAILY 04/16/18 Divalproex *ER* [Depakote *ER* -] 2,000 mg PO BID #30 tablet.sa 08/31/18 Docusate Sodium [Colace] 100 mg PO DAILY 01/27/19 levETIRAcetam [Keppra -] 1,500 mg PO BID #60 tablet 02/01/19 levETIRAcetam [Keppra -] 1,500 mg PO BID #84 tablet 02/01/19 Family Disease History - Family Disease History Family History: Unremarkable Review of Systems Unable to obtain ROS, reason: due to drowsyness Physical Examination Vital Signs: Vital Signs Temperature 99.1 F 02/01/19 16:46 Pulse Rate 66 02/01/19 21:19 Respiratory Rate 18 02/01/19 21:19 Blood Pressure 142/95 02/01/19 21:19 O2 Sat by Pulse Oximetry (%) 98 02/01/19 21:19 Young man not in distress, lethargic and sleepy after lorazepam injection HENT:Mm moist, no nemia, PERRLA EOMI NECK:No JVd No bruit CHEST:CTA B/L CVS:S1S2 R ABD:Obese non tender Bs + EXT:Trace edema feet, Pulses + CARD SELLER: lethargic and confused after IV Lorazepam , moving all extremities.grossly non focal re evaluate once alert off sedation. Labs: CBC, BMP 02/01/19 17:10 02/01/19 19:50 Problem List - Problems (1) Breakthrough seizure Assessment/Plan: witnessed breakthrough seizure , neurology was consulted recommended to increase Keppra to 2 gm if recurrence of symptom underwent w/u for infectious etiology, at present drowsy will hold Po feeds except meds, neurocheck, close observation, lorazepam 2 mg IVSS for seizure, elevated TWBC probably reactive F /U clinical course UA, CXR no infiltrates. Code(s): G40.919 - EPILEPSY, UNSP, INTRACTABLE, WITHOUT STATUS EPILEPTICUS (2) HTN (hypertension) Assessment/Plan: resume all home meds Code(s): I10 - ESSENTIAL (PRIMARY) HYPERTENSION (3) Hyperlipidemia Assessment/Plan: cont sttain Code(s): E78.5 - HYPERLIPIDEMIA, UNSPECIFIED Qualifiers: (4) Hydrocephalus Assessment/Plan: Congenital s/p shunt and secondary seizures will F/u Neurology input. Code(s): G91.9 - HYDROCEPHALUS, UNSPECIFIED (5) Elevated WBCs Assessment/Plan: underwent infectious w/u during this hospitalization, no documented fever, CXr normal F/U UA and clinical course most likely reactive will observe closely off abx, neurolgy is on the case. Code(s): D72.829 - ELEVATED WHITE BLOOD CELL COUNT, UNSPECIFIED
[2019-02-01] MEDS ORDERED: METOPROLOL TARTRATE 25 MG TABLET (FP) ONE (22:07)
[2019-02-01] MEDS: levETIRAcetam 500 MG TABLET (FP) PO SCH (22:14)
[2019-02-01] MEDS: DIVALPROEX NA *ER* EXTEND REL 500 MG TABLET.SA (FP) PO SCH (22:14)
[2019-02-01] MEDS: METOPROLOL TARTRATE 25 MG TABLET (FP) PO SCH (22:15)
[2019-02-02] MEDS: D5-1/2NS+10 MEQ KCL - 10 MEQ/1,000 ML INFUS.BAG IV SCH ×2 (01:30→21:32)
[2019-02-02 07:55] LABS: BASO % 0.2 % (0-2.0); EOS % 0.3 % (0-4.5); HEMATOCRIT 39.2 % (35.4-49); HEMOGLOBIN 13.2 GM/dL (11.7-16.9); LYMPH % 54.4 % (8-40); MCH 32.2 pg (25.7-33.7); MCHC 33.7 g/dl (32.0-35.9); MEAN CELL VOLUME 95.5 fl (80-96); MEAN PLT VOLUME 9.3 fl (7.5-11.1); NEUT % 36.1 % (42.8-82.8); PLATELET COUNT 127 K/MM3 (134-434); RDW 15.6 % (11.9-15.9); WHITE BLOOD COUNT 10.7 K/mm3 (4.0-10.0)
--- NOTE | 2019-02-02 08:51 | EKG ---
Test Reason : Blood Pressure : / mmHG Vent. Rate : 060 BPM Atrial Rate : 060 BPM P-R Int : 140 ms QRS Dur : 072 ms QT Int : 394 ms P-R-T Axes : 040 -17 075 degrees QTc Int : 394 ms POOR DATA QUALITY, INTERPRETATION MAY BE ADVERSELY AFFECTED SINUS RHYTHM WITH OCCASIONAL PREMATURE VENTRICULAR COMPLEXES OTHERWISE NORMAL ECG WHEN COMPARED WITH ECG OF 27-JAN-2019 08:49, PREMATURE VENTRICULAR COMPLEXES ARE NOW PRESENT Confirmed by HARINI DAMON, BA ([id number]) on 02/02/2019 8:51:26 AM Referred By: Confirmed By:BA SCHULER MD
[2019-02-02 09:11] LABS: ALBUMIN 2.9 g/dl (3.4-5.0); BILIRUBIN,TOTAL 0.3 mg/dL (0.2-1); BLOOD UREA NITROGEN 11.3 mg/dL (7-18); CALCIUM 8.5 mg/dL (8.5-10.1); CREATININE 0.9 mg/dL (0.55-1.3); POTASSIUM 3.9 mmol/L (3.5-5.1)
[2019-02-02] MEDS: DOCUSATE SODIUM 100 MG CAPSULE (FP) PO SCH (09:57)
[2019-02-02] MEDS: levETIRAcetam 500 MG TABLET (FP) PO SCH ×2 (09:57→21:30)
[2019-02-02] MEDS: METOPROLOL TARTRATE 25 MG TABLET (FP) PO SCH ×2 (09:57→21:31)
[2019-02-02] MEDS: PANTOPRAZOLE 40 MG TABLET (FP) PO SCH (09:57)
[2019-02-02] MEDS: ASPIRIN COATED 81 MG TABLET.EC PO SCH (09:57)
[2019-02-02] MEDS: TAMSULOSIN HCL 0.4 MG CAP PO SCH (09:57)
[2019-02-02] MEDS: DIVALPROEX NA *ER* EXTEND REL 500 MG TABLET.SA (FP) PO SCH ×2 (09:58→21:30)
--- NOTE | 2019-02-02 11:20 | PN ---
Progress Note (short form) - Note Progress Note: readmitted for breakthrough seizures pt is awake now no complaints no dysuria, cough Vital Signs - 24 hr 02/01/19 02/01/19 02/02/19 16:46 21:19 00:46 Temperature 99.1 F 98.8 F Pulse Rate 69 73 Pulse Rate [ 66 Apical] Respiratory 18 18 20 Rate Blood Pressure 164/97 134/93 Blood Pressure 142/95 [Left Arm] O2 Sat by Pulse 100 98 98 Oximetry (%) 02/02/19 02/02/19 02/02/19 04:10 06:00 09:00 Temperature 97.9 F 98.7 F 98.5 F Pulse Rate 56 L 68 65 Pulse Rate [ Apical] Respiratory 18 18 18 Rate Blood Pressure 135/76 138/76 129/79 Blood Pressure [Left Arm] O2 Sat by Pulse 98 97 Oximetry (%) Current Medications Generic Name Dose Route Start Last Admin Trade Name Freq PRN Reason Stop Dose Admin Aspirin 81 mg 02/02/19 10:00 02/02/19 09:57 Ecotrin - PO 81 mg DAILY MATTHEW Administration Atorvastatin Calcium 10 mg 02/02/19 22:00 Lipitor - PO HS MATTHEW Divalproex Sodium 2,000 mg 02/01/19 22:00 02/02/19 09:58 Depakote *Er* - PO 2,000 mg BID MATTHEW Administration Docusate Sodium 100 mg 02/02/19 10:00 02/02/19 09:57 Colace - PO 100 mg DAILY MATTHEW Administration Potassium Chloride/Dextrose/Sod Cl 10 meq in 1,000 mls @ 100 mls/hr 02/01/19 21:30 02/02/19 01:30 D5-1/2ns+10 Meq Kcl - IV 100 mls/hr ASDIR MATTHEW Administration Ceftriaxone Sodium 1,000 mg/ 50 mls @ 100 mls/hr 02/02/19 11:15 Dextrose IVPB DAILY MATTHEW Levetiracetam 1,500 mg 02/01/19 22:00 02/02/19 09:57 Keppra - PO 1,500 mg BID MATTHEW Administration Lorazepam 2 mg 02/01/19 21:27 Ativan Injection - IVPUSH Q6H PRN AGITATION Metoprolol Tartrate 25 mg 02/01/19 22:00 02/02/19 09:57 Lopressor - PO 25 mg BID MATTHEW Administration Pantoprazole Sodium 40 mg 02/02/19 10:00 02/02/19 09:57 Protonix - PO 40 mg DAILY MATTHEW Administration Tamsulosin HCl 0.4 mg 02/02/19 08:30 02/02/19 09:57 Flomax - PO 0.4 mg DAILY@0830 MATTHEW Administration S1S2 RRR Lungs clear Abd- soft, NT, obese No edema PLAN Continue with seizure meds neurology eval ua and culture pending CXR -- prominent mediastinum-- will order Ct chest with contrast Empiric antibiotics Laboratory Results - last 24 hr 02/01/19 02/01/19 02/01/19 16:50 17:10 17:10 WBC 12.4 H RBC 4.36 Hgb 14.0 Hct 41.4 MCV 95.0 MCH 32.0 MCHC 33.7 RDW 16.7 H Plt Count 237 D MPV 10.5 D Absolute Neuts (auto) 4.6 Neutrophils % 37.4 L Lymphocytes % 50.8 H Monocytes % 10.9 H Eosinophils % 0.6 Basophils % 0.3 Nucleated RBC % 0 PT with INR 11.80 INR 1.00 PTT (Actin FS) 35.3 Sodium Potassium Chloride Carbon Dioxide Anion Gap BUN Creatinine Est GFR (CKD-EPI)AfAm Est GFR (CKD-EPI)NonAf POC Glucometer 92 Random Glucose Calcium Total Bilirubin AST ALT Alkaline Phosphatase Troponin I Total Protein Albumin 02/01/19 02/01/19 02/02/19 17:10 19:50 06:20 WBC 10.7 H RBC 4.10 Hgb 13.2 Hct 39.2 MCV 95.5 MCH 32.2 MCHC 33.7 RDW 15.6 Plt Count 127 L D MPV 9.3 D Absolute Neuts (auto) 3.8 Neutrophils % 36.1 L Lymphocytes % 54.4 H Monocytes % 9.0 Eosinophils % 0.3 Basophils % 0.2 Nucleated RBC % 0 PT with INR INR PTT (Actin FS) Sodium Cancelled 137 Potassium Cancelled 4.5 Chloride Cancelled 104 Carbon Dioxide Cancelled 27 Anion Gap Cancelled 7 L BUN Cancelled 14.3 Creatinine Cancelled 0.9 Est GFR (CKD-EPI)AfAm Cancelled 111.83 Est GFR (CKD-EPI)NonAf Cancelled 96.49 POC Glucometer Random Glucose Cancelled 110 H Calcium Cancelled 8.6 Total Bilirubin Cancelled 0.4 AST Cancelled 34 ALT Cancelled 26 Alkaline Phosphatase Cancelled 96 Troponin I Cancelled Total Protein Cancelled 7.2 Albumin Cancelled 2.8 L 02/02/19 06:20 WBC RBC Hgb Hct MCV MCH MCHC RDW Plt Count MPV Absolute Neuts (auto) Neutrophils % Lymphocytes % Monocytes % Eosinophils % Basophils % Nucleated RBC % PT with INR INR PTT (Actin FS) Sodium 138 Potassium 3.9 Chloride 103 Carbon Dioxide 30 Anion Gap 4 L BUN 11.3 Creatinine 0.9 Est GFR (CKD-EPI)AfAm 111.83 Est GFR (CKD-EPI)NonAf 96.49 POC Glucometer Random Glucose 79 Calcium 8.5 Total Bilirubin 0.3 AST 17 ALT 23 Alkaline Phosphatase 86 Troponin I Total Protein 7.0 Albumin 2.9 L Problem List - Problems (1) Breakthrough seizure Code(s): G40.919 - EPILEPSY, UNSP, INTRACTABLE, WITHOUT STATUS EPILEPTICUS (2) Seizure Code(s): R56.9 - UNSPECIFIED CONVULSIONS (3) HTN (hypertension) Code(s): I10 - ESSENTIAL (PRIMARY) HYPERTENSION (4) Hyperlipidemia Code(s): E78.5 - HYPERLIPIDEMIA, UNSPECIFIED Qualifiers:
[2019-02-02] MEDS ORDERED: cefTRIAXone SODIUM 1 GM VIAL ONE (12:06)
[2019-02-02] MEDS ORDERED: DEXTROSE 5%-WATER - 50 ML IVPB ONE (12:07)
[2019-02-02] MEDS: CEFTRIAXONE 1 GM in DEXTROSE 5%-WATER - 50 ML IVPB SCH (12:23)
[2019-02-02] MEDS: ATORVASTATIN CA 10 MG TABLET (FP) PO SCH (21:30)
--- NOTE | 2019-02-02 22:28 | CONSULT ---
Consult - text type - Consultation Consultation Note: NEDUROLOGY CONSULTATION is greatly appreciated: Events reviewed and Patient examined. This 53 yo man lives at home with his brother who supervises his meds. Well-known to me with chronic seizure disorder after childhood brain surgery and stable, chronic scar tissue (encephalomalacia) on serial CT and MRI scans. Recently admitted for seizures but brother may not have increased Pt's levetiracetam on arrival home (and resumed his prior meds). Now readmitted with recurrent partial seizure (Patient becomes poorly responsive and eyes gaze to the left). In ED WBC=12.4 K so patient was given ceftriaxone and admitted for Rx of presumed infection (Pt has h/o recurrent UTI's associated with increased seizures) YOLY: Mod megencephally. B/L frontotemporal craniotomies. NEURO: Awake, slow to respond. Sparse sl dysarthric speech Moderate static encephalopathy. Conjugate nystagmus on left gaze. Mild right drift and sl decreased LIDIA's B/L. Brisk reflexes. Feels pinch throughout. IMP: Moderate B/L cerebral dysfunction s/p B/L brain surgies as child with chronic, B/L encephalomalacia Chronic seizure disorder. Possibly exacerbated by Toxic-metabolic encephalopathy SUGGEST: Send U/A, C&S Continue depakote ER PO or IV 2 gm q 12 hrs Continue Levetiracetam 1500 mg PO or IV q 12 hrs. PT to mobilize patient OO Bed to chair. Thank you very much, Sanya Johnson MD
[2019-02-03] MEDS ORDERED: cefTRIAXone SODIUM 1 GM VIAL ONE (09:47)
[2019-02-03] MEDS ORDERED: DEXTROSE 5%-WATER - 50 ML IVPB ONE (09:47)
[2019-02-03] MEDS: CEFTRIAXONE 1 GM in DEXTROSE 5%-WATER - 50 ML IVPB SCH (10:03)
[2019-02-03] MEDS: METOPROLOL TARTRATE 25 MG TABLET (FP) PO SCH ×2 (10:04→22:37)
[2019-02-03] MEDS: DOCUSATE SODIUM 100 MG CAPSULE (FP) PO SCH (10:04)
[2019-02-03] MEDS: levETIRAcetam 500 MG TABLET (FP) PO SCH ×2 (10:04→22:37)
[2019-02-03] MEDS: DIVALPROEX NA *ER* EXTEND REL 500 MG TABLET.SA (FP) PO SCH ×2 (10:04→22:37)
[2019-02-03] MEDS: TAMSULOSIN HCL 0.4 MG CAP PO SCH (10:04)
[2019-02-03] MEDS: ASPIRIN COATED 81 MG TABLET.EC PO SCH (10:04)
[2019-02-03] MEDS: PANTOPRAZOLE 40 MG TABLET (FP) PO SCH (10:05)
--- NOTE | 2019-02-03 11:01 | PN ---
Progress Note (short form) - Note Progress Note: no seizures no complaints Vital Signs - 24 hr 02/02/19 02/02/19 02/03/19 21:00 22:00 01:00 Temperature 98.6 F 97.9 F Pulse Rate 62 59 L Respiratory 20 20 20 Rate Blood Pressure 113/74 109/59 L O2 Sat by Pulse 98 Oximetry (%) 02/03/19 02/03/19 02/03/19 06:00 08:42 09:00 Temperature 97.7 F 98.5 F Pulse Rate 50 L 63 Respiratory 20 20 20 Rate Blood Pressure 120/72 130/85 O2 Sat by Pulse 97 Oximetry (%) 02/03/19 14:00 Temperature 97.9 F Pulse Rate 66 Respiratory 20 Rate Blood Pressure 115/69 O2 Sat by Pulse Oximetry (%) Current Medications Generic Name Dose Route Start Last Admin Trade Name Freq PRN Reason Stop Dose Admin Aspirin 81 mg 02/02/19 10:00 02/03/19 10:04 Ecotrin - PO 81 mg DAILY MATTHEW Administration Atorvastatin Calcium 10 mg 02/02/19 22:00 02/02/19 21:30 Lipitor - PO 10 mg HS MATTHEW Administration Divalproex Sodium 2,000 mg 02/01/19 22:00 02/03/19 10:04 Depakote *Er* - PO 2,000 mg BID MATTHEW Administration Docusate Sodium 100 mg 02/02/19 10:00 02/03/19 10:04 Colace - PO 100 mg DAILY MATTHEW Administration Potassium Chloride/Dextrose/Sod Cl 10 meq in 1,000 mls @ 100 mls/hr 02/01/19 21:30 02/02/19 21:32 D5-1/2ns+10 Meq Kcl - IV 100 mls/hr ASDIR MATTHEW Administration Ceftriaxone Sodium 1 gm/ 50 mls @ 100 mls/hr 02/02/19 11:15 02/03/19 10:03 Dextrose IVPB 100 mls/hr DAILY MATTHEW Administration Levetiracetam 1,500 mg 02/01/19 22:00 02/03/19 10:04 Keppra - PO 1,500 mg BID MATTHEW Administration Lorazepam 2 mg 02/01/19 21:27 Ativan Injection - IVPUSH Q6H PRN AGITATION Metoprolol Tartrate 25 mg 02/01/19 22:00 02/03/19 10:04 Lopressor - PO 25 mg BID MATTHEW Administration Pantoprazole Sodium 40 mg 02/02/19 10:00 02/03/19 10:05 Protonix - PO 40 mg DAILY MATTHEW Administration Tamsulosin HCl 0.4 mg 02/02/19 08:30 02/03/19 10:04 Flomax - PO 0.4 mg DAILY@0830 MATTHEW Administration S1 S2 RRR Lungs clear Abd-soft, obese, NT no edema PLAN on meds Neurology eval noted UA and culture pending empiric iv antibiotics CT chest pending- -evaluate prominent mediastinum Problem List - Problems (1) Breakthrough seizure Code(s): G40.919 - EPILEPSY, UNSP, INTRACTABLE, WITHOUT STATUS EPILEPTICUS (2) Seizure Code(s): R56.9 - UNSPECIFIED CONVULSIONS (3) HTN (hypertension) Code(s): I10 - ESSENTIAL (PRIMARY) HYPERTENSION (4) Hyperlipidemia Code(s): E78.5 - HYPERLIPIDEMIA, UNSPECIFIED Qualifiers:
[2019-02-03 20:20] LABS: EPI CELLS 0.6 /HPF (0-5/HPF); HYALINE CASTS 0 /lpf (0-8); PH,URINE 6.5 (5.0-8.0); URINE APPEARANCE CLEAR; URINE BACTERIA 3.2 /hpf (NEGATIVE); URINE BILIRUBIN NEGATIVE (NEGATIVE); URINE COLOR YELLOW; URINE GLUCOSE (UA) NEGATIVE (NEGATIVE); URINE KETONE NEGATIVE (NEGATIVE); URINE LEUK ESTERASE 1+ (NEGATIVE); URINE NITRITE NEGATIVE (NEGATIVE); URINE PROTEIN NEGATIVE (NEGATIVE); URINE RBC 1 /hpf (0-4); URINE UROBILINOGEN 0.2 mg/dL (0.2-1.0); URINE WBC 7 /hpf (0-5)
[2019-02-03] MEDS: ATORVASTATIN CA 10 MG TABLET (FP) PO SCH (22:37)
[2019-02-03] MEDS: D5-1/2NS+10 MEQ KCL - 10 MEQ/1,000 ML INFUS.BAG IV SCH (22:38)
[2019-02-04] MEDS ORDERED: cefTRIAXone SODIUM 1 GM VIAL ONE (11:13)
[2019-02-04] MEDS ORDERED: DEXTROSE 5%-WATER - 50 ML IVPB ONE (11:13)
[2019-02-04] MEDS: CEFTRIAXONE 1 GM in DEXTROSE 5%-WATER - 50 ML IVPB SCH (11:17)
[2019-02-04] MEDS: ASPIRIN COATED 81 MG TABLET.EC PO SCH (11:17)
[2019-02-04] MEDS: TAMSULOSIN HCL 0.4 MG CAP PO SCH (11:17)
[2019-02-04] MEDS: METOPROLOL TARTRATE 25 MG TABLET (FP) PO SCH ×2 (11:17→21:53)
[2019-02-04] MEDS: levETIRAcetam 500 MG TABLET (FP) PO SCH ×2 (11:17→21:53)
[2019-02-04] MEDS: DOCUSATE SODIUM 100 MG CAPSULE (FP) PO SCH (11:18)
[2019-02-04] MEDS: PANTOPRAZOLE 40 MG TABLET (FP) PO SCH (11:18)
--- NOTE | 2019-02-04 11:42 | PN ---
Progress Note (short form) - Note Progress Note: Pt seen/ examined chart reviewed all f/u noted Vital Signs Temp 98.2 F 02/04/19 05:27 Pulse 60 02/04/19 05:27 Resp 20 02/04/19 05:27 BP 108/70 02/04/19 05:27 Pulse Ox 97 02/03/19 21:00 Intake & Output 02/03/19 02/03/19 02/04/19 11:59 23:59 11:59 Intake Total 1400 600 Output Total 800 Balance 1400 -200 Intake: IV 1200 D5-1/2NS+10 MEQ KCL - 10 1200 meq In 1,000 ml @ 100 mls /hr IV ASDIR MATTHEW Rx#: [id number] Oral 200 600 Output: Urine 800 Void 800 Other: Voiding Method Incontinent Urinal # Unmeasured Voids Void 1 2 Bowel Movement No No Active Medications Aspirin (Ecotrin -) 81 mg PO DAILY [facility] Last Admin: 02/04/19 11:17 Dose: 81 mg Atorvastatin Calcium (Lipitor -) 10 mg PO HS [facility] Last Admin: 02/03/19 22:37 Dose: 10 mg Divalproex Sodium (Depakote *Er* -) 2,000 mg PO BID [facility] Last Admin: 02/03/19 22:37 Dose: 2,000 mg Docusate Sodium (Colace -) 100 mg PO DAILY [facility] Last Admin: 02/04/19 11:18 Dose: 100 mg Potassium Chloride/Dextrose/Sod Cl (D5-1/2ns+10 Meq Kcl -) 10 meq in 1,000 mls @ 100 mls/hr IV ASDIR [facility] Last Admin: 02/03/19 22:38 Dose: 100 mls/hr Ceftriaxone Sodium 1 gm/ (Dextrose) 50 mls @ 100 mls/hr IVPB DAILY [facility] Last Admin: 02/04/19 11:17 Dose: 100 mls/hr Levetiracetam (Keppra -) 1,500 mg PO BID [facility] Last Admin: 02/04/19 11:17 Dose: 1,500 mg Lorazepam (Ativan Injection -) 2 mg IVPUSH Q6H PRN PRN Reason: AGITATION Metoprolol Tartrate (Lopressor -) 25 mg PO BID [facility] Last Admin: 02/04/19 11:17 Dose: 25 mg Pantoprazole Sodium (Protonix -) 40 mg PO DAILY [facility] Last Admin: 02/04/19 11:18 Dose: 40 mg Tamsulosin HCl (Flomax -) 0.4 mg PO DAILY@0830 [facility] Last Admin: 02/04/19 11:17 Dose: 0.4 mg CBC, BMP 02/02/19 06:20 02/02/19 06:20 Physical Exam S1 S2 RRR Lungs clear Abd-soft, obese, NT no edema PLAN stable empiric iv antibiotics CT chest noted consider d/c abx in am d/c planning will follow
[2019-02-04] MEDS: DIVALPROEX NA *ER* EXTEND REL 500 MG TABLET.SA (FP) PO SCH ×2 (12:24→21:53)
[2019-02-04] MEDS ORDERED: PT OWN MED DRAWER 7, Y5N ONE (12:59)
[2019-02-04] MEDS: D5-1/2NS+10 MEQ KCL - 10 MEQ/1,000 ML INFUS.BAG IV SCH (21:52)
[2019-02-04] MEDS: ATORVASTATIN CA 10 MG TABLET (FP) PO SCH (21:53)
[2019-02-05] MEDS ORDERED: cefTRIAXone SODIUM 1 GM VIAL ONE (08:22)
[2019-02-05] MEDS ORDERED: DEXTROSE 5%-WATER - 50 ML IVPB ONE (08:23)
[2019-02-05] MEDS: TAMSULOSIN HCL 0.4 MG CAP PO SCH (09:30)
[2019-02-05] MEDS: DIVALPROEX NA *ER* EXTEND REL 500 MG TABLET.SA (FP) PO SCH ×2 (09:34→21:35)
[2019-02-05] MEDS: PANTOPRAZOLE 40 MG TABLET (FP) PO SCH (09:34)
[2019-02-05] MEDS: CEFTRIAXONE 1 GM in DEXTROSE 5%-WATER - 50 ML IVPB SCH (09:34)
[2019-02-05] MEDS: METOPROLOL TARTRATE 25 MG TABLET (FP) PO SCH ×2 (09:34→21:35)
[2019-02-05] MEDS: ASPIRIN COATED 81 MG TABLET.EC PO SCH (09:35)
[2019-02-05] MEDS: levETIRAcetam 500 MG TABLET (FP) PO SCH ×2 (09:35→21:35)
[2019-02-05] MEDS: DOCUSATE SODIUM 100 MG CAPSULE (FP) PO SCH (09:37)
--- NOTE | 2019-02-05 14:45 | PN ---
Progress Note (short form) - Note Progress Note: comfortable no further seizure activity afebrile Vital Signs Temp 98.0 F 02/05/19 10:00 Pulse 65 02/05/19 10:00 Resp 18 02/05/19 10:00 BP 116/73 02/05/19 10:00 Pulse Ox 97 02/04/19 21:00 Intake & Output 02/04/19 02/05/19 02/05/19 23:59 11:59 23:59 Intake Total 600 1200 Output Total 400 Balance 200 1200 Intake: IV 1200 D5-1/2NS+10 MEQ KCL - 10 1200 meq In 1,000 ml @ 100 mls /hr IV ASDIR [facility] Rx#: [id number] Oral 600 Output: Urine 400 Void 400 Other: Voiding Method Diaper Incontinent # Unmeasured Voids Void 5 Bowel Movement Yes # Bowel Movements 1 Active Medications Aspirin (Ecotrin -) 81 mg PO DAILY [facility] Last Admin: 02/05/19 09:35 Dose: 81 mg Atorvastatin Calcium (Lipitor -) 10 mg PO HS [facility] Last Admin: 02/04/19 21:53 Dose: 10 mg Divalproex Sodium (Depakote *Er* -) 2,000 mg PO BID [facility] Last Admin: 02/05/19 09:34 Dose: 2,000 mg Docusate Sodium (Colace -) 100 mg PO DAILY [facility] Last Admin: 02/05/19 09:37 Dose: 100 mg Potassium Chloride/Dextrose/Sod Cl (D5-1/2ns+10 Meq Kcl -) 10 meq in 1,000 mls @ 100 mls/hr IV ASDIR [facility] Last Admin: 02/04/19 21:52 Dose: 100 mls/hr Ceftriaxone Sodium 1 gm/ (Dextrose) 50 mls @ 100 mls/hr IVPB DAILY [facility] Last Admin: 02/05/19 09:34 Dose: 100 mls/hr Levetiracetam (Keppra -) 1,500 mg PO BID [facility] Last Admin: 02/05/19 09:35 Dose: 1,500 mg Metoprolol Tartrate (Lopressor -) 25 mg PO BID [facility] Last Admin: 02/05/19 09:34 Dose: 25 mg Pantoprazole Sodium (Protonix -) 40 mg PO DAILY [facility] Last Admin: 02/05/19 09:34 Dose: 40 mg Tamsulosin HCl (Flomax -) 0.4 mg PO DAILY@0830 [facility] Last Admin: 02/05/19 09:30 Dose: 0.4 mg CBC, BMP 02/02/19 06:20 02/02/19 06:20 Physical Exam S1 S2 RRR Lungs clear Abd-soft, obese, NT no edema PLAN stable d/c empiric iv antibiotics and observe f/u labs d/c planning will follow Problem List - Problems (1) Breakthrough seizure Code(s): G40.919 - EPILEPSY, UNSP, INTRACTABLE, WITHOUT STATUS EPILEPTICUS (2) Elevated WBCs Code(s): D72.829 - ELEVATED WHITE BLOOD CELL COUNT, UNSPECIFIED (3) Seizure Code(s): R56.9 - UNSPECIFIED CONVULSIONS
[2019-02-05] MEDS: D5-1/2NS+10 MEQ KCL - 10 MEQ/1,000 ML INFUS.BAG IV SCH ×2 (15:37→21:36)
[2019-02-05] MEDS: ATORVASTATIN CA 10 MG TABLET (FP) PO SCH (21:36)
[2019-02-06 07:27] LABS: ALBUMIN 2.6 g/dl (3.4-5.0); BILIRUBIN,TOTAL 0.3 mg/dL (0.2-1); BLOOD UREA NITROGEN 13.1 mg/dL (7-18); CALCIUM 8.3 mg/dL (8.5-10.1); CREATININE 0.8 mg/dL (0.55-1.3); POTASSIUM 4.2 mmol/L (3.5-5.1); TOT PROT 6.4 g/dl (6.4-8.2)
[2019-02-06 07:39] LABS: BASO % 0.3 % (0-2.0); EOS % 0.6 % (0-4.5); HEMATOCRIT 36.3 % (35.4-49); HEMOGLOBIN 12.1 GM/dL (11.7-16.9); LYMPH % 52.7 % (8-40); MCH 31.7 pg (25.7-33.7); MCHC 33.3 g/dl (32.0-35.9); MEAN CELL VOLUME 95.2 fl (80-96); MEAN PLT VOLUME 9.2 fl (7.5-11.1); MONO % 9.7 % (3.8-10.2); NEUT % 36.7 % (42.8-82.8); RBC 3.81 M/mm3 (4.00-5.60); RDW 15.5 % (11.9-15.9); WHITE BLOOD COUNT 9.2 K/mm3 (4.0-10.0)
[2019-02-06] MEDS: TAMSULOSIN HCL 0.4 MG CAP PO SCH (08:24)
[2019-02-06 08:38] LABS: PLATELET COUNT 176 K/MM3 (134-434)
[2019-02-06] MEDS: PANTOPRAZOLE 40 MG TABLET (FP) PO SCH (09:57)
[2019-02-06] MEDS: DIVALPROEX NA *ER* EXTEND REL 500 MG TABLET.SA (FP) PO SCH ×2 (09:57→21:51)
[2019-02-06] MEDS: ASPIRIN COATED 81 MG TABLET.EC PO SCH (09:57)
[2019-02-06] MEDS: DOCUSATE SODIUM 100 MG CAPSULE (FP) PO SCH (09:57)
[2019-02-06] MEDS: METOPROLOL TARTRATE 25 MG TABLET (FP) PO SCH ×2 (09:57→21:51)
[2019-02-06] MEDS: levETIRAcetam 500 MG TABLET (FP) PO SCH ×2 (09:57→21:51)
--- NOTE | 2019-02-06 12:30 | PN ---
Progress Note (short form) - Note Progress Note: comfortable no further seizure activity afebrile no new issues Vital Signs Temp 98.4 F 02/06/19 08:21 Pulse 65 02/06/19 08:21 Resp 16 02/06/19 08:21 BP 108/80 02/06/19 08:21 Pulse Ox 97 02/06/19 08:21 Intake & Output 02/05/19 02/06/19 02/06/19 23:59 11:59 23:59 Intake Total 350 1100 Balance 350 1100 Intake: IV 1100 D5-1/2NS+10 MEQ KCL - 10 1100 meq In 1,000 ml @ 100 mls /hr IV ASDIR [facility] Rx#: [id number] Oral 350 Other: Voiding Method Diaper Urinal # Unmeasured Voids Void 3 Bowel Movement Yes No # Bowel Movements 1 Active Medications Aspirin (Ecotrin -) 81 mg PO DAILY [facility] Last Admin: 02/05/19 09:35 Dose: 81 mg Atorvastatin Calcium (Lipitor -) 10 mg PO HS [facility] Last Admin: 02/04/19 21:53 Dose: 10 mg Divalproex Sodium (Depakote *Er* -) 2,000 mg PO BID [facility] Last Admin: 02/05/19 09:34 Dose: 2,000 mg Docusate Sodium (Colace -) 100 mg PO DAILY [facility] Last Admin: 02/05/19 09:37 Dose: 100 mg Potassium Chloride/Dextrose/Sod Cl (D5-1/2ns+10 Meq Kcl -) 10 meq in 1,000 mls @ 100 mls/hr IV ASDIR [facility] Last Admin: 02/04/19 21:52 Dose: 100 mls/hr Ceftriaxone Sodium 1 gm/ (Dextrose) 50 mls @ 100 mls/hr IVPB DAILY [facility] Last Admin: 02/05/19 09:34 Dose: 100 mls/hr Levetiracetam (Keppra -) 1,500 mg PO BID [facility] Last Admin: 02/05/19 09:35 Dose: 1,500 mg Metoprolol Tartrate (Lopressor -) 25 mg PO BID [facility] Last Admin: 02/05/19 09:34 Dose: 25 mg Pantoprazole Sodium (Protonix -) 40 mg PO DAILY [facility] Last Admin: 02/05/19 09:34 Dose: 40 mg Tamsulosin HCl (Flomax -) 0.4 mg PO DAILY@0830 [facility] Last Admin: 02/05/19 09:30 Dose: 0.4 mg CBC, BMP 02/02/19 06:20 02/02/19 06:20 Physical Exam S1 S2 RRR Lungs clear Abd-soft, obese, NT no edema PLAN stable d/c planning may benefit from str discussed with nursing staff Called pts brother -- Trent -- Message left Problem List - Problems (1) Breakthrough seizure Code(s): G40.919 - EPILEPSY, UNSP, INTRACTABLE, WITHOUT STATUS EPILEPTICUS (2) Elevated WBCs Code(s): D72.829 - ELEVATED WHITE BLOOD CELL COUNT, UNSPECIFIED (3) Seizure Code(s): R56.9 - UNSPECIFIED CONVULSIONS
[2019-02-06] MEDS: ATORVASTATIN CA 10 MG TABLET (FP) PO SCH (21:51)
--- NOTE | 2019-02-07 10:36 | DS ---
Physical Examination Vital Signs: Vital Signs Temperature 97.8 F 02/07/19 01:58 Pulse Rate 74 02/07/19 01:58 Respiratory Rate 20 02/07/19 01:58 Blood Pressure 106/72 02/07/19 01:58 O2 Sat by Pulse Oximetry (%) 97 02/06/19 21:00 Findings/Remarks: Comfortable no further seizure activity Constitutional: Yes: No Distress, Calm Neck: Yes: Supple Cardiovascular: Yes: Regular Rate and Rhythm Respiratory: Yes: CTA Bilaterally Gastrointestinal: Yes: Soft Edema: No Neurological: Yes: Alert Labs: CBC, BMP 02/06/19 06:00 02/06/19 06:00 Discharge Summary Reason For Visit: SEIZURE DISORDER Current Active Problems Breakthrough seizure (Acute) Elevated WBCs (Acute) Hydrocephalus (Acute) Seizure (Acute) Hospital Course: Recurrent seizures stable now discussed with brother in detail today wants to take home only meds reconcilled Discussed with case consultant /RN Condition: Stable - Instructions Disposition: HOME - Home Medications Comprehensive Discharge Medication List: Ambulatory Orders Aspirin Coated [Ecotrin -] 81 mg PO DAILY #90 tab 12/16/16 Metoprolol Tartrate [Lopressor -] 25 mg PO BID #60 tablet 12/16/16 Pantoprazole Sodium [Protonix -] 40 mg PO DAILY tablet.ec 08/07/17 Tamsulosin HCl [Flomax -] 0.4 mg PO 1900 08/12/17 Simvastatin 20 mg PO DAILY 04/16/18 Divalproex *ER* [Depakote *ER* -] 2,000 mg PO BID #30 tablet.sa 08/31/18 Docusate Sodium [Colace] 100 mg PO DAILY 01/27/19 levETIRAcetam [Keppra -] 1,500 mg PO BID #60 tablet 02/01/19 levETIRAcetam [Keppra -] 1,500 mg PO BID #84 tablet 02/01/19
[2019-02-07] MEDS: TAMSULOSIN HCL 0.4 MG CAP PO SCH (11:04)
[2019-02-07] MEDS: PANTOPRAZOLE 40 MG TABLET (FP) PO SCH (11:04)
[2019-02-07] MEDS: ASPIRIN COATED 81 MG TABLET.EC PO SCH (11:05)
[2019-02-07] MEDS: METOPROLOL TARTRATE 25 MG TABLET (FP) PO SCH (11:05)
[2019-02-07] MEDS: DOCUSATE SODIUM 100 MG CAPSULE (FP) PO SCH (11:05)
[2019-02-07] MEDS: levETIRAcetam 500 MG TABLET (FP) PO SCH (11:05)
[2019-02-07] MEDS ORDERED: PT OWN MED DRAWER 7, Y5N ONE (14:57)
[2019-02-07] MEDS: DIVALPROEX NA *ER* EXTEND REL 500 MG TABLET.SA (FP) PO SCH (15:06)
[2019-02-07] MEDS ORDERED: BUPIVACAINE HCL/PF 0.5% (5MG/ML) 10 ML VIAL ONE (15:09)
[2019-02-07 15:51] VITALS: BP 129/81; PULSE 66; TEMP 98.1
== END 2019-02-07 17:15 | disposition home or self-care (01) | DRG 101 ==
LOC: JER 16:38 → JERBED 20:05 → J4W 02-02 03:13
PROVIDERS: ADMIT Internal Medicine; ATTEND Internal Medicine
DX: G40.909 Epilepsy, unspecified, not intractable, without status epilepticus (principal); I10 Essential (primary) hypertension; K21.9 Gastro-esophageal reflux disease without esophagitis; Z98.2 Presence of cerebrospinal fluid drainage device; E78.5 Hyperlipidemia, unspecified; G93.89 Other specified disorders of brain
CPT/HCPCS: 36415; 71045-TC-FY; 71260-TC; 80053; 81003; 82962; 85025; 85610; 85730; 93005; 93010; 97116-GP; 97161-GP; 99285-25

== ENCOUNTER 2019-05-26 21:30 | Inpatient (IN) | payer OTHER ==
[2019-05-26] MEDS ORDERED: LORazepam 2 MG/ML SDV VIAL ONE ×2 (22:01→22:31)
--- NOTE | 2019-05-26 22:10 | PDOC ---
History of Present Illness - General Chief Complaint: Seizure Stated Complaint: SEIZURE Time Seen by Provider: 05/26/19 21:46 History Source: EMS Exam Limitations: Clinical Condition - History of Present Illness Initial Comments: 05/26/19 22:02 54 yo M PMH hydrocephalus s/p B/L frontotemporal craniotomies, HTN, GERD and seizure disorder, BIBEMS for seizure. Reportedly was actively seizing when EMS arrived, was given Versed 5 mg in the field. According to brother, has been compliant with all of his medications. Patient is able at baseline to repeat his own name. Currently non-verbal. Unable to assess ROS. Brother does not know whether patient has ever had Manjeet's paralysis. Past History - Past Medical History Allergies/Adverse Reactions: Allergies Allergy/AdvReac Type Severity Reaction Status Date / Time No Known Drug Allergies Allergy Verified 05/26/19 22:35 Home Medications: Ambulatory Orders Aspirin Coated [Ecotrin -] 81 mg PO DAILY #90 tab 12/16/16 Metoprolol Tartrate [Lopressor -] 25 mg PO BID #60 tablet 12/16/16 Pantoprazole Sodium [Protonix -] 40 mg PO DAILY tablet.ec 08/07/17 Tamsulosin HCl [Flomax -] 0.4 mg PO 1900 08/12/17 Simvastatin 20 mg PO DAILY 04/16/18 Divalproex *ER* [Depakote *ER* -] 2,000 mg PO BID #30 tablet.sa 08/31/18 Docusate Sodium [Colace] 100 mg PO DAILY 01/27/19 levETIRAcetam [Keppra -] 1,500 mg PO BID #60 tablet 02/01/19 levETIRAcetam [Keppra -] 1,500 mg PO BID #84 tablet 02/01/19 Anemia: No Asthma: No Cancer: No Cardiac Disorders: No CVA: No COPD: No CHF: No DVT: No Dementia: No Diabetes: No Dialysis: No GI Disorders: Yes (GERD) Disorders: No HTN: Yes Hypercholesterolemia: Yes Kidney Stones: No Liver Disease: No Psychiatric Problems: Yes Seizures: Yes Thyroid Disease: No Other medical history: TBI - Surgical History Abdominal Surgery: No Appendectomy: No Cardiac Surgery: No Cholecystectomy: No Lung Surgery: No Neurologic Surgery: Yes (Congenital hydrocephalus w multiple shunts) Orthopedic Surgery: No - Immunization History Immunization Up to Date: Yes - Psycho Social/Smoking Cessation Hx Smoking Status: No Smoking History: Never smoked Have you smoked in the past 12 months: No Number of Cigarettes Smoked Daily: 0 Cigars Per Day: 0 Hx Alcohol Use: No Drug/Substance Use Hx: No Substance Use Type: None Hx Substance Use Treatment: No Review of Systems - Review of Systems Able to Perform ROS?: No (non-verbal) *Physical Exam - Vital Signs Last Vital Signs Temp Pulse Resp BP Pulse Ox 98.5 F 75 18 112/84 98 05/26/19 21:33 05/26/19 21:52 05/26/19 21:52 05/26/19 21:52 05/26/19 21:52 - Physical Exam Comments: 05/26/19 22:06 Gen: appears in distress, nonrebreather at 6L, smells of urine Neuro: uncooperative, EOMI, PERRLA, not moving R arm, moving other limbs spontaneously. Having breakthrough seizures during examination, also while on CT scanning table. HEENT: atraumatic, normocephalic Neck: trachea midline, supple CV: regular rate, regular rhythm Pulm: CTA b/l, no wheezing Abd: soft, non-distended, non-tender Extr: no edema, no deformities MSK: normal musculature, intact pulses Skin: warm, dry ED Treatment Course - LABORATORY CBC & Chemistry Diagram: 05/26/19 22:27 05/26/19 22:27 Medical Decision Making - Critical Care Time Total Critical Care Time (minutes): 45 Critical Care Statement: The care of this patient involved high complexity decision making to prevent further life threatening deterioration of the patient 's condition and/or to evaluate & treat vital organ system(s) failure or risk of failure. - Medical Decision Making 05/26/19 22:30 Patient with hx of seizures, on Keppra and valproic acid, here with breakthrough seizures. - CBC, CMP - EKG sinus at 70 bpm - concern for acute stroke vs Manjeet's paralysis, as patient is not moving his R arm - lactate, coags - valproic acid and levitiracetam levels - admit, consult neuro 05/26/19 23:[address] Johnson's answering service, will await call back 05/27/19 00:[address] Johnson, will get add-on Mg, f/u anti-seizure medication levels, f/u UA/UC results, f/u CXR results, f/u CT head results. Spoke with admitting team, will plan to be admitted after CT head is read. Discharge - Discharge Information Problems reviewed: Yes Clinical Impression/Diagnosis: Seizure Condition: Guarded - Admission Yes - Follow up/Referral Referrals: Ailyn Maedows MD [Primary Care Provider] - - Patient Discharge Instructions - Post Discharge Activity
[2019-05-26] MEDS ORDERED: SODIUM CHLORIDE 0.9% 1000 ML INFUS.BAG IV ONE (22:15)
[2019-05-26] MEDS ORDERED: levETIRAcetam 500 MG/5 ML INJECTION VIAL IVPB ONE ×2 (22:25→22:30)
[2019-05-26] MEDS ORDERED: VALPROATE SODIUM 500 MG/5 ML VIAL IVPB ONE (22:25)
[2019-05-26] MEDS ORDERED: VALPROATE SODIUM 500 MG/5 ML VIAL ONE (22:30)
--- NOTE | 2019-05-26 22:32 | PDOC ---
Documentation entered by Madi Christopher SCRIBE, acting as scribe for Virgen Gutierrez DO. Virgen Gutierrez DO: This documentation has been prepared by the Ashwin mallory Daniel, SCRIBE, under my direction and personally reviewed by me in its entirety. I confirm that the documentation accurately reflects all work, treatment, procedures, and medical decision making performed by me. Attending Attestation - Resident Resident Name: Natasha Moon - ED Attending Attestation I have performed the following: I have examined & evaluated the patient, The case was reviewed & discussed with the resident, I agree w/resident's findings & plan, Exceptions are as noted - HPI HPI: 05/26/19 22:03 The patient is a 54 year old male with a past medical history of hydrocephalus s /p B/L frontotemporal craniotomies, HTN, GERD and seizure disorder brought in today by EMS for evaluation of seizure. Patient is unresponsive and nonverbal in bed. As per brother at bedside the patient did not take his night time dose of his depakote. Allergies: NKDA - Physicial Exam PE: 05/26/19 22:17 Constitutional: Awake. No acute distress. Head: Normocephalic. Atraumatic Eyes: PERRL. EOMI. Conjunctivae are not pale. Right lateral gaze. ENT: Mucous membranes are moist and intact. Posterior pharynx without exudates or erythema. Uvula midline. Neck: Supple. Full ROM. No lymphadenopathy. Cardiovascular: Regular rate. Regular rhythm. S1, S2 regular. Distal pulses are 2+ and symmetric. Pulmonary/Chest: No evidence of respiratory distress. Clear to auscultation bilaterally No wheezing, rales or rhonchi. Abdominal: Soft and non-distended. There is no tenderness. No rebound, guarding or rigidity. No organomegaly. No palpable masses. Good bowel sounds. Back: No CVA tenderness. Musculoskeletal: No edema. No cyanosis. No clubbing. No calf tenderness. Radial/pedal pulses are intact and 2+ bilaterally Skin: Skin is warm and dry. No petechiae. No purpura. Neurological: Nonverbal. Able to follow some commands. Paralysis of right side. Able to lift left arm and bend left knee. Tremor right lower face. - Critical Care Time Total Critical Care Time: 45 Critical Care Statement: The care of this patient involved high complexity decision making to prevent further life threatening deterioration of the patient 's condition and/or to evaluate & treat vital organ system(s) failure or risk of failure. - Medical Decision Making 05/26/19 22:27 I, Dr. Virgen Gutierrez, DO, attest that this document has been prepared under my direction and personally reviewed by me in its entirety. I further attest, that it accurately reflects all work, treatment, procedures and medical decision -making performed by me. a/p: 54yo male with hx of seizures on depakote and keppra with seizure tonight -pt received valium via ems [facility] -upon my exam pt with active seizure activity - R sided gaze, R lip twitching -pt with flaccid RUE and RLE - concern for cva vs todds paralysis -pt with active seizure in the ER and given ativan -after ativan, pt will follow commands on LUE and LLE, no movement on R side -dr. arce is neuro -pmd dr bailey [facility] -will send labs, ekg, head ct, cxr -POC glucose 05/26/19 22:29 brother Trent (POA) at the bedside, states was at usual state of health, no complaints today -states did not have his nighttime dose of keppra or depakote -no dose changes since last admission depakote 2g bid and keppra 1500mg bid bg 119 states pt has not missed any doses of meds other than tonight when he had a seizure prior to taking meds seizure started at eye twitching and R lateral gaze and then tonic clonic with loss of control of urine 05/26/19 22:49 no elevated wbc lactate 2.7 ivf hydration running, elevated lactate from seizure activity 05/26/19 23:51 pt with another seizure in CT-received iv ativan in CT concern for status epilepticus - call placed to Dr. Arce and to [facility] for admission 05/27/19 00:07 resident discussed the case with Dr Arce who will see patient in consult 05/27/19 00:40 no new acute findings on ct microblog sent to [facility] to update on findings 05/27/19 00:[address] FINDINGS: Status post left frontal craniotomy. Underlying left frontal encephalomalacia present previously. Status post right frontal craniotomy. Status post right temporal craniotomy with underlying right anterior temporal encephalomalacia. Status post left temporal craniotomy with underlying encephalomalacia. No acute abnormalities are identified. No hemorrhage. No visible acute infarct. Osseous structures are intact 05/27/19 01:22 case discussed with [facility] who accepts pt to dr. tyesha meadows Heart Score/ECG Review - ECG Intrepretation Comment:: 05/26/19 23:46 sinus at 70, nl axis, nl interval, no acute st/t wave findings
[2019-05-26 22:36] LABS: BASO % 0.3 % (0-2.0); EOS % 0.3 % (0-4.5); HEMATOCRIT 40.2 % (35.4-49); HEMOGLOBIN 13.3 GM/dL (11.7-16.9); LYMPH % 45.3 % (8-40); MCHC 33.1 g/dl (32.0-35.9); MEAN CELL VOLUME 93.7 fl (80-96); MEAN PLT VOLUME 8.8 fl (7.5-11.1); MONO % 10.6 % (3.8-10.2); NEUT % 43.5 % (42.8-82.8); PLATELET COUNT 147 K/MM3 (134-434); RBC 4.29 M/mm3 (4.00-5.60); RDW 15.4 % (11.9-15.9); WHITE BLOOD COUNT 9.8 K/mm3 (4.0-10.0)
[2019-05-26 22:38] LABS: VENOUS PC02 41.7 mmHg (38-52)
[2019-05-26 22:39] LABS: VENOUS PO2 < 49 mmHg (28-48)
[2019-05-26 22:48] LABS: INR 1.07 (0.83-1.09); PROTHROMBIN TIME (PATIENT) 12.6 SEC (9.7-13.0)
[2019-05-26 22:51] LABS: ACTIVATED PTT 37.3 SECONDS (25.2-36.5)
[2019-05-26 23:03] LABS: ALBUMIN 3.1 g/dl (3.4-5.0); BILIRUBIN,TOTAL 0.3 mg/dL (0.2-1); BLOOD UREA NITROGEN 24.4 mg/dL (7-18); CALCIUM 8.7 mg/dL (8.5-10.1); CREATININE 1.1 mg/dL (0.55-1.3); POTASSIUM 4.1 mmol/L (3.5-5.1); TOT PROT 7.9 g/dl (6.4-8.2)
[2019-05-26] MEDS ORDERED: CEFTRIAXONE 1 GM/50 ML BAG ONE (23:47)
[2019-05-26] MEDS ORDERED: CEFEPIME 1 GM/100 ML BAG IVPB ONE (23:47)
[2019-05-27 00:34] LABS: MAGNESIUM 1.9 mg/dL (1.8-2.4)
[2019-05-27] MEDS ORDERED: SODIUM CHLORIDE 0.9% 1000 ML INFUS.BAG IV ONE (01:23)
--- NOTE | 2019-05-27 01:34 | HP ---
Admitting History and Physical - Primary Care Physician PCP: Ailyn Meadows - Admission Chief Complaint: Seizure Activity History of Present Illness: This is a 54 y/o man with a significant history of Seizure Disorder, HTN, HLD, GERD, Multiple Shunts for Cogenital Hydrocephalus, Encephalomalacia, last admission 02/01/19-02/07/19- Seizure Disorder. Who presents to ED for seizure activity, per the pts brother. The reports that the patient missed his Depakote med last night, but he is compliant with his medications. Patient had another episode of seizure activity in the ED, he was given Ativan, Keppra and Depakote. Patient is post tictal unable to provide HPI. Patient will be admitted to Telemetry. ED course was noted for: (1) (2) (3) History Source: Family Member Limitations to Obtaining History: Clinical Condition - Past Medical History [employer]: Yes: Seizure Cardiovascular: Yes: HTN, Hyperlipdemia Pulmonary: Yes: Pneumonia Psych: Yes: Depression - Smoking History Smoking history: Never smoked Have you smoked in the past 12 months: No Aproximately how many cigarettes per day: 0 - Alcohol/Substance Use Hx Alcohol Use: No - Social History Usual Living Arrangement: Yes: [facility] ADL: Family Assistance History of Recent Travel: No Home Medications - Allergies Allergies/Adverse Reactions: Allergies Allergy/AdvReac Type Severity Reaction Status Date / Time No Known Drug Allergies Allergy Verified 05/26/19 22:35 - Home Medications Home Medications: Ambulatory Orders Aspirin Coated [Ecotrin -] 81 mg PO DAILY #90 tab 12/16/16 Metoprolol Tartrate [Lopressor -] 25 mg PO BID #60 tablet 12/16/16 Pantoprazole Sodium [Protonix -] 40 mg PO DAILY tablet.ec 08/07/17 Tamsulosin HCl [Flomax -] 0.4 mg PO 1900 08/12/17 Simvastatin 20 mg PO DAILY 04/16/18 Divalproex *ER* [Depakote *ER* -] 2,000 mg PO BID #30 tablet.sa 08/31/18 Docusate Sodium [Colace] 100 mg PO DAILY 01/27/19 levETIRAcetam [Keppra -] 1,500 mg PO BID #60 tablet 02/01/19 levETIRAcetam [Keppra -] 1,500 mg PO BID #84 tablet 02/01/19 Family Medical History Family History: Unable to Obtain Review of Systems Unable to obtain ROS, reason: Clinical Condition Physical Examination Vital Signs: Vital Signs Temperature 98.5 F 05/26/19 21:33 Pulse Rate 75 05/26/19 21:52 Respiratory Rate 18 05/26/19 21:52 Blood Pressure 112/84 05/26/19 21:52 O2 Sat by Pulse Oximetry (%) 98 05/26/19 21:52 Constitutional: Yes: No Distress, Calm, Other (post tictal) Eyes: Yes: WNL, Conjunctiva Clear, EOM Intact, PERRL HENT: Yes: WNL, Atraumatic, Normocephalic Neck: Yes: WNL, Supple, Trachea Midline Cardiovascular: Yes: WNL, Regular Rate and Rhythm, S1, S2 Respiratory: Yes: WNL, Regular, CTA Bilaterally Gastrointestinal: Yes: WNL, Normal Bowel Sounds, Soft Renal/: Yes: Incontinence Breast(s): Yes: WNL Musculoskeletal: Yes: WNL Extremities: Yes: WNL Edema: No Peripheral Pulses WNL: Yes Neurological: Yes: Lethargy (post tictal) Labs: CBC, BMP 05/26/19 22:27 05/26/19 22:27 Laboratory Results - last 24 hr 05/26/19 05/26/19 05/26/19 22:07 22:12 22:23 WBC RBC Hgb Hct MCV MCH MCHC RDW Plt Count MPV Absolute Neuts (auto) Neutrophils % Lymphocytes % Monocytes % Eosinophils % Basophils % Nucleated RBC % PT with INR INR PTT (Actin FS) VBG pH POC VBG pCO2 POC VBG pO2 VBG HCO3 VBG O2 Sat (Zohra) VBG Base Excess Sodium Potassium Chloride Carbon Dioxide Anion Gap BUN Creatinine Est GFR (CKD-EPI)AfAm Est GFR (CKD-EPI)NonAf POC Glucometer 101 119 Random Glucose Lactic Acid 2.7 H* Calcium Magnesium Total Bilirubin AST ALT Alkaline Phosphatase Total Protein Albumin Urine Color Urine Appearance Urine pH Ur Specific [place] Urine Protein Urine Glucose (UA) Urine Ketones Urine Blood Urine Nitrite Urine Bilirubin Urine Urobilinogen Ur Leukocyte Esterase Urine WBC (Auto) Urine RBC (Auto) Urine Casts (Auto) U Epithel Cells (Auto) Urine Bacteria (Auto) Opiates Screen Methadone Screen Barbiturate Screen Valproic Acid Phencyclidine Screen Ur Amphetamines Screen MDMA (Ecstasy) Screen Benzodiazepines Screen Cocaine Screen U Marijuana (THC) Screen 05/26/19 05/26/19 05/26/19 22:27 22:27 22:27 WBC 9.8 RBC 4.29 Hgb 13.3 Hct 40.2 MCV 93.7 MCH 31.0 MCHC 33.1 RDW 15.4 Plt Count 147 MPV 8.8 Absolute Neuts (auto) 4.3 Neutrophils % 43.5 Lymphocytes % 45.3 H Monocytes % 10.6 H Eosinophils % 0.3 Basophils % 0.3 Nucleated RBC % 0 PT with INR INR PTT (Actin FS) Cancelled VBG pH POC VBG pCO2 POC VBG pO2 VBG HCO3 VBG O2 Sat (Zohra) VBG Base Excess Sodium 140 Potassium 4.1 Chloride 105 Carbon Dioxide 28 Anion Gap 7 L BUN 24.4 H Creatinine 1.1 Est GFR (CKD-EPI)AfAm 87.13 Est GFR (CKD-EPI)NonAf 75.17 POC Glucometer Random Glucose 101 Lactic Acid Calcium 8.7 Magnesium 1.9 Total Bilirubin 0.3 AST 20 ALT 19 Alkaline Phosphatase 89 Total Protein 7.9 Albumin 3.1 L Urine Color Urine Appearance Urine pH Ur Specific [place] Urine Protein Urine Glucose (UA) Urine Ketones Urine Blood Urine Nitrite Urine Bilirubin Urine Urobilinogen Ur Leukocyte Esterase Urine WBC (Auto) Urine RBC (Auto) Urine Casts (Auto) U Epithel Cells (Auto) Urine Bacteria (Auto) Opiates Screen Methadone Screen Barbiturate Screen Valproic Acid Phencyclidine Screen Ur Amphetamines Screen MDMA (Ecstasy) Screen Benzodiazepines Screen Cocaine Screen U Marijuana (THC) Screen 05/26/19 05/26/19 05/26/19 22:27 22:27 22:27 WBC RBC Hgb Hct MCV MCH MCHC RDW Plt Count MPV Absolute Neuts (auto) Neutrophils % Lymphocytes % Monocytes % Eosinophils % Basophils % Nucleated RBC % PT with INR 12.60 INR 1.07 PTT (Actin FS) 37.3 H VBG pH 7.40 POC VBG pCO2 41.7 POC VBG pO2 < 49 H VBG HCO3 25.2 VBG O2 Sat (Zohra) 56.8 L VBG Base Excess 0.8 Sodium Potassium Chloride Carbon Dioxide Anion Gap BUN Creatinine Est GFR (CKD-EPI)AfAm Est GFR (CKD-EPI)NonAf POC Glucometer Random Glucose Lactic Acid Calcium Magnesium Total Bilirubin AST ALT Alkaline Phosphatase Total Protein Albumin Urine Color Urine Appearance Urine pH Ur Specific [place] Urine Protein Urine Glucose (UA) Urine Ketones Urine Blood Urine Nitrite Urine Bilirubin Urine Urobilinogen Ur Leukocyte Esterase Urine WBC (Auto) Urine RBC (Auto) Urine Casts (Auto) U Epithel Cells (Auto) Urine Bacteria (Auto) Opiates Screen Methadone Screen Barbiturate Screen Valproic Acid 54.4 Phencyclidine Screen Ur Amphetamines Screen MDMA (Ecstasy) Screen Benzodiazepines Screen Cocaine Screen U Marijuana (THC) Screen 05/27/19 05/27/19 05/27/19 00:32 01:44 02:06 WBC RBC Hgb Hct MCV MCH MCHC RDW Plt Count MPV Absolute Neuts (auto) Neutrophils % Lymphocytes % Monocytes % Eosinophils % Basophils % Nucleated RBC % PT with INR INR PTT (Actin FS) VBG pH POC VBG pCO2 POC VBG pO2 VBG HCO3 VBG O2 Sat (Zohra) VBG Base Excess Sodium Potassium Chloride Carbon Dioxide Anion Gap BUN Creatinine Est GFR (CKD-EPI)AfAm Est GFR (CKD-EPI)NonAf POC Glucometer Random Glucose Lactic Acid 2.9 H* Calcium Magnesium Total Bilirubin AST ALT Alkaline Phosphatase Total Protein Albumin Urine Color Yellow Urine Appearance Clear Urine pH 5.5 Ur Specific [place] 1.025 Urine Protein Negative Urine Glucose (UA) Negative Urine Ketones Negative Urine Blood Negative Urine Nitrite Negative Urine Bilirubin Negative Urine Urobilinogen 1.0 Ur Leukocyte Esterase 1+ H Urine WBC (Auto) 12 Urine RBC (Auto) 1 Urine Casts (Auto) 16 U Epithel Cells (Auto) 3.7 Urine Bacteria (Auto) 2.4 Opiates Screen Negative Methadone Screen Negative Barbiturate Screen Negative Valproic Acid Phencyclidine Screen Negative Ur Amphetamines Screen Negative MDMA (Ecstasy) Screen Negative Benzodiazepines Screen Positive A* Cocaine Screen Negative U Marijuana (THC) Screen Negative 05/27/19 02:06 WBC RBC Hgb Hct MCV MCH MCHC RDW Plt Count MPV Absolute Neuts (auto) Neutrophils % Lymphocytes % Monocytes % Eosinophils % Basophils % Nucleated RBC % PT with INR INR PTT (Actin FS) VBG pH POC VBG pCO2 POC VBG pO2 VBG HCO3 VBG O2 Sat (Zohra) VBG Base Excess Sodium Potassium Chloride Carbon Dioxide Anion Gap BUN Creatinine Est GFR (CKD-EPI)AfAm Est GFR (CKD-EPI)NonAf POC Glucometer Random Glucose Lactic Acid Calcium Magnesium 1.8 Total Bilirubin AST ALT Alkaline Phosphatase Total Protein Albumin Urine Color Urine Appearance Urine pH Ur Specific [place] Urine Protein Urine Glucose (UA) Urine Ketones Urine Blood Urine Nitrite Urine Bilirubin Urine Urobilinogen Ur Leukocyte Esterase Urine WBC (Auto) Urine RBC (Auto) Urine Casts (Auto) U Epithel Cells (Auto) Urine Bacteria (Auto) Opiates Screen Methadone Screen Barbiturate Screen Valproic Acid Phencyclidine Screen Ur Amphetamines Screen MDMA (Ecstasy) Screen Benzodiazepines Screen Cocaine Screen U Marijuana (THC) Screen Intake & Output 05/24/19 05/25/19 05/26/19 05/27/19 23:59 23:59 23:59 23:59 Weight 72.575 kg Current Medications Generic Name Dose Route Start Last Admin Trade Name Freq PRN Reason Stop Dose Admin Heparin Sodium (Porcine) 5,000 unit 05/27/19 10:00 Heparin - SQ BID MATTHEW Dextrose/Sodium Chloride 1,000 mls @ 75 mls/hr 05/27/19 04:15 D5-1/2ns - IV ASDIR MATTHEW Levetiracetam 1,500 mg 05/27/19 10:00 Keppra Injection - IVPB BID MATTHEW Valproate Sodium 2,000 mg 05/27/19 10:00 Depacon Injection - IVPB BID MATTHEW Imaging - Results Chest X-ray: Image Reviewed Cat Scan: Image Reviewed EKG: Image Reviewed Problem List - Problems (1) Status epilepticus Assessment/Plan: Prior admissions for same Appreciate Neurology consult Head CT- no acute ICH NPO O2 Mg 1.9 Seizure Precautions Fall Precautions Code(s): G40.901 - EPILEPSY, UNSP, NOT INTRACTABLE, WITH STATUS EPILEPTICUS (2) Anemia Assessment/Plan: stable Hgb 13.3 Will transfuse if Hgb < 7 Monitor CBC Code(s): D64.9 - ANEMIA, UNSPECIFIED (3) Hyperlipidemia Assessment/Plan: stable Hold med, until patient is alert and can swallow Code(s): E78.5 - HYPERLIPIDEMIA, UNSPECIFIED Qualifiers: (4) HTN (hypertension) Assessment/Plan: stable Monitor BP Will continue PO med when patient is alert Code(s): I10 - ESSENTIAL (PRIMARY) HYPERTENSION Assessment/Plan This is a 54 y/o man with a PMHx of Seizure Disorder, HTN, HLD, HTN, Multiple Shunts for Cogenital Hydrocephalus, Encephalomalacia, last admission 02/01/19-- Seizure Disorder. Admitted to Telemetry for Status Epilepticus for further evaluation of their emergent condition Plan: See Problem List FEN NS@75ml/hr Replete lytes prn NPO DVT ppx OOB SCDs Heparin SQ Dispo: Requires Inpatient Care Visit type - Emergency Visit Emergency Visit: Yes ED Registration Date: 05/26/19 Care time: The patient presented to the Emergency Department on the above date and was hospitalized for further evaluation of their emergent condition. - New Patient This patient is new to me today: Yes Date on this admission: 05/27/19 - Critical Care Critical Care patient: No
[2019-05-27 02:20] LABS: EPI CELLS 3.7 /HPF (0-5/HPF); HYALINE CASTS 16 /lpf (0-8); PH,URINE 5.5 (5.0-8.0); URINE APPEARANCE CLEAR; URINE BACTERIA 2.4 /hpf (NEGATIVE); URINE BILIRUBIN NEGATIVE (NEGATIVE); URINE COLOR YELLOW; URINE GLUCOSE (UA) NEGATIVE (NEGATIVE); URINE KETONE NEGATIVE (NEGATIVE); URINE LEUK ESTERASE 1+ (NEGATIVE); URINE NITRITE NEGATIVE (NEGATIVE); URINE PROTEIN NEGATIVE (NEGATIVE); URINE RBC 1 /hpf (0-4); URINE WBC 12 /hpf (0-5)
[2019-05-27 04:54] LABS: COCAINE, UR NEGATIVE ng/ml (CUTOFF=300); METHADONE, UR NEGATIVE ng/ml (CUTOFF=300); OPIATES, URI NEGATIVE ng/ml (CUTOFF=300); PHENCYCLIDINE,URINE NEGATIVE ng/ml (CUTOFF=25); URINE AMPHETAMINES NEGATIVE ng/ml (CUTOFF=500); URINE BARBITURATES NEGATIVE ng/ml (CUTOFF=200)
[2019-05-27 04:56] LABS: URINE BENZODIAZEPINES POSITIVE ng/ml (CUTOFF=200)
[2019-05-27 07:48] VITALS: BMI 29.9
--- NOTE | 2019-05-27 10:11 | CONSULT ---
Consult - text type - Consultation Consultation Note: NEUROLOGY CONSULT GREATLY APPRECIATED: Events reviewed and discussed with Dr. Moon in the ED last night. Patient examined with nursing staff at the bedside. IV attempted multiple times and infiltrated per staff. Currently NPO. This 53 yo man lives at home with his brother who supervises meds. Well-known to me with chronic seizure disorder after childhood brain surgery and stable, chronic scar tissue (encephalomalacia on serial CT and MRI scans). Recently admitted for seizures but brother may not have given nighttime dose of Depakote. Not readmitted with recurrence of partial seizure (Patient becomes poorly responsive and eye gaze to the left). These are frequently associated with UTI. En route via EMS, given Versed and subsequently in ED given Ativan IM push with resolution of seizure. Also given Depakote 2000 mg IVP x 2 after level was available and Levetiracetam 1500 mg IVP x 1 in ED. PT currently on Depakote IVPB 2 grams q12H and Leveteracitam 1500 mg IVP. WBC= 9.8K UA WBC= 12 UC pending. VPA= 54.4 ug%. YOLY: B/L frontotem[poral craniotomies. NEURO: Awake, sparse sl dysarthric speech. Can make simple needs known by nodding or saying "Yes/No." Moderate static encephalopathy. Conjugate nystagmus on left gaze. Able to tolerate small sips H20. R hemiparesis arm > leg. Brisk reflexes. Withdraws to pinch L > R. Impression: Moderate B/L cerebral dysfunction s/p B/L brain surgeries with chronic B /L Encephalomalacia Chronic seizure disoder Possibly exacerbated by Toxic-Metabolic Encephalopathy Suggest: Await UC and Rx for UTI per ID Continue Depakote ER PO 2 gm q12H and levetiracetam 1500 mg po Q12H if no IV access (can be liquid form) Will check levetiracetam level as out patient if not available before D/C. Encourage OOB to chair with meals. Assist with feeds/hydration. Thank you very much, Sanya Johnson MD
--- NOTE | 2019-05-27 11:00 | PN ---
Progress Note (short form) - Note Progress Note: pt seen/ examined chart reviewed comfortable Vital Signs Temp 98.3 F 05/27/19 06:00 Pulse 75 05/27/19 10:44 Resp 20 05/27/19 10:44 BP 124/67 05/27/19 10:44 Pulse Ox 98 05/27/19 09:00 Intake & Output 05/26/19 05/26/19 05/27/19 11:59 23:59 11:59 Intake Total 50 Balance 50 Weight 160 lb 185 lb 3.2 oz Intake: IVPB 50 Other: Voiding Method Diaper Bowel Movement No Height 5 ft 6 in 5 ft 6 in Body Mass Index (BMI) 25.8 29.9 Weight Measurement Method Patient Lift Scale Active Medications Heparin Sodium (Porcine) (Heparin -) 5,000 unit SQ BID MATTHEW Dextrose/Sodium Chloride (D5-1/2ns -) 1,000 mls @ 75 mls/hr IV ASDIR MATTHEW Levetiracetam (Keppra Injection -) 1,500 mg IVPB BID MATTHEW Valproate Sodium (Depacon Injection -) 2,000 mg IVPB BID MATTHEW CBC, BMP 05/26/19 22:27 05/26/19 22:27 Physical Examination Constitutional: Yes: No Distress, Calm, Other (post tictal) Eyes: Yes: WNL, Conjunctiva Clear, EOM Intact, PERRLA HENT: Yes: WNL, Atraumatic, Normocephalic Neck: Yes: WNL, Supple, Trachea Midline Cardiovascular: Yes: WNL, Regular Rate and Rhythm, S1, S2 Respiratory: Yes: WNL, Regular, CTA Bilaterally Gastrointestinal: Yes: WNL, Normal Bowel Sounds, Soft Renal/: Yes: Incontinence Breast(s): Yes: WNL Musculoskeletal: Yes: WNL Extremities: Yes: WNL Edema: No Peripheral Pulses WNL: Yes Neurological: Yes: Lethargy (post tictal) A/p Monitor for seizure continue meds neuro consult noted will follow Problem List - Problems (1) Seizure Code(s): R56.9 - UNSPECIFIED CONVULSIONS (2) Breakthrough seizure Code(s): G40.919 - EPILEPSY, UNSP, INTRACTABLE, WITHOUT STATUS EPILEPTICUS (3) Hydrocephalus Code(s): G91.9 - HYDROCEPHALUS, UNSPECIFIED (4) Lactic acid blood increased Code(s): R79.89 - OTHER SPECIFIED ABNORMAL FINDINGS OF BLOOD CHEMISTRY (5) Post-ictal confusion Code(s): F05 - DELIRIUM DUE TO KNOWN PHYSIOLOGICAL CONDITION
[2019-05-27] MEDS: levETIRAcetam 500 MG/5 ML INJECTION VIAL IVPB SCH ×2 (11:20→21:20)
[2019-05-27] MEDS: VALPROATE SODIUM 500 MG/5 ML VIAL IVPB SCH ×2 (11:20→23:13)
[2019-05-27] MEDS: DEXTROSE 5%-0.45% SALINE 1,000 ML IV SCH ×2 (11:20→21:20)
--- NOTE | 2019-05-27 12:13 | EKG ---
Test Reason : Blood Pressure : / mmHG Vent. Rate : 070 BPM Atrial Rate : 070 BPM P-R Int : 132 ms QRS Dur : 070 ms QT Int : 404 ms P-R-T Axes : 056 019 064 degrees QTc Int : 436 ms POOR DATA QUALITY, INTERPRETATION MAY BE ADVERSELY AFFECTED NORMAL SINUS RHYTHM NORMAL ECG WHEN COMPARED WITH ECG OF 01-FEB-2019 16:47, PREMATURE VENTRICULAR COMPLEXES ARE NO LONGER PRESENT Confirmed by CLEMENTINE GARRIDO MD ([id number]) on 05/27/2019 12:13:00 PM Referred By: Confirmed By:CLEMENTINE GARRIDO MD
[2019-05-27] MEDS: HEPARIN NA (PORCINE) 5,000 UNITS/ML 1ML VIAL SQ SCH ×2 (12:19→21:20)
[2019-05-28] MEDS ORDERED: PT OWN MED DRAWER 7, Y5N ONE ×2 (08:48→20:48)
[2019-05-28] MEDS: levETIRAcetam 500 MG/5 ML INJECTION VIAL IVPB SCH ×2 (09:01→21:20)
[2019-05-28] MEDS: VALPROATE SODIUM 500 MG/5 ML VIAL IVPB SCH ×2 (09:07→21:26)
[2019-05-28] MEDS: HEPARIN NA (PORCINE) 5,000 UNITS/ML 1ML VIAL SQ SCH ×2 (09:08→21:21)
[2019-05-28] MEDS: DEXTROSE 5%-0.45% SALINE 1,000 ML IV SCH (09:08)
--- NOTE | 2019-05-28 12:33 | PN ---
Progress Note (short form) - Note Progress Note: Awake no distress no seizures no far Vital Signs - 24 hr 05/27/19 05/27/19 05/27/19 17:00 21:00 22:00 Temperature 97.4 F L 98.3 F Pulse Rate 88 62 Respiratory 20 20 Rate Blood Pressure 109/78 132/79 O2 Sat by Pulse 98 98 Oximetry (%) 05/28/19 05/28/19 05/28/19 01:00 05:00 07:33 Temperature 98.7 F 98.3 F Pulse Rate 55 L 60 Respiratory 20 18 18 Rate Blood Pressure 140/77 114/88 O2 Sat by Pulse 98 Oximetry (%) Current Medications Generic Name Dose Route Start Last Admin Trade Name Freq PRN Reason Stop Dose Admin Heparin Sodium (Porcine) 5,000 unit 05/27/19 10:00 05/28/19 09:08 Heparin - SQ 5,000 unit BID MATTHEW Administration Dextrose/Sodium Chloride 1,000 mls @ 75 mls/hr 05/27/19 04:15 05/28/19 09:08 D5-1/2ns - IV 75 mls/hr ASDIR MATTHEW Administration Levetiracetam 1,500 mg 05/27/19 10:00 05/28/19 09:01 Keppra Injection - IVPB 1,500 mg BID MATTHEW Administration Valproate Sodium 2,000 mg 05/27/19 10:00 05/28/19 09:07 Depacon Injection - IVPB 2,000 mg BID MATTHEW Administration S1 S2 RRR Lungs no rales or ronchi Abd -soft, obese. NT no edema PLAN IV fluids continue with seizure meds Urine cultures negative check labs in AM OOB does not appear to have infectious source Compliance is an issue Problem List - Problems (1) Seizure Code(s): R56.9 - UNSPECIFIED CONVULSIONS (2) Breakthrough seizure Code(s): G40.919 - EPILEPSY, UNSP, INTRACTABLE, WITHOUT STATUS EPILEPTICUS (3) HTN (hypertension) Code(s): I10 - ESSENTIAL (PRIMARY) HYPERTENSION (4) Hyperlipidemia Code(s): E78.5 - HYPERLIPIDEMIA, UNSPECIFIED Qualifiers:
[2019-05-29 07:09] LABS: ALBUMIN 2.9 g/dl (3.4-5.0); BILIRUBIN,TOTAL 0.3 mg/dL (0.2-1); BLOOD UREA NITROGEN 16.9 mg/dL (7-18); CALCIUM 8.4 mg/dL (8.5-10.1); CREATININE 1.1 mg/dL (0.55-1.3); POTASSIUM 3.7 mmol/L (3.5-5.1); TOT PROT 7.3 g/dl (6.4-8.2)
[2019-05-29 07:45] LABS: BASO % 0.5 % (0-2.0); EOS % 0.8 % (0-4.5); HEMATOCRIT 39.9 % (35.4-49); HEMOGLOBIN 13.1 GM/dL (11.7-16.9); LYMPH % 52.6 % (8-40); MCH 31.1 pg (25.7-33.7); MCHC 32.9 g/dl (32.0-35.9); MEAN CELL VOLUME 94.6 fl (80-96); MEAN PLT VOLUME 11.1 fl (7.5-11.1); MONO % 9.1 % (3.8-10.2); PLATELET COUNT 48 K/MM3 (134-434); RBC 4.22 M/mm3 (4.00-5.60); RDW 15.6 % (11.9-15.9); WHITE BLOOD COUNT 10.1 K/mm3 (4.0-10.0)
[2019-05-29] MEDS ORDERED: PT OWN MED DRAWER 7, Y5N ONE ×2 (08:32→20:52)
[2019-05-29] MEDS: HEPARIN NA (PORCINE) 5,000 UNITS/ML 1ML VIAL SQ SCH ×2 (09:27→21:09)
[2019-05-29] MEDS: DEXTROSE 5%-0.45% SALINE 1,000 ML IV SCH (09:27)
[2019-05-29] MEDS: VALPROATE SODIUM 500 MG/5 ML VIAL IVPB SCH (10:02)
--- NOTE | 2019-05-29 10:50 | PN ---
Progress Note (short form) - Note Progress Note: Awake no distress no seizures no far Vital Signs - 24 hr 05/28/19 05/28/19 05/28/19 18:00 20:51 21:00 Temperature 98.4 F 98.6 F Pulse Rate 67 69 Respiratory 18 18 18 Rate Blood Pressure 123/79 138/90 O2 Sat by Pulse 98 98 Oximetry (%) 05/29/19 05/29/19 05/29/19 02:00 06:00 08:09 Temperature 97.8 F 97.6 F Pulse Rate 58 L 53 L Respiratory 18 18 18 Rate Blood Pressure 138/89 133/66 O2 Sat by Pulse 98 Oximetry (%) 05/29/19 05/29/19 10:00 14:00 Temperature 97.8 F 98.8 F Pulse Rate 62 95 H Respiratory 18 20 Rate Blood Pressure 129/56 L 139/92 O2 Sat by Pulse Oximetry (%) Current Medications Generic Name Dose Route Start Last Admin Trade Name Freq PRN Reason Stop Dose Admin Aspirin 81 mg 05/30/19 10:00 Ecotrin - PO DAILY [facility] Atorvastatin Calcium 10 mg 05/29/19 22:00 Lipitor - PO HS AMTTHEW Divalproex Sodium 2,000 mg 05/29/19 22:00 Depakote - PO BID [facility] Docusate Sodium 100 mg 05/30/19 10:00 Colace - PO DAILY [facility] Heparin Sodium (Porcine) 5,000 unit 05/27/19 10:00 05/29/19 09:27 Heparin - SQ 5,000 unit BID MATTHEW Administration Levetiracetam 1,500 mg 05/29/19 22:00 Keppra - PO BID [facility] Metoprolol Tartrate 25 mg 05/29/19 22:00 Lopressor - PO BID [facility] Pantoprazole Sodium 40 mg 05/30/19 10:00 Protonix - PO DAILY [facility] Tamsulosin HCl 0.4 mg 05/29/19 19:00 Flomax - PO 1900 [facility] Laboratory Results - last 24 hr 05/29/19 05/29/19 05:15 05:15 WBC 10.1 H RBC 4.22 Hgb 13.1 Hct 39.9 MCV 94.6 MCH 31.1 MCHC 32.9 RDW 15.6 Plt Count 48 L D MPV 11.1 D Absolute Neuts (auto) 3.8 Neutrophils % 37.0 L Lymphocytes % 52.6 H Monocytes % 9.1 Eosinophils % 0.8 D Basophils % 0.5 Nucleated RBC % 0 Sodium 139 Potassium 3.7 Chloride 104 Carbon Dioxide 29 Anion Gap 7 L BUN 16.9 Creatinine 1.1 Est GFR (CKD-EPI)AfAm 87.13 Est GFR (CKD-EPI)NonAf 75.17 Random Glucose 79 Calcium 8.4 L Total Bilirubin 0.3 AST 24 ALT 21 Alkaline Phosphatase 83 Total Protein 7.3 Albumin 2.9 L S1 S2 RRR Lungs no rales or ronchi Abd -soft, obese. NT no edema PLAN IV fluids continue with seizure meds Urine cultures negative change seizure meds to PO Pt eval DC Planning OOB does not appear to have infectious source Compliance is an issue Problem List - Problems (1) Seizure Code(s): R56.9 - UNSPECIFIED CONVULSIONS (2) Breakthrough seizure Code(s): G40.919 - EPILEPSY, UNSP, INTRACTABLE, WITHOUT STATUS EPILEPTICUS (3) HTN (hypertension) Code(s): I10 - ESSENTIAL (PRIMARY) HYPERTENSION (4) Hyperlipidemia Code(s): E78.5 - HYPERLIPIDEMIA, UNSPECIFIED Qualifiers:
[2019-05-29] MEDS: levETIRAcetam 500 MG/5 ML INJECTION VIAL IVPB SCH (11:33)
[2019-05-29] MEDS ORDERED: TAMSULOSIN HCL 0.4 MG CAP PO SCH (19:00)
[2019-05-29] MEDS: DIVALPROEX SODIUM 500 MG TABLET E.C. PO SCH (21:09)
[2019-05-29] MEDS: levETIRAcetam 500 MG TABLET (FP) PO SCH (21:09)
[2019-05-29] MEDS: METOPROLOL TARTRATE 25 MG TABLET (FP) PO SCH (21:10)
[2019-05-29] MEDS ORDERED: ATORVASTATIN CA 10 MG TABLET (FP) PO SCH (22:00)
[2019-05-30] MEDS: levETIRAcetam 500 MG TABLET (FP) PO SCH (09:56)
[2019-05-30] MEDS: HEPARIN NA (PORCINE) 5,000 UNITS/ML 1ML VIAL SQ SCH (09:56)
[2019-05-30] MEDS: DIVALPROEX SODIUM 500 MG TABLET E.C. PO SCH (09:57)
[2019-05-30] MEDS: METOPROLOL TARTRATE 25 MG TABLET (FP) PO SCH (09:57)
[2019-05-30] MEDS ORDERED: DOCUSATE SODIUM 100 MG CAPSULE (FP) PO SCH (10:00)
[2019-05-30] MEDS ORDERED: PANTOPRAZOLE 40 MG TABLET (FP) PO SCH (10:00)
[2019-05-30] MEDS ORDERED: ASPIRIN COATED 81 MG TABLET.EC PO SCH (10:00)
--- NOTE | 2019-05-30 12:31 | DS ---
Physical Examination Vital Signs: Vital Signs Temperature 97.8 F 05/30/19 06:00 Pulse Rate 62 05/30/19 06:00 Respiratory Rate 20 05/30/19 06:00 Blood Pressure 118/82 05/30/19 06:00 O2 Sat by Pulse Oximetry (%) 97 05/29/19 21:00 Findings/Remarks: awake/ comfortable no distress chart reviewed no further seizure activity Constitutional: Yes: No Distress, Calm Eyes: Yes: Conjunctiva Clear HENT: Yes: Other (scars +) Neck: Yes: Supple Cardiovascular: Yes: Regular Rate and Rhythm Respiratory: Yes: CTA Bilaterally Gastrointestinal: Yes: Soft Edema: No Neurological: Yes: Alert Psychiatric: Yes: Alert Labs: CBC, BMP 05/29/19 05:15 05/29/19 05:15 Discharge Summary Problems reviewed: Yes Reason For Visit: STATUS EPILEPTICUS Current Active Problems Seizure (Acute) Hospital Course: Admitted for Recurrent seizure admitted to tele continue with meds u/c -ve neurology followed stable d/c home- family requesting to go home Meds reconcilled pt at risk for recurrent seizures despite meds changed many times Condition: Guarded - Instructions Disposition: HOME - Home Medications Comprehensive Discharge Medication List: Ambulatory Orders Metoprolol Tartrate [Lopressor -] 25 mg PO BID #60 tablet 12/16/16 Pantoprazole Sodium [Protonix -] 40 mg PO DAILY tablet.ec 08/07/17 Tamsulosin HCl [Flomax -] 0.4 mg PO 1900 08/12/17 Simvastatin 20 mg PO DAILY 04/16/18 Divalproex *ER* [Depakote *ER* -] 2,000 mg PO BID #30 tablet.sa 08/31/18 Docusate Sodium [Colace] 100 mg PO DAILY 01/27/19 levETIRAcetam [Keppra -] 1,500 mg PO BID #84 tablet 02/01/19
[2019-05-30 14:12] VITALS: BP 120/78; PULSE 71; TEMP 98
== END 2019-05-30 16:34 | disposition home or self-care (01) | DRG 100 ==
LOC: JER 21:30 → JERBED 23:46 → J4W 05-27 03:04
PROVIDERS: ADMIT Internal Medicine; ATTEND Internal Medicine
DX: G40.901 Epilepsy, unspecified, not intractable, with status epilepticus (principal); G93.41 Metabolic encephalopathy; F05 Delirium due to known physiological condition; I10 Essential (primary) hypertension; E78.5 Hyperlipidemia, unspecified; K21.9 Gastro-esophageal reflux disease without esophagitis; E78.00 Pure hypercholesterolemia, unspecified; Q03.9 Congenital hydrocephalus, unspecified; F32.9 Major depressive disorder, single episode, unspecified; D64.9 Anemia, unspecified; R79.89 Other specified abnormal findings of blood chemistry; G93.89 Other specified disorders of brain
CPT/HCPCS: 36415; 70450-TC; 71045-TC-FY; 80053; 80164; 80177; 80307; 81003; 82803; 82962; 83605; 83735; 85025; 85610; 85730; 87086; 93005; 93010; 99284-25; J1644; J7030